=== PATIENT | female | born 1945 | race Caucasian/White ===

== ENCOUNTER → 2017-02-15 | Outpatient (CLI) | payer MEDICARE, BC | END | disposition home or self-care (01) | LOC: LABWHC1 09:47 | PROVIDERS: ATTEND Psychiatry & Neurology Neurology | DX: M54.5 Low back pain (principal); M62.838 Other muscle spasm | CPT/HCPCS: 36415; 82306 ==

== ENCOUNTER 2017-09-05 14:41 | Emergency (ER) | payer MEDICARE, BC ==
[2017-09-05] MEDS ORDERED: DIPH,PERTUS(ACELL)TETVAC-LF 0.5 ML VIAL IM ONE (14:51)
--- NOTE | 2017-09-05 15:00 | ED ---
General Adult HPI - General Stated complaint: Fall, Head injury Time Seen by Provider: 09/05/17 14:42 Source: EMS, RN notes reviewed Mode of arrival: EMS Limitations: no limitations - History of Present Illness Initial comments: 72-year-old female presents to the emergency department with a chief complaint of trip and fall. She states she was carrying her groceries and she lost her balance and fell forward. Patient states that she hit her nose. There is no loss of consciousness. She states that her no surgical abdomen without little right shoulder pain. She does take Plavix. She states no lightheadedness or dizziness before the fall. She denies any loss of consciousness with the fall. She denies a headache at this time. Patient denies any other injuries. Patient denies any recent fever, chills, shortness of breath, chest pain, back pain, abdominal pain, nausea vomiting, numbness or tingling, dysuria or hematuria, constipation or diarrhea, visual changes, or any other current symptoms. - Related Data Home Medications Medication Instructions Recorded Confirmed Atenolol/Chlorthalidone 1 tab PO DAILY 01/07/14 09/05/17 [Atenolol-Chlorthal 50-25 Tb] Clopidogrel Bisulfate [Plavix] 75 mg PO HS 01/07/14 09/05/17 Dapagliflozin Propanediol [Farxiga] 10 mg PO DAILY 01/07/14 09/05/17 Furosemide [Lasix] 20 mg PO DAILY PRN 01/07/14 09/05/17 Insulin Glargine [Lantus] 25 unit SQ 01/07/14 09/05/17 Insulin Glargine [Lantus] 50 unit SQ QA 01/07/14 09/05/17 Moexipril HCl [Univasc] 15 mg PO 01/07/14 09/05/17 Mometasone Furoate [Nasonex] 2 spray EA NOSTRIL DAILY PRN 01/07/14 09/05/17 Montelukast [Singulair] 10 mg PO QA 01/07/14 09/05/17 [place]-3 Acid Ethyl Esters [Lovaza] 4 tab PO DAILY 01/07/14 09/05/17 Potassium Chloride 8 meq PO DAILY 01/07/14 09/05/17 sitaGLIPtin PHOSPHATE [Januvia] 100 mg PO QAM 01/07/14 09/05/17 Pioglitazone [Actos] 15 mg PO DAILY 09/05/17 09/05/17 Previous Rx's Medication Instructions Recorded Amoxicillin/Potassium Clav 1 tab PO Q12HR #20 tab 09/05/17 [Augmentin 875-125 Tablet] Allergies Allergy/AdvReac Type Severity Reaction Status Date / Time meclizine HCl [From Antivert] Allergy Hallucinati Verified 09/05/17 15:43 ons Review of Systems ROS Statement: Those systems with pertinent positive or pertinent negative responses have been documented in the HPI. ROS Other: All systems not noted in ROS Statement are negative. Past Medical History Past Medical History: CVA/TIA, Diabetes Mellitus, GI Bleed, Hypertension Additional Past Medical History / Comment(s): SKIN CA,MULT MINI STROKES, PM >2 YR, DIARRHEA, STRESS INCONTINENCE, ELEVATED LIVER ENZYMES History of Any Multi-Drug Resistant Organisms: None Reported Past Surgical History: Cholecystectomy, Joint Replacement, Orthopedic Surgery Additional Past Surgical History / Comment(s): MOH'S PROCEDURE TO 1/3 OF NOSE, DAVID KNEE REPLACEMENTS, DAVID BUNIONECTOMY, hammer toe repair Past Anesthesia/Blood Transfusion Reactions: Previous Problems w/ Anesthesia Additional Past Anesthesia/Blood Transfusion Reaction / Comment(s): slow to wake up from anesthesia Past Psychological History: No Psychological Hx Reported Smoking Status: Never smoker - Past Family History Mother Family Medical History: Cancer Father Family Medical History: Cancer General Exam Limitations: no limitations General appearance: alert, in no apparent distress Head exam: Present: atraumatic, normocephalic, normal inspection Eye exam: Present: normal appearance, PERRL, EOMI. Absent: scleral icterus, conjunctival injection, periorbital swelling ENT exam: Present: mucous membranes moist, other (Patient is appear to be abrasion to the nose and forehead and a small laceration across the bridge of the nose) Neck exam: Present: normal inspection. Absent: tenderness, meningismus, lymphadenopathy Respiratory exam: Present: normal lung sounds bilaterally. Absent: respiratory distress, wheezes, rales, rhonchi, stridor Cardiovascular Exam: Present: regular rate, normal rhythm, normal heart sounds. Absent: systolic murmur, diastolic murmur, rubs, gallop, clicks Neurological exam: Present: alert, oriented X3 Psychiatric exam: Present: normal affect, normal mood Skin exam: Present: warm, dry Course Vital Signs 09/05/17 14:47 Temperature 97.6 F Pulse Rate 89 Respiratory 16 Rate Blood Pressure 132/58 O2 Sat by Pulse 96 Oximetry Procedures - Procedures Initial comment: The area was cleaned and prepped. Patient underwent Dermabond repair. Patient tolerated the procedure well. Medical Decision Making - Medical Decision Making 72-year-old female presents for trip and fall. At this time imaging has been reviewed. She does appear to have a nasal bone fracture. She did have bleeding from the naris as well as from the nose. At this time we will put her on antibiotics we discussed follow-up with ENT. We discussed snf. We discussed return parameters all questions. Patient family stated they understood and management. All questions have been answered. They will be discharged. - Lab Data Lab Results 09/05/17 Range/Units 15:53 POC Glucose (mg/dL) 142 H (75-99) mg/dL POC Glu Enamel Pulverizer ID Jacque Mayfield - Radiology Data Radiology results: report reviewed, image reviewed Disposition Clinical Impression: Fall, Nasal bone fracture, Laceration of nose Disposition: HOME SELF-CARE Condition: Stable Instructions: Nasal Fracture (ED), Fall Prevention for Older Adults (ED) Additional Instructions: Please use medication as discussed. Please follow up with family doctor if symptoms have not improved over the next two days. Please return to the emergency room if your symptoms increase or worsen or for any other concerns. Prescriptions: Amoxicillin/Potassium Clav [Augmentin 875-125 Tablet] 1 tab PO Q12HR #20 tab Referrals: Ant Amador MD [Primary Care Provider] - 1-2 days Time of Disposition: 16:50
[2017-09-05 15:54] LABS: Glucose,Whole Blood 142 mg/dL (75-99)
--- NOTE | 2017-09-05 16:14 | CT ---
EXAMINATION TYPE: CT brain cspine wo con, CT facial bones wo con DATE OF EXAM: 09/05/2017 COMPARISON: 02/12/2016 HISTORY: Fall with laceration in the nasal region. CT DLP: 1896.57 mGycm. Automated Exposure Control for Dose Reduction was Utilized. Exam DLP of 587.45 for facial bone portion. TECHNIQUE: CT scan of the head and cervical spine are performed without contrast. CT of the facial nyasia dorcas was also performed. FINDINGS: Posterior fossa is nondiagnostic. There is no acute intracranial hemorrhage or midline heather ft identified. There is diffuse ventricular and sulcal prominence consistent with diffuse age-related cerebral atrophy. There is low-attenuation in the periventricular white matter consistent with alley worker gisele small vessel ischemic change. There is mild mucosal thickening of the sphenoid sinus with aerati on of the remainder of the sinuses. Mastoid air cells are also well aerated. Soft tissue swelling is seen over the nasal bone and there is rightward nasal septal deviation anteri tobias with a small leftward 3 mm nasal septal spur at the midportion of the septum. There are nondispl aced fractures of the right and left nasal bones with overlying soft tissue swelling and subcutaneous emphysema. Maxillary spine is intact. Cervical spine is visualized in its entirety from C1 through upper thoracic levels and demonstrates s atisfactory alignment without evidence of acute fracture or dislocation. Prevertebral soft tissue ap pears within normal limits. The C1-C2 articulation is unremarkable. There is fusion of C2 is with C3 The dens is intact although there are degenerative changes such as a subchondral cyst anteriorly john aking through the cortex and nearly immediately into dental interval with pannus formation. Disc abby iation at C4-C5 creates at least moderate spinal canal stenosis in combination with facet arthropathy and uncovertebral hypertrophy. Small disc osteophyte complexes at C5-C6 and C6-C7 also creates at le ast mild spinal canal stenosis. Neural foraminal narrowing is seen in variable degrees throughout the cervical spine. The left carotid artery is noted to be tortuous in course extending medially inferio r to the uvula the level of the epiglottis impress upon the pharynx. IMPRESSION: 1. There is no acute fracture or dislocation evident in the cervical spine. 2. No acute intracranial hemorrhage, mass effect, or midline shift is seen. 3. Nondisplaced fracture of the right and left nasal bones with overlying subcutaneous emphysema and soft tissue swelling. 4. Mild mucosal thickening within the sphenoid sinus. 5. Disc herniation at C4-C5 creating at least moderate spinal canal stenosis and degenerative disc di sease creating at least mild spinal canal stenosis at C5-C6 and C6-C7 with note of fusion of the C2 a nd C3 vertebral bodies.
[2017-09-05] MEDS ORDERED: TOPICAL SKIN ADHESIVE 1 EACH AMP TOPICAL ONE (16:18)
--- NOTE | 2017-09-05 16:38 | XR ---
EXAMINATION TYPE: XR shoulder complete RT DATE OF EXAM: 09/05/2017 CLINICAL HISTORY: Right shoulder pain after fall TECHNIQUE: Three views of the right shoulder are obtained. COMPARISON: None. FINDINGS: There is no acute fracture/dislocation evident in the right shoulder. There is mild glenoh umeral arthropathy and at least moderate acromioclavicular arthropathy is identified.. The visualize d ribs are intact and unremarkable. IMPRESSION: There is no acute fracture or dislocation in the right shoulder.
[2017-09-05 17:04] VITALS: BP 128/65; PULSE 68; RESP 18; TEMP 97.8
== END 2017-09-05 17:04 | disposition home or self-care (01) ==
LOC: EC 14:41
DX: S02.2XXA Fracture of nasal bones, initial encounter for closed fracture (principal); S01.21XA Laceration without foreign body of nose, initial encounter; S00.81XA Abrasion of other part of head, initial encounter; M25.511 Pain in right shoulder; E11.9 Type 2 diabetes mellitus without complications; I10 Essential (primary) hypertension; Z86.73 Personal history of transient ischemic attack (TIA), and cerebral infarction without residual deficits; Z85.828 Personal history of other malignant neoplasm of skin; Z79.01 Long term (current) use of anticoagulants; Z79.4 Long term (current) use of insulin; Z79.899 Other long term (current) drug therapy; Z88.8 Allergy status to other drugs, medicaments and biological substances; Z23 Encounter for immunization; W01.10XA Fall on same level from slipping, tripping and stumbling with subsequent striking against unspecified object, initial encounter
CPT/HCPCS: 12011; 36415; 70450; 70486; 72125; 90471; 90715; 99284

== ENCOUNTER 2017-11-11 16:11 | Emergency (ER) | payer MEDICARE, BC ==
[2017-11-11] MEDS ORDERED: ACETAMINOPHEN TAB 325 MG TAB PO STA (16:42)
[2017-11-11] MEDS ORDERED: SODIUM CHLORIDE 0.9% 500 ML IV ONE ×2 (17:13→19:19)
--- NOTE | 2017-11-11 17:14 | ED ---
General Adult HPI - General Chief complaint: Weakness Stated complaint: Fall Time Seen by Provider: 11/11/17 16:25 Source: patient, family, RN notes reviewed, old records reviewed Mode of arrival: wheelchair Limitations: no limitations - History of Present Illness Initial comments: 72-year-old female presenting for evaluation of generalized weakness and multiple falls. Patient states that approximately 2 months ago she had a fall was evaluated emergency department. Over the past 24 hours she has fallen twice and did strike her head earlier today. She states she is falling secondary to weakness and fatigue. Denies any chest pain or palpitations. She has been running low-grade temperatures at home. She currently has a dental infection and is planning outpatient follow-up. Denies abdominal pain. Denies nausea vomiting or diarrhea. Denies dysuria. Denies focal weakness or paresthesia. - Related Data Home Medications Medication Instructions Recorded Confirmed Atenolol/Chlorthalidone 1 tab PO HS 01/07/14 11/11/17 [Atenolol-Chlorthal 50-25 Tb] Clopidogrel Bisulfate [Plavix] 75 mg PO DAILY 01/07/14 11/11/17 Dapagliflozin Propanediol [Farxiga] 10 mg PO DAILY 01/07/14 11/11/17 Furosemide [Lasix] 20 mg PO DAILY PRN 01/07/14 11/11/17 Moexipril HCl [Univasc] 15 mg PO DAILY 01/07/14 11/11/17 Mometasone Furoate [Nasonex] 2 spray EA NOSTRIL DAILY PRN 01/07/14 11/11/17 Montelukast [Singulair] 10 mg PO DAILY 01/07/14 11/11/17 [place]-3 Acid Ethyl Esters [Lovaza] 4 gm PO QAM 01/07/14 11/11/17 Potassium Chloride 8 meq PO DAILY 01/07/14 11/11/17 sitaGLIPtin PHOSPHATE [Januvia] 100 mg PO QAM 01/07/14 11/11/17 Insulin Degludec [Tresiba 25 unit SQ HS 11/11/17 11/11/17 Flextouch U-100] Insulin Degludec [Tresiba 50 unit SQ QAM 11/11/17 11/11/17 Flextouch U-100] Previous Rx's Medication Instructions Recorded Amoxicillin 500 mg PO Q12HR #14 cap 11/11/17 Allergies Allergy/AdvReac Type Severity Reaction Status Date / Time meclizine HCl [From Antivert] Allergy Hallucinati Verified 11/11/17 16:17 ons Review of Systems ROS Statement: Those systems with pertinent positive or pertinent negative responses have been documented in the HPI. ROS Other: All systems not noted in ROS Statement are negative. Past Medical History Past Medical History: CVA/TIA, Diabetes Mellitus, GI Bleed, Hypertension Additional Past Medical History / Comment(s): SKIN CA,MULT MINI STROKES, PM >2 YR, DIARRHEA, STRESS INCONTINENCE, ELEVATED LIVER ENZYMES History of Any Multi-Drug Resistant Organisms: None Reported Past Surgical History: Cholecystectomy, Joint Replacement, Orthopedic Surgery Additional Past Surgical History / Comment(s): MOH'S PROCEDURE TO 1/3 OF NOSE, DAVID KNEE REPLACEMENTS, DAVID BUNIONECTOMY, hammer toe repair Past Anesthesia/Blood Transfusion Reactions: Previous Problems w/ Anesthesia Additional Past Anesthesia/Blood Transfusion Reaction / Comment(s): slow to wake up from anesthesia Past Psychological History: No Psychological Hx Reported Smoking Status: Never smoker Past Alcohol Use History: None Reported Past Drug Use History: None Reported - Past Family History Mother Family Medical History: Cancer Father Family Medical History: Cancer General Exam Limitations: no limitations General appearance: alert, in no apparent distress Head exam: Present: atraumatic, normocephalic Eye exam: Present: normal appearance, PERRL, EOMI ENT exam: Present: mucous membranes dry, other (Left upper dental abscess which is freely draining purulent material. Lateral to the left upper canine) Neck exam: Present: normal inspection. Absent: tenderness, meningismus Respiratory exam: Present: normal lung sounds bilaterally. Absent: respiratory distress, wheezes Cardiovascular Exam: Present: regular rate, normal rhythm GI/Abdominal exam: Present: soft. Absent: distended, tenderness Extremities exam: Present: normal inspection, full ROM, normal capillary refill. Absent: pedal edema Neurological exam: Present: alert, oriented X3. Absent: motor sensory deficit Psychiatric exam: Present: normal affect, normal mood Skin exam: Present: warm, dry, intact. Absent: cyanosis, diaphoretic Course Vital Signs 11/11/17 16:14 Temperature 100.2 F H Pulse Rate 95 Respiratory 22 Rate Blood Pressure 120/66 O2 Sat by Pulse 92 L Oximetry EKG Findings - EKG Comments: EKG Findings:: EKG: Normal sinus rhythm, LVH, no ST segment elevation rate of 85 , ND interval 144, QRS duration 88, QTC 433 Medical Decision Making - Medical Decision Making 72-year-old female presenting with weakness and multiple falls. She has been running a low-grade temperature and has had some dental pain. She took an antibiotic this morning with this pain. She does have follow-up with her dentist on Tuesday. She reports she has not been eating or drinking well secondary to fever and weakness. On exam the patient is overall well-appearing , nonfocal neuro exam, no ataxia. Workup includes head CT for head trauma that is post false-negative [place] hemorrhage, C-spine negative for fracture subluxation. She did have some mild right hip pain pelvis x-rays negative. Chest x-ray is negative for focal pneumonia. With blood cell count normal 9.5, hemoglobin 14.5 which is stable, there is mild lactic acidosis of 2.6 which is consistent with the degree of dehydration secondary to poor by mouth intake. UA is negative for infection, patient will by mouth intake. She will be prescribed an antibiotic for her dental infection and follow-up with her dentist on Tuesday. She will also follow up with her primary care physician regarding her weakness and multiple falls. She will be discharged to the care of her sons who will watch closely over her over the next several days. increase - Lab Data Result diagrams: 11/11/17 17:32 11/11/17 17:32 Lab Results 11/11/17 11/11/17 11/11/17 Range/Units 17:32 17:32 17:32 WBC 9.5 (3.8-10.6) k/uL RBC 4.14 (3.80-5.40) m/uL Hgb 14.5 (11.4-16.0) gm/dL Hct 42.8 (34.0-46.0) % MCV 103.4 H (80.0-100.0) fL MCH 35.0 (25.0-35.0) pg MCHC 33.9 (31.0-37.0) g/dL RDW 12.7 (11.5-15.5) % Plt Count 88 L (150-450) k/uL Neutrophils % 79 % Lymphocytes % 10 % Monocytes % 9 % Eosinophils % 0 % Basophils % 0 % Neutrophils # 7.5 (1.3-7.7) k/uL Lymphocytes # 0.9 L (1.0-4.8) k/uL Monocytes # 0.8 (0-1.0) k/uL Eosinophils # 0.0 (0-0.7) k/uL Basophils # 0.0 (0-0.2) k/uL Manual Slide Review Performed Large Platelets Present Polychromasia Present Macrocytosis Slight PT (9.0-12.0) sec INR (<1.2) APTT (22.0-30.0) sec Sodium 136 L (137-145) mmol/L Potassium 4.6 (3.5-5.1) mmol/L Chloride 99 (98-107) mmol/L Carbon Dioxide 25 (22-30) mmol/L Anion Gap 12 mmol/L BUN 24 H (7-17) mg/dL Creatinine 0.80 (0.52-1.04) mg/dL Est GFR (CKD-EPI)AfAm 86 (>60 ml/min/1.73 sqM) Est GFR (CKD-EPI)NonAf 75 (>60 ml/min/1.73 sqM) Glucose 269 H (74-99) mg/dL Plasma Lactic Acid Adan 2.6 H* (0.7-2.0) mmol/L Calcium 9.8 (8.4-10.2) mg/dL Total Bilirubin 1.8 H (0.2-1.3) mg/dL AST 95 H (14-36) U/L ALT 57 H (9-52) U/L Alkaline Phosphatase 99 (38-126) U/L Troponin I (0.000-0.034) ng/mL Total Protein 7.6 (6.3-8.2) g/dL Albumin 3.9 (3.5-5.0) g/dL Urine Color Urine Appearance (Clear) Urine pH (5.0-8.0) Ur Specific [employer] (1.001-1.035) Urine Protein (Negative) Urine Glucose (UA) (Negative) Urine Ketones (Negative) Urine Blood (Negative) Urine Nitrite (Negative) Urine Bilirubin (Negative) Urine Urobilinogen (<2.0) mg/dL Ur Leukocyte Esterase (Negative) 11/11/17 11/11/17 11/11/17 Range/Units 17:32 17:32 19:20 WBC (3.8-10.6) k/uL RBC (3.80-5.40) m/uL Hgb (11.4-16.0) gm/dL Hct (34.0-46.0) % MCV (80.0-100.0) fL MCH (25.0-35.0) pg MCHC (31.0-37.0) g/dL RDW (11.5-15.5) % Plt Count (150-450) k/uL Neutrophils % % Lymphocytes % % Monocytes % % Eosinophils % % Basophils % % Neutrophils # (1.3-7.7) k/uL Lymphocytes # (1.0-4.8) k/uL Monocytes # (0-1.0) k/uL Eosinophils # (0-0.7) k/uL Basophils # (0-0.2) k/uL Manual Slide Review Large Platelets Polychromasia Macrocytosis PT 14.7 H (9.0-12.0) sec INR 1.6 H (<1.2) APTT 21.8 L (22.0-30.0) sec Sodium (137-145) mmol/L Potassium (3.5-5.1) mmol/L Chloride (98-107) mmol/L Carbon Dioxide (22-30) mmol/L Anion Gap mmol/L BUN (7-17) mg/dL Creatinine (0.52-1.04) mg/dL Est GFR (CKD-EPI)AfAm (>60 ml/min/1.73 sqM) Est GFR (CKD-EPI)NonAf (>60 ml/min/1.73 sqM) Glucose (74-99) mg/dL Plasma Lactic Acid Adan (0.7-2.0) mmol/L Calcium (8.4-10.2) mg/dL Total Bilirubin (0.2-1.3) mg/dL AST (14-36) U/L ALT (9-52) U/L Alkaline Phosphatase (38-126) U/L Troponin I 0.018 (0.000-0.034) ng/mL Total Protein (6.3-8.2) g/dL Albumin (3.5-5.0) g/dL Urine Color Yellow Urine Appearance Clear (Clear) Urine pH 5.0 (5.0-8.0) Ur Specific [employer] 1.027 (1.001-1.035) Urine Protein Negative (Negative) Urine Glucose (UA) 4+ H (Negative) Urine Ketones Negative (Negative) Urine Blood Negative (Negative) Urine Nitrite Negative (Negative) Urine Bilirubin Negative (Negative) Urine Urobilinogen <2.0 (<2.0) mg/dL Ur Leukocyte Esterase Negative (Negative) Disposition Clinical Impression: Dehydration, Dental abscess Disposition: HOME SELF-CARE Condition: Fair Instructions: Dental Abscess (ED), Dehydration (ED) Prescriptions: Amoxicillin 500 mg PO Q12HR #14 cap Is patient prescribed a controlled substance at d/c from ED?: No Referrals: Ant Amador MD [Primary Care Provider] - 1-2 days Time of Disposition: 20:01
[2017-11-11 17:49] LABS: Basophils % (A) 0 %; Eosinophils % (A) 0 %; HCT 42.8 % (34.0-46.0); HGB 14.5 gm/dL (11.4-16.0); Lymphocytes # (A) 0.9 k/uL (1.0-4.8); Lymphocytes % (A) 10 %; MCHC 33.9 g/dL (31.0-37.0); MCV 103.4 fL (80.0-100.0); Macrocytosis Slight; Mean Platelet Volume 8.9; Monocytes # (A) 0.8 k/uL (0-1.0); Monocytes % (A) 9 %; Neutrophils # (A) 7.5 k/uL (1.3-7.7); Neutrophils % (A) 79 %; RBC 4.14 m/uL (3.80-5.40); RDW 12.7 % (11.5-15.5); WBC 9.5 k/uL (3.8-10.6)
[2017-11-11 17:52] LABS: Albumin 3.9 g/dL (3.5-5.0); Calcium 9.8 mg/dL (8.4-10.2); Potassium 4.6 mmol/L (3.5-5.1); Total Bilirubin 1.8 mg/dL (0.2-1.3); Total Protein 7.6 g/dL (6.3-8.2)
[2017-11-11 18:11] LABS: INR 1.6 (<1.2); Prothrombin Time 14.7 sec (9.0-12.0)
[2017-11-11 18:12] LABS: Partial Thromboplastin Time 21.8 sec (22.0-30.0)
--- NOTE | 2017-11-11 18:35 | CT ---
EXAMINATION TYPE: CT brain berta rodriguez con DATE OF EXAM: 11/11/2017 COMPARISON: 09/05/2017 HISTORY: Fall. CT DLP: 1785 mGycm Automated exposure control for dose reduction was used. TECHNIQUE: CT scan of the head and cervical spine are performed without contrast. FINDINGS: There is mild cerebral cortical atrophy. There is no mass effect nor midline shift. There is no sign of intracranial hemorrhage. There is mild straightening of the mid cervical spine. There is degenerative disc space narrowing at C5-6 and C6-7. 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 The posterior elements are intact. There is posterior endplate spur formation at C4-5 C5-6 C6-7 with some encroachment on the spinal canal. Th ere is calcified posterior C4-5 cervical disc herniation. IMPRESSION: Mild cerebral atrophy. No acute intracranial abnormality. No change. Spondylotic changes in the cervical spine. No fracture. No change compared to old exam.
--- NOTE | 2017-11-11 18:40 | XR ---
EXAMINATION TYPE: XR chest 2V DATE OF EXAM: 11/11/2017 COMPARISON: NONE HISTORY: Fell today. Pain. TECHNIQUE: Frontal and lateral views of the chest are obtained. FINDINGS: There is no heart failure nor confluent pneumonic infiltrate. There is no evidence of a pn eumothorax. There is slight increased density at the right costophrenic angle. Bony thorax appears in tact. There is no sign of a pneumothorax. IMPRESSION: Mild pleural reaction at the lateral right lung base. No pulmonary consolidation.
--- NOTE | 2017-11-11 18:42 | XR ---
EXAMINATION TYPE: XR pelvis AP view DATE OF EXAM: 11/11/2017 COMPARISON: NONE HISTORY: Fell today. TECHNIQUE: Single view FINDINGS: Pelvic ring is intact. Proximal femurs are intact. There is mild spurring of the acetabula. Sacroiliac joints appear normal. IMPRESSION: No acute abnormality of the pelvis. Mild spurring.
[2017-11-11 18:52] LABS: Large Platelets Present
[2017-11-11 18:53] LABS: Platelet Count 88 k/uL (150-450); Polychromasia Present
[2017-11-11 19:45] LABS: Appearance,Urine Clear (Clear); Bilirubin,Urine Negative (Negative); Blood,Urine Negative (Negative); Color,Urine Yellow; Glucose,Urine (UA) 4+ (Negative); Ketones,Urine Negative (Negative); Leukocyte Esterase,Urine Negative (Negative); Nitrite,Urine Negative (Negative); Protein,Urine Negative (Negative); Specific Gravity,Urine 1.027 (1.001-1.035); Urobilinogen,Urine <2.0 mg/dL (<2.0)
[2017-11-11 21:12] VITALS: BP 124/58; PULSE 72; RESP 18; TEMP 98.6
== END 2017-11-11 21:13 | disposition home or self-care (01) ==
LOC: EC 16:11
DX: K04.7 Periapical abscess without sinus (principal); E86.0 Dehydration; M25.551 Pain in right hip; R29.6 Repeated falls; E11.9 Type 2 diabetes mellitus without complications; I10 Essential (primary) hypertension; Z86.73 Personal history of transient ischemic attack (TIA), and cerebral infarction without residual deficits; Z85.828 Personal history of other malignant neoplasm of skin; Z96.653 Presence of artificial knee joint, bilateral; Z79.02 Long term (current) use of antithrombotics/antiplatelets; Z79.4 Long term (current) use of insulin; Z79.899 Other long term (current) drug therapy; Z88.8 Allergy status to other drugs, medicaments and biological substances; W19.XXXA Unspecified fall, initial encounter
CPT/HCPCS: 36415; 70450; 71046; 72125; 72170; 80053; 81003; 83605; 84484; 85025; 85610; 85730; 87040; 87086; 93005; 99285

== ENCOUNTER → 2017-12-26 | Outpatient (CLI) | payer MEDICARE, BC ==
--- NOTE | 2017-12-26 15:33 | US ---
EXAMINATION TYPE: US pelvis complete transvag DATE OF EXAM: 12/26/2017 COMPARISON: NONE CLINICAL HISTORY: 72-year-old female N95.0 Postmenopausal bleeding. TECHNIQUE: Transabdominal sonographic images of the pelvis were acquired. Transvaginal sonographic i mages were medically necessary to better assess the following anatomy: uterus and ovaries Date of LMP: postmenopausal patient FINDINGS: EXAM MEASUREMENTS: Uterus: 9.2 x 4.7 x 4.5 cm Endometrial Stripe: 1.4 cm Right Ovary: obscured by bowel gas/atrophy/obesity Left Ovary: obscured by bowel gas/atrophy/obesity SPACE PHYSICIST NOTES: Morbidly obese patient with limited mobility. Unable to lift hips. Study very limi fara. 1. Uterus: not fully visualized, no masses seen along portions visualized 2. Endometrium: thickened 3. Right Ovary: obscured by bowel gas/atrophy/obesity 4. Left Ovary: obscured by bowel gas/atrophy/obesity 5. Bilateral Adnexa: limited visualization 6. Posterior cul-de-sac: limited visualization IMPRESSION: Very limited study due to patient body habitus and bowel gas shadowing. Portions of the endometrium a re seen and are abnormally thickened at 1.4 cm. Differential considerations include endometrial polyp , hyperplasia, and endometrial carcinoma. Further clinical correlation and appropriate workup recomme nded.
== END | disposition home or self-care (01) ==
LOC: RADUSWWP 12:00
PROVIDERS: ATTEND Obstetrics & Gynecology
DX: R93.8 Abnormal findings on diagnostic imaging of other specified body structures (principal)
CPT/HCPCS: 76830; 76856

== ENCOUNTER → 2018-01-10 | Outpatient (CLI) | payer MEDICARE, BC ==
[2018-01-10 12:57] LABS: Basophils % (A) 1 %; Eosinophils # (A) 0.1 k/uL (0-0.7); Eosinophils % (A) 2 %; HCT 45.7 % (34.0-46.0); HGB 14.9 gm/dL (11.4-16.0); Lymphocytes # (A) 1.2 k/uL (1.0-4.8); Lymphocytes % (A) 24 %; MCH 34.4 pg (25.0-35.0); MCHC 32.5 g/dL (31.0-37.0); MCV 105.7 fL (80.0-100.0); Macrocytosis Slight; Mean Platelet Volume 8.6; Monocytes # (A) 0.4 k/uL (0-1.0); Monocytes % (A) 7 %; Neutrophils # (A) 3.1 k/uL (1.3-7.7); Neutrophils % (A) 65 %; RBC 4.32 m/uL (3.80-5.40); RDW 13.1 % (11.5-15.5); WBC 4.8 k/uL (3.8-10.6)
[2018-01-10 13:53] LABS: Platelet Count 89 k/uL (150-450)
== END | disposition home or self-care (01) ==
LOC: LABPAT 11:37
PROVIDERS: ATTEND Obstetrics & Gynecology
DX: Z01.812 Encounter for preprocedural laboratory examination (principal)
CPT/HCPCS: 36415; 85025

== ENCOUNTER 2018-01-17 07:34 | Day surgery (SDC) | payer MEDICARE, BC ==
[2018-01-12 10:15] VITALS: BMI 40.8
--- NOTE | 2018-01-16 19:05 | P.HPOB ---
History of Present Illness H&P Date: 01/16/18 Chief Complaint: Postmenopausal bleeding, endometrial thickening This is a 72-year-old female 2 para 2 who presents for dilation and curettage with hysteroscopy secondary to postmenopausal bleeding and endometrial thickening on ultrasound. She complained of approximately 3 week history of post menopausal bleeding off and on. She states the bleeding was bright red and spotty in nature. She denied any cramping or pain. Her pelvic ultrasound showed the uterus measuring 9.2 x 4.7 x 4.5 cm with an endometrial stripe thickness of 1.4 cm. Neither ovary was visualized. Previously her menses stopped at approximately age 52. The patient has been on Plavix for her mini strokes. She did stop it a week before surgery. Obstetrical history: . History of 2 vaginal deliveries. Gynecologic history: No history of sexual transmitted diseases. She is not currently sexually active. Social history: She is . She is retired. Review of Systems Constitutional: Reports fatigue Eyes: denies blurred vision, denies pain Ears, nose, mouth and throat: Denies headache, Denies sore throat Cardiovascular: Denies chest pain, Denies shortness of breath Respiratory: Denies cough Gastrointestinal: Reports diarrhea, Denies abdominal pain, Denies nausea, Denies vomiting Genitourinary: Reports abnormal vaginal bleeding, Denies pelvic pain Menstruation: Reports postmenopausal Musculoskeletal: Reports low back pain, Reports myalgias Integumentary: Denies pruritus, Denies rash Psychiatric: Reports memory loss Past Medical History Past Medical History: Cancer, CVA/TIA, Diabetes Mellitus, Hypertension, Memory Impairment, Osteoarthritis (OA) Additional Past Medical History / Comment(s): HX SKIN CA, MULTIPLE MINI STROKES , EPISODES OF DIARRHEA, STRESS INCONTINENCE. DIZZY SPELLS. History of Any Multi-Drug Resistant Organisms: None Reported Past Surgical History: Adenoidectomy, Cholecystectomy, Joint Replacement, Orthopedic Surgery, Tonsillectomy Additional Past Surgical History / Comment(s): Surgery to nose after a fall, DAVID KNEE REPLACEMENTS, DAVID BUNIONECTOMY, hammer toe repair. D&C 2. Rectal polypectomy. Past Anesthesia/Blood Transfusion Reactions: Previous Problems w/ Anesthesia Additional Past Anesthesia/Blood Transfusion Reaction / Comment(s): Extremely slow to wake up from anesthesia. Past Psychological History: No Psychological Hx Reported Smoking Status: Former smoker Past Alcohol Use History: None Reported Additional Past Alcohol Use History / Comment(s): Quit smoking 50 yrs ago, smoked for 6 months. Past Drug Use History: None Reported - Past Family History Mother Family Medical History: Cancer Father Family Medical History: Cancer Medications and Allergies Home Medications Medication Instructions Recorded Confirmed Type Atenolol/Chlorthalidone 1 tab PO QAM 01/07/14 01/12/18 History [Atenolol-Chlorthal 50-25 Tb] Clopidogrel Bisulfate [Plavix] 75 mg PO DAILY 01/07/14 01/12/18 History Dapagliflozin Propanediol [Farxiga] 5 mg PO QAM 01/07/14 01/12/18 History Furosemide [Lasix] 20 mg PO QAM 01/07/14 01/12/18 History Mometasone Furoate [Nasonex] 2 spray EA NOSTRIL DAILY PRN 01/07/14 01/12/18 History Montelukast [Singulair] 10 mg PO DAILY 01/07/14 01/12/18 History sitaGLIPtin PHOSPHATE [Januvia] 100 mg PO QAM 01/07/14 01/12/18 History Insulin Degludec [Tresiba 25 unit SQ HS 11/11/17 01/12/18 History Flextouch U-100] Insulin Degludec [Tresiba 50 unit SQ QAM 11/11/17 01/12/18 History Flextouch U-100] Gabapentin [Neurontin] 200 mg PO HS 01/12/18 01/12/18 History Hydrocodone/Acetaminophen 1 tab PO HS 01/12/18 01/12/18 History [Hydrocodone-Acetamin 7.5-300] Fowler-3 Fatty Acids [Fowler-3] 4,000 mg PO DAILY 01/12/18 01/12/18 History Allergies Allergy/AdvReac Type Severity Reaction Status Date / Time meclizine HCl [From Antivert] Allergy Hallucinati Verified 01/12/18 09:52 ons Exam Osteopathic Statement: *. No significant issues noted on an osteopathic structural exam other than those noted in the History and Physical/Consult. HEENT: Within normal limits Heart: Regular rate and rhythm Lungs: Clear to auscultation bilaterally Abdomen: Soft, nontender Pelvic exam: Uterus is anteverted with no adnexal masses palpated. No bleeding is noted at the time of exam. Extremities: Negative Homans Assessment and Plan (1) Postmenopausal bleeding Status: Acute Code(s): N95.0 - POSTMENOPAUSAL BLEEDING SNOMED Code(s): 84519954 (2) Endometrial thickening on ultrasound Status: Acute Code(s): R93.8 - ABNORMAL FINDINGS ON DIAGNOSTIC IMAGING OF BODY STRUCTURES SNOMED Code(s): 393445202 Plan: Proceed with dilation and curettage with hysteroscopy. I have discussed the risks, benefits, and alternative therapies for the above- mentioned procedure and for both sedation/anesthesia as well as necessary blood products administration, if indicated, as they pertain to this patient. The patient has indicated her understanding and acceptance of the risks and procedures discussed.
[~2018-01-17 07:34] MED LIST: DEXAMETHASONE SOD PHOSPHATE 10 MG/ML 1 ML VIAL IV ONE; LACTATED RINGERS 1,000 ML IV SCH; LIDOCAINE 1% 20 ML VIAL (10MG/ML) FOR IV START INTRADERMA PRN; MIDAZOLAM 2 MG/2 ML VIAL IV PRN; MORPHINE SULFATE 2 MG/ML SYRINGE IV PRN; ONDANSETRON 4 MG/2 ML VIAL IVP ONE; Pre Op ABX Message 1 EACH MISC MISCELLANE ONE; fentaNYL (PF) 50 MCG/ML 2 ML AMP IV PRN
[2018-01-17 08:38] LABS: Glucose,Whole Blood 117 mg/dL (75-99)
[2018-01-17] MEDS ORDERED: KETOROLAC 30 MG/ML 1 ML VIAL ONE (08:39)
[2018-01-17] MEDS ORDERED: LIDOCAINE 1% INJ 10MG/ML (20 ML MDV) ONE (08:39)
[2018-01-17] MEDS ORDERED: fentaNYL (PF) 50 MCG/ML 2 ML AMP ONE (08:39)
[2018-01-17] MEDS ORDERED: PROPOFOL 10 MG/ML 20 ML VIAL IV ONE (08:39)
--- NOTE | 2018-01-17 09:08 | P.OP ---
Date of Procedure: 01/17/18 Preoperative Diagnosis: Postmenopausal bleeding Endometrial thickening Postoperative Diagnosis: Same Procedure(s) Performed: Hysteroscopy with dilation and curettage Anesthesia: other (LMA general) Surgeon: Sonia Dimas Estimated Blood Loss (ml): 2 Pathology: other (Endometrial curettings) Condition: stable Disposition: same day Indications for Procedure: This is a 72-year-old female 2 para 2 who presents for dilation and curettage with hysteroscopy secondary to postmenopausal bleeding and endometrial thickening on ultrasound. She complained of approximately 3 week history of post menopausal bleeding off and on. She states the bleeding was bright red and spotty in nature. She denied any cramping or pain. Her pelvic ultrasound showed the uterus measuring 9.2 x 4.7 x 4.5 cm with an endometrial stripe thickness of 1.4 cm. Neither ovary was visualized. Previously her menses stopped at approximately age 52. The patient has been on Plavix for her mini strokes. She did stop it a week before surgery. Operative Findings: Uterus is anteverted and no adnexal masses are palpated. Uterus is sounded to 10 cm. Upon hysteroscopy, a dyssynchronous endometrial pattern was noted. The left tubal ostia was visualized the right tubal ostia was not completely visualized. A moderate amount of endometrial curettings are obtained. Description of Procedure: The patient is taken to the operating room where she is placed in the dorsal lithotomy position. She is prepped and draped in the normal sterile fashion. Her bladder is drained with a catheter. Examination is performed under anesthesia. Uterus is found to be anteverted with no adnexal masses palpated. Next a weighted speculum was placed in the patient's vagina and a right angle retractor was used to visualize the cervix. The anterior lip of the cervix is grasped with a single-tooth tenaculum. The cervix is noted to be slightly stenotic. The cervix is open with a small Jensen dilator. Next the uterus is sounded to 10 cm. Cervix is gently dilated with Jensen dilators until a hysteroscope could be passed. Hysteroscopy was performed using normal saline. The above noted findings are made and pictures are taken. Next a polyp forceps was introduced and a minimal to moderate amount of tissue is obtained. Next a medium-size sharp curet was introduced and sharp curettage was performed until a gritty texture was noted. There was a slightly uneven texture especially on the posterior wall. A moderate amount of endometrial curettings were obtained. Next the single-tooth tenaculum was removed and pressure was applied with a ring forcep. Once the ring forcep was removed no active bleeding was noted. All instruments are then removed from the vagina. All sponge counts are correct. The patient is then taken to recovery room in stable condition.
[2018-01-17 09:32] LABS: Basophils % (A) 1 %; Eosinophils # (A) 0.1 k/uL (0-0.7); Eosinophils % (A) 2 %; HCT 44.9 % (34.0-46.0); HGB 14.7 gm/dL (11.4-16.0); Lymphocytes # (A) 1.3 k/uL (1.0-4.8); Lymphocytes % (A) 25 %; MCH 34.2 pg (25.0-35.0); MCHC 32.8 g/dL (31.0-37.0); MCV 104.3 fL (80.0-100.0); Macrocytosis Slight; Monocytes # (A) 0.4 k/uL (0-1.0); Monocytes % (A) 8 %; Neutrophils # (A) 3.2 k/uL (1.3-7.7); Neutrophils % (A) 62 %; WBC 5.2 k/uL (3.8-10.6)
[2018-01-17 09:36] LABS: Platelet Count 95 k/uL (150-450)
[2018-01-17 09:40] VITALS: RESP 16
[2018-01-17 09:50] LABS: Glucose,Whole Blood 123 mg/dL (75-99)
[2018-01-17] MEDS ORDERED: LACTATED RINGERS 1,000 ML IV ONE (12:48)
[2018-01-17 13:26] VITALS: BP 128/60; PULSE 67; TEMP 96.3
[2018-01-17 13:54] LABS: Basophils % (A) 0 %; Eosinophils % (A) 0 %; HCT 46.1 % (34.0-46.0); HGB 15.5 gm/dL (11.4-16.0); Lymphocytes # (A) 0.7 k/uL (1.0-4.8); Lymphocytes % (A) 18 %; MCH 35.5 pg (25.0-35.0); MCHC 33.5 g/dL (31.0-37.0); Macrocytosis Slight; Mean Platelet Volume 9.5; Monocytes # (A) 0.1 k/uL (0-1.0); Monocytes % (A) 3 %; Neutrophils # (A) 3.1 k/uL (1.3-7.7); Neutrophils % (A) 77 %; RBC 4.35 m/uL (3.80-5.40); RDW 12.7 % (11.5-15.5); WBC 4.1 k/uL (3.8-10.6)
[2018-01-17 14:12] LABS: Platelet Count 79 k/uL (150-450)
--- NOTE | 2018-01-17 18:03 | P.PN ---
Progress Note - Text Progress Note Date: 01/17/18 I was asked to see Radha earlier this afternoon in regards to bleeding after a D& C. Patient's history is such that she was scheduled for a dilation and curettage per Dr. Dimas this morning for postmenopausal bleeding. Patient's past medical history significant for many things but includes Plavix for history of stroke. Patient states that she stopped her Plavix approximately 5 days ago per instructions prior to her surgery. Patient had a D&C this morning by Dr. Dimas and I was called by the recovery room with the patient having passing a large clot and bright red bleeding. They did contact Dr. Dimas who had left the hospital and asked me to evaluate the patient. I initially saw Mrs. Tinajero in the recovery room and her bleeding had decreased a bit. I discussed with her and her daughter about going home versus watching her longer in the hospital they felt more comfortable being observed for a while, I feel this is reasonable. I did order a CBC and Mrs. Paniagua which shows her hemoglobin to be stable at 15 however she did have some thrombocytopenia at 79. Review of the records show that her platelets were low week ago and this morning on admission. It also appears that she had platelets of 89 in November of this year. This appears to be a chronic condition. Patient is unaware of her thrombocytopenia and states that she did not know that this was a concern. Patient at this point has been watched for at least 6 hours and her bleeding is subsided she is felt to be stable for discharge home at this time. Patient will be discharged home to follow up with her primary care physician and Dr. Dimas. I did instruct her specifically to call if she had concerns about bleeding prior to that time. She is going to restart her Plavix tomorrow as previously instructed by Dr. Dimas.
--- NOTE | 2018-01-17 18:06 | P.DS ---
Providers Expected date of discharge: 01/17/18 Attending physician: Sonia Dimas Primary care physician: [facility] Course: Please see patient's admission history and physical and operative note for intimate details of her admission. Brief summary this pleasant 72-year-old female admitted this morning for D&C for postmenopausal bleeding. Patient postoperatively had some significant bleeding and therefore was admitted for observation. Patient's bleeding stopped spontaneously and CBC showed her hemoglobin to be stable. Patient is thought to be stable for discharge home follow up with Dr. Dimas at her primary care physician. Procedures: Hysteroscopy and D&C. Patient Condition at Discharge: Good Plan - Discharge Summary New Discharge Prescriptions: No Action Mometasone Furoate [Nasonex] 2 spray EA NOSTRIL DAILY PRN PRN Reason: Congestion Atenolol/Chlorthalidone [Atenolol-Chlorthal 50-25 Tb] 1 tab PO QAM sitaGLIPtin PHOSPHATE [Januvia] 100 mg PO QAM Montelukast [Singulair] 10 mg PO DAILY Furosemide [Lasix] 20 mg PO QAM Clopidogrel Bisulfate [Plavix] 75 mg PO DAILY Dapagliflozin Propanediol [Farxiga] 5 mg PO QAM Insulin Degludec [Tresiba Flextouch U-100] 50 unit SQ QAM Insulin Degludec [Tresiba Flextouch U-100] 25 unit SQ HS Burgaw-3 Fatty Acids [Burgaw-3] 4,000 mg PO DAILY Hydrocodone/Acetaminophen [Hydrocodone-Acetamin 7.5-300] 1 tab PO HS Gabapentin [Neurontin] 200 mg PO HS Discharge Medication List Atenolol/Chlorthalidone [Atenolol-Chlorthal 50-25 Tb] 1 tab PO QAM 01/07/14 [ History] Clopidogrel Bisulfate [Plavix] 75 mg PO DAILY 01/07/14 [History] Dapagliflozin Propanediol [Farxiga] 5 mg PO QAM 01/07/14 [History] Furosemide [Lasix] 20 mg PO QAM 01/07/14 [History] Mometasone Furoate [Nasonex] 2 spray EA NOSTRIL DAILY PRN 01/07/14 [History] Montelukast [Singulair] 10 mg PO DAILY 01/07/14 [History] sitaGLIPtin PHOSPHATE [Januvia] 100 mg PO QAM 01/07/14 [History] Insulin Degludec [Tresiba Flextouch U-100] 25 unit SQ HS 11/11/17 [History] Insulin Degludec [Tresiba Flextouch U-100] 50 unit SQ QAM 11/11/17 [History] Gabapentin [Neurontin] 200 mg PO HS 01/12/18 [History] Hydrocodone/Acetaminophen [Hydrocodone-Acetamin 7.5-300] 1 tab PO HS 01/12/18 [ History] Burgaw-3 Fatty Acids [Burgaw-3] 4,000 mg PO DAILY 01/12/18 [History] Follow up Appointment(s)/Referral(s): Sonia Dimas DO [Doctor of Osteopathic Medicine] - 1 Week Patient Instructions/Handouts: *Surgery [facility] - Dilation & Curettage Home Instructions, *Sur[facility] - (Anesthesia) Discharge Instructions Outpatient Surgery, Hysteroscopy (DC) Activity/Diet/Wound Care/Special Instructions: Activity as tolerated. Diet as tolerated. No intercourse for 1 week. May shower, but no tub baths for 1 week. Discharge Disposition: HOME SELF-CARE
== END 2018-01-17 18:50 | disposition home or self-care (01) ==
LOC: OR 07:34 → 4FBP 09:07 → OR 18:50
PROVIDERS: ATTEND Obstetrics & Gynecology
DX: N85.02 Endometrial intraepithelial neoplasia [EIN] (principal); N95.0 Postmenopausal bleeding; E11.9 Type 2 diabetes mellitus without complications; I10 Essential (primary) hypertension; M19.90 Unspecified osteoarthritis, unspecified site; D69.6 Thrombocytopenia, unspecified; K21.9 Gastro-esophageal reflux disease without esophagitis; Z86.73 Personal history of transient ischemic attack (TIA), and cerebral infarction without residual deficits; Z85.828 Personal history of other malignant neoplasm of skin; Z87.891 Personal history of nicotine dependence; Z79.02 Long term (current) use of antithrombotics/antiplatelets; Z79.84 Long term (current) use of oral hypoglycemic drugs; Z79.899 Other long term (current) drug therapy; Z96.653 Presence of artificial knee joint, bilateral; Z90.49 Acquired absence of other specified parts of digestive tract; Z79.4 Long term (current) use of insulin; Z79.891 Long term (current) use of opiate analgesic; Z88.8 Allergy status to other drugs, medicaments and biological substances
CPT/HCPCS: 85025; 58558; J1100; J2405; 88305

== ENCOUNTER 2018-02-09 05:12 | Emergency (ER) | payer MEDICARE, BC ==
--- NOTE | 2018-02-09 05:46 | ED ---
Chest Pain HPI - General Chief Complaint: Chest Pain Stated Complaint: Chest Pain Time Seen by Provider: 02/09/18 05:34 Source: patient, EMS Mode of arrival: EMS Limitations: physical limitation - History of Present Illness Initial Comments: This patient is a 72-year-old woman who presents to be evaluated for chest pain. Patient states that symptoms had come on around 2 in the morning while she was sleeping. She believes they woke her from sleep. She states the pain feels like an aching that is going across her shoulders. She states that she had gotten up and use the bathroom and then the pain was feeling a little better. She went back to bed and states she woke up around 4 with similar symptoms. Patient denies dyspnea, diaphoresis, nausea or vomiting. MD Complaint: chest pain Onset/Timin -: hour(s) Onset: during rest, awoke with symptoms Pain Location: other (Across my shoulders) Pain Radiation: none Severity: severe Quality: aching Consistency: now resolved Improves With: nothing Worsens With: nothing Treatments Prior to Arrival: none - Related Data Home Medications Medication Instructions Recorded Confirmed Atenolol/Chlorthalidone 1 tab PO QAM 01/07/14 02/09/18 [Atenolol-Chlorthal 50-25 Tb] Clopidogrel Bisulfate [Plavix] 75 mg PO DAILY 01/07/14 02/09/18 Furosemide [Lasix] 20 mg PO QAM 01/07/14 02/09/18 Montelukast [Singulair] 10 mg PO DAILY 01/07/14 02/09/18 sitaGLIPtin PHOSPHATE [Januvia] 100 mg PO QAM 01/07/14 02/09/18 Insulin Degludec [Tresiba 25 unit SQ HS 11/11/17 02/09/18 Flextouch U-100] Insulin Degludec [Tresiba 50 unit SQ QAM 11/11/17 02/09/18 Flextouch U-100] Gabapentin [Neurontin] 200 mg PO HS 01/12/18 02/09/18 Acetaminophen Tab [Tylenol Tab] 650 mg PO Q6H PRN 02/09/18 02/09/18 Multivitamin,Therapeutic [Thera] 1 tab PO DAILY 02/09/18 02/09/18 Corinna-3 Acid Ethyl Esters [Lovaza] 4 gm PO DAILY 02/09/18 02/09/18 Potassium Chloride ER [K-Dur 10] 10 meq PO DAILY 02/09/18 02/09/18 Allergies Allergy/AdvReac Type Severity Reaction Status Date / Time meclizine HCl [From Antivert] Allergy Hallucinati Verified 02/09/18 09:25 ons Review of Systems ROS Statement: Those systems with pertinent positive or pertinent negative responses have been documented in the HPI. ROS Other: All systems not noted in ROS Statement are negative. Constitutional: Denies: fever, chills Respiratory: Denies: cough, dyspnea Cardiovascular: Reports: chest pain. Denies: palpitations, orthopnea, edema, syncope Gastrointestinal: Denies: abdominal pain, nausea, vomiting Genitourinary: Denies: dysuria, hematuria Musculoskeletal: Denies: back pain Skin: Denies: rash Neurological: Denies: headache EKG Findings - EKG Results: EKG: interpreted by ERMD, sinus rhythm (Rate 86 bpm), normal axis, normal ST/T - Blocks, [place], Hypertrophy, ST Abn: Chamber hypertrophy or enlargement: left ventricular hypertrophy or enlargement (LVE) Past Medical History Past Medical History: CVA/TIA, Diabetes Mellitus, GI Bleed, Hypertension Additional Past Medical History / Comment(s): SKIN CA,MULT MINI STROKES, PM >2 YR, DIARRHEA, STRESS INCONTINENCE, ELEVATED LIVER ENZYMES, broken nose from fall (September 2017) History of Any Multi-Drug Resistant Organisms: None Reported Past Surgical History: Cholecystectomy, Joint Replacement, Orthopedic Surgery Additional Past Surgical History / Comment(s): MOH'S PROCEDURE TO 1/3 OF NOSE, DAVID KNEE REPLACEMENTS, DAVID BUNIONECTOMY, hammer toe repair Past Anesthesia/Blood Transfusion Reactions: Previous Problems w/ Anesthesia Additional Past Anesthesia/Blood Transfusion Reaction / Comment(s): slow to wake up from anesthesia Past Psychological History: No Psychological Hx Reported Smoking Status: Never smoker Past Alcohol Use History: Rare Past Drug Use History: None Reported - Past Family History Mother Family Medical History: Cancer Father Family Medical History: Cancer General Exam Limitations: physical limitation General appearance: alert, in no apparent distress Head exam: Present: atraumatic, normocephalic Eye exam: Present: normal appearance. Absent: scleral icterus, conjunctival injection ENT exam: Present: normal oropharynx Respiratory exam: Present: normal lung sounds bilaterally. Absent: respiratory distress, wheezes, rales, rhonchi, stridor, chest wall tenderness Cardiovascular Exam: Present: regular rate, normal rhythm, normal heart sounds. Absent: systolic murmur, diastolic murmur, rubs, gallop GI/Abdominal exam: Present: soft. Absent: distended, tenderness, guarding, rebound, mass Extremities exam: Present: normal inspection, normal capillary refill. Absent: pedal edema, calf tenderness Back exam: Present: normal inspection. Absent: CVA tenderness (R), CVA tenderness (L) Neurological exam: Present: alert Skin exam: Present: warm, dry, intact, normal color. 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
[2018-02-09 06:18] LABS: Basophils % (A) 0 %; Eosinophils # (A) 0.1 k/uL (0-0.7); Eosinophils % (A) 1 %; HCT 45.9 % (34.0-46.0); HGB 14.8 gm/dL (11.4-16.0); Lymphocytes % (A) 15 %; MCH 34.4 pg (25.0-35.0); MCHC 32.3 g/dL (31.0-37.0); MCV 106.5 fL (80.0-100.0); Macrocytosis Moderate; Mean Platelet Volume 8.5; Monocytes # (A) 0.5 k/uL (0-1.0); Monocytes % (A) 8 %; Neutrophils # (A) 4.8 k/uL (1.3-7.7); Neutrophils % (A) 74 %; Platelet Count 84 k/uL (150-450); RBC 4.31 m/uL (3.80-5.40); RDW 13.1 % (11.5-15.5); WBC 6.5 k/uL (3.8-10.6)
[2018-02-09] MEDS ORDERED: ACETAMINOPHEN TAB 500 MG TAB PO STA (06:32)
[2018-02-09 06:37] VITALS: PULSE 80
[2018-02-09 06:43] LABS: INR 1.4 (<1.2); Partial Thromboplastin Time 23.7 sec (22.0-30.0); Prothrombin Time 13.2 sec (9.0-12.0)
[2018-02-09 06:45] LABS: Creatine Kinase 24 U/L (30-135)
[2018-02-09 06:47] LABS: Albumin 3.7 g/dL (3.5-5.0); Calcium 9.5 mg/dL (8.4-10.2); D-Dimer 1.67 mg/L FEU (<0.60); Magnesium 1.9 mg/dL (1.6-2.3); Total Bilirubin 1.5 mg/dL (0.2-1.3); Total Protein 7.6 g/dL (6.3-8.2)
[2018-02-09 06:58] LABS: Creatine Kinase MB <0.2 ng/mL (0.0-2.4); Troponin I <0.012 ng/mL (0.000-0.034)
--- NOTE | 2018-02-09 08:25 | CT ---
EXAMINATION TYPE: CT chest angio for PE DATE OF EXAM: 02/09/2018 COMPARISON: None HISTORY: 72-year-old female Chest pain TECHNIQUE: Contiguous axial scanning of the chest performed with IV Contrast, patient injected with 1 00 mL of Isovue 370. Coronal/sagittal MIP reconstructions performed. CT DLP: 444.8 mGycm Automated exposure control for dose reduction was used. FINDINGS: Heart is mildly enlarged without pericardial effusion. Coronary vessel calcifications are present. Borderline caliber to the main right and left pulmonary arteries at 2.6 and 2.5 cm, respectively. Satisfactory opacification of the pulmonary system though with mild respiratory motion artifacts. Seg mental and more distal arterial branches of the lower lungs are nondiagnostic due to the breathing mo tion. No large central lobar pulmonary embolus is seen. No pulmonary embolus seen to the upper midlun gs. No thoracic lymphadenopathy by CT size criteria. Dependent atelectasis. Mild diffuse bronchial wall thickening. No consolidation or pleural effusion. Small hiatal hernia Some images show some contra nodularity of the liver. Status post cholecystectomy. Spleen enlarged at 16.1 cm with a hilar splenule. Bones: Endplate spondylosis throughout the visualized spine. IMPRESSION: 1. BREATHING MOTION ARTIFACTS DEGRADING ASSESSMENT FOR PULMONARY EMBOLUS. THE SEGMENTAL AND MORE DIST AL ARTERIAL BRANCHES OF THE LOWER LUNGS ARE NONDIAGNOSTIC. EMBOLI IN THESE LOCATIONS CANNOT BE EXCLUD ED ON THE BASIS OF THIS EXAM. NO LARGE CENTRAL OR LOBAR EMBOLUS OR EVIDENCE FOR EMBOLUS IN THE UPPER OR MID LUNGS. 2. MILD CARDIOMEGALY AND CAD. 3. POSSIBLE PULMONARY ARTERIAL HYPERTENSION. 4. SOME IMAGES SUGGEST CONTOUR NODULARITY OF THE LIVER. CORRELATE FOR UNDERLYING CIRRHOSIS. 5. SPLENOMEGALY (16.1 CM).
[2018-02-09 09:42] VITALS: BP 109/59; RESP 18; TEMP 99.2
[2018-02-09 09:56] LABS: Glucose,Whole Blood 139 mg/dL (75-99)
[2018-02-09] MEDS ORDERED: diphenhydrAMINE 50 MG/ML 1 ML VIAL IVP STA (10:17)
[2018-02-09] MEDS ORDERED: Acetaminophen-Codeine 300-30mg TAB PO STA (10:18)
== END 2018-02-09 10:37 | disposition home or self-care (01) ==
LOC: EC 05:12
DX: R07.9 Chest pain, unspecified (principal); E11.9 Type 2 diabetes mellitus without complications; I10 Essential (primary) hypertension; Z79.02 Long term (current) use of antithrombotics/antiplatelets; Z79.4 Long term (current) use of insulin; Z79.899 Other long term (current) drug therapy; Z88.8 Allergy status to other drugs, medicaments and biological substances; Z86.73 Personal history of transient ischemic attack (TIA), and cerebral infarction without residual deficits; Z96.653 Presence of artificial knee joint, bilateral
CPT/HCPCS: 36415; 93005; 85379; 80053; 82550; 82553; 83735; 84484; 85025; 85610; 85730; 71275; 99285; Q9967

== ENCOUNTER → 2018-03-01 | Outpatient (CLI) | payer MEDICARE, BC ==
[~2018-03-01] MED LIST changes: -DEXAMETHASONE SOD PHOSPHATE 10 MG/ML 1 ML VIAL IV ONE; -LACTATED RINGERS 1,000 ML IV SCH; -LIDOCAINE 1% 20 ML VIAL (10MG/ML) FOR IV START INTRADERMA PRN; -MIDAZOLAM 2 MG/2 ML VIAL IV PRN; -MORPHINE SULFATE 2 MG/ML SYRINGE IV PRN; -ONDANSETRON 4 MG/2 ML VIAL IVP ONE; -Pre Op ABX Message 1 EACH MISC MISCELLANE ONE; +REGADENOSON 0.4 MG/5 ML SYRINGE IV ONE; -fentaNYL (PF) 50 MCG/ML 2 ML AMP IV PRN
[2018-03-01 08:35] LABS: Basophils % (A) 1 %; Eosinophils # (A) 0.1 k/uL (0-0.7); Eosinophils % (A) 2 %; HCT 48.5 % (34.0-46.0); HGB 15.4 gm/dL (11.4-16.0); Lymphocytes # (A) 1.3 k/uL (1.0-4.8); Lymphocytes % (A) 25 %; MCH 34.4 pg (25.0-35.0); MCHC 31.7 g/dL (31.0-37.0); MCV 108.6 fL (80.0-100.0); Macrocytosis Moderate; Mean Platelet Volume 8.6; Monocytes # (A) 0.4 k/uL (0-1.0); Monocytes % (A) 7 %; Neutrophils # (A) 3.4 k/uL (1.3-7.7); Neutrophils % (A) 64 %; Platelet Count 105 k/uL (150-450); RBC 4.47 m/uL (3.80-5.40); RDW 13.3 % (11.5-15.5); WBC 5.4 k/uL (3.8-10.6)
--- NOTE | 2018-03-01 11:32 | NM ---
EXAMINATION TYPE: NM stress lexiscan cardiolite DATE OF EXAM: 03/01/2018 COMPARISON: NONE HISTORY: Precordial chest pain and abnormal EKG TECHNIQUE: After the intravenous administration of 10.52 mCi Tc 99m Sestamibi - Cardiolite resting S PECT images acquired 60 minutes post injection. The patient received 0.4mg Lexiscan, 24.9 mCi Tc 99m Sestamibi - Stress images obtained [address] injection FINDINGS: Review of stress and rest SPECT images demonstrates areas of fixed defect involving the cardiac apex as well as anteroseptal and inferior adams. Small area of reversibility noted within the cardiac apex . Gated analysis shows wall motion with an estimated left ventricular ejection fraction of 54 %. IMPRESSION: Areas of remote insult as noted. Focal area of reversibility cardiac apex suggestive of stress-induce d ischemia.
--- NOTE | 2018-03-01 11:36 | P.STRESS ---
- Stress Test Note Stress Test Results/Findings: Exam Performed: NM stress lexiscan cardiolite Exam Date: 03/01/18 Reason for Exam: CAD / PRE-OP Height: 5 ft 4 in Weight: 107.048 kg Protocol: LEXISCAN Stage: NA Duration of Exercise: NA Resting Heart Rate: 67 Resting Blood Pressure: 114/59 Maximum Achieved Heart Rate: 74 Maximum Achieved Blood Pressure: 194/74 85% PMHR: NA 100% PMHR: NA METS: NA Technologist Comment: Stress Test Results/Findings: This is a 72-year-old female with history of hypertension, diabetes and previous CVA and also family history being evaluated for chest pain. Stress data: Baseline EKG showed sinus rhythm with diffuse nonspecific ST-T changes and poor R-wave progression in the anterior leads. A standard dose of Lexiscan was infused. EKGs did not reveal any changes. Patient did not express any symptoms. Final impression: #1. Negative Lexiscan stress test #2. Patient did not express any chest pain #3. Report on the nuclear images to be given by the radiologist.
== END | disposition home or self-care (01) ==
LOC: RADNMMAIN 07:48
PROVIDERS: ATTEND Family Medicine
DX: I25.10 Atherosclerotic heart disease of native coronary artery without angina pectoris (principal); D64.9 Anemia, unspecified
CPT/HCPCS: 93017; 85025; 78452; A9500; J2785

== ENCOUNTER → 2018-03-29 | Outpatient (CLI) | payer MEDICARE, BC ==
--- NOTE | 2018-03-29 16:50 | BD ---
EXAMINATION TYPE: Axial Bone Density DATE OF EXAM: 03/29/2018 COMPARISON: 2014 CLINICAL HISTORY: osteopenia, Z 13.820 Height: 5'2 1/2 Weight: 238 FRAX RISK QUESTIONS: History of Fracture in Adulthood: y Secondary Osteoporosis: 3. Menopause before 45: y RISK FACTORS HISTORY OF: Active: n Postmenopausal woman: y Frequent falls: y MEDICATIONS: Additional Medications: blood pressure, fish oil, type 2 diabetes, insulin, Additional History: uterine cancer recently diagnosed this week EXAM MEASUREMENTS: Bone mineral densitometry was performed using the [employer] System. Bone mineral density as measured about the Lumbar spine is: ----- L1-L4(G/cm2): 1.630 T Score Values are as follows: ----- L2: 1.5 ----- L3: 4.8 ----- L4: 6.0 ----- L1-L4:3.8 Bone mineral density has: Decreased -5.4since study03/13/2015 Bone mineral density about the R hip (g/cm2): 1.003 Bone mineral density about the L hip (g/cm2): 0.852 T Score values are as follows: -----R Neck: -0.3 -----L Neck: -1.3 -----R Total: -0.1 -----L Total: -0.5 Bone mineral density has: Increased 1.3since study of: 03/13/2015 IMPRESSION: Osteopenia (T Score between -2.5 and -1). There is slightly increased risk of fracture and the patient may be considered for treatment. Re-Screen 2-5 years. NOTE: T-SCORE=SD OF THE YOUNG ADULT MEAN.
--- NOTE | 2018-03-30 10:57 | MM ---
Reason for exam: screening (asymptomatic). Last mammogram was performed 3 years and 1 month ago. History: Patient is postmenopausal and has history of other cancer at age 72. Benign excisional biopsy of the right breast. Took hormonal contraceptives for 7 years. Physical Findings: A clinical breast exam by your physician is recommended on an annual basis and results should be correlated with mammographic findings. MG Screening Mammo w CAD Bilateral CC and MLO view(s) were taken. Prior study comparison: March 13, 2015, bilateral MG screening mammo w CAD. February 25, 2014, bilateral MG screening mammo w CAD. The breast tissue is heterogeneously dense. This may lower the sensitivity of mammography. There are increasing right grouped lower inner quadrant calcifications 8.5cm from nipple, linear in distribution. Left benign appearing scattered calcifications. ASSESSMENT: Incomplete: need additional imaging evaluation, BI-RAD 0 RECOMMENDATION: Special view mammogram of the right breast. [facility] will attempt to contact patient to return for supplemental views.
== END | disposition home or self-care (01) ==
LOC: RADMAMWWP 11:25
PROVIDERS: ATTEND Obstetrics & Gynecology
DX: Z12.31 Encounter for screening mammogram for malignant neoplasm of breast (principal); M85.80 Other specified disorders of bone density and structure, unspecified site
CPT/HCPCS: 77067; 77080

== ENCOUNTER → 2018-03-31 | Outpatient (CLI) | payer MEDICARE, BC ==
--- NOTE | 2018-04-03 10:44 | MM ---
Reason for exam: additional evaluation requested from abnormal screening. Last mammogram was performed less than 1 month ago. History: Patient is postmenopausal and has history of endometrial cancer at age 72. Benign excisional biopsy of the right breast. Took hormonal contraceptives for 7 years. Physical Findings: Nurse did not find any significant physical abnormalities on exam. MG 3D Work Up W/Cad RT CC with magnification, ML with magnification, and ML view(s) were taken of the right breast. Prior study comparison: March 29, 2018, bilateral MG screening mammo w CAD. March 13, 2015, bilateral MG screening mammo w CAD. The breast tissue is heterogeneously dense. This may lower the sensitivity of mammography. Finding: There are intermediate concern, suspicious coarse heterogeneous, linear arranged calcifications in the 6 o'clock middle position of the right breast. New finding since March 13, 2015. These results were verbally communicated with the patient and result sheet given to the patient on 03/31/18. ASSESSMENT: Suspicious, BI-RAD 4 RECOMMENDATION: Surgical consultation and stereotactic core biopsy of the right breast. Called Dr. Dimas with mammographic findings and has scheduled an appointment for the patient for 05/05/18 at 12:[address] Gimenez. Biopsy scheduled for 05/12/18 at 8:00. PRELIMINARY REPORT CALLED AND FAXED TO DR. GIMENEZ ON 04/03/18.
== END ==
LOC: RADMAMWWP 15:31
PROVIDERS: ATTEND Obstetrics & Gynecology
DX: Z12.31 Encounter for screening mammogram for malignant neoplasm of breast (principal); R92.1 Mammographic calcification found on diagnostic imaging of breast
CPT/HCPCS: 77065; G0279; 77061

== ENCOUNTER → 2018-04-10 | Outpatient (CLI) | payer MEDICARE, BC ==
[2018-04-10 11:59] LABS: Magnesium 1.7 mg/dL (1.6-2.3); Potassium 4.3 mmol/L (3.5-5.1)
== END ==
LOC: LABPAT 10:40
PROVIDERS: ATTEND Internal Medicine Cardiovascular Disease
DX: Z01.812 Encounter for preprocedural laboratory examination (principal); E11.8 Type 2 diabetes mellitus with unspecified complications; R07.9 Chest pain, unspecified
CPT/HCPCS: 36415; 80051; 82565; 82947; 83735; 84520

== ENCOUNTER 2018-04-12 09:55 | Day surgery (SDC) | payer MEDICARE, BC ==
[2018-04-11 08:27] VITALS: BMI 41.7
[~2018-04-12 09:55] MED LIST changes: +ALPRAZolam 0.25 MG TAB PO PRN; +ALPRAZolam 0.5 MG TAB PO PRN; +ASPIRIN 325 MG TAB PO STA; +ATORVASTATIN 80 MG TAB PO STA; +NITROGLYCERIN SL TABS 0.4 MG TAB SUBLINGUAL PRN; -REGADENOSON 0.4 MG/5 ML SYRINGE IV ONE; +SODIUM CHLORIDE 0.9% 1,000 ML in EMPTY BAG 1 BAG IV ONE
[2018-04-12 10:58] LABS: Glucose,Whole Blood 132 mg/dL (75-99)
[2018-04-12 11:17] LABS: Anion Gap 7 mmol/L; Blood Urea Nitrogen 26 mg/dL (7-17); Calcium 9.8 mg/dL (8.4-10.2); Carbon Dioxide 25 mmol/L (22-30); Chloride 108 mmol/L (98-107); Glucose 149 mg/dL (74-99); Sodium 140 mmol/L (137-145)
[2018-04-12 11:18] LABS: Basophils % (A) 0 %; Eosinophils # (A) 0.1 k/uL (0-0.7); Eosinophils % (A) 2 %; HCT 45.7 % (34.0-46.0); Lymphocytes # (A) 1.4 k/uL (1.0-4.8); Lymphocytes % (A) 26 %; MCH 34.5 pg (25.0-35.0); MCHC 32.9 g/dL (31.0-37.0); Macrocytosis Slight; Monocytes # (A) 0.4 k/uL (0-1.0); Monocytes % (A) 7 %; Neutrophils # (A) 3.5 k/uL (1.3-7.7); Neutrophils % (A) 63 %; RBC 4.36 m/uL (3.80-5.40); RDW 13.1 % (11.5-15.5); WBC 5.6 k/uL (3.8-10.6)
[2018-04-12 11:19] LABS: Potassium 4.8 mmol/L (3.5-5.1)
[2018-04-12] MEDS ORDERED: LIDOCAINE 1% INJ 10MG/ML (20 ML MDV) ONE (11:39)
[2018-04-12] MEDS ORDERED: VERAPAMIL 2.5 MG/ML 2 ML AMP ONE (11:39)
[2018-04-12] MEDS ORDERED: fentaNYL (PF) 50 MCG/ML 2 ML AMP ONE (11:39)
[2018-04-12] MEDS ORDERED: HEPARIN SODIUM 1,000 UN/ML (10ML VL) ONE (11:39)
[2018-04-12] MEDS ORDERED: MIDAZOLAM 2 MG/2 ML VIAL ONE (11:39)
[2018-04-12 11:55] LABS: Platelet Count 91 k/uL (150-450)
[2018-04-12] MEDS ORDERED: MIDAZOLAM 2 MG/2 ML VIAL IVP ONE (11:55)
[2018-04-12] MEDS ORDERED: fentaNYL (PF) 50 MCG/ML 2 ML AMP IVP ONE (11:55)
[2018-04-12] MEDS ORDERED: LIDOCAINE 1% (PF) 10MG/ML VIAL SQ ONE (11:58)
[2018-04-12] MEDS: VERAPAMIL SYRINGE (5 MG/10 ML) INTRAARTER ONE ×2 (12:03→13:31)
[2018-04-12] MEDS ORDERED: HEPARIN SODIUM 1,000 UN/ML (10ML VL) IV ONE (12:06)
[2018-04-12] MEDS ORDERED: IOPAMIDOL-370 50ML BTL INJ ONE (12:19)
--- NOTE | 2018-04-12 12:43 | P.CARDCATH ---
Date of Procedure: 04/12/18 Preoperative Diagnosis: Positive stress test ,chest pain, hypertension and diabetes mellitus Postoperative Diagnosis: Critical lesion involving the mid LAD Procedure(s) Performed: Left heart catheterization with left ventriculography Description of Procedure: HISTORY: This is a 72-year-old obese female with history of hypertension, hypercholesterolemia and diabetes who was recently evaluated by nuclear stress test because of chest pain and also upcoming preop clearance for hysterectomy. This was reported as showing abnormal findings with eccentric significant anteroapical wall with some reversible ischemia. Patient is advised to have a cardiac catheterization for definitive diagnosis. CONSENT:I have discussed the risks, benefits and alternative therapies for the above-mentioned procedure and for both sedation/analgesia as well as necessary blood product administration, if indicated, as they pertain to this patient. The patient has indicated understanding and acceptance of the risks and procedures discussed. PROCEDURE: Patient was brought to the lab in a fasting state. Patient was given some IV sedation. The right wrist is infiltrated with lidocaine and right radial artery was entered using Seldinger technique. A 6-Slovenian catheter was left in place and selective coronary arteriography and left ventriculography was performed. Patient tolerated the procedure well. Patient is found to have critical lesion in the mid LAD after major septal branch. This is waiting to have stent placement of the LAD by Dr. JOSE Blevins Conscious Sedation: Versed 1mg Fentanyl 50 g Duration 30 minutes HEMODYNAMICS:. The aortic pressure is about 110/70. Left ventricular end- diastolic pressure is 16. There is no gradient across the aortic valve SELECTIVE CORONARY ARTERIOGRAPHY: LEFT MAIN: Normal length and free of any occlusive disease. There is calcification involving the left main, proximal LAD THE LEFT ANTERIOR DESCENDING CORONARY ARTERY:. This is a good caliber vessel giving rise good-sized septal branch. After this septal branch. There is about 95% eccentric lesion involving the LAD. The distal LAD has about 40-50% lesion. THE LEFT CIRCUMFLEX AND IS CORONARY ARTERY:. This is a good caliber vessel giving rise to good-sized OM branch. The circumflex coronary artery and branches are free of any significant focal occlusive lesion THE RIGHT CORONARY ARTERY:. This is a large caliber vessel and dominant giving rise to PDA and PLV. Free of any Sigmund focal lesions LEFT VENTRICULOGRAPHY: This revealed normal-sized Cardec silhouette the preserved LV function FINAL IMPRESSION:. Critical lesion involving the LAD after the major septal branch PLAN: Stent placement of the LAD to be done by Dr. JOSE Blevins PROGNOSIS: Fair
[2018-04-12] MEDS ORDERED: BIVALIRUDIN BOLUS 250 MG/50 ML IV ONE (13:06)
[2018-04-12] MEDS ORDERED: BIVALIRUDIN 250 MG in SODIUM CHLORIDE 0.9% 50 ML IV ONE (13:08)
[2018-04-12] MEDS ORDERED: IOPAMIDOL-370 125ML BTL INJ ONE (13:13)
[2018-04-12] MEDS: NITROGLYCERIN 1000MCG/10ML SYRINGE INTRACORON ONE ×2 (13:16→13:29)
[2018-04-12] MEDS ORDERED: CLOPIDOGREL 75 MG TAB ONE (13:35)
[2018-04-12] MEDS ORDERED: CLOPIDOGREL 75 MG TAB PO ONE (13:39)
[2018-04-12] MEDS ORDERED: MAG HYDROX/AL HYDROX/SIMETH 30 ML CUP PO PRN (13:40)
[2018-04-12] MEDS ORDERED: IOPAMIDOL-370 100ML BTL INJ ONE (13:40)
[2018-04-12] MEDS ORDERED: ATROPINE SULFATE 0.1 MG/ML 10ML SYRINGE IV PRN (13:40)
[2018-04-12] MEDS ORDERED: RX INFO: IV CONTRAST WAS GIVEN 1 EACH MISC MISCELLANE PRN (13:40)
[2018-04-12] MEDS ORDERED: ZOLPIDEM 5 MG TAB PO PRN (13:40)
[2018-04-12] MEDS ORDERED: SODIUM CHLORIDE 0.9% 1,000 ML IV SCH (13:45)
[2018-04-12 14:40] LABS: Glucose,Whole Blood 100 mg/dL (75-99)
[2018-04-12] MEDS: ACETAMINOPHEN TAB 500 MG TAB PO PRN ×2 (17:41→21:43)
--- NOTE | 2018-04-12 19:52 | PTCA ---
PERCUTANEOUSTRANS CORORONARY ANGIOGRAPHY DATE OF SERVICE: 04/12/18. PROCEDURE: PTCA and stenting of a complex calcified subtotal mid left anterior descending coronary artery in 2 different areas with drug-eluting stent. PERFORMED BY: Dr. Radha Blevins. Moderate conscious sedation time was 44 minutes. Patient was administered Benadryl, Versed. Oxygen saturation, hemodynamics and EKG were monitored closely. CLINICAL INFORMATION: Mrs. Radha Tinajero is a 72-year-old lady with a history of type 2 diabetes, hypertension, hyperlipidemia, admitted by Dr. Goyal for cardiac cath from right radial approach. Cardiac cath revealed a subtotal mid LAD lesion. This lady is going for elective [facility] in the [facility]. She also has another additional lesion of about 80-90 percent in the mid LAD beyond the second diagonal branch. The LAD had a tight lesion immediately after a large septal branch and this was a subtotal lesion appeared to be chronic with heavy calcification. I explained to the patient prior to the procedure that this was a complex lesion and the success rate is somewhat lower given the chronicity and calcification. PROCEDURE NOTE: The existing 6-Djiboutian introducer in the right radial artery was used to perform the procedure. A 3.5 curved left [place] guide catheter of 6-Djiboutian caliber was used to cannulate the left coronary artery. I had some difficulty going up from the brachial area because of tortuosity and I had to use a Glidewire. Patient received Angiomax bolus and infusion and also she was already on Plavix and aspirin. She received an additional 300 mg of Plavix. I initially tried to cross the lesion with a run-through wire. I had difficulty. I switched over to a Whisper wire with a steep curve and with this I was able to get across the lesion. Wire was kept distally. I could not advance a 2.25 caliber balloon. I then used a 1.58 mm balloon. With this I gave multiple inflations in both the mid and proximal lesions and then I was able to use the 2.25 caliber 12 mm NC Trek balloon and with this I dilated the proximal lesion. A good angiographic result was achieved. I then advanced a 2.25 caliber 8 mm Xience stent in the distal lesion after the second diagonal and a 2.5 caliber 8 mm Xience stent in the proximal lesion just after the septal branch. The patient did not have chest pain or EKG changes. Excellent angiographic result without complication was achieved. The sheath was then taken out and TR band applied as per protocol and saturation in the fingers of the right hand was about 97%. Excellent angiographic result was achieved. The results were discussed with the patient and also with her daughter and she was sent to the room in a stable condition with the expectation that she will be discharged in the next 24 hours. MMODL / IJN: [id number] /
[2018-04-12] MEDS ORDERED: INSULIN DETEMIR 100 UNIT/ML 10 ML VIAL SQ SCH (21:00)
[2018-04-12] MEDS ORDERED: GABAPENTIN 100 MG CAP PO SCH (21:00)
[2018-04-12] MEDS ORDERED: ATORVASTATIN 80 MG TAB PO SCH (21:00)
[2018-04-12] MEDS: INSULIN ASPART 100 UNIT/ML 1 ML 10 ML VIAL SQ SCH (21:43)
[2018-04-12 21:47] LABS: Glucose,Whole Blood 213 mg/dL (75-99)
[2018-04-13 03:54] VITALS: RESP 18
[2018-04-13 05:55] LABS: Glucose,Whole Blood 134 mg/dL (75-99)
[2018-04-13 06:25] LABS: Basophils % (A) 0 %; Eosinophils # (A) 0.1 k/uL (0-0.7); Eosinophils % (A) 3 %; HCT 42.5 % (34.0-46.0); Lymphocytes # (A) 1.1 k/uL (1.0-4.8); Lymphocytes % (A) 21 %; MCH 35.2 pg (25.0-35.0); MCHC 32.8 g/dL (31.0-37.0); MCV 107.2 fL (80.0-100.0); Macrocytosis Moderate; Mean Platelet Volume 8.7; Monocytes # (A) 0.4 k/uL (0-1.0); Monocytes % (A) 7 %; Neutrophils # (A) 3.7 k/uL (1.3-7.7); Neutrophils % (A) 67 %; RBC 3.96 m/uL (3.80-5.40); RDW 13.1 % (11.5-15.5); WBC 5.5 k/uL (3.8-10.6)
[2018-04-13] MEDS: INSULIN ASPART 100 UNIT/ML 1 ML 10 ML VIAL SQ SCH ×2 (06:30→12:37)
[2018-04-13 06:32] LABS: Anion Gap 7 mmol/L; Blood Urea Nitrogen 23 mg/dL (7-17); Calcium 9.4 mg/dL (8.4-10.2); Carbon Dioxide 26 mmol/L (22-30); Chloride 108 mmol/L (98-107); Glucose 135 mg/dL (74-99); Potassium 3.9 mmol/L (3.5-5.1); Sodium 141 mmol/L (137-145)
[2018-04-13 06:40] LABS: Platelet Count 82 k/uL (150-450)
[2018-04-13] MEDS ORDERED: INSULIN ASPART 100 UNIT/ML 1 ML 10 ML VIAL SQ SCH (07:30)
[2018-04-13] MEDS ORDERED: MULTIVITAMINS, THERA 1 EACH TAB PO SCH (09:00)
[2018-04-13] MEDS ORDERED: CLOPIDOGREL 75 MG TAB PO SCH (09:00)
[2018-04-13] MEDS ORDERED: LINAGLIPTIN 5 MG TABLET PO SCH (09:00)
[2018-04-13] MEDS ORDERED: LOVAZA PO SCH (09:00)
[2018-04-13] MEDS ORDERED: INSULIN DETEMIR 100 UNIT/ML 10 ML VIAL SQ SCH (09:00)
[2018-04-13] MEDS ORDERED: LISINOPRIL 20 MG TAB PO SCH (09:00)
[2018-04-13] MEDS ORDERED: ASPIRIN 81 MG PO SCH (09:00)
[2018-04-13] MEDS ORDERED: POTASSIUM CHLORIDE ER 10 MEQ TAB.ER.PRT PO SCH (09:00)
[2018-04-13] MEDS ORDERED: ATENOLOL 50 MG TAB PO SCH (09:00)
[2018-04-13] MEDS ORDERED: LOSARTAN 25 MG TAB PO SCH (09:00)
--- NOTE | 2018-04-13 09:06 | P.DS ---
Providers Date of admission: 04/12/2018 Expected date of discharge: 04/13/18 Attending physician: Tran Goyal Consults: 04/12/18 13:40 Consult Physician Routine Consulting Provider: [facility] Consult Reason/Comments: Post Interventional patient Do you want consulting provider notified?: Already Contacted Primary care physician: Ant Amador - Discharge Diagnosis(es) (1) Positive cardiac stress test Current Visit: Yes Status: Acute (2) Angina at rest Current Visit: Yes Status: Acute (3) Status post coronary artery stent placement Current Visit: Yes Status: Acute (4) Hypertension, essential Current Visit: Yes Status: Acute (5) Diabetes mellitus Current Visit: Yes Status: Acute Hospital Course: This patient was brought in for elective cardiac catheterization for positive stress test and chest pains. Patient was found to have critical lesion in the LAD in the midportion after the major septal branch, followed by another lesion in the distal portion. Patient had 2 stents put in by Dr. JOSE Blevins. Patient has remained stable. Her puncture site seems to be stable without any hematoma. Pedal pulses are intact. Patient doesn't have any chest pains. Lungs appeared clear. Heart is regular. Patient is being discharged home. She 'll continue Plavix and aspirin 81 mg, along with the rest of the medication. She is also given a prescription for Cozaar. She cannot tolerate Lipitor and will we're going to put her on Crestor 10 mg and titrate the dose as tolerated. She is also advised to take CoQ10. Follow-up in the office in one week. Plan - Discharge Summary Discharge Rx Participant: Yes New Discharge Prescriptions: New Aspirin 81 mg PO DAILY chew Losartan [Cozaar] 25 mg PO DAILY #30 tab Nitroglycerin Sl Tabs [Nitrostat] 0.4 mg SUBLINGUAL Q5M PRN #100 tab PRN Reason: Chest Pain Continue Atenolol/Chlorthalidone [Atenolol-Chlorthalidone 50-25] 1 tab PO QAM sitaGLIPtin PHOSPHATE [Januvia] 100 mg PO QAM Furosemide [Lasix] 10 mg PO QAM Clopidogrel Bisulfate [Plavix] 75 mg PO DAILY Insulin Degludec [Tresiba Flextouch U-100] 50 unit SQ QAM Insulin Degludec [Tresiba Flextouch U-100] 25 unit SQ HS Gabapentin [Neurontin] 200 mg PO HS Potassium Chloride ER [K-Dur 10] 10 meq PO DAILY Herndon-3 Acid Ethyl Esters [Lovaza] 4 gm PO DAILY Multivitamin,Therapeutic [Thera] 1 tab PO DAILY Acetaminophen Tab [Tylenol] 650 mg PO Q6H PRN PRN Reason: Pain Moexipril HCl [Univasc] 15 mg PO DAILY Aspirin 325 mg PO ONCE Discharge Medication List Atenolol/Chlorthalidone [Atenolol-Chlorthalidone 50-25] 1 tab PO QAM 01/07/14 [ History] Clopidogrel Bisulfate [Plavix] 75 mg PO DAILY 01/07/14 [History] Furosemide [Lasix] 10 mg PO QAM 01/07/14 [History] sitaGLIPtin PHOSPHATE [Januvia] 100 mg PO QAM 01/07/14 [History] Insulin Degludec [Tresiba Flextouch U-100] 25 unit SQ HS 11/11/17 [History] Insulin Degludec [Tresiba Flextouch U-100] 50 unit SQ QAM 11/11/17 [History] Gabapentin [Neurontin] 200 mg PO HS 01/12/18 [History] Acetaminophen Tab [Tylenol] 650 mg PO Q6H PRN 02/09/18 [History] Multivitamin,Therapeutic [Thera] 1 tab PO DAILY 02/09/18 [History] Herndon-3 Acid Ethyl Esters [Lovaza] 4 gm PO DAILY 02/09/18 [History] Potassium Chloride ER [K-Dur 10] 10 meq PO DAILY 02/09/18 [History] Moexipril HCl [Univasc] 15 mg PO DAILY 04/11/18 [History] Aspirin 325 mg PO ONCE 04/12/18 [History] Aspirin 81 mg PO DAILY chew 04/13/18 [Rx] Losartan [Cozaar] 25 mg PO DAILY #30 tab 04/13/18 [Rx] Nitroglycerin Sl Tabs [Nitrostat] 0.4 mg SUBLINGUAL Q5M PRN #100 tab 04/13/18 [ Rx] Follow up Appointment(s)/Referral(s): Tran Goyal MD [STAFF PHYSICIAN] - 1 Week Discharge Disposition: HOME SELF-CARE
[2018-04-13 11:18] VITALS: TEMP 97
[2018-04-13 11:27] LABS: Glucose,Whole Blood 244 mg/dL (75-99)
[2018-04-13 12:36] VITALS: BP 115/58; PULSE 74
== END 2018-04-13 12:50 | disposition home or self-care (01) ==
LOC: CATHCVL 09:55 → 3SCARD 13:32 → CATHCVL 04-13 12:50
PROVIDERS: ATTEND Internal Medicine Cardiovascular Disease
DX: I25.119 Atherosclerotic heart disease of native coronary artery with unspecified angina pectoris (principal); I25.84 Coronary atherosclerosis due to calcified coronary lesion; I25.82 Chronic total occlusion of coronary artery; I10 Essential (primary) hypertension; E78.5 Hyperlipidemia, unspecified; R94.39 Abnormal result of other cardiovascular function study; E78.00 Pure hypercholesterolemia, unspecified; E11.69 Type 2 diabetes mellitus with other specified complication; E66.9 Obesity, unspecified; Z86.73 Personal history of transient ischemic attack (TIA), and cerebral infarction without residual deficits; Z82.49 Family history of ischemic heart disease and other diseases of the circulatory system; Z68.41 Body mass index [BMI] 40.0-44.9, adult; Z79.899 Other long term (current) drug therapy; Z79.4 Long term (current) use of insulin; Z79.02 Long term (current) use of antithrombotics/antiplatelets; Z95.5 Presence of coronary angioplasty implant and graft; Z79.82 Long term (current) use of aspirin
CPT/HCPCS: 93458; 80048 ×2; 85025 ×2; C9600; C1769 ×3; C1887; C1725 ×2; C1894; C1874; J2250; J3010; J1644; J0583; J2001; Q9967 ×3

== ENCOUNTER → 2018-06-12 | Outpatient (CLI) | payer MEDICARE, BC ==
--- NOTE | 2018-06-12 10:57 | US ---
EXAMINATION TYPE: US abdomen complete DATE OF EXAM: 06/12/2018 COMPARISON: NONE CLINICAL HISTORY: D64.6 THROMBOCYTOPENIA. EXAM MEASUREMENTS: Liver Length: 14.3 cm Gallbladder Wall: Surgically absent CBD: 0.4 cm Spleen: 14.7 cm Right Kidney: 13.3 x 4.1 x 4.5 cm Left Kidney: 13.0 x 4.4 x 4.4 cm Morbidly obese patient with severe overlying bowel gas, technically difficult study. Pancreas: in the area of the uncinate process is a complex mass measuring 1.9 x 1.7 x 2.4cm Liver: nodular contour, left lobe appears large Gallbladder: Not seen Evidence for sonographic Bryant's sign: CBD: wnl Spleen: enlarged, splenule measuring 1.7 x 1.7 x 1.6cm Right Kidney: No evident mass Left Kidney: No evident mass, no hydronephrosis or calcification present bilaterally, cortical medull angel differentiation is maintained Upper IVC: wnl Abd Aorta: Obscured by overlying bowel gas There is no ascites evident. IMPRESSION: Exam is limited. Splenomegaly. Indeterminate lesion at the level of the uncinate process, consider contrast-enhanced CT scan for better evaluation. Correlate for possible cirrhosis. Patient is post cholecystectomy.
== END ==
LOC: RADUSWWP 09:19
PROVIDERS: ATTEND Internal Medicine Hematology & Oncology
DX: R16.1 Splenomegaly, not elsewhere classified (principal)
CPT/HCPCS: 76700

== ENCOUNTER → 2018-06-15 | Outpatient (CLI) | payer MEDICARE, BC ==
--- NOTE | 2018-06-15 15:07 | CT ---
EXAMINATION TYPE: CT abdomen w con DATE OF EXAM: 06/15/2018 COMPARISON: NONE HISTORY: 72-year-old female with abnormal abdominal US TECHNIQUE: Contiguous axial scanning of the abdomen and pelvis following administration of 100 ml Iso pita 300 IV contrast. Delayed images through the kidneys and coronal/sagittal reconstructions perform ed. CT DLP: 1345 mGycm Automated exposure control for dose reduction was used. FINDINGS: Heart upper limits of normal in size without pericardial effusion. Lung bases clear without pleural e ffusion. Liver shows nodular compatible with cirrhosis. No focal lesion is clearly appreciated. Cholecystectom y clips. Portal venous system is patent. The glands, left kidney appear within normal limits. Tiny subcentimeter hypodensity medial upper pole right kidney too small for accurate CT characterization, likely tiny cyst. Spleen is enlarged measuring 15.8 cm with a hilar splenule. Pancreas shows punctate calcifications throughout suggesting chronic pancreatitis. There are 2 cystic lesions within the pancreatic head measuring 2.4 cm superiorly and 2.3 cm inferiorly both measure on coronal series. These may have communication with the main pancreatic duct. 7 mm nodularity anterior to the lower pancreatic head likely a prominent peripancreatic lymph node. No dilated small bowel, free fluid, or free air. No mesenteric or retroperitoneal lymphadenopathy oth erwise seen. [id number] stool wording without pericolonic inflammatory change. Uterus is partially visualize d. Pelvis is not imaged. Bones: Degenerative changes at the SI joints. Advanced degenerative changes throughout the lumbar spi ne and gauge within the visualized thoracic spine. Grade 1 retrolistheses at L1-L2, L2-L3, and L3-L4 with possible canal compromise at L2-L3. IMPRESSION: 1. CIRRHOTIC MORPHOLOGY OF THE LIVER. 2. SPLENOMEGALY AT 15.8 CM SUGGESTS UNDERLYING PORTAL VENOUS HYPERTENSION. 3. SCATTERED PUNCTATE PANCREATIC CALCIFICATIONS COMPATIBLE WITH CHRONIC PANCREATITIS. 4. THERE ARE 2 CYSTIC LESIONS OF THE PANCREATIC HEAD MEASURING 2.4 CM AND 2.3 CM. CONTRAST-ENHANCED M RI CAN BE PERFORMED TO BETTER CHARACTERIZE THESE AND DETERMINE SUBSEQUENT FOLLOW-UP. THIS MRI CAN BE PERFORMED with liver protocol to assess for hepatoma. No evident liver lesion by CT.
== END | disposition home or self-care (01) ==
LOC: RADCTMAIN 12:45
PROVIDERS: ATTEND Internal Medicine Hematology & Oncology
DX: K74.60 Unspecified cirrhosis of liver (principal); R16.1 Splenomegaly, not elsewhere classified; K86.89 Other specified diseases of pancreas; K86.2 Cyst of pancreas
CPT/HCPCS: 82565; 84520; 74160; 36415; Q9967

== ENCOUNTER → 2018-08-04 | Outpatient (CLI) | payer MEDICARE, BC ==
--- NOTE | 2018-08-05 08:25 | MR ---
EXAMINATION TYPE: MR abdomen wo/w con DATE OF EXAM: 08/04/2018 COMPARISON: Most recent CT abdomen June 15, 2018. Most recent complete abdominal ultrasound 2018. HISTORY: Cirrhosis of Liver CONTRAST: Standard multiplanar, multisequence MRI departmental protocol utilizing 10 mL intravenous Gadavist ga dolinium contrast. FINDINGS: LIVER/GB: Corresponding to CT and ultrasound gallbladder is noted surgically absent. There is promine nt left hepatic lobe redemonstrated. Liver shows heterogeneity and overall lobulated peripheral nodul ar contour consistent with underlying cirrhosis. No suspicious solid or cystic masses are identified. Dynamic arterial phase images show no suspicious enhancing masses. There is artifact from clip infer iorly axial image 179 mimicking nonenhancing subcentimeter lesion. There is patency of the portal vei n which measures upper limits of normal and central branching portal veins. There is patency of the h epatic veins draining into IVC. No suspicious ascites is seen. OTHER: Splenomegaly is redemonstrated measuring 16.0 cm long axis axial image 33. No surrounding asci heidi is present. There is redemonstration of 1.8 cm splenule inferiorly in splenic hilum axial image 2 9. Pancreas shows some generalized atrophy with scattered thin-walled cysts, largest at level of uncinat e process measures 2.5 x 1.6 cm. Smaller subcentimeter cysts are seen in the distal body and tail. Ap proximately 6-10 thin-walled cysts are identified. CT correlation shows diffuse glandular calcificati ons. Overall findings are consistent with product of chronic pancreatitis and pseudocyst formation. Slightly elevated left hemidiaphragm is redemonstrated. Heart size is upper limits of normal. No pleu ral effusions are seen. Both adrenal glands are normal in size. There is no suspicious renal masses o r hydronephrosis. There is no suspicious bowel dilatation. No abdominal ascites is seen. No concerning abdominal adenop athy is noted. Visualized osseous structures are intact. IMPRESSION: 1. Cirrhosis with evidence of underlying portal hypertension as splenomegaly is present is redemonstr ated. No suspicious intrahepatic masses identified. No ascites is seen currently. 2. Findings consistent with chronic pancreatitis redemonstrated. Mild generalized atrophy of pancreas with pancreatic calcifications on CT and several scattered pseudocysts identified. No suspicious nod ularity or enhancement noted.
== END | disposition home or self-care (01) ==
LOC: RADMRIMAIN 10:35
PROVIDERS: ATTEND Internal Medicine Gastroenterology
DX: K74.60 Unspecified cirrhosis of liver (principal); K76.6 Portal hypertension; R16.1 Splenomegaly, not elsewhere classified; K86.89 Other specified diseases of pancreas; K86.3 Pseudocyst of pancreas
CPT/HCPCS: 82565; 84520; 74183; 36415; A9585

== ENCOUNTER 2018-08-11 22:06 | Inpatient (IN) | payer MEDICARE, BC ==
[2018-08-11] MEDS ORDERED: SODIUM CHLORIDE 0.9% 500 ML 500 ML IV STA (23:39)
[2018-08-12 00:15] LABS: Basophils % (A) 1 %; Eosinophils # (A) 0.2 k/uL (0-0.7); Eosinophils % (A) 3 %; HCT 42.8 % (34.0-46.0); HGB 11.5 gm/dL (11.4-16.0); Lymphocytes # (A) 1.2 k/uL (1.0-4.8); Lymphocytes % (A) 22 %; MCH 28.9 pg (25.0-35.0); MCHC 26.8 g/dL (31.0-37.0); MCV 107.7 fL (80.0-100.0); Macrocytosis Moderate; Mean Platelet Volume 9.2; Monocytes # (A) 0.4 k/uL (0-1.0); Monocytes % (A) 7 %; Neutrophils # (A) 3.8 k/uL (1.3-7.7); Neutrophils % (A) 66 %; Platelet Count 121 k/uL (150-450); RBC 3.98 m/uL (3.80-5.40); RDW 12.7 % (11.5-15.5); WBC 5.7 k/uL (3.8-10.6)
[2018-08-12 00:29] LABS: INR 1.2 (<1.2); Prothrombin Time 12.8 sec (9.0-12.0)
[2018-08-12 00:35] LABS: Partial Thromboplastin Time 16.6 sec (22.0-30.0)
[2018-08-12 00:40] LABS: Albumin 4.3 g/dL (3.5-5.0); Calcium 10.8 mg/dL (8.4-10.2); Magnesium 2.1 mg/dL (1.6-2.3); Potassium 5.1 mmol/L (3.5-5.1); Total Protein 8.6 g/dL (6.3-8.2)
[2018-08-12] MEDS ORDERED: SODIUM CHLORIDE 0.9% 500 ML 500 ML IV ONE (00:46)
[2018-08-12] MEDS ORDERED: INSULIN ASPART (NovoLOG) 100 UNIT/ML VIAL SQ ONE (02:25)
--- NOTE | 2018-08-12 02:33 | XR ---
EXAM: XR Chest, 2 Views CLINICAL HISTORY: Weakness TECHNIQUE: Frontal and lateral views of the chest. COMPARISON: No relevant prior studies available. FINDINGS: Lungs: Mild chronic interstitial changes. No acute infiltrates. Pleural space: Unremarkable. No pneumothorax. Heart: Unremarkable. No cardiomegaly. Mediastinum: Unremarkable. Bones/joints: Unremarkable. IMPRESSION: Unremarkable 2 views of the chest.
[2018-08-12 02:36] LABS: Appearance,Urine Cloudy (Clear); Bacteria,Urine Rare /hpf; Bilirubin,Urine Negative (Negative); Blood,Urine Moderate (Negative); Budding Yeast,Urine Rare /hpf; Color,Urine Yellow; Glucose,Urine (UA) 4+ (Negative); Granular Casts,Urine 1 /lpf (0); Hyaline Casts,Urine 5 /lpf (0-2); Ketones,Urine Negative (Negative); Leukocyte Esterase,Urine Small (Negative); Mucus,Urine Rare /hpf; Nitrite,Urine Positive (Negative); Protein,Urine 1+ (Negative); RBC,Urine 5 /hpf (0-5); Specific Gravity,Urine 1.019 (1.001-1.035); Squamous Epithelial Cell,Urine 2 /hpf (0-4); Urobilinogen,Urine <2.0 mg/dL (<2.0); WBC,Urine 19 /hpf (0-5)
--- NOTE | 2018-08-12 03:17 | ED ---
General Adult HPI - General Chief complaint: Vaginal Bleeding Stated complaint: Weakness Time Seen by Provider: 08/11/18 22:41 Source: family, EMS Mode of arrival: EMS Limitations: no limitations - History of Present Illness Initial comments: 72-year-old female patient presented to the emergency department today for evaluation of generalized weakness and dizziness. Daughter states that throughout the day patient reported multiple times that she was not feeling well. States that she is unable to lift her legs to get into the bathtub. States that she has been somewhat confused throughout the day as well. Patient is currently being treated for uterine cancer with a new medication they're unsure if this may be related. Patient states that she has had some blurred vision and intermittent chest pain throughout the day as well. She denies any nausea, vomiting, abdominal pain, constipation, or diarrhea. Denies fever or chills with Denies any numbness, tingling, weakness to her extremities. Denies any headache. Patient denies any recent rash, shortness breath, back pain, numbness, tingling, hematuria, dysuria, urinary urgency, urinary frequency, headache, visual changes, or any other complaints. - Related Data Home Medications Medication Instructions Recorded Confirmed Atenolol/Chlorthalidone 1 tab PO QAM 01/07/14 08/11/18 [Atenolol-Chlorthalidone 50-25] Clopidogrel Bisulfate [Plavix] 75 mg PO DAILY 01/07/14 08/11/18 Furosemide [Lasix] 20 mg PO QA 01/07/14 08/11/18 sitaGLIPtin PHOSPHATE [Januvia] 100 mg PO [facility] 01/07/14 08/11/18 Insulin Degludec [Tresiba 25 unit SQ 11/11/17 08/11/18 Flextouch U-100] Insulin Degludec [Tresiba 50 unit SQ QA 11/11/17 08/11/18 Flextouch U-100] Gabapentin [Neurontin] 200 mg PO 01/12/18 08/11/18 Potassium Chloride ER [K-Dur 10] 10 meq PO DAILY 02/09/18 08/11/18 Moexipril HCl [Univasc] 15 mg PO DAILY 04/11/18 08/11/18 Dapagliflozin Propanediol [Farxiga] 5 mg PO DAILY 08/11/18 08/11/18 Previous Rx's Medication Instructions Recorded Aspirin 81 mg PO DAILY chew 04/13/18 Losartan [Cozaar] 25 mg PO DAILY #30 tab 04/13/18 Rosuvastatin [Crestor] 10 mg PO HS #30 tablet 04/13/18 Ubidecarenone [Co Q-10] 300 mg PO DAILY #30 capsule 04/13/18 Allergies Allergy/AdvReac Type Severity Reaction Status Date / Time meclizine HCl [From Antivert] AdvReac Hallucinati Verified 08/11/18 22:29 ons Review of Systems ROS Statement: Those systems with pertinent positive or pertinent negative responses have been documented in the HPI. ROS Other: All systems not noted in ROS Statement are negative. Past Medical History Past Medical History: Cancer, CVA/TIA, Diabetes Mellitus, GI Bleed, Hypertension Additional Past Medical History / Comment(s): RECENT DX OF UTERINE CANCER-01/17/18-TO HAVE HYSTERECTOMY AT [facility]. 04/20/18. SKIN CA,MULT MINI STROKES, PM >2 YR, DIARRHEA, STRESS INCONTINENCE, ELEVATED LIVER ENZYMES, broken nose from fall(September 2017) D & C History of Any Multi-Drug Resistant Organisms: None Reported Past Surgical History: Cholecystectomy, Joint Replacement, Orthopedic Surgery Additional Past Surgical History / Comment(s): MOH'S PROCEDURE TO 1/3 OF NOSE,DAVID KNEE REPLACEMENTS, DAVID BUNIONECTOMY, hammer toe repair, colonoscopy Past Anesthesia/Blood Transfusion Reactions: Previous Problems w/ Anesthesia Additional Past Anesthesia/Blood Transfusion Reaction / Comment(s): slow to wake up from anesthesia Past Psychological History: No Psychological Hx Reported Smoking Status: Never smoker Past Alcohol Use History: Rare Past Drug Use History: None Reported - Past Family History Mother Family Medical History: Cancer Father Family Medical History: Cancer General Exam Limitations: no limitations General appearance: alert, in no apparent distress, other (Physical well- developed, well-nourished elderly female patient in no acute distress. Vital signs upon presentation are temperature 98.2F, pulse 85, respirations 14, blood pressure 113/60, pulse ox 94% on room air.) Eye exam: Present: normal appearance, PERRL, EOMI. Absent: scleral icterus, conjunctival injection, nystagmus, periorbital swelling ENT exam: Present: normal exam, normal oropharynx, mucous membranes moist Respiratory exam: Present: normal lung sounds bilaterally. Absent: respiratory distress, wheezes, rales, rhonchi, stridor Cardiovascular Exam: Present: regular rate, normal rhythm, normal heart sounds. Absent: systolic murmur, diastolic murmur, rubs, gallop, clicks GI/Abdominal exam: Present: soft, normal bowel sounds. Absent: distended, tenderness, guarding, rebound, rigid Neurological exam: Present: alert, oriented X3, CN II-XII intact Psychiatric exam: Present: normal affect, normal mood Skin exam: Present: warm, dry, intact, normal color, other (Stage III pressure ulcer right buttock). Absent: rash Course Vital Signs 08/11/18 08/12/18 08/12/18 22:12 00:40 00:43 Temperature 98.0 F Pulse Rate 85 72 73 Respiratory 14 16 13 Rate Blood Pressure 113/60 117/56 O2 Sat by Pulse 94 L 96 Oximetry 08/12/18 08/12/18 08/12/18 00:50 01:00 01:10 Temperature Pulse Rate 73 73 79 Respiratory 24 13 13 Rate Blood Pressure 124/55 124/55 113/54 O2 Sat by Pulse 97 97 98 Oximetry 08/12/18 08/12/18 08/12/18 01:20 01:30 01:40 Temperature Pulse Rate 74 78 Respiratory 12 11 L Rate Blood Pressure 114/57 114/57 116/63 O2 Sat by Pulse 96 97 Oximetry 08/12/18 08/12/18 08/12/18 01:50 02:00 02:10 Temperature 98.0 F Pulse Rate 97 94 Respiratory 17 16 Rate Blood Pressure 116/63 116/63 132/109 O2 Sat by Pulse Oximetry EKG Findings - EKG Comments: EKG Findings:: EKG obtained at 2213 shows normal sinus rhythm with a ventricular rate of 88, NJ interval 138, QRS duration 86, QT 376, QTc 454. No evidence of ST elevation or depression. Medical Decision Making - Medical Decision Making 72-year-old female patient presented to the emergency department today for evaluation of generalized weakness, confusion, and dizziness. Physical examination revealed a normal neurologic examination with no focal deficits. Should have evidence of intertrigo to the abdominal skin fold and bilateral groin. Patient had stage III pressure ulcer to the right buttock. Chest x-ray showed no acute cardiopulmonary process. Urinalysis was positive for nitrates and concerning for urinary tract infection. She was started on Rocephin for this. She also had evidence of acute on chronic renal failure. We did provide IV fluids for probable dehydration. Patient continues to exhibit weakness and does have a lot of difficulty even transferring from bed to chair so we will admit to the hospital for continued IV antibiotics and hydration. We will consult with management for the pressure ulcer. Patient will be admitted to Dr. Amador. - Lab Data Result diagrams: 08/11/18 22:46 08/11/18 22:46 Lab Results 08/11/18 08/11/18 08/11/18 Range/Units 22:46 22:46 22:46 WBC 5.7 (3.8-10.6) k/uL RBC 3.98 (3.80-5.40) m/uL Hgb 11.5 (11.4-16.0) gm/dL Hct 42.8 (34.0-46.0) % MCV 107.7 H (80.0-100.0) fL MCH 28.9 (25.0-35.0) pg MCHC 26.8 L (31.0-37.0) g/dL RDW 12.7 (11.5-15.5) % Plt Count 121 L (150-450) k/uL Neutrophils % 66 % Lymphocytes % 22 % Monocytes % 7 % Eosinophils % 3 % Basophils % 1 % Neutrophils # 3.8 (1.3-7.7) k/uL Lymphocytes # 1.2 (1.0-4.8) k/uL Monocytes # 0.4 (0-1.0) k/uL Eosinophils # 0.2 (0-0.7) k/uL Basophils # 0.0 (0-0.2) k/uL Macrocytosis Moderate PT 12.8 H (9.0-12.0) sec INR 1.2 H (<1.2) APTT 16.6 L (22.0-30.0) sec Sodium 139 (137-145) mmol/L Potassium 5.1 (3.5-5.1) mmol/L Chloride 107 (98-107) mmol/L Carbon Dioxide 16 L (22-30) mmol/L Anion Gap 16 mmol/L BUN 51 H (7-17) mg/dL Creatinine 2.20 H (0.52-1.04) mg/dL Est GFR (CKD-EPI)AfAm 25 (>60 ml/min/1.73 sqM) Est GFR (CKD-EPI)NonAf 22 (>60 ml/min/1.73 sqM) Glucose 348 H (74-99) mg/dL Plasma Lactic Acid Adan (0.7-2.0) mmol/L Calcium 10.8 H (8.4-10.2) mg/dL Magnesium 2.1 (1.6-2.3) mg/dL Total Bilirubin 2.0 H (0.2-1.3) mg/dL AST 74 H (14-36) U/L ALT 40 (9-52) U/L Alkaline Phosphatase 115 (38-126) U/L Troponin I (0.000-0.034) ng/mL Total Protein 8.6 H (6.3-8.2) g/dL Albumin 4.3 (3.5-5.0) g/dL Urine Color Urine Appearance (Clear) Urine pH (5.0-8.0) Ur Specific [place] (1.001-1.035) Urine Protein (Negative) Urine Glucose (UA) (Negative) Urine Ketones (Negative) Urine Blood (Negative) Urine Nitrite (Negative) Urine Bilirubin (Negative) Urine Urobilinogen (<2.0) mg/dL Ur Leukocyte Esterase (Negative) Urine RBC (0-5) /hpf Urine WBC (0-5) /hpf Ur Squamous Epith Cells (0-4) /hpf Urine Bacteria (None) /hpf Hyaline Casts (0-2) /lpf Granular Casts (0) /lpf Urine Mucus (None) /hpf Urine Yeast (Budding) (None) /hpf 08/11/18 08/12/18 08/12/18 Range/Units 22:46 00:38 02:03 WBC (3.8-10.6) k/uL RBC (3.80-5.40) m/uL Hgb (11.4-16.0) gm/dL Hct (34.0-46.0) % MCV (80.0-100.0) fL MCH (25.0-35.0) pg MCHC (31.0-37.0) g/dL RDW (11.5-15.5) % Plt Count (150-450) k/uL Neutrophils % % Lymphocytes % % Monocytes % % Eosinophils % % Basophils % % Neutrophils # (1.3-7.7) k/uL Lymphocytes # (1.0-4.8) k/uL Monocytes # (0-1.0) k/uL Eosinophils # (0-0.7) k/uL Basophils # (0-0.2) k/uL Macrocytosis PT (9.0-12.0) sec INR (<1.2) APTT (22.0-30.0) sec Sodium (137-145) mmol/L Potassium (3.5-5.1) mmol/L Chloride (98-107) mmol/L Carbon Dioxide (22-30) mmol/L Anion Gap mmol/L BUN (7-17) mg/dL Creatinine (0.52-1.04) mg/dL Est GFR (CKD-EPI)AfAm (>60 ml/min/1.73 sqM) Est GFR (CKD-EPI)NonAf (>60 ml/min/1.73 sqM) Glucose (74-99) mg/dL Plasma Lactic Acid Adan 2.6 H* (0.7-2.0) mmol/L Calcium (8.4-10.2) mg/dL Magnesium (1.6-2.3) mg/dL Total Bilirubin (0.2-1.3) mg/dL AST (14-36) U/L ALT (9-52) U/L Alkaline Phosphatase (38-126) U/L Troponin I <0.012 (0.000-0.034) ng/mL Total Protein (6.3-8.2) g/dL Albumin (3.5-5.0) g/dL Urine Color Yellow Urine Appearance Cloudy H (Clear) Urine pH 5.0 (5.0-8.0) Ur Specific [place] 1.019 (1.001-1.035) Urine Protein 1+ H (Negative) Urine Glucose (UA) 4+ H (Negative) Urine Ketones Negative (Negative) Urine Blood Moderate H (Negative) Urine Nitrite Positive H (Negative) Urine Bilirubin Negative (Negative) Urine Urobilinogen <2.0 (<2.0) mg/dL Ur Leukocyte Esterase Small H (Negative) Urine RBC 5 (0-5) /hpf Urine WBC 19 H (0-5) /hpf Ur Squamous Epith Cells 2 (0-4) /hpf Urine Bacteria Rare H (None) /hpf Hyaline Casts 5 H (0-2) /lpf Granular Casts 1 (0) /lpf Urine Mucus Rare H (None) /hpf Urine Yeast (Budding) Rare H (None) /hpf - Radiology Data Radiology results: report reviewed, image reviewed Two-view x-ray of the chest is obtained. Report is reviewed in its entirety. Impression by Dr. López shows unremarkable 2 views of the chest. Disposition Clinical Impression: Acute on chronic renal failure, Urinary tract infection, Weakness, Pressure ulcer of right buttock Disposition: ADMITTED IP TO THIS [facility] Condition: Serious Referrals: Ant Amador MD [Primary Care Provider] - 1-2 days Decision to Admit Reason: Admit from EC Decision Date: 08/12/18 Decision Time: 03:58
[2018-08-12] MEDS ORDERED: NALOXONE 0.4 MG/ML 1 ML VIAL IV PRN (03:52)
[2018-08-12 04:32] LABS: Glucose,Whole Blood 267 mg/dL (75-99)
[2018-08-12 07:10] LABS: Glucose,Whole Blood 251 mg/dL (75-99)
[2018-08-12] MEDS: SODIUM CHLORIDE 0.9% 1,000 ML IV SCH ×2 (08:15→21:00)
[2018-08-12] MEDS: FUROSEMIDE 20 MG TAB PO SCH (08:16)
[2018-08-12] MEDS: LINAGLIPTIN 5 MG TABLET PO SCH (08:16)
[2018-08-12] MEDS: POTASSIUM CHLORIDE ER 10 MEQ TAB.ER.PRT PO SCH (08:16)
[2018-08-12] MEDS: CLOPIDOGREL 75 MG TAB PO SCH (08:16)
[2018-08-12] MEDS: ATENOLOL 50 MG TAB PO SCH (08:16)
[2018-08-12] MEDS: INSULIN DETEMIR (LEVEMIR) 100 UNIT/ML SYR SQ SCH ×2 (08:17→20:59)
[2018-08-12] MEDS: ASPIRIN 81 MG PO SCH (08:17)
[2018-08-12] MEDS: NYSTATIN 100,000 UNIT/GM POWD 15 GM TOPICAL SCH ×3 (08:17→22:56)
[2018-08-12] MEDS: LOSARTAN 25 MG TAB PO SCH (08:17)
[2018-08-12] MEDS ORDERED: CHLORTHALIDONE 25 MG TAB PO SCH (09:00)
[2018-08-12] MEDS ORDERED: LISINOPRIL 20 MG TAB PO SCH (09:00)
[2018-08-12] MEDS ORDERED: NON-FORMULARY DRUG (Ubidecarenone [Co Q-10] 300 MG) PO SCH (09:00)
[2018-08-12] MEDS ORDERED: NON-FORMULARY DRUG (Dapagliflozin Propanediol [Farxiga] 5 MG) PO SCH (09:00)
[2018-08-12 11:11] VITALS: BMI 40.7
[2018-08-12 12:07] LABS: Glucose,Whole Blood 317 mg/dL (75-99)
[2018-08-12] MEDS: ACETAMINOPHEN TAB 325 MG TAB PO PRN (12:22)
[2018-08-12] MEDS: INSULIN ASPART (NovoLOG) 100 UNIT/ML VIAL SQ SCH ×3 (12:57→20:59)
--- NOTE | 2018-08-12 14:38 | HP ---
HISTORY AND PHYSICAL CHIEF COMPLAINT: This is a 72-year-old female who presents with generalized weakness and dizziness. She is not feeling well, unable to lift her legs to get into the bathtub, confused. She is currently being treated for uterine cancer, on new medicine, possibly that has caused her some confusion and made her kidney function a little bit worse, some blurred vision, atypical chest pain. Denied any headache. She was found to have some decubitus ulcers per the nurse, which are going to be seen by Infectious Disease. HOME MEDICATIONS: See list. PAST MEDICAL HISTORY: Insulin-dependent diabetes mellitus, coronary artery disease with a recent stent 4 months ago, chronic renal disease stage 3, hypertension. ALLERGIES: Allergies are to MECLIZINE. REVIEW OF SYSTEMS: Fourteen-point review of systems negative except for mentioned in HPI. PAST MEDICAL HISTORY: Diabetes mellitus, GI bleed, hypertension, coronary artery disease with recent stent, history of CVA, history of uterine cancer, stress incontinence, diastolic heart failure. SURGERIES: Cholecystectomy, joint replacement, orthopedic surgeries. FAMILY HISTORY: Mother had cancer. Father had cancer. PHYSICAL EXAMINATION: A sick appearing white female in no acute distress. Temp 98.2, respiratory rate 14 to 16, pulse 80 to 85, blood pressure 113/60, O2 of 94% on room air. CARDIOVASCULAR: S1, S2 LUNGS: Transmitted upper airway sounds. GI: Distended, tender, guarding. No rebound. NEUROLOGIC: Alert and oriented x3. PSYCH: Poor mood affect. UA shows UTI, started on Rocephin. Acute on chronic renal disease stage 3. Insulin-dependent diabetes mellitus. Hypertension. Generalized weakness. Possible dehydration. Urinary tract infection. Pressure ulcer on the right buttock. We will get Infectious Disease involved. Continue with Rocephin. Rehydrate the patient. Please see further orders in the chart. MMODL / IJN: [id number] /
[2018-08-12] MEDS: traMADol 50 MG TAB PO PRN (15:43)
[2018-08-12 17:36] LABS: Glucose,Whole Blood 358 mg/dL (75-99)
[2018-08-12 20:45] LABS: Glucose,Whole Blood 255 mg/dL (75-99)
[2018-08-12] MEDS: GABAPENTIN 100 MG CAP PO SCH (20:59)
[2018-08-12] MEDS: ATORVASTATIN 20 MG TAB PO SCH (20:59)
--- NOTE | 2018-08-13 00:41 | CONS ---
CONSULTATION DATE OF SERVICE: 08/12/2018. REASON FOR CONSULTATION: UTI, sacral and gluteal pressure ulcer. HISTORY OF PRESENT ILLNESS: The patient is a 72 -year-old female, who was brought into the ER at [facility] yesterday for evaluation of generalized weakness and dizziness. It started going for a day or two before the patient had been brought to the hospital. The patient has been feeling extremely weak with no energy, possibly slightly confused throughout the day. For that reason, the patient was brought to the ER for further evaluation. On arrival to the ER, the patient did have a chest x-ray that was unremarkable with no acute infiltrate. The patient did not have any fever. White count was normal. The patient's urine was cloudy with small leukocyte esterases, 19 WBC. The patient has been started on Rocephin. She was also noticed to have a necrotic wound to the sacrum and gluteal area for which ID was consulted for further recommendations. The patient states this has been going on for a couple of weeks now. The patient did have some dull aching pain to that area, but unable to quantify it any further. She does not know what exact local treatment has been going on for the same. REVIEW OF SYSTEMS: Positive points have been mentioned in HPI. All other systems are negative. PAST MEDICAL HISTORY: Uterine cancer, skin cancer, CVA, TIA, diabetes mellitus, GI bleed, hypertension. PAST SURGICAL HISTORY: Cholecystectomy, hysterectomy, bilateral bunionectomy, colonoscopy. SOCIAL HISTORY: No history of smoking. Rarely drinks. No drug use. FAMILY HISTORY: Both parents with cancer. ALLERGIES: MECLIZINE. MEDICATIONS: The patient is currently on Rocephin 1 g daily, she is on Levemir, Tradjenta, Cozaar, Narcan, Tramadol, Neurontin, Lasix, Levaquin, Lipitor, aspirin. PHYSICAL EXAMINATION: Blood pressure is 128/63 with a pulse of 73, temperature of 98.2, she is 94% on room air. GENERAL DESCRIPTION: An elderly female lying in bed in no distress. No tachypnea or accessory muscle for respiration use. HEENT: Shows no pallor or scleral icterus. Oral mucosa is dry. No pharyngeal erythema or pressure. NECK: Trachea central. No thyromegaly. LUNGS: Unlabored breathing. Clear to auscultation with crackles. HEART: S1, S2. Regular rate and rhythm. ABDOMEN: Soft, no tenderness. No guarding. No rigidity. EXTREMITIES: No edema of the feet. Examination of sacral area, the patient did have a necrotic wound to the sacrum and the right gluteal area with no surrounding redness. Slight induration. No drainage. NEUROLOGIC: The patient is awake, alert, oriented. Mood and affect normal. LABS: Hemoglobin is 11.5, white count 5.71 with a BUN of 51, creatinine is 2.20, lactic acid 2.6. Urine has been positive. DIAGNOSTIC IMPRESSION AND PLAN: 1. Patient admitted to the hospital with generalized weakness, mental status changes which is likely multifactorial in this patient who did have a component of dehydration with elevated BUN and creatinine, however, positive underlying UTI cannot be excluded. 2. Patient known to unstageable pressure ulcer to the sacrum and gluteal area with necrotic base, no evidence of secondary cellulitis. Recommend local wound care and debridement. PLAN: 1. IV fluids gently. 2. Rocephin 1 g daily. 3. Local wound care with Medihoney, moist dressing keep the area off the pressure. 4. General surgery evaluation for debridement of this wound. 5. We will follow up on clinical condition and culture to further adjust medication if needed. Thank you for this consultation, will follow this patient along with you. MMODL / IJN: [id number] / TIFFANY
[2018-08-13 06:52] LABS: Glucose,Whole Blood 194 mg/dL (75-99)
[2018-08-13] MEDS: FUROSEMIDE 20 MG TAB PO SCH (07:52)
[2018-08-13] MEDS: POTASSIUM CHLORIDE ER 10 MEQ TAB.ER.PRT PO SCH (07:52)
[2018-08-13] MEDS: ATENOLOL 50 MG TAB PO SCH (07:52)
[2018-08-13] MEDS: CLOPIDOGREL 75 MG TAB PO SCH (07:52)
[2018-08-13] MEDS: SODIUM CHLORIDE 0.9% 1,000 ML IV SCH ×2 (07:53→18:59)
[2018-08-13] MEDS: ASPIRIN 81 MG PO SCH (07:53)
[2018-08-13] MEDS: INSULIN ASPART (NovoLOG) 100 UNIT/ML VIAL SQ SCH ×4 (07:54→20:44)
[2018-08-13] MEDS: LOSARTAN 25 MG TAB PO SCH (07:54)
[2018-08-13] MEDS: LINAGLIPTIN 5 MG TABLET PO SCH (07:54)
[2018-08-13] MEDS: NYSTATIN 100,000 UNIT/GM POWD 15 GM TOPICAL SCH ×3 (07:55→21:10)
[2018-08-13] MEDS: INSULIN DETEMIR (LEVEMIR) 100 UNIT/ML SYR SQ SCH ×2 (07:58→21:10)
[2018-08-13 09:34] LABS: Basophils % (A) 1 %; Eosinophils # (A) 0.3 k/uL (0-0.7); Eosinophils % (A) 4 %; HCT 42.6 % (34.0-46.0); HGB 13.6 gm/dL (11.4-16.0); Lymphocytes # (A) 1.5 k/uL (1.0-4.8); Lymphocytes % (A) 23 %; MCH 34.4 pg (25.0-35.0); MCHC 31.8 g/dL (31.0-37.0); MCV 108.2 fL (80.0-100.0); Macrocytosis Moderate; Mean Platelet Volume 8.2; Monocytes # (A) 0.6 k/uL (0-1.0); Monocytes % (A) 9 %; Neutrophils # (A) 3.9 k/uL (1.3-7.7); Neutrophils % (A) 61 %; Platelet Count 102 k/uL (150-450); RBC 3.94 m/uL (3.80-5.40); RDW 12.9 % (11.5-15.5); WBC 6.5 k/uL (3.8-10.6)
[2018-08-13 10:06] LABS: Albumin 3.5 g/dL (3.5-5.0); Calcium 11.1 mg/dL (8.4-10.2); Potassium 4.4 mmol/L (3.5-5.1); Total Bilirubin 1.4 mg/dL (0.2-1.3); Total Protein 7.5 g/dL (6.3-8.2)
--- NOTE | 2018-08-13 10:39 | P.GSCN ---
History of Present Illness Consult date: 08/13/18 History of present illness: 72-year-old female patient presented to the hospital with complaints of generalized weakness and dizziness. She is being treated for UTI and dehydration. On workup, the patient was found to have sacral decubitus ulcers. Infectious disease was consult for evaluation. The patient states that she has had multiple ulcers in the past and that these have been treated with local wound care and have improved. She has never had a surgical debridement of the sites. She was answering questions appropriately. She denies any recent fevers, chills, chest pain or shortness of breath. She denies any significant pain at the ulcer sites. 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 History of Any Multi-Drug Resistant Organisms: None Reported Past Surgical History: Cholecystectomy, Joint Replacement, Orthopedic Surgery Additional Past Surgical History / Comment(s): Moh's procedure to 1/3 of nose, bilateral knee replacements, bilateral bunionectomy, hammer toe repair, colonoscopy, 2 or 3 stents for blockage. Past Anesthesia/Blood Transfusion Reactions: Previous Problems w/ Anesthesia Additional Past Anesthesia/Blood Transfusion Reaction / Comm: Slow to wake up from anesthesia. Past Psychological History: No Psychological Hx Reported Additional Psychological History / Comment(s): Pt. lives at home alone. Ambulates w/ a walker. Feels safe at home. 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 Smoking Status: Never smoker Past Alcohol Use History: Rare Past Drug Use History: None Reported - Past Family History Mother Family Medical History: Cancer Father Family Medical History: Cancer Medications and Allergies Home Medications Medication Instructions Recorded Confirmed Type Atenolol/Chlorthalidone 1 tab PO QAM 01/07/14 08/11/18 History [Atenolol-Chlorthalidone 50-25] Clopidogrel Bisulfate [Plavix] 75 mg PO DAILY 01/07/14 08/11/18 History Furosemide [Lasix] 20 mg PO QAM 01/07/14 08/11/18 History sitaGLIPtin PHOSPHATE [Januvia] 100 mg PO QAM 01/07/14 08/11/18 History Insulin Degludec [Tresiba 25 unit SQ HS 11/11/17 08/11/18 History Flextouch U-100] Insulin Degludec [Tresiba 50 unit SQ QAM 11/11/17 08/11/18 History Flextouch U-100] Gabapentin [Neurontin] 200 mg PO HS 01/12/18 08/11/18 History Potassium Chloride ER [K-Dur 10] 10 meq PO DAILY 02/09/18 08/11/18 History Moexipril HCl [Univasc] 15 mg PO DAILY 04/11/18 08/11/18 History Aspirin 81 mg PO DAILY chew 04/13/18 08/11/18 Rx Losartan [Cozaar] 25 mg PO DAILY #30 tab 04/13/18 08/11/18 Rx Rosuvastatin [Crestor] 10 mg PO HS #30 tablet 04/13/18 08/11/18 Rx Ubidecarenone [Co Q-10] 300 mg PO DAILY #30 capsule 04/13/18 08/11/18 Rx Dapagliflozin Propanediol [Farxiga] 5 mg PO DAILY 08/11/18 08/11/18 History Allergies Allergy/AdvReac Type Severity Reaction Status Date / Time meclizine HCl [From Antivert] AdvReac Hallucinati Verified 08/11/18 22:29 ons Surgical - Exam Osteopathic Statement: *. No significant issues noted on an osteopathic structural exam other than those noted in the History and Physical/Consult. Vital Signs Temp Pulse Resp BP Pulse Ox 98.0 F 85 14 113/60 94 L 08/11/18 22:12 08/11/18 22:12 08/11/18 22:12 08/11/18 22:12 08/11/18 22:12 - General well nourished, no distress - Eyes PERRL - ENT normal mucosa - Neck trachea midline - Respiratory normal respiratory effort - Abdomen Soft, appropriate tenderness, nondistended, no rebound, no guarding - Integumentary Inferior sacral area with stage II ulcer, mild eschar formation noted. There does not appear to be any palpable fluctuance or induration. Not painful to touch. There is also notable stage I ulcer formation in the medial right gluteus - Psychiatric oriented to time, oriented to person, oriented to place Results - Labs 08/13/18 09:13 08/13/18 09:13 Abnormal Lab Results - Last 24 Hours (Table) 08/12/18 08/12/18 08/12/18 Range/Units 12:05 17:02 20:43 MCV (80.0-100.0) fL Plt Count (150-450) k/uL Chloride (98-107) mmol/L Carbon Dioxide (22-30) mmol/L BUN (7-17) mg/dL Creatinine (0.52-1.04) mg/dL Glucose (74-99) mg/dL POC Glucose (mg/dL) 317 H 358 H 255 H (75-99) mg/dL Calcium (8.4-10.2) mg/dL Total Bilirubin (0.2-1.3) mg/dL AST (14-36) U/L 08/13/18 08/13/18 08/13/18 Range/Units 06:45 09:13 09:13 MCV 108.2 H (80.0-100.0) fL Plt Count 102 L (150-450) k/uL Chloride 112 H (98-107) mmol/L Carbon Dioxide 20 L (22-30) mmol/L BUN 39 H (7-17) mg/dL Creatinine 1.36 H (0.52-1.04) mg/dL Glucose 218 H (74-99) mg/dL POC Glucose (mg/dL) 194 H (75-99) mg/dL Calcium 11.1 H (8.4-10.2) mg/dL Total Bilirubin 1.4 H (0.2-1.3) mg/dL AST 64 H (14-36) U/L Microbiology - Last 24 Hours (Table) 08/12/18 00:38 Blood Culture - Preliminary Blood No Growth after 24 hours Diabetes panel 08/13/18 Range/Units 09:13 Sodium 142 (137-145) mmol/L Potassium 4.4 (3.5-5.1) mmol/L Chloride 112 H (98-107) mmol/L Carbon Dioxide 20 L (22-30) mmol/L BUN 39 H (7-17) mg/dL Creatinine 1.36 H (0.52-1.04) mg/dL Glucose 218 H (74-99) mg/dL Calcium 11.1 H (8.4-10.2) mg/dL AST 64 H (14-36) U/L ALT 37 (9-52) U/L Alkaline Phosphatase 94 (38-126) U/L Total Protein 7.5 (6.3-8.2) g/dL Albumin 3.5 (3.5-5.0) g/dL Calcium panel 08/13/18 Range/Units 09:13 Calcium 11.1 H (8.4-10.2) mg/dL Albumin 3.5 (3.5-5.0) g/dL Pituitary panel 08/13/18 Range/Units 09:13 Sodium 142 (137-145) mmol/L Potassium 4.4 (3.5-5.1) mmol/L Chloride 112 H (98-107) mmol/L Carbon Dioxide 20 L (22-30) mmol/L BUN 39 H (7-17) mg/dL Creatinine 1.36 H (0.52-1.04) mg/dL Glucose 218 H (74-99) mg/dL Calcium 11.1 H (8.4-10.2) mg/dL Adrenal panel 08/13/18 Range/Units 09:13 Sodium 142 (137-145) mmol/L Potassium 4.4 (3.5-5.1) mmol/L Chloride 112 H (98-107) mmol/L Carbon Dioxide 20 L (22-30) mmol/L BUN 39 H (7-17) mg/dL Creatinine 1.36 H (0.52-1.04) mg/dL Glucose 218 H (74-99) mg/dL Calcium 11.1 H (8.4-10.2) mg/dL Total Bilirubin 1.4 H (0.2-1.3) mg/dL AST 64 H (14-36) U/L ALT 37 (9-52) U/L Alkaline Phosphatase 94 (38-126) U/L Total Protein 7.5 (6.3-8.2) g/dL Albumin 3.5 (3.5-5.0) g/dL Assessment and Plan Plan: 72-year-old female with sacral decubitus ulcers - Ulcers do not appear to be infected at this time. There is a mild eschar formation, however does not appear to need surgical debridement at this time. Continue with local wound care with medihoney. Continue frequent turning to avoid pressure on the wounds. Thank you for this consultation, I look forward in providing in the patient's care.
[2018-08-13 11:54] LABS: Glucose,Whole Blood 214 mg/dL (75-99)
[2018-08-13] MEDS: traMADol 50 MG TAB PO PRN ×2 (12:08→17:21)
[2018-08-13 17:03] LABS: Glucose,Whole Blood 280 mg/dL (75-99)
[2018-08-13 20:02] LABS: Glucose,Whole Blood 271 mg/dL (75-99)
[2018-08-13] MEDS: ACETAMINOPHEN TAB 325 MG TAB PO PRN (20:44)
[2018-08-13] MEDS: ATORVASTATIN 20 MG TAB PO SCH (20:44)
[2018-08-13] MEDS: GABAPENTIN 100 MG CAP PO SCH (20:44)
--- NOTE | 2018-08-13 21:44 | PN ---
PROGRESS NOTE Comes into the hospital with severe generalized weakness, UTI, acute renal insufficiency. Dr. Alarcno saw her today for local wound debridement of the rectal area. She is 4 months status post stent of her LAD. She is 2 months away from getting uterine cancer treated. She has vaginal bleeding. She sees oncologist, urologist in [place]. Ophthalmologic: Pupils equal, round, react to light and accommodation. Lungs clear. GI soft. She is up ambulating to the bathroom with fatigue. BUN is 39, creatinine is 1.36, platelet count 102. Sugars have been 2 to 300's. ASSESSMENT: 72-year-old female with sacral decubitus ulcers, mild eschar formation and does not need surgical debridement. Continue with Medihoney. Frequent drain to avoid pressure on the wounds. BUN, creatinine, greatly improved. She will be able to be discharged home. Any renal affecting medications were discontinued today. Her vital signs and BUN and creatinine continue to improve. She is on 93% on room air. ASSESSMENT: 1. Urinary tract infection. 2. Acute renal insufficiency. 3. All improving. 4. Mild erythema to the rectum. No surgical intervention is needed. 5. No evidence of cellulitis on the rectal area. Continue the Rocephin and Medihoney. Possible discharge home in next 24 to 48 hours. MMODL / IJN: [id number] /
--- NOTE | 2018-08-13 23:50 | PN ---
PROGRESS NOTE DATE OF SERVICE: 08/13/2018. REASON FOR FOLLOWUP: UTI infection, sacral pressure ulcer. INTERVAL HISTORY: The patient is currently afebrile. The patient is breathing comfortably. Denies having any chest pain. No cough. No abdominal pain or any diarrhea. Denies any worsening pain to the sacral wound area. EXAMINATION: Patient's blood pressure is 152/61 with a pulse of 79, temperature of 98.3, pulse ox 93% on room air. GENERAL DESCRIPTION: An elderly female lying in bed in no distress. RESPIRATORY SYSTEM: Unlabored breathing. LUNGS: Clear to auscultation anteriorly. HEART: S1, S2. Regular rate and rhythm. ABDOMEN: Soft. No tenderness LABS: Hemoglobin 13.4, white count 6.5, BUN of 39, creatinine 1.33. Blood culture negative. DIAGNOSTIC IMPRESSION AND PLAN: Patient admitted to the hospital with mental status changes likely multifactorial. The patient did have a component of UTI. The patient is currently covered with Rocephin. Continue to montior the patient sacral wound with necrotic tissue. Surgery has seen the patient, recommend local wound care. Currently covered with Medihoney. Keep the area and off the pressure. Continue supportive care. MMODL / IJN: [id number] / MTDD
[2018-08-14] MEDS: SODIUM CHLORIDE 0.9% 1,000 ML IV SCH ×2 (04:51→21:08)
[2018-08-14 07:17] LABS: Glucose,Whole Blood 155 mg/dL (75-99)
[2018-08-14 08:03] LABS: Albumin 3.1 g/dL (3.5-5.0); Calcium 10.8 mg/dL (8.4-10.2); Total Bilirubin 1.2 mg/dL (0.2-1.3); Total Protein 6.8 g/dL (6.3-8.2)
[2018-08-14 08:05] LABS: HGB 12.2 gm/dL (11.4-16.0); MCH 34.6 pg (25.0-35.0); MCV 104.5 fL (80.0-100.0); Macrocytosis Slight; Mean Platelet Volume 8.8; Platelet Count 82 k/uL (150-450); RBC 3.54 m/uL (3.80-5.40); WBC 5.5 k/uL (3.8-10.6)
[2018-08-14] MEDS: ASPIRIN 81 MG PO SCH (08:55)
[2018-08-14] MEDS: FUROSEMIDE 20 MG TAB PO SCH (08:55)
[2018-08-14] MEDS: CLOPIDOGREL 75 MG TAB PO SCH (08:55)
[2018-08-14] MEDS: POTASSIUM CHLORIDE ER 10 MEQ TAB.ER.PRT PO SCH (08:55)
[2018-08-14] MEDS: INSULIN DETEMIR (LEVEMIR) 100 UNIT/ML SYR SQ SCH ×2 (08:56→21:08)
[2018-08-14] MEDS: INSULIN ASPART (NovoLOG) 100 UNIT/ML VIAL SQ SCH ×4 (08:56→21:07)
[2018-08-14] MEDS: NYSTATIN 100,000 UNIT/GM POWD 15 GM TOPICAL SCH ×3 (08:56→21:09)
[2018-08-14] MEDS: ATENOLOL 50 MG TAB PO SCH (09:03)
[2018-08-14] MEDS: LOSARTAN 25 MG TAB PO SCH (09:04)
[2018-08-14 09:51] LABS: Eosinophils # (M) 0.28 k/uL (0-0.7); Lymphocytes # (M) 2.04 k/uL (1.0-4.8); Monocytes # (M) 0.61 k/uL (0-1.0); Neutrophils # (M) 2.59 k/uL (1.3-7.7); Neutrophils % (M) 47 %; Nucleated Red Blood Cells 0 /100 WBC (0-0); Total Cells Counted 100
--- NOTE | 2018-08-14 10:00 | US ---
EXAMINATION TYPE: US abdomen complete DATE OF EXAM: 08/14/2018 COMPARISON: US June 12, 2018, CT June 15, 2018, MRI CLINICAL HISTORY: lft elevation;patient stated is in hospital for dehydration, also stated has Hepati tis, early stages of Uterine CA; UTI per order; GB removed EXAM MEASUREMENTS: Liver Length: 15.1 cm Gallbladder Wall: surgically removed CBD: 0.4 cm Spleen: 14.1 cm Right Kidney: 10.6 x 6.5 x 5.3 cm Left Kidney: 12.3 x 5.7 x 5.1 cm Pancreas: hyperechoic; multiple cysts seen at uncinate process with largest = 2.0 x 2.2 x 1.9cm Liver: lobular borders noted throughout ; enlarged MPV as > 13.0cm. Gallbladder: surgically absent Evidence for sonographic Bryant's sign: no CBD: wnl Spleen: enlarged as measures greater than13.0cm; couple of splenules seen at hilum Right Kidney: wnl Left Kidney: wnl Upper IVC: wnl Abd Aorta: wnl; mid and distal aorta are gassed out Pancreas is poorly visualized on images saved, findings consistent with product of chronic pancreatit is are seen best on recent CT. Visualized portion of liver is heterogeneously hyperechoic. Main carrie l vein is patent but dilated. No gross hydronephrosis is seen in either kidney. Splenomegaly is redem onstrated. IMPRESSION: Findings consistent with cirrhosis and underlying portal hypertension redemonstrated. No significant changes from recent MRI.
[2018-08-14] MEDS: LINAGLIPTIN 5 MG TABLET PO SCH (10:47)
[2018-08-14] MEDS: traMADol 50 MG TAB PO PRN ×2 (10:50→21:07)
--- NOTE | 2018-08-14 11:30 | CDI ---
Documentation Clarification Form Date: 08/14/2018 11:19:08 AM From: Cara EscalanteBustosNBA story, CCDS Admit Date: 08/12/2018 3:58:00 AM Patient Name: Radha Tinajero Visit Number: [id number] Discharge Date: ATTENTION: The Clinical Documentation Specialists (CDI) and [facility] Coding Staff appreciate your assistance in clarifying documentation. Please respond to the clarification below the line at the bottom and electronically sign. The CDI & [facility] Coding staff will review the response and follow-up if needed. Please note: Queries are made part of the Legal Health Record. If you have any questions, please contact the author of this message via ITS. Dr. Ant Amador: Per the ED note, the patient is somewhat confused. Per the ID consult & the subsequent progress note: admitted with generalized weakness & mental status changes. History/Risk Factors: Hypertension, CKD III, IDDM. Currently being treated for uterine cancer. Clinical Indicators: Presented with vaginal bleeding, weakness, dizziness, recently started new medication. Labs: Pl Ct 121*, PT 12.8^, INR 1.2^, APTT 16.6*, CO2 16*, BUN 51^, Cr 2.20^, Glucose 348^, Lactic Acid 2.6^^, Eric 10.8^, T Bili 2.0^, AST 74^, T Prot 8.6^. UA: cloudy, 1+ protein, 4+ glucose, mod blood, pos nitrite. EKG: R 88 nsr Treatment: Telemetry, Infectious Disease & Surgical consultations, blood cultures, IV fluid bolus, IV rocephin, IV Narcan, IV fl 50. In your professional opinion, can you please clarify the specific type of Encephalopathy, if known? Metabolic Encephalopathy Toxic Encephalopathy Other Encephalopathy Other, please specify: Unable to determine (Last Revision: September 2017) MTDD
[2018-08-14 11:36] LABS: Glucose,Whole Blood 235 mg/dL (75-99)
[2018-08-14 17:11] LABS: Glucose,Whole Blood 246 mg/dL (75-99)
[2018-08-14 20:26] LABS: Glucose,Whole Blood 274 mg/dL (75-99)
[2018-08-14] MEDS: GABAPENTIN 100 MG CAP PO SCH (21:07)
[2018-08-14] MEDS: ATORVASTATIN 20 MG TAB PO SCH (21:07)
--- NOTE | 2018-08-15 00:09 | PN ---
PROGRESS NOTE DATE OF SERVICE: 08/14/2018. REASON FOR FOLLOWUP: UTI and sacral pressure ulcer. INTERVAL HISTORY: The patient is afebrile. The patient is breathing comfortably. Denies having any chest pain or abdominal pain or any worsening pain to the sacral area. No diarrhea. EXAMINATION: Blood pressure 144/55, pulse of 79, temperature 98.2, she is 93% on room air. GENERAL DESCRIPTION: An elderly female up in the chair in no distress. RESPIRATORY SYSTEM: Unlabored breathing. Clear to auscultation anteriorly. HEART: S1, S2. Regular rate and rhythm. ABDOMEN: Soft. EXTREMITIES: No edema of the feet. LABS: Hemoglobin 12.8 with white count 5.5, BUN of 36, creatinine is 1.10. Blood culture negative. No urine cultures were done. DIAGNOSTIC IMPRESSION AND PLAN: 1. Patient admitted to the hospital with generalized weakness, mental status changes likely multifactorial, possible component of a urinary tract infection infection. No urine culture done. Patient did show overall improvement on Rocephin. Will finish therapy with short course of oral Ceftin. 2. Patient with right gluteal and sacral pressure ulcer. Local wound care with [facility]. Keep the area off the pressure. Family present at bedside. Their questions were answered. MMODL / IJN: [id number] /
--- NOTE | 2018-08-15 01:18 | PN ---
PROGRESS NOTE SUBJECTIVE: A 72-year-old white female with UTI, chronic renal disease, dehydration, lightheadedness, dizziness, generalized weakness, appears to be a little bit improved. Family wants her to go to rehab center. Watch her. PT and OT. Possibly will go to rehab center in the next few days. Renal insufficiency is improving with creatinine down to 1.4. Remains on broad-spectrum antibiotics. PT OT, and generalized weakness. OBJECTIVE: Lungs are clear. Cardiovascular S1, S2. GI soft. Hematology negative Homans. PLAN: Please see further orders. MMODL / IJN: [id number] /
[2018-08-15] MEDS: traMADol 50 MG TAB PO PRN ×2 (05:25→18:13)
[2018-08-15 06:55] LABS: Glucose,Whole Blood 162 mg/dL (75-99)
[2018-08-15 08:15] LABS: Basophils % (A) 1 %; Eosinophils # (A) 0.3 k/uL (0-0.7); Eosinophils % (A) 4 %; HCT 39.3 % (34.0-46.0); HGB 12.8 gm/dL (11.4-16.0); Lymphocytes # (A) 1.7 k/uL (1.0-4.8); Lymphocytes % (A) 28 %; MCHC 32.5 g/dL (31.0-37.0); MCV 104.6 fL (80.0-100.0); Macrocytosis Slight; Mean Platelet Volume 8.9; Monocytes # (A) 0.5 k/uL (0-1.0); Monocytes % (A) 8 %; Neutrophils # (A) 3.5 k/uL (1.3-7.7); Neutrophils % (A) 57 %; Platelet Count 100 k/uL (150-450); RBC 3.76 m/uL (3.80-5.40); RDW 12.8 % (11.5-15.5)
[2018-08-15] MEDS: ASPIRIN 81 MG PO SCH (08:28)
[2018-08-15] MEDS: CLOPIDOGREL 75 MG TAB PO SCH (08:28)
[2018-08-15] MEDS: ATENOLOL 50 MG TAB PO SCH (08:28)
[2018-08-15] MEDS: POTASSIUM CHLORIDE ER 10 MEQ TAB.ER.PRT PO SCH (08:28)
[2018-08-15] MEDS: FUROSEMIDE 20 MG TAB PO SCH (08:28)
[2018-08-15] MEDS: INSULIN DETEMIR (LEVEMIR) 100 UNIT/ML SYR SQ SCH ×2 (08:29→20:35)
[2018-08-15] MEDS: LINAGLIPTIN 5 MG TABLET PO SCH (08:31)
[2018-08-15] MEDS: LOSARTAN 25 MG TAB PO SCH (08:31)
[2018-08-15] MEDS: INSULIN ASPART (NovoLOG) 100 UNIT/ML VIAL SQ SCH ×4 (08:32→20:34)
[2018-08-15] MEDS: NYSTATIN 100,000 UNIT/GM POWD 15 GM TOPICAL SCH ×3 (08:33→23:35)
[2018-08-15 08:47] LABS: Albumin 3.6 g/dL (3.5-5.0); Calcium 10.7 mg/dL (8.4-10.2); Total Bilirubin 1.4 mg/dL (0.2-1.3); Total Protein 7.5 g/dL (6.3-8.2)
[2018-08-15 11:33] LABS: Glucose,Whole Blood 256 mg/dL (75-99)
--- NOTE | 2018-08-15 12:48 | P.CONS ---
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 Consult requested for portal hypertension and cirrhos is. Past medical history of known liver cirrhosis, exposure to hepatitis C status post antiviral treatment more than a decade ago, uterine cancer, CVA, diabetes, hypertension, GI bleed, cholecystectomy. Hemoglobin 11.5-13.6. MCV 104-107. Platelet 82-121. INR 1.2. Total bilirubin on admission 2.0 presently 1.4. AST 74. ALT 40. AP 115. Ultrasound abdomen liver length 15.1 cm. Multiple cysts seen at the uncinate process of the pancreas largest measuring 22.21.9 cm. Liver lobular borders noted throughout. CBD within normal limits. Splenomegaly. Findings consistent with cirrhosis underlying portal hypertension redemonstrated. Patient was recently evaluated in the GI office MRI was ordered. MRI abdomen 08/04/2018 to evaluate cirrhosis reported findings consistent with cirrhosis with evidence of underlying portal hypertension splenomegaly. No suspicious intrahepatic masses. No ascites. Findings consistent with chronic pancreatitis. [place] reticulocyte calcifications with mild generalized atrophy. Review of Systems Constitutional: Denies fever, chills, sweats, weight gain, or loss. Admitted with dizziness lightheadedness. HEENT: Negative for migraines, blurred vision or loss, earaches, drainage, tinnitus, oral mucosal lesions, dysphagia, or odynophagia. CARDIAC: Negative for chest pain, arrhythmias, or palpitation. RESPIRATORY: Negative for shortness of breath, hemoptysis, cough, or sputum production. GI: See HPI for pertinent findings. : Negative for hematuria, urgency, frequency, polyuria, or dysuria. GYNc: Denies possibility of . Negative vaginal discharge. MUSCULOSKELETAL: Negative for muscle aches, swelling, arthritis, and arthralgias. NEUROLOGIC: Negative for stroke or TIA. ENDOCRINE: Negative for thyroid problems. SKIN: Negative for rash or itching. 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 History of Any Multi-Drug Resistant Organisms: None Reported Past Surgical History: Cholecystectomy, Joint Replacement, Orthopedic Surgery Additional Past Surgical History / Comment(s): Moh's procedure to 1/3 of nose, bilateral knee replacements, bilateral bunionectomy, hammer toe repair, colonoscopy, 2 or 3 stents for blockage. Past Anesthesia/Blood Transfusion Reactions: Previous Problems w/ Anesthesia Additional Past Anesthesia/Blood Transfusion Reaction / Comm: Slow to wake up from anesthesia. Past Psychological History: No Psychological Hx Reported Additional Psychological History / Comment(s): Pt. lives at home alone. Ambulates w/ a walker. Feels safe at home. 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 Smoking Status: Never smoker Past Alcohol Use History: Rare Past Drug Use History: None Reported - Past Family History Mother Family Medical History: Cancer Father Family Medical History: Cancer Medications and Allergies Home Medications Medication Instructions Recorded Confirmed Type Atenolol/Chlorthalidone 1 tab PO QAM 01/07/14 08/11/18 History [Atenolol-Chlorthalidone 50-25] Clopidogrel Bisulfate [Plavix] 75 mg PO DAILY 01/07/14 08/11/18 History Furosemide [Lasix] 20 mg PO QAM 01/07/14 08/11/18 History sitaGLIPtin PHOSPHATE [Januvia] 100 mg PO QAM 01/07/14 08/11/18 History Insulin Degludec [Tresiba 25 unit SQ HS 11/11/17 08/11/18 History Flextouch U-100] Insulin Degludec [Tresiba 50 unit SQ QAM 11/11/17 08/11/18 History Flextouch U-100] Gabapentin [Neurontin] 200 mg PO HS 01/12/18 08/11/18 History Potassium Chloride ER [K-Dur 10] 10 meq PO DAILY 02/09/18 08/11/18 History Moexipril HCl [Univasc] 15 mg PO DAILY 04/11/18 08/11/18 History Aspirin 81 mg PO DAILY chew 04/13/18 08/11/18 Rx Losartan [Cozaar] 25 mg PO DAILY #30 tab 04/13/18 08/11/18 Rx Rosuvastatin [Crestor] 10 mg PO HS #30 tablet 04/13/18 08/11/18 Rx Ubidecarenone [Co Q-10] 300 mg PO DAILY #30 capsule 04/13/18 08/11/18 Rx Dapagliflozin Propanediol [Farxiga] 5 mg PO DAILY 08/11/18 08/11/18 History Allergies Allergy/AdvReac Type Severity Reaction Status Date / Time meclizine HCl [From Antivert] AdvReac Hallucinati Verified 08/11/18 22:29 ons Physical Exam Vitals: Vital Signs Temp Pulse Pulse Resp BP BP Pulse Ox 08/15/18 12:18 98.3 F 75 18 107/62 95 08/15/18 05:00 98 F 75 16 132/73 97 08/15/18 00:05 16 08/14/18 20:47 98.3 F 79 16 144/65 96 08/14/18 14:05 97 F L 77 16 95/56 95 Intake and Output 08/14/18 08/15/18 08/15/18 22:59 06:59 14:59 Intake Total 640 480 Balance 640 480 Intake: Intake, IV Titration 200 Amount Sodium Chloride 0.9% 1, 200 000 ml @ 50 mls/hr IV . Q20H [facility] Rx#:[id number] Oral 440 480 Other: Voiding Method Toilet Toilet Toilet Incontinent Incontinent Incontinent # Voids 1 2 # Bowel Movements 1 General appearance: The patient is alert, oriented, in no acute distress. HET: Head is normocephalic and atraumatic. Pupils are equal and reactive. Oropharynx is clear without lesions. Neck: Supple without lymphadenopathy. Trachea midline. Heart: S1 S2. Regular rate and rhythm. Lungs: No crackles or wheezes are heard. Abdomen: Soft, nontender, nondistended with bowel sounds. No peritoneal signs. No palpable organomegaly or masses. Extremities: No edema. Neurological: No focal deficits. Strength and sensation are grossly intact. Results CBC & Chem 7: 08/15/18 07:46 08/15/18 07:45 Labs: Abnormal Lab Results - Last 24 Hours (Table) 08/14/18 08/14/18 08/15/18 Range/Units 17:08 20:07 06:54 RBC (3.80-5.40) m/uL MCV (80.0-100.0) fL Plt Count (150-450) k/uL Chloride (98-107) mmol/L Carbon Dioxide (22-30) mmol/L BUN (7-17) mg/dL Glucose (74-99) mg/dL POC Glucose (mg/dL) 246 H 274 H 162 H (75-99) mg/dL Calcium (8.4-10.2) mg/dL Total Bilirubin (0.2-1.3) mg/dL AST (14-36) U/L 08/15/18 08/15/18 08/15/18 Range/Units 07:45 07:46 11:31 RBC 3.76 L (3.80-5.40) m/uL MCV 104.6 H (80.0-100.0) fL Plt Count 100 L (150-450) k/uL Chloride 110 H (98-107) mmol/L Carbon Dioxide 20 L (22-30) mmol/L BUN 27 H (7-17) mg/dL Glucose 153 H (74-99) mg/dL POC Glucose (mg/dL) 256 H (75-99) mg/dL Calcium 10.7 H (8.4-10.2) mg/dL Total Bilirubin 1.4 H (0.2-1.3) mg/dL AST 60 H (14-36) U/L Microbiology - Last 24 Hours (Table) 08/12/18 00:38 Blood Culture - Preliminary Blood No Growth after [address] scan - abdomen: report reviewed (Dr. Villanueva) US - abdomen: report reviewed (Dr. Villanueva) Assessment and Plan (1) Liver cirrhosis Narrative/Plan: 72-year-old female admitted with acute UTI dehydration and sacral ulcers with radiographic imaging consistent with known history of liver cirrhosis hepatitis C exposure status post antiviral treatment years ago with stable liver function tests Current Visit: Yes Status: Acute Code(s): K74.60 - UNSPECIFIED CIRRHOSIS OF LIVER SNOMED Code(s): 65236799 Plan: 1. Patient is anticipating discharge and will be staying with her daughter in the [place] area. She has no interest in following up with GI office right now. MRI results were communicated to her. Continuous supportive measures. Discharge per medicine. Thank you for this kind referral and the opportunity to participate in the care of your patient. This consultation was discussed with Dr. Villanueva. The impression and plan of care have been directed as dictated.
[2018-08-15 17:12] LABS: Glucose,Whole Blood 244 mg/dL (75-99)
--- NOTE | 2018-08-15 17:52 | DS ---
DISCHARGE SUMMARY DISCHARGE DIAGNOSES: 1. Acute on chronic renal failure. 2. Urinary tract infection. 3. Liver cirrhosis. 4. Pressure ulcer of the right buttock. 5. Urinary tract infection. 6. Diabetes mellitus. 7. Osteoarthritis. 8. Diastolic heart failure. 9. Coronary artery disease. MEDICATIONS: Include: 1. Atenolol. 2. Hydrochlorothalidone 50/25 one daily. 3. Januvia 100 mg daily. 4. Lasix 20 mg daily. 5. Plavix 75 mg daily. 6. Tarceva 50 units in the morning, 25 units at night. 7. Neurontin 200 mg q.h.s. 8. Potassium chloride 20 mEq daily. 9. D/C Univasc. 10.Aspirin 81 mg daily. 11.Cozaar 25 mg daily. 12.Continue on aspirin 81 mg daily. 13.Continue Cozaar 25 mg daily. 14.Crestor 10 mg daily. 15.Coenzyme Q10 300 mg daily. 16.Lasix 20 mg daily. 17.Tramadol 50 mg q.6 hours p.r.n. for pain. 18.Nystatin topical lotion t.i.d. to rash in her chest, under her breast and in her groin. CONDITION: Stable. PROGNOSIS: Guarded. Ambulate as tolerated. The patient was admitted with UTI, prerenal renal failure, dehydration. The patient has a creatinine greatly improved on admission with rehydration, but she is unable to ambulate. She needs PT/OT to increase ambulation and monitor for orthostatic hypotension. Univasc was discontinued as increasing creatinine levels were seen. The patient will follow up as an outpatient. Farxiga was discontinued due to increased creatinine levels. After physical therapy, she will come back to the office. Diet is ADA diet. Activity with physical therapy. MMODL / IJN: [id number] /
[2018-08-15 19:32] LABS: Hemoglobin A1C 9.8 % (4.0-6.0)
[2018-08-15 20:20] LABS: Glucose,Whole Blood 214 mg/dL (75-99)
--- NOTE | 2018-08-15 20:25 | PN ---
PROGRESS NOTE This is a 72-year-old white female, status post UTI, acute on chronic renal insufficiency. Creatinine is down to 0.86 after 3 days of rehydration. She needs physical therapy. She is unable to ambulate due to severe weakness. CARDIOVASCULAR: S1, S2. LUNGS: Rales at the bases. HEMATOLOGY: Two plus edema. ASSESSMENT: 1. Urinary tract infection, acute on chronic. 2. Renal insufficiency. 3. Diabetes mellitus. 4. Coronary artery disease. Please see further orders. Possible discharge to rehab tomorrow. MMODL / IJN: [id number] /
[2018-08-15] MEDS: ATORVASTATIN 20 MG TAB PO SCH (20:34)
[2018-08-15] MEDS: GABAPENTIN 100 MG CAP PO SCH (20:34)
[2018-08-15 21:27] VITALS: RESP 16
--- NOTE | 2018-08-15 22:34 | PN ---
PROGRESS NOTE DATE OF SERVICE: 08/15/2018 REASON FOR FOLLOWUP: 1. UTI. 2. Sacral pressure ulcer. INTERVAL HISTORY: The patient is currently afebrile. Patient has been breathing comfortably. Denies having any chest pain or any cough. No abdominal pain. Overall pain to the sacral and gluteal area has slightly decreased. PHYSICAL EXAMINATION: Her blood pressure is 107/62 with a pulse of 75, temperature 98.3. She is 95% on room air. General description is an elderly female up in the bed in no distress. RESPIRATORY SYSTEM: Unlabored breathing. Clear to auscultation anteriorly. HEART: S1, S2. Regular rate and rhythm. ABDOMEN: Soft. No tenderness. Examination of the sacral and right gluteal area wound: Necrotic / slough tissue at the base. No surrounding redness or foul-smelling drainage. LABS: Hemoglobin is 12.8, white count 6.0 with a BUN of 27, creatinine 0.92. DIAGNOSTIC IMPRESSION AND PLAN: 1. Patient admitted to hospital with mental status changes, likely multifactorial, with a possible component of urinary tract infection. The patient did have positive UA. Unfortunately no urine cultures were done. Currently on Rocephin. That will be transitioned to a short course of oral Ceftin. 2. Patient with sacral and right gluteal stage III pressure ulcer. [facility] Keep the area off pressure. We will follow the patient in Wound Care for further local wound care. Continue with supportive care. MMODL / IJN: [id number] / TIFFANY
[2018-08-16 05:35] VITALS: BP 115/65; PULSE 71; TEMP 98.2
[2018-08-16] MEDS: traMADol 50 MG TAB PO PRN (06:10)
[2018-08-16 06:59] LABS: Glucose,Whole Blood 140 mg/dL (75-99)
[2018-08-16] MEDS: INSULIN ASPART (NovoLOG) 100 UNIT/ML VIAL SQ SCH ×2 (09:29→13:42)
[2018-08-16] MEDS: ATENOLOL 50 MG TAB PO SCH (09:30)
[2018-08-16] MEDS: CLOPIDOGREL 75 MG TAB PO SCH (09:30)
[2018-08-16] MEDS: SODIUM CHLORIDE 0.9% 1,000 ML IV SCH (09:30)
[2018-08-16] MEDS: ASPIRIN 81 MG PO SCH (09:30)
[2018-08-16] MEDS: FUROSEMIDE 20 MG TAB PO SCH (09:30)
[2018-08-16] MEDS: POTASSIUM CHLORIDE ER 10 MEQ TAB.ER.PRT PO SCH (09:30)
[2018-08-16] MEDS: LOSARTAN 25 MG TAB PO SCH (09:31)
[2018-08-16] MEDS: LINAGLIPTIN 5 MG TABLET PO SCH (09:31)
[2018-08-16] MEDS: INSULIN DETEMIR (LEVEMIR) 100 UNIT/ML SYR SQ SCH (09:31)
[2018-08-16] MEDS: NYSTATIN 100,000 UNIT/GM POWD 15 GM TOPICAL SCH (09:35)
--- NOTE | 2018-08-16 12:29 | PN ---
PROGRESS NOTE DATE OF SERVICE: 08/16/2018 REASON FOR FOLLOWUP: 1. Urinary tract infection. 2. Stage III sacral and right gluteal wound. INTERVAL HISTORY: The patient is currently afebrile. The patient said she is going home today. Denies having any chest pain or any cough. No abdominal pain or pain to sacral or gluteal wound area. PHYSICAL EXAMINATION: Blood pressure 115/75 with pulse of 71, temperature 98.2, she is 95% on room air. General description is an elderly female, up in the chair in no distress. RESPIRATORY SYSTEM: Unlabored breathing, clear to auscultation anteriorly. HEART: S1, S2. Regular rate and rhythm. ABDOMEN: Soft, no tenderness. LABS: Hemoglobin 12.1, white count of 6.0, BUN of 27, creatinine 0.92. Blood culture negative. Unfortunately, no urine cultures were done. DIAGNOSTIC IMPRESSION AND PLAN: Patient admitted to the hospital mental status changes, multifactorial, possible component of urinary tract infection, likely from enteric gram-negative as the patient responded well to Zosyn. She will continue on a 3 course of oral Ceftin on discharge and right gluteal wound with local wound care with [facility]. Keep the area dry, off the pressure. She wants to follow up with wound care physician at [place]. All questions were answered. MMODL / IJN: [id number] /
--- NOTE | 2018-08-17 08:41 | CDI ---
Documentation Clarification Form Date: 08/14/2018 11:19:00 AM From: Cara Bustos Admit Date: 08/12/2018 3:58:00 AM Patient Name: Radha Tinajero Visit Number: [id number] Discharge Date: 08/16/2018 2:30:00 PM ATTENTION: The Clinical Documentation Specialists (CDI) and [facility] Coding Staff appreciate your assistance in clarifying documentation. Please respond to the clarification below the line at the bottom and electronically sign. The CDI & [facility] Coding staff will review the response and follow-up if needed. Please note: Queries are made part of the Legal Health Record. If you have any questions, please contact the author of this message via ITS. Dr. Ant Amador Per the ED note, the patient is somewhat confused. Per the ID consult & the subsequent progress note: admitted with generalized weakness & mental status changes. History/Risk Factors: Hypertension, CKD III, IDDM. Currently being treated for uterine cancer. Clinical Indicators: Presented with vaginal bleeding, weakness, dizziness, recently started new medication. Labs: Pl Ct 121*, PT 12.8^, INR 1.2^, APTT 16.6*, CO2 16*, BUN 51^, Cr 2.20^, Glucose 348^, Lactic Acid 2.6^^, Eric 10.8^, T Bili 2.0^, AST 74^, T Prot 8.6^. UA: cloudy, 1+ protein, 4+ glucose, mod blood, pos nitrite. EKG: R 88 nsr Treatment: Telemetry, Infectious Disease & Surgical consultations, blood cultures, IV fluid bolus, IV rocephin, IV Narcan, IV fl 50. In your professional opinion, can you please clarify the specific type of Encephalopathy, if known? Metabolic Encephalopathy Toxic Encephalopathy Other Encephalopathy Other, please specify: Unable to determine (Last Revision: September 2017) MTDD
--- NOTE | 2018-08-21 08:32 | CDI ---
Documentation Clarification Form Date: 08/14/2018 11:19:00 AM From: Cara EscalanteBustosNBA, CCDS Admit Date: 08/12/2018 3:58:00 AM Patient Name: Radha Tinajero Visit Number: [id number] Discharge Date: 08/16/2018 2:30:00 PM ATTENTION: The Clinical Documentation Specialists (CDI) and [facility] Coding Staff appreciate your assistance in clarifying documentation. Please respond to the clarification below the line at the bottom and electronically sign. The CDI & [facility] Coding staff will review the response and follow-up if needed. Please note: Queries are made part of the Legal Health Record. If you have any questions, please contact the author of this message via ITS. Dr. Ant Amador: Per the ED note, the patient is somewhat confused. Per the ID consult & the subsequent progress note: admitted with generalized weakness & mental status changes. History/Risk Factors: Hypertension, CKD III, IDDM. Currently being treated for uterine cancer. Clinical Indicators: Presented with vaginal bleeding, weakness, dizziness, recently started new medication. Labs: Pl Ct 121*, PT 12.8^, INR 1.2^, APTT 16.6*, CO2 16*, BUN 51^, Cr 2.20^, Glucose 348^, Lactic Acid 2.6^^, Eric 10.8^, T Bili 2.0^, AST 74^, T Prot 8.6^. UA: cloudy, 1+ protein, 4+ glucose, mod blood, pos nitrite. EKG: R 88 nsr Treatment: Telemetry, Infectious Disease & Surgical consultations, blood cultures, IV fluid bolus, IV rocephin, IV Narcan, IV fl 50. In your professional opinion, can you please clarify the specific type of Encephalopathy, if known? Metabolic Encephalopathy Toxic Encephalopathy Other Encephalopathy Other, please specify: Unable to determine (Last Revision: September 2017) MTDD
--- NOTE | 2018-08-23 07:51 | DS ---
DISCHARGE SUMMARY ADDENDUM: Metabolic encephalopathy. MMODL / IJN: [id number] /
== END 2018-08-16 14:30 | DRG 689 ==
LOC: EC 22:06 → 3NMEDONC 08-12 03:58
PROVIDERS: ADMIT Family Medicine; ATTEND Family Medicine
DX: N39.0 Urinary tract infection, site not specified (principal); L89.153 Pressure ulcer of sacral region, stage 3; L89.313 Pressure ulcer of right buttock, stage 3; G93.41 Metabolic encephalopathy; I13.0 Hypertensive heart and chronic kidney disease with heart failure and stage 1 through stage 4 chronic kidney disease, or unspecified chronic kidney disease; I50.30 Unspecified diastolic (congestive) heart failure; K76.6 Portal hypertension; K86.1 Other chronic pancreatitis; N17.9 Acute kidney failure, unspecified; B96.89 Other specified bacterial agents as the cause of diseases classified elsewhere; C55 Malignant neoplasm of uterus, part unspecified; E11.22 Type 2 diabetes mellitus with diabetic chronic kidney disease; E86.0 Dehydration; I25.10 Atherosclerotic heart disease of native coronary artery without angina pectoris; K74.60 Unspecified cirrhosis of liver; M19.90 Unspecified osteoarthritis, unspecified site; N18.3 Chronic kidney disease, stage 3 (moderate); Z79.02 Long term (current) use of antithrombotics/antiplatelets; Z79.4 Long term (current) use of insulin; Z79.82 Long term (current) use of aspirin; Z79.899 Other long term (current) drug therapy; Z80.9 Family history of malignant neoplasm, unspecified; Z85.828 Personal history of other malignant neoplasm of skin; Z86.73 Personal history of transient ischemic attack (TIA), and cerebral infarction without residual deficits; Z90.710 Acquired absence of both cervix and uterus; Z95.5 Presence of coronary angioplasty implant and graft; Z96.653 Presence of artificial knee joint, bilateral; Z60.2 Problems related to living alone; Z88.8 Allergy status to other drugs, medicaments and biological substances; Z86.19 Personal history of other infectious and parasitic diseases; Z90.49 Acquired absence of other specified parts of digestive tract; N39.3 Stress incontinence (female) (male); Z87.19 Personal history of other diseases of the digestive system; Z91.81 History of falling
CPT/HCPCS: 36415; 71046; 76700; 80053; 81001; 83036; 83605; 83735; 84484; 85025; 85610; 85730; 87040; 93005; 94760; 96360; 96361; 99285

== ENCOUNTER 2018-12-27 20:42 | Inpatient (IN) | payer MEDICARE, BC ==
[2018-12-27] MEDS ORDERED: ACETAMINOPHEN TAB 325 MG TAB PO STA (21:18)
--- NOTE | 2018-12-27 22:14 | CT ---
EXAM: CT Head Without Intravenous Contrast CLINICAL HISTORY: ITS.REASON CT Reason: Pain TECHNIQUE: Axial computed tomography images of the head/brain without intravenous contrast. CTDI is 45.2 mGy and DLP is 1074 mGy-cm. This CT exam was performed using one or more of the following dose reduction techniques: automated exposure control, adjustment of the mA and/or kV according to patient size, and/or use of iterative reconstruction technique. COMPARISON: CT head on 11/11/2017 FINDINGS: Brain: No acute infarct or hemorrhage identified. No extra-axial fluid collection. No mass effect or midline shift. Stable areas of hypoattenuation in the supratentorial white matter likely represent chronic small vessel ischemic changes. Ventricles and sulci: Stable prominence of the ventricles and sulci is likely secondary to cerebral volume loss. Skull: Probable small osteoma along the right zygomatic arch. Mild hyperostosis frontalis interna. No bony lesion or fracture. Subcutaneous tissues: Right temporal soft tissue bruising and hematomas. Sinuses: Opacification with inspissated secretions in the right sphenoid sinus. Orbits: Grossly unremarkable. Other: Atherosclerotic calcifications in the intracranial vasculature. IMPRESSION: 1. No acute intracranial abnormality. 2. Right temporal soft tissue bruising/hematomas. No acute fracture. 3. Stable chronic small vessel ischemic changes and cerebral volume loss. EXAM: CT Cervical Spine Without Intravenous Contrast CLINICAL HISTORY: ITS.REASON CT Reason: Pain TECHNIQUE: Axial computed tomography images of the cervical spine without intravenous contrast. CTDI is 19 mGy and DLP is 553.4 mGy-cm. This CT exam was performed using one or more of the following dose reduction techniques: automated exposure control, adjustment of the mA and/or kV according to patient size, and/or use of iterative reconstruction technique. COMPARISON: CT C-spine on 11/11/2017 FINDINGS: Bones: Osteopenia. Minimal reversal of the normal cervical lordosis. No acute fracture or bony lesion. Disc spaces: Degenerative changes of the spine. Soft tissues: Soft tissue bruising/hematoma partially visualized in the right temporal soft tissues. IMPRESSION: No acute traumatic abnormality.
[2018-12-27 23:31] LABS: Basophils % (A) 0 %; Eosinophils # (A) 0.1 k/uL (0-0.7); Eosinophils % (A) 2 %; HGB 11.5 gm/dL (11.4-16.0); Lymphocytes # (A) 1.4 k/uL (1.0-4.8); Lymphocytes % (A) 23 %; MCHC 31.9 g/dL (31.0-37.0); MCV 106.7 fL (80.0-100.0); Macrocytosis Moderate; Mean Platelet Volume 8.8; Monocytes # (A) 0.4 k/uL (0-1.0); Monocytes % (A) 7 %; Neutrophils % (A) 65 %; Platelet Count 101 k/uL (150-450); RBC 3.38 m/uL (3.80-5.40); RDW 13.1 % (11.5-15.5); WBC 6.2 k/uL (3.8-10.6)
[2018-12-27 23:50] LABS: Albumin 3.7 g/dL (3.5-5.0); Bilirubin, Delta 0.3 mg/dL (0.0-0.2); Bilirubin,Unconjugated 0.9 mg/dL (0.0-1.1); Potassium 4.1 mmol/L (3.5-5.1); Total Bilirubin 1.2 mg/dL (0.2-1.3); Total Protein 7.3 g/dL (6.3-8.2)
[2018-12-27 23:55] LABS: Appearance,Urine Clear (Clear); Bacteria,Urine Many /hpf; Bilirubin,Urine Negative (Negative); Blood,Urine Negative (Negative); Color,Urine Yellow; Glucose,Urine (UA) 1+ (Negative); Ketones,Urine Negative (Negative); Leukocyte Esterase,Urine Small (Negative); Mucus,Urine Occasional /hpf; Nitrite,Urine Positive (Negative); PH, Urine 5.5 (5.0-8.0); Protein,Urine Negative (Negative); RBC,Urine 2 /hpf (0-5); Specific Gravity,Urine 1.016 (1.001-1.035); Squamous Epithelial Cell,Urine 1 /hpf (0-4)
--- NOTE | 2018-12-27 23:58 | XR ---
EXAM: XR Chest, 1 View CLINICAL HISTORY: ITS.REASON XR Reason: Pain TECHNIQUE: Frontal view of the chest. COMPARISON: Chest radiograph on 08/12/2018 FINDINGS: Hardware: None. Lungs/pleura: Mild bibasilar opacities may represent atelectasis. No focal consolidation. No pleural effusion or pneumothorax. Heart/mediastinum: Normal. No cardiomegaly. Soft tissues: Unremarkable. Bones: No acute fracture. Degenerative changes of the acromioclavicular joints and spine. Mild right convex curvature of the thoracic spine. Prominent degenerative changes of the left glenohumeral joint. Upper abdomen: Normal. IMPRESSION: Bibasilar opacities may represent atelectasis.
--- NOTE | 2018-12-28 02:44 | ED ---
Fall HPI - General Chief Complaint: Fall Stated Complaint: Weakness,fall Time Seen by Provider: 12/27/18 20:43 Source: patient Mode of arrival: EMS - History of Present Illness Initial Comments: 73-year-old female presenting after a fall at home. Per the patient's son and [id number] she has been having multiple falls this week, and seems increasingly confused. Today she states she tripped and fell while walking, and struck her face on the ground. She denies any LOC. She is on aspirin but denies any anticoagulation. She has a history of diabetes and is on insulin but has not been checking her sugars when she's been taking her insulin. He states she was recently treated for UTI on Keflex, and was retested recently, and that test was negative. Patient denies any presyncopal symptoms prior to the event but states she just feels unsteady on her feet. She denies any chest pain or shortness of breath. Denies any extremity pain. Denies abdominal pain. - Related Data Home Medications Medication Instructions Recorded Confirmed Clopidogrel Bisulfate [Plavix] 75 mg PO DAILY 01/07/14 08/11/18 Furosemide [Lasix] 20 mg PO QAM 01/07/14 08/11/18 Insulin Degludec [Tresiba 25 unit SQ HS 11/11/17 08/11/18 Flextouch U-100] Insulin Degludec [Tresiba 50 unit SQ QAM 11/11/17 08/11/18 Flextouch U-100] Gabapentin [Neurontin] 200 mg PO HS 01/12/18 08/11/18 Potassium Chloride ER [K-Dur 10] 10 meq PO DAILY 02/09/18 08/11/18 Previous Rx's Medication Instructions Recorded Aspirin 81 mg PO DAILY chew 04/13/18 Losartan [Cozaar] 25 mg PO DAILY #30 tab 04/13/18 Rosuvastatin [Crestor] 10 mg PO HS #30 tablet 04/13/18 Ubidecarenone [Co Q-10] 300 mg PO DAILY #30 capsule 04/13/18 Atenolol [Tenormin] 50 mg PO QAM tab 08/15/18 INSULIN ASPART (NovoLOG) [NovoLOG 0 unit SQ ACHS vial 08/15/18 (formulary)] Linagliptin [Tradjenta] 5 mg PO QAM tablet 08/15/18 Nystatin 100,000 Unit/gm Powd 1 applic TOPICAL TID applic 08/15/18 [Mycostatin Powder] traMADol HCl [Ultram] 50 mg PO QID PRN tab 08/15/18 Cefuroxime Axetil [Ceftin] 500 mg PO BID 3 Days #6 tab 08/16/18 Allergies Allergy/AdvReac Type Severity Reaction Status Date / Time meclizine HCl [From Antivert] AdvReac Hallucinati Verified 08/11/18 22:29 ons Review of Systems ROS Statement: Those systems with pertinent positive or pertinent negative responses have been documented in the HPI. Review of Systems Constitutional: Denies fever, chills Eyes: Denies change in vision, Denies pain Ears, nose, mouth, throat: Denies headaches, Denies sore throat Cardiovascular: Denies chest pain. Denies palpitations Respiratory: Denies shortness of breath, Denies cough Gastrointestinal: Denies abdominal pain. Denies nausea, vomiting, diarrhea. Genitourinary: Denies hematuria, Denies infections Musculoskeletal: Denies pain, Denies swelling Integumentary: Denies rash Neurological: Denies headache, focal weakness, focal numbness. Positive confusion. Psychiatric: Denies anxiety, Denies depression Hematologic/Lymphatic: Denies easy bleeding or bruising ROS Other: All systems not noted in ROS Statement are negative. 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 History of Any Multi-Drug Resistant Organisms: None Reported Past Surgical History: Cholecystectomy, Joint Replacement, Orthopedic Surgery Additional Past Surgical History / Comment(s): Moh's procedure to 1/3 of nose, bilateral knee replacements, bilateral bunionectomy, hammer toe repair, colonoscopy, 2 or 3 stents for blockage. Past Anesthesia/Blood Transfusion Reactions: Previous Problems w/ Anesthesia Additional Past Anesthesia/Blood Transfusion Reaction / Comment(s): Slow to wake up from anesthesia. Past Psychological History: No Psychological Hx Reported Smoking Status: Never smoker Past Alcohol Use History: Rare Past Drug Use History: None Reported - Past Family History Mother Family Medical History: Cancer Father Family Medical History: Cancer General Exam - General Exam Comments Initial Comments: General: Awake, alert, No acute Distress HENT: Normocephalic. Mild bruising to right maxillary region. No hemotympanum. No midline cervical spine tenderness. Eyes: PERRL. EOMI. No scleral icterus. No injected conjunctiva Neck: Full ROM Chest/Lungs: Clear to auscultation bilaterally. No wheezing, rhonchi, or rales Cardiac: Regular rate, rhythm. No murmurs or rubs Abdomen/GI: Soft, nontender, nondistended. No rebound, guarding, or rigidity. Musculoskeletal: Full ROM Skin: Warm, dry. States 2 sacral pressure wounds. One with mild bleeding. Neurologic: A/Ox2 (year), no weakness, no sensory deficit, no abnormal gait, no coordination deficit Limitations: no limitations Course Vital Signs 12/27/18 12/28/18 20:47 00:30 Temperature 98.2 F Pulse Rate 75 70 Respiratory 13 16 Rate Blood Pressure 112/57 O2 Sat by Pulse 97 95 Oximetry Medical Decision Making - Medical Decision Making 23-year-old female presented with frequent falls, confusion, and gait unsteadiness. Initial exam the patient is awake alert she is a note 2. She has mild bruising to her face, but otherwise has no obvious injuries. Laboratory workup was pertinent for a UTI. He was given a gram of Rocephin. CT head and neck were negative, and her C-spine was cleared. At this and the patient requires admission for altered mental status and frequent falls, as well as her UTI. Patient to be admitted to Dr. Amador with PT/OT. - Lab Data Result diagrams: 12/27/18 23:20 12/27/18 23:20 Lab Results 12/27/18 12/27/18 12/27/18 Range/Units 21:16 23:20 23:20 WBC 6.2 (3.8-10.6) k/uL RBC 3.38 L (3.80-5.40) m/uL Hgb 11.5 (11.4-16.0) gm/dL Hct 36.0 (34.0-46.0) % MCV 106.7 H (80.0-100.0) fL MCH 34.0 (25.0-35.0) pg MCHC 31.9 (31.0-37.0) g/dL RDW 13.1 (11.5-15.5) % Plt Count 101 L (150-450) k/uL Neutrophils % 65 % Lymphocytes % 23 % Monocytes % 7 % Eosinophils % 2 % Basophils % 0 % Neutrophils # 4.0 (1.3-7.7) k/uL Lymphocytes # 1.4 (1.0-4.8) k/uL Monocytes # 0.4 (0-1.0) k/uL Eosinophils # 0.1 (0-0.7) k/uL Basophils # 0.0 (0-0.2) k/uL Macrocytosis Moderate Sodium 139 (137-145) mmol/L Potassium 4.1 (3.5-5.1) mmol/L Chloride 105 (98-107) mmol/L Carbon Dioxide 24 (22-30) mmol/L Anion Gap 10 mmol/L BUN 69 H (7-17) mg/dL Creatinine 0.97 (0.52-1.04) mg/dL Est GFR (CKD-EPI)AfAm 68 (>60 ml/min/1.73 sqM) Est GFR (CKD-EPI)NonAf 59 (>60 ml/min/1.73 sqM) Glucose 171 H (74-99) mg/dL Plasma Lactic Acid Adan (0.7-2.0) mmol/L Calcium 10.0 (8.4-10.2) mg/dL Total Bilirubin 1.2 (0.2-1.3) mg/dL Conjugated Bilirubin 0.0 (0.0-0.3) mg/dL Unconjugated Bilirubin 0.9 (0.0-1.1) mg/dL Delta Bilirubin 0.3 H (0.0-0.2) mg/dL AST 72 H (14-36) U/L ALT 53 H (9-52) U/L Alkaline Phosphatase 107 (38-126) U/L Troponin I (0.000-0.034) ng/mL NT-Pro-B Natriuret Pep pg/mL Total Protein 7.3 (6.3-8.2) g/dL Albumin 3.7 (3.5-5.0) g/dL Lipase 563 H (23-300) U/L TSH 0.866 (0.465-4.680) mIU/L Urine Color Yellow Urine Appearance Clear (Clear) Urine pH 5.5 (5.0-8.0) Ur Specific [place] 1.016 (1.001-1.035) Urine Protein Negative (Negative) Urine Glucose (UA) 1+ H (Negative) Urine Ketones Negative (Negative) Urine Blood Negative (Negative) Urine Nitrite Positive H (Negative) Urine Bilirubin Negative (Negative) Urine Urobilinogen 2.0 (<2.0) mg/dL Ur Leukocyte Esterase Small H (Negative) Urine RBC 2 (0-5) /hpf Urine WBC 10 H (0-5) /hpf Ur Squamous Epith Cells 1 (0-4) /hpf Urine Bacteria Many H (None) /hpf Urine Mucus Occasional H (None) /hpf 12/27/18 12/27/18 12/27/18 Range/Units 23:20 23:20 23:20 WBC (3.8-10.6) k/uL RBC (3.80-5.40) m/uL Hgb (11.4-16.0) gm/dL Hct (34.0-46.0) % MCV (80.0-100.0) fL MCH (25.0-35.0) pg MCHC (31.0-37.0) g/dL RDW (11.5-15.5) % Plt Count (150-450) k/uL Neutrophils % % Lymphocytes % % Monocytes % % Eosinophils % % Basophils % % Neutrophils # (1.3-7.7) k/uL Lymphocytes # (1.0-4.8) k/uL Monocytes # (0-1.0) k/uL Eosinophils # (0-0.7) k/uL Basophils # (0-0.2) k/uL Macrocytosis Sodium (137-145) mmol/L Potassium (3.5-5.1) mmol/L Chloride (98-107) mmol/L Carbon Dioxide (22-30) mmol/L Anion Gap mmol/L BUN (7-17) mg/dL Creatinine (0.52-1.04) mg/dL Est GFR (CKD-EPI)AfAm (>60 ml/min/1.73 sqM) Est GFR (CKD-EPI)NonAf (>60 ml/min/1.73 sqM) Glucose (74-99) mg/dL Plasma Lactic Acid Adan 1.3 (0.7-2.0) mmol/L Calcium (8.4-10.2) mg/dL Total Bilirubin (0.2-1.3) mg/dL Conjugated Bilirubin (0.0-0.3) mg/dL Unconjugated Bilirubin (0.0-1.1) mg/dL Delta Bilirubin (0.0-0.2) mg/dL AST (14-36) U/L ALT (9-52) U/L Alkaline Phosphatase (38-126) U/L Troponin I <0.012 (0.000-0.034) ng/mL NT-Pro-B Natriuret Pep 276 pg/mL Total Protein (6.3-8.2) g/dL Albumin (3.5-5.0) g/dL Lipase (23-300) U/L TSH (0.465-4.680) mIU/L Urine Color Urine Appearance (Clear) Urine pH (5.0-8.0) Ur Specific [place] (1.001-1.035) Urine Protein (Negative) Urine Glucose (UA) (Negative) Urine Ketones (Negative) Urine Blood (Negative) Urine Nitrite (Negative) Urine Bilirubin (Negative) Urine Urobilinogen (<2.0) mg/dL Ur Leukocyte Esterase (Negative) Urine RBC (0-5) /hpf Urine WBC (0-5) /hpf Ur Squamous Epith Cells (0-4) /hpf Urine Bacteria (None) /hpf Urine Mucus (None) /hpf - EKG Data EKG Comments: EKG shows sinus rhythm at a rate of [address] segment elevation, depression. No prolonged QT/QTc or NH interval. No dysrythmia noted. Disposition Clinical Impression: Frequent falls, Altered mental status, UTI (urinary tract infection) Disposition: ADMITTED IP TO THIS [facility] Referrals: Ant Amador MD [Primary Care Provider] - 1-2 days Decision to Admit Reason: Admit from EC Decision Date: 12/28/18 Decision Time: 02:45
[2018-12-28] MEDS ORDERED: NALOXONE 0.4 MG/ML 1 ML VIAL IV PRN (02:46)
[2018-12-28 07:44] LABS: Glucose,Whole Blood 137 mg/dL (75-99)
[2018-12-28] MEDS: INSULIN ASPART (NovoLOG) 100 UNIT/ML VIAL SQ SCH ×4 (08:14→20:23)
[2018-12-28] MEDS: LOSARTAN 25 MG TAB PO SCH (08:27)
[2018-12-28] MEDS: MONTELUKAST 10 MG TAB PO SCH (08:28)
[2018-12-28] MEDS: ATENOLOL 50 MG TAB PO SCH (08:28)
[2018-12-28] MEDS: MEGESTROL 40 MG TAB PO SCH ×2 (08:28→20:36)
[2018-12-28] MEDS ORDERED: FUROSEMIDE 20 MG TAB PO SCH (09:00)
[2018-12-28 12:11] LABS: Glucose,Whole Blood 162 mg/dL (75-99)
[2018-12-28 16:37] VITALS: BMI 42.9
[2018-12-28 20:19] LABS: Glucose,Whole Blood 223 mg/dL (75-99)
[2018-12-28] MEDS: ATORVASTATIN 20 MG TAB PO SCH (20:22)
[2018-12-28] MEDS: ACETAMINOPHEN TAB 325 MG TAB PO PRN (20:38)
[2018-12-28] MEDS: SODIUM CHLORIDE 0.9% 1,000 ML IV SCH (20:39)
[2018-12-29] MEDS: SODIUM CHLORIDE 0.9% 1,000 ML IV SCH ×2 (05:49→20:38)
[2018-12-29] MEDS: ACETAMINOPHEN TAB 325 MG TAB PO PRN ×2 (05:55→16:22)
[2018-12-29 07:13] LABS: Glucose,Whole Blood 126 mg/dL (75-99)
[2018-12-29 08:40] LABS: African American GFR (CKD) >90 (>60 ml/min/1.73 sqM); Anion Gap 5 mmol/L; Blood Urea Nitrogen 41 mg/dL (7-17); Calcium 9.7 mg/dL (8.4-10.2); Carbon Dioxide 26 mmol/L (22-30); Chloride 109 mmol/L (98-107); Glucose 129 mg/dL (74-99); Potassium 3.9 mmol/L (3.5-5.1); Sodium 140 mmol/L (137-145)
[2018-12-29 08:41] LABS: Basophils % (A) 0 %; Eosinophils # (A) 0.1 k/uL (0-0.7); Eosinophils % (A) 2 %; HCT 37.1 % (34.0-46.0); HGB 12.2 gm/dL (11.4-16.0); Lymphocytes # (A) 1.2 k/uL (1.0-4.8); Lymphocytes % (A) 23 %; MCH 35.2 pg (25.0-35.0); MCHC 32.8 g/dL (31.0-37.0); MCV 107.4 fL (80.0-100.0); Macrocytosis Moderate; Mean Platelet Volume 8.7; Monocytes # (A) 0.4 k/uL (0-1.0); Monocytes % (A) 7 %; Neutrophils # (A) 3.5 k/uL (1.3-7.7); Neutrophils % (A) 66 %; RBC 3.45 m/uL (3.80-5.40); RDW 13.9 % (11.5-15.5); WBC 5.3 k/uL (3.8-10.6)
[2018-12-29] MEDS: INSULIN ASPART (NovoLOG) 100 UNIT/ML VIAL SQ SCH ×4 (09:01→20:37)
[2018-12-29] MEDS: LOSARTAN 25 MG TAB PO SCH (09:04)
[2018-12-29] MEDS: MONTELUKAST 10 MG TAB PO SCH (09:12)
[2018-12-29] MEDS: ATENOLOL 50 MG TAB PO SCH (09:12)
[2018-12-29] MEDS: MEGESTROL 40 MG TAB PO SCH ×3 (09:12→21:09)
--- NOTE | 2018-12-29 09:59 | P.HPIM ---
History of Present Illness H&P Date: 12/28/18 Chief Complaint: weakness, fall This is a 73-year-old female history of cancer, CVA/TIA, diabetes mellitus, GI bleed, hypertension, uterine cancer, stress incontinence, history of falls, gait dysfunction, uses a walker, presented to the ER with complaints of generalized weakness, fall and multiple other medical issues. Family reports patient had also been presenting with increased confusion prior to the event. Patient reports she tripped and fell, hitting her face on the ground, denies syncope, no loss of consciousness, no incontinence. Patient reports recent UTI treated with Keflex with follow-up UA /culture reported as negative. Denies presyncope prior to the event. Denies lightheadedness dizziness or focal deficits. Denies chest pain, palpitations or shortness of breath. Denies nausea vomiting or diarrhea. Denies abdominal pain. UA suggestive of possible acute UTI,placed on Rocephin. Afebrile, normal WBC BUN 69, creatinine 0.97. CT of head, neck reported negative, C-spine cleared in the ER. EKG reporting sinus rhythm, PVCs and nonspecific T-wave abnormality. Chest x-ray reporting bibasilar opacities/atelectasis, no acute fractures. Review of Systems ROS Statement: Those systems with pertinent positive or pertinent negative responses have been documented in the HPI. ROS Other: All systems not noted in ROS Statement are negative. 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 History of Any Multi-Drug Resistant Organisms: None Reported Past Surgical History: Cholecystectomy, Joint Replacement, Orthopedic Surgery Additional Past Surgical History / Comment(s): Moh's procedure to 1/3 of nose, bilateral knee replacements, bilateral bunionectomy, hammer toe repair, colonoscopy, 2 or 3 stents for blockage. Past Anesthesia/Blood Transfusion Reactions: Previous Problems w/ Anesthesia Additional Past Anesthesia/Blood Transfusion Reaction / Comment(s): Slow to wake up from anesthesia. Past Psychological History: No Psychological Hx Reported Additional Psychological History / Comment(s): Pt. lives at home alone. Ambulates w/ a walker. Feels safe at home. 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 Smoking Status: Never smoker Past Alcohol Use History: Rare Past Drug Use History: None Reported - Past Family History Mother Family Medical History: Cancer Father Family Medical History: Cancer Medications and Allergies Home Medications Medication Instructions Recorded Confirmed Type Furosemide [Lasix] 20 mg PO QAM 01/07/14 12/28/18 History Potassium Chloride ER [K-Dur 10] 10 meq PO DAILY 02/09/18 12/28/18 History Losartan [Cozaar] 25 mg PO DAILY #30 tab 04/13/18 12/28/18 Rx Rosuvastatin [Crestor] 10 mg PO HS #30 tablet 04/13/18 12/28/18 Rx Atenolol/Chlorthalidone 1 tab PO DAILY 12/28/18 12/28/18 History [Atenolol-Chlorthalidone 50-25] Cephalexin [Keflex] 500 mg PO TID 12/28/18 12/28/18 History Clopidogrel Bisulfate [Plavix] 75 mg PO DAILY 12/28/18 12/28/18 History Gabapentin [Neurontin] 200 mg PO DAILY 12/28/18 12/28/18 History HYDROcodone/APAP 7.5-325MG [[place] 1 tab PO TID PRN 12/28/18 12/28/18 History 7.5-325] Insulin Glargine,Hum.rec.anlog 25 units SQ HS 12/28/18 12/28/18 History [Toujeo Solostar] Insulin Glargine,Hum.rec.anlog 50 units SQ QAM 12/28/18 12/28/18 History [[place]jeo Solostar] Megestrol [Megace] 80 mg PO BID 12/28/18 12/28/18 History Montelukast [Singulair] 10 mg PO DAILY 12/28/18 12/28/18 History Allergies Allergy/AdvReac Type Severity Reaction Status Date / Time meclizine HCl [From Antivert] AdvReac Hallucinati Verified 08/11/18 22:29 ons Physical Exam Vitals: Vital Signs Temp Pulse Pulse Resp BP BP Pulse Ox 12/28/18 15:00 98.1 F 66 16 104/63 95 12/28/18 08:00 16 12/28/18 07:00 98.1 F 75 16 107/61 95 12/28/18 03:54 99.2 F 79 14 126/67 96 12/28/18 03:00 98.7 F 79 13 130/67 98 12/28/18 02:00 76 13 108/52 99 12/28/18 01:00 74 13 112/57 99 12/28/18 00:30 70 16 112/57 95 12/28/18 00:00 98.6 F 76 13 126/60 98 12/27/18 23:00 80 13 105/54 97 12/27/18 22:00 78 13 129/60 98 12/27/18 21:00 78 13 129/60 99 12/27/18 20:47 98.2 F 75 13 97 Intake and Output 12/28/18 12/28/18 12/28/18 06:59 14:59 22:59 Intake Total 10 Output Total 600 Balance 10 -600 Intake: Oral 10 Output: Urine 600 Other: # Voids 4 Weight 113.398 kg PHYSICAL EXAM: VITAL SIGNS: As above GENERAL: Sitting up in bed, no acute distress HEENT: Conjunctivae normal. eyes normal. Mild Facial bruising NECK: No JVD. No thyroid enlargement. No LNs CARDIOVASCULAR: S1, S2 regular.. No murmur RESPIRATION: Breath sounds diminished in the bases. No rhonchi or crackles. No bronchial breathing. ABDOMEN: Soft, nontender . No guarding. no masses palpable. No ascites, No hepatosplenomegaly.Bowel sounds heard. LEGS: Positive edema, no clubbing, no cyanosis PSYCHIATRY: Alert and oriented X3, mood and affect normal. NERVOUS SYSTEM: Cranial N 2-12 grossly normal. Moves all 4 limbs. Diffuse weakness No focal deficits. Strength and sensation grossly intact.. Skin: no lesions, no rash. Sacral wounds 2, stage I and stage II .reported to nursing documentation/pictures Lymphatic system. No LN neck axilla or groin. Results CBC & Chem 7: 12/29/18 07:56 12/29/18 07:56 Labs: Abnormal Lab Results - Last 24 Hours (Table) 12/27/18 12/27/18 12/27/18 Range/Units 21:16 23:20 23:20 RBC 3.38 L (3.80-5.40) m/uL MCV 106.7 H (80.0-100.0) fL Plt Count 101 L (150-450) k/uL BUN 69 H (7-17) mg/dL Glucose 171 H (74-99) mg/dL POC Glucose (mg/dL) (75-99) mg/dL Delta Bilirubin 0.3 H (0.0-0.2) mg/dL AST 72 H (14-36) U/L ALT 53 H (9-52) U/L Lipase 563 H (23-300) U/L Urine Glucose (UA) 1+ H (Negative) Urine Nitrite Positive H (Negative) Ur Leukocyte Esterase Small H (Negative) Urine WBC 10 H (0-5) /hpf Urine Bacteria Many H (None) /hpf Urine Mucus Occasional H (None) /hpf 12/28/18 12/28/18 Range/Units 07:32 11:56 RBC (3.80-5.40) m/uL MCV (80.0-100.0) fL Plt Count (150-450) k/uL BUN (7-17) mg/dL Glucose (74-99) mg/dL POC Glucose (mg/dL) 137 H 162 H (75-99) mg/dL Delta Bilirubin (0.0-0.2) mg/dL AST (14-36) U/L ALT (9-52) U/L Lipase (23-300) U/L Urine Glucose (UA) (Negative) Urine Nitrite (Negative) Ur Leukocyte Esterase (Negative) Urine WBC (0-5) /hpf Urine Bacteria (None) /hpf Urine Mucus (None) /hpf Thrombosis Risk Factor Assmnt - Choose All That Apply Each Factor Represents 1 point: Swollen legs (current) Each Risk Factor Represents 2 Points: Age 61-74 years Thrombosis Risk Factor Assessment Total Risk Factor Score: 3 Thrombosis Risk Factor Assessment Level: Moderate Risk Assessment and Plan Assessment: -Change in mental status, metabolic encephalopathy secondary to Possible Acute UTI -Dehydration -Status post fall with History of falls, rule out orthostatic hypotension -Hypertension -Diabetes mellitus -History of uterine cancer -Gait dysfunction, uses walker -History of CVA/TIA Plan: Continue on current medication regime ,monitoring and symptomatic treatment. IV fluid hydration. Continue on Rocephin antibiotics. Orthostatic vitals every shift. PT/OT consulted. Home meds are in the process of being updated. Further recommendations to follow. GI and DVT prophylaxis in place. The impression and plan of care has been dictated as directed. : I performed a history and examination of this patient, discussed the same with the dictator. I agree with the dictator's note ,documented as a scribe. Any additional findings or plans will be noted. Time taken: 35 minutes
[2018-12-29] MEDS: INSULIN DETEMIR (LEVEMIR) 100 UNIT/ML SYR SQ SCH ×2 (10:38→21:51)
[2018-12-29 10:45] LABS: Platelet Count 83 k/uL (150-450)
[2018-12-29] MEDS: CLOPIDOGREL 75 MG TAB PO SCH (10:48)
[2018-12-29] MEDS: PANTOPRAZOLE 40 MG/10 ML VIAL IVP SCH (10:48)
[2018-12-29] MEDS: POTASSIUM CHLORIDE ER 10 MEQ TAB.ER.PRT PO SCH (10:48)
[2018-12-29] MEDS: GABAPENTIN 100 MG CAP PO SCH (10:48)
[2018-12-29 12:23] LABS: Glucose,Whole Blood 185 mg/dL (75-99)
[2018-12-29] MEDS ORDERED: Potassium Replacement Protocol 1 EACH MISC MISCELLANE PRN (16:33)
--- NOTE | 2018-12-29 16:38 | P.PN ---
Subjective Progress Note Date: 12/29/18 Principal diagnosis: This is a 73-year-old female history of cancer, CVA/TIA, diabetes mellitus, GI bleed, hypertension, uterine cancer, stress incontinence, history of falls, gait dysfunction, uses a walker, presented to the ER with complaints of generalized weakness, fall and multiple other medical issues. Family reports patient had also been presenting with increased confusion prior to the event. Patient reports she tripped and fell, hitting her face on the ground, denies syncope, no loss of consciousness, no incontinence. Patient reports recent UTI treated with Keflex with follow-up UA /culture reported as negative. Denies presyncope prior to the event. Denies lightheadedness dizziness or focal deficits. Denies chest pain, palpitations or shortness of breath. Denies nausea vomiting or diarrhea. Denies abdominal pain. UA suggestive of possible acute UTI,placed on Rocephin. Afebrile, normal WBC BUN 69, creatinine 0.97. CT of head, neck reported negative, C-spine cleared in the ER. EKG reporting sinus rhythm, PVCs and nonspecific T-wave abnormality. Chest x-ray reporting bibasilar opacities/atelectasis, no acute fractures. 12/29/2018 orthostatic vital signs reported negative last night, this morning's orthostatic vital signs pending. Patient complains of lower mid back pain, denies lightheadedness dizziness or focal deficits. Afebrile ,normal WBC. Consuming 50% of lunch. Denies abdominal pain. Blood sugars better controlled. Denies nausea or vomiting. Denies chest pain, palpitations or shortness of breath. Objective - Vital Signs Vital signs: Vital Signs Temp 98.7 F 12/29/18 07:51 Pulse 74 12/29/18 07:51 Resp 20 12/29/18 07:51 BP 102/61 12/29/18 07:51 Pulse Ox 95 12/29/18 07:51 Intake & Output 12/28/18 12/29/18 12/29/18 18:59 06:59 18:59 Output Total 600 400 Balance -600 -400 Weight 113.398 kg Output: Urine 600 400 Other: # Voids 4 1 - Exam PHYSICAL EXAM: VITAL SIGNS: As above GENERAL: Sitting up in chair, no acute distress HEENT: Conjunctivae normal. eyes normal. Mild Facial bruising NECK: No JVD. No thyroid enlargement. No LNs CARDIOVASCULAR: S1, S2 regular.. No murmur RESPIRATION: Breath sounds diminished in the bases. No rhonchi or crackles. No bronchial breathing. ABDOMEN: Soft, distended, nontender . No guarding. no masses palpable. No ascites, No hepatosplenomegaly.Bowel sounds heard. LEGS: Positive edema, no clubbing, no cyanosis PSYCHIATRY: Alert and oriented X3, mood and affect normal. NERVOUS SYSTEM: Cranial N 2-12 grossly normal. Moves all 4 limbs. Diffuse weakness No focal deficits. Strength and sensation grossly intact.. Skin: no lesions, no rash. Sacral wounds 2, stage I and stage II .reported to nursing documentation/pictures Lymphatic system. No LN neck axilla or groin - Labs CBC & Chem 7: 12/29/18 07:56 12/29/18 07:56 Labs: Abnormal Lab Results - Last 24 Hours (Table) 12/28/18 12/28/18 12/29/18 Range/Units 11:56 20:18 07:12 RBC (3.80-5.40) m/uL MCV (80.0-100.0) fL MCH (25.0-35.0) pg Chloride (98-107) mmol/L BUN (7-17) mg/dL Glucose (74-99) mg/dL POC Glucose (mg/dL) 162 H 223 H 126 H (75-99) mg/dL 12/29/18 12/29/18 Range/Units 07:56 07:56 RBC 3.45 L (3.80-5.40) m/uL MCV 107.4 H (80.0-100.0) fL MCH 35.2 H (25.0-35.0) pg Chloride 109 H (98-107) mmol/L BUN 41 H (7-17) mg/dL Glucose 129 H (74-99) mg/dL POC Glucose (mg/dL) (75-99) mg/dL Assessment and Plan Assessment: -Change in mental status, metabolic encephalopathy secondary to Possible Acute UTI -Dehydration -Status post fall with History of falls, rule out orthostatic hypotension -Hypertension -Diabetes mellitus -History of uterine cancer -Gait dysfunction, uses walker -History of CVA/TIA -Sacral wounds stages 1 and 2 Plan: Continue on current medication regime ,monitoring and symptomatic treatment. Infectious disease consulted for wound care. Orthostatic vital signs every shift. Gentle IV fluid hydration. Maintain IV antibiotics of Rocephin. PT/OT. Continuous remote telemetry order to monitor for potential arrhythmias that might potentiate the falls. Considering neurology consult/EEG. Social work consulted for potential subacute rehab on Tuesday.Further recommendations to follow. The impression and plan of care has been dictated as directed. : I performed a history and examination of this patient, discussed the same with the dictator. I agree with the dictator's note ,documented as a scribe. Any additional findings or plans will be noted. Time taken: 35 minutes
[2018-12-29 17:02] LABS: Glucose,Whole Blood 208 mg/dL (75-99)
[2018-12-29] MEDS: ATORVASTATIN 20 MG TAB PO SCH (20:38)
[2018-12-29 20:45] LABS: Glucose,Whole Blood 194 mg/dL (75-99)
[2018-12-29] MEDS ORDERED: MONTELUKAST 10 MG TAB PO SCH (21:00)
[2018-12-29] MEDS: HYDROcodone/APAP 7.5-325MG 1 EACH TAB PO PRN (21:54)
--- NOTE | 2018-12-30 00:05 | P.CONS ---
History of Present Illness - Reason for Consult Consult date: 12/29/18 Wound care Requesting physician: Ant Amador - Chief Complaint Fall and generalized weakness x 1 day - History of Present Illness Patient is a 73-year-old female with a past medical history significant for recurrent urinary tract infection and also a sacral wound that apparently the patient developed few months ago and subsequently healed patient has been brought to [facility] ER after pending the patient did have a fall with no loss of consciousness, and this patient was recently developed a sitting or UTI with oral Keflex patient currently denies significant fever or chills patient did mention wound on the sacral area has opened about month ago however the patient denies significant pain to the sacral wound area with no surrounding swelling redness or any foul-smelling drainage patient did have very minimal symptoms of urinary burning and no suprapubic or flank pain some nausea but no vomiting and he did have some diarrhea at home with the symptoms the patient has been evaluated by the physician patient did have mildly positive UA that no fever or elevated white count she was started on Rocephin and infectious disease was consulted for further damage to her antibiotics and local wound care sacral wound area Review of Systems Positive points has been mentioned in HPI rest of the systems are negative Past Medical History Past Medical History: Cancer, CVA/TIA, Diabetes Mellitus, GI Bleed, Hypertension Additional Past Medical History / Comment(s): Uterine cancer, vaginal bleeding/spotting recently, skin cancer w/ removal (nose) multiple mini strokes, PM > 2 year, diarrhea, stress incontinence, elevated liver enzymes, broken nose from fall, abscess in mouth near tooth, fall in the past (not recent), 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 History of Any Multi-Drug Resistant Organisms: None Reported Past Surgical History: Cholecystectomy, Joint Replacement, Orthopedic Surgery Additional Past Surgical History / Comment(s): Moh's procedure to 1/3 of nose, bilateral knee replacements, bilateral bunionectomy, hammer toe repair, colonoscopy, 2 or 3 stents for blockage. Past Anesthesia/Blood Transfusion Reactions: Previous Problems w/ Anesthesia Additional Past Anesthesia/Blood Transfusion Reaction / Comm: Slow to wake up from anesthesia. Past Psychological History: No Psychological Hx Reported Additional Psychological History / Comment(s): Pt. lives at home alone. Ambulates w/ a walker. Feels safe at home. 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 Smoking Status: Never smoker Past Alcohol Use History: Rare Past Drug Use History: None Reported - Past Family History Mother Family Medical History: Cancer Father Family Medical History: Cancer Medications and Allergies Home Medications Medication Instructions Recorded Confirmed Type Furosemide [Lasix] 20 mg PO QAM 01/07/14 12/28/18 History Potassium Chloride ER [K-Dur 10] 10 meq PO DAILY 02/09/18 12/28/18 History Losartan [Cozaar] 25 mg PO DAILY #30 tab 04/13/18 12/28/18 Rx Rosuvastatin [Crestor] 10 mg PO HS #30 tablet 04/13/18 12/28/18 Rx Atenolol/Chlorthalidone 1 tab PO DAILY 12/28/18 12/28/18 History [Atenolol-Chlorthalidone 50-25] Cephalexin [Keflex] 500 mg PO TID 12/28/18 12/28/18 History Clopidogrel Bisulfate [Plavix] 75 mg PO DAILY 12/28/18 12/28/18 History Gabapentin [Neurontin] 200 mg PO DAILY 12/28/18 12/28/18 History HYDROcodone/APAP 7.5-325MG [[place] 1 tab PO TID PRN 12/28/18 12/28/18 History 7.5-325] Insulin Glargine,Hum.rec.anlog 25 units SQ HS 12/28/18 12/28/18 History [Toujeo Solostar] Insulin Glargine,Hum.rec.anlog 50 units SQ QAM 12/28/18 12/28/18 History [Toujeo Solostar] Megestrol [Megace] 80 mg PO BID 12/28/18 12/28/18 History Montelukast [Singulair] 10 mg PO DAILY 12/28/18 12/28/18 History Allergies Allergy/AdvReac Type Severity Reaction Status Date / Time meclizine HCl [From Antivert] AdvReac Hallucinati Verified 08/11/18 22:29 ons Physical Exam Vitals: Vital Signs Temp Pulse Resp BP BP BP Pulse Ox 12/29/18 23:51 97.8 F 68 15 96/58 94 L 12/29/18 15:03 98.5 F 67 18 118/68 97 12/29/18 08:00 74 20 12/29/18 07:51 98.7 F 74 20 102/61 95 12/29/18 01:42 98.5 F 71 18 93/52 97 Intake and Output 12/29/18 12/29/18 12/30/18 14:59 22:59 06:59 Intake Total 600 Output Total 500 600 Balance 100 -600 Intake: Oral 600 Output: Urine 500 600 GENERAL DESCRIPTION: An elderly female lying in bed, no distress. No tachypnea or accessory muscle of respiration use. HEENT: Shows Pallor , no scleral icterus. Oral mucous membrane is dry. No pharyngeal erythema or thrush NECK: Trachea central, no thyromegaly. LUNGS: Unlabored breathing. Decreased breath sound at the base No wheeze or crackle. HEART: S1, S2, regular rate and rhythm. No loud murmur ABDOMEN: Soft, no tenderness , guarding or rigidity, no organomegaly EXTREMITIES: No edema of feet. SKIN: No rash, no masses palpable. BACK: Stage II sacral wound with no slough tissue no surrounding swelling redness or any foul-smelling drainage NEUROLOGICAL: The patient is awake, alert, oriented x3, mood and affect normal. Results CBC & Chem 7: 12/29/18 07:56 12/29/18 07:56 Labs: Abnormal Lab Results - Last 24 Hours (Table) 12/29/18 12/29/18 12/29/18 Range/Units 07:12 07:56 07:56 RBC 3.45 L (3.80-5.40) m/uL MCV 107.4 H (80.0-100.0) fL MCH 35.2 H (25.0-35.0) pg Plt Count 83 L (150-450) k/uL Chloride 109 H (98-107) mmol/L BUN 41 H (7-17) mg/dL Glucose 129 H (74-99) mg/dL POC Glucose (mg/dL) 126 H (75-99) mg/dL 12/29/18 12/29/18 12/29/18 Range/Units 12:19 17:00 20:32 RBC (3.80-5.40) m/uL MCV (80.0-100.0) fL MCH (25.0-35.0) pg Plt Count (150-450) k/uL Chloride (98-107) mmol/L BUN (7-17) mg/dL Glucose (74-99) mg/dL POC Glucose (mg/dL) 185 H 208 H 194 H (75-99) mg/dL Assessment and Plan Assessment: 1-patient admitted hospital with frequent falls etiology likely multifactorial possible component of UTI in this patient did have history of recurrent UTI recently finished a course of oral Keflex 2-stage II sacral wound with no evidence of any cellulitis Plan: 1-Rocephin 1 g daily to continue for underlying urinary tract infection 2-Aquacel silver dressing to the sacral wound and apply dry change to 24-48 hour depending upon drainage, keeping the area dry and of the pressure we will follow on clinical condition and culture to further adjust medication if needed Thank you for this consultation will follow this patient along with you
[2018-12-30] MEDS: ACETAMINOPHEN TAB 325 MG TAB PO PRN (02:13)
[2018-12-30] MEDS: HYDROcodone/APAP 7.5-325MG 1 EACH TAB PO PRN ×3 (05:16→22:49)
[2018-12-30 07:01] LABS: Glucose,Whole Blood 165 mg/dL (75-99)
[2018-12-30 08:35] LABS: Basophils % (A) 0 %; Eosinophils # (A) 0.1 k/uL (0-0.7); Eosinophils % (A) 3 %; HCT 37.1 % (34.0-46.0); HGB 12.1 gm/dL (11.4-16.0); Lymphocytes # (A) 1.4 k/uL (1.0-4.8); Lymphocytes % (A) 31 %; MCH 35.2 pg (25.0-35.0); MCHC 32.7 g/dL (31.0-37.0); MCV 107.8 fL (80.0-100.0); Macrocytosis Moderate; Mean Platelet Volume 9.4; Monocytes # (A) 0.4 k/uL (0-1.0); Monocytes % (A) 8 %; Neutrophils # (A) 2.5 k/uL (1.3-7.7); Neutrophils % (A) 55 %; RBC 3.44 m/uL (3.80-5.40); RDW 13.6 % (11.5-15.5); WBC 4.6 k/uL (3.8-10.6)
[2018-12-30 08:40] LABS: Calcium 9.2 mg/dL (8.4-10.2); Potassium 4.1 mmol/L (3.5-5.1)
[2018-12-30 08:45] LABS: Platelet Count 85 k/uL (150-450)
[2018-12-30] MEDS: GABAPENTIN 100 MG CAP PO SCH (10:56)
[2018-12-30] MEDS: MEGESTROL 40 MG TAB PO SCH ×2 (10:56→21:26)
[2018-12-30] MEDS: CLOPIDOGREL 75 MG TAB PO SCH (10:56)
[2018-12-30] MEDS: MONTELUKAST 10 MG TAB PO SCH (10:56)
[2018-12-30] MEDS: POTASSIUM CHLORIDE ER 10 MEQ TAB.ER.PRT PO SCH (10:57)
[2018-12-30] MEDS: INSULIN DETEMIR (LEVEMIR) 100 UNIT/ML SYR SQ SCH ×2 (10:57→21:26)
[2018-12-30 12:16] LABS: Glucose,Whole Blood 230 mg/dL (75-99)
[2018-12-30] MEDS: INSULIN ASPART (NovoLOG) 100 UNIT/ML VIAL SQ SCH ×5 (12:51→21:26)
[2018-12-30] MEDS: ATENOLOL 50 MG TAB PO SCH (12:57)
[2018-12-30] MEDS: PANTOPRAZOLE 40 MG/10 ML VIAL IVP SCH (13:00)
[2018-12-30] MEDS: SODIUM CHLORIDE 0.9% 1,000 ML IV SCH (14:54)
[2018-12-30 17:10] LABS: Glucose,Whole Blood 210 mg/dL (75-99)
[2018-12-30] MEDS: ATORVASTATIN 20 MG TAB PO SCH (21:26)
[2018-12-30 21:36] LABS: Glucose,Whole Blood 132 mg/dL (75-99)
--- NOTE | 2018-12-30 22:13 | PN ---
PROGRESS NOTE SUBJECTIVE: This is a 73-year-old white female with dehydration, metabolic encephalopathy, generalized weakness. Remains on IV fluids. She is going to get PT, OT, and possible transfer to rehab center on Tuesday. CARDIOVASCULAR: S1, S2. LUNGS: Clear. HEMATOLOGY: Negative Homans. PSYCH: Fair mood and affect. Continue with current treatment. Follow up next 24 to 48 hours. MMODL / DONTEN: [id number] /
[2018-12-30] MEDS: diphenhydrAMINE 25 MG CAP PO PRN (22:46)
[2018-12-31] MEDS: SODIUM CHLORIDE 0.9% 1,000 ML IV SCH ×2 (01:34→16:43)
[2018-12-31 07:29] LABS: Glucose,Whole Blood 92 mg/dL (75-99)
[2018-12-31] MEDS: PANTOPRAZOLE 40 MG TABLET PO SCH (08:48)
[2018-12-31] MEDS: GABAPENTIN 100 MG CAP PO SCH (08:48)
[2018-12-31] MEDS: INSULIN DETEMIR (LEVEMIR) 100 UNIT/ML SYR SQ SCH ×2 (08:48→22:23)
[2018-12-31] MEDS: ACETAMINOPHEN TAB 325 MG TAB PO PRN (08:48)
[2018-12-31] MEDS: MONTELUKAST 10 MG TAB PO SCH (08:49)
[2018-12-31] MEDS: ATENOLOL 50 MG TAB PO SCH (08:49)
[2018-12-31] MEDS: CLOPIDOGREL 75 MG TAB PO SCH (08:49)
[2018-12-31] MEDS: MEGESTROL 40 MG TAB PO SCH ×2 (08:49→22:19)
[2018-12-31] MEDS: POTASSIUM CHLORIDE ER 10 MEQ TAB.ER.PRT PO SCH (08:50)
[2018-12-31] MEDS: INSULIN ASPART (NovoLOG) 100 UNIT/ML VIAL SQ SCH ×4 (08:56→22:24)
[2018-12-31 12:50] LABS: Glucose,Whole Blood 192 mg/dL (75-99)
--- NOTE | 2018-12-31 13:42 | PN ---
PROGRESS NOTE DATE OF SERVICE: 12/30/2018. REASON FOR FOLLOWUP: Stage II sacral pressure ulcer and possible UTI. INTERVAL HISTORY: The patient is currently afebrile. Patient is breathing comfortably. The patient denies having any chest pain or cough. No abdominal pain. Did have some discomfort to the sacral area, especially with prolonged sitting. PHYSICAL EXAMINATION: Blood pressure 106/54 with a pulse of 73, temperature 98. She is 95% on room air. General description is an elderly female up in the chair in no distress. Respiratory system: Unlabored breathing. Clear to auscultation anteriorly. Heart S1, S2. Regular rate and rhythm. Sacral wound is currently dressed up. No obvious drainage on the dressing. LABS: Hemoglobin is 12.1, white count 4.6, BUN of 30, creatinine 0.82. DIAGNOSTIC IMPRESSION AND PLAN: 1. Patient with stage II sacral pressure ulcer with no evidence of any secondary cellulitis. Recommend local wound care with Aquacel Silver dressing to keep the area dry and off the pressure. 2. The patient with a positive UA with concern for urinary tract infection. Currently covered with Rocephin to continue while waiting for the culture to finalize. 3. Continue supportive care. MMODL / IJN: [id number] /
[2018-12-31] MEDS ORDERED: FUROSEMIDE 10 MG/ML 2 ML VIAL IV STA (16:39)
[2018-12-31 17:36] LABS: Glucose,Whole Blood 163 mg/dL (75-99)
--- NOTE | 2018-12-31 18:23 | XR ---
EXAMINATION TYPE: XR chest 2V DATE OF EXAM: 12/31/2018 COMPARISON: Prior chest x-ray 12/27/2018 HISTORY: Cough and congestion TECHNIQUE: Frontal and lateral views of the chest are obtained. FINDINGS: There is no focal air space opacity, pleural effusion, or pneumothorax seen. The cardiac silhouette size is stable accounting for differences in technique, rotation. The osseous structures are intact. IMPRESSION: No acute cardiopulmonary process.
[2018-12-31 21:28] LABS: Glucose,Whole Blood 164 mg/dL (75-99)
[2018-12-31] MEDS: ATORVASTATIN 20 MG TAB PO SCH (22:19)
[2018-12-31] MEDS: diphenhydrAMINE 25 MG CAP PO PRN (22:19)
[2018-12-31] MEDS: HYDROcodone/APAP 7.5-325MG 1 EACH TAB PO PRN (22:19)
--- NOTE | 2018-12-31 22:56 | PN ---
PROGRESS NOTE She has got cough, congestion. She wants a chest x-ray, which we will do. She remains dehydrated, metabolic encephalopathy, generalized weakness, treated for UTI. I ordered a chest x-ray. Continue with fluid rehydration. She is very upset about the amount of help she is getting from the nursing staff and medical staff. Cardiovascular S1-S2. Lungs clear. GI soft. Hematology negative Homans. Psych: Fair mood and affect. IMPRESSION: 1. Dehydration. 2. Metabolic encephalopathy. 3. Generalized weakness. Follow up in the next 24-48 hours for possible discharge. MMODL / IJN: [id number] /
[2019-01-01] MEDS: SODIUM CHLORIDE 0.9% 1,000 ML IV SCH (03:33)
[2019-01-01 07:14] LABS: Glucose,Whole Blood 109 mg/dL (75-99)
[2019-01-01] MEDS: INSULIN ASPART (NovoLOG) 100 UNIT/ML VIAL SQ SCH ×2 (07:38→12:25)
[2019-01-01] MEDS: CLOPIDOGREL 75 MG TAB PO SCH (07:43)
[2019-01-01] MEDS: MEGESTROL 40 MG TAB PO SCH (07:43)
[2019-01-01] MEDS: MONTELUKAST 10 MG TAB PO SCH (07:44)
[2019-01-01] MEDS: GABAPENTIN 100 MG CAP PO SCH (07:44)
[2019-01-01] MEDS: PANTOPRAZOLE 40 MG TABLET PO SCH (07:44)
[2019-01-01] MEDS: POTASSIUM CHLORIDE ER 10 MEQ TAB.ER.PRT PO SCH (07:44)
[2019-01-01] MEDS: ATENOLOL 50 MG TAB PO SCH (07:45)
[2019-01-01] MEDS: INSULIN DETEMIR (LEVEMIR) 100 UNIT/ML SYR SQ SCH (07:48)
[2019-01-01] MEDS: ACETAMINOPHEN TAB 325 MG TAB PO PRN (07:51)
[2019-01-01 08:00] VITALS: BP 119/59; PULSE 67; RESP 18; TEMP 98.4
[2019-01-01 12:01] LABS: Albumin 3.3 g/dL (3.5-5.0); Calcium 9.4 mg/dL (8.4-10.2); Potassium 4.1 mmol/L (3.5-5.1); Total Bilirubin 1.4 mg/dL (0.2-1.3)
[2019-01-01 12:05] LABS: Basophils % (A) 1 %; Eosinophils # (A) 0.1 k/uL (0-0.7); Eosinophils % (A) 3 %; HCT 39.3 % (34.0-46.0); HGB 12.8 gm/dL (11.4-16.0); Lymphocytes # (A) 1.1 k/uL (1.0-4.8); Lymphocytes % (A) 20 %; MCH 35.1 pg (25.0-35.0); MCHC 32.5 g/dL (31.0-37.0); MCV 107.8 fL (80.0-100.0); Macrocytosis Moderate; Monocytes # (A) 0.4 k/uL (0-1.0); Monocytes % (A) 7 %; Neutrophils # (A) 3.7 k/uL (1.3-7.7); Neutrophils % (A) 68 %; RBC 3.65 m/uL (3.80-5.40); RDW 13.4 % (11.5-15.5); WBC 5.4 k/uL (3.8-10.6)
[2019-01-01 12:09] LABS: Glucose,Whole Blood 154 mg/dL (75-99)
[2019-01-01 12:21] LABS: Platelet Count 82 k/uL (150-450)
--- NOTE | 2019-01-01 12:24 | P.DS ---
Providers Date of admission: 12/29/18 12:14 Expected date of discharge: 01/01/19 Attending physician: Ant Amador Consults: 12/29/18 10:06 Consult Physician Routine Consulting Provider: Rashmi Knight Consult Reason/Comments: wound care Do you want consulting provider notified?: Yes [facility] Course: Final Diagnoses: -Change in mental status, metabolic encephalopathy secondary to Possible Acute recurrent UTI -Dehydration -Status post fall with History of falls, possibly related to acute recurrent UTI, orthostatic hypotension ruled out -Hypertension -Diabetes mellitus -History of uterine cancer -Gait dysfunction, uses walker -History of CVA/TIA -Sacral wounds stages 1 and 2 Hospital course:This is a 73-year-old female history of cancer, CVA/TIA, diabetes mellitus, GI bleed, hypertension, uterine cancer, stress incontinence, history of falls, gait dysfunction, uses a walker, presented to the ER with complaints of generalized weakness, fall and multiple other medical issues. Family reports patient had also been presenting with increased confusion prior to the event. Patient reports she tripped and fell, hitting her face on the ground, denies syncope, no loss of consciousness, no incontinence. Patient reports recent UTI treated with Keflex with follow-up UA /culture reported as negative. Denies presyncope prior to the event. Denies lightheadedness dizziness or focal deficits. Denies chest pain, palpitations or shortness of breath. Denies nausea vomiting or diarrhea. Denies abdominal pain. UA suggestive of possible acute UTI,placed on Rocephin. Afebrile, normal WBC BUN 69, creatinine 0.97. CT of head, neck reported negative, C-spine cleared in the ER. EKG reporting sinus rhythm, PVCs and nonspecific T-wave abnormality. Chest x-ray reporting bibasilar opacities/atelectasis, no acute fractures. 12/29/2018 orthostatic vital signs reported negative last night, this morning's orthostatic vital signs pending. Patient complains of lower mid back pain, denies lightheadedness dizziness or focal deficits. Afebrile ,normal WBC. Consuming 50% of lunch. Denies abdominal pain. Blood sugars better controlled. Denies nausea or vomiting. Denies chest pain, palpitations or shortness of breath. Maintain on IV antibiotics, gentle IV fluid hydration .antibiotics/wound care as per ID Significant clinical improvement. Cleared by infectious disease for consult. Patient is being discharged to [facility] subacute rehab in astable condition, guarded prognosis. EXAM: GENERAL: Alert and oriented 2, no acute distress CARDIOVASCULAR: S1, S2 regular. No murmur RESPIRATION: Breath sounds diminished in the bases. No rhonchi or crackles. ABDOMEN: Soft, distended, nontender . No guarding. no masses palpable. Bowel sounds heard. NERVOUS SYSTEM: No focal deficits. The impression and plan of care has been dictated as directed. : I performed a history and examination of this patient, discussed the same with the dictator. I agree with the dictator's note ,documented as a scribe. Any additional findings or plans will be noted. Time taken: 35 minutes Patient Condition at Discharge: Stable Plan - Discharge Summary New Discharge Prescriptions: New Atenolol [Tenormin] 50 mg PO DAILY tab INSULIN LISPRO (HumaLOG) [humaLOG] 0 unit SQ ACHS #1 vial Insulin Glargine,Hum.rec.anlog [Lantus Solostar] 25 unit SQ HS #1 ml Continue Furosemide [Lasix] 20 mg PO QAM Potassium Chloride ER [K-Dur 10] 10 meq PO DAILY Rosuvastatin [Crestor] 10 mg PO HS #30 tablet Megestrol [Megace] 80 mg PO BID Clopidogrel Bisulfate [Plavix] 75 mg PO DAILY Montelukast [Singulair] 10 mg PO DAILY Insulin Glargine,Hum.rec.anlog [Toujeo Solostar] 25 units SQ HS Gabapentin [Neurontin] 200 mg PO DAILY #6 cap HYDROcodone/APAP 7.5-325MG [[place] 7.5-325] 1 tab PO TID PRN #9 tab PRN Reason: Pain Insulin Glargine,Hum.rec.anlog [Toujeo Solostar] 50 units SQ QAM #0 Discontinued Gabapentin [Neurontin] 200 mg PO HS Losartan [Cozaar] 25 mg PO DAILY #30 tab Atenolol [Tenormin] 50 mg PO QAM tab Linagliptin [Tradjenta] 5 mg PO QAM tablet traMADol HCl [Ultram] 50 mg PO QID PRN tab PRN Reason: Moderate Pain Cefuroxime Axetil [Ceftin] 500 mg PO BID 3 Days #6 tab Atenolol/Chlorthalidone [Atenolol-Chlorthalidone 50-25] 1 tab PO DAILY Discharge Medication List Furosemide [Lasix] 20 mg PO QAM 01/07/14 [History] Potassium Chloride ER [K-Dur 10] 10 meq PO DAILY 02/09/18 [History] Rosuvastatin [Crestor] 10 mg PO HS #30 tablet 04/13/18 [Rx] Clopidogrel Bisulfate [Plavix] 75 mg PO DAILY 12/28/18 [History] Insulin Glargine,Hum.rec.anlog [Toujeo Solostar] 25 units SQ HS 12/28/18 [History] Megestrol [Megace] 80 mg PO BID 12/28/18 [History] Montelukast [Singulair] 10 mg PO DAILY 12/28/18 [History] Atenolol [Tenormin] 50 mg PO DAILY tab 01/01/19 [Rx] Gabapentin [Neurontin] 200 mg PO DAILY #6 cap 01/01/19 [Rx] HYDROcodone/APAP 7.5-325MG [[place] 7.5-325] 1 tab PO TID PRN #9 tab 01/01/19 [Rx] INSULIN LISPRO (HumaLOG) [humaLOG] 0 unit SQ ACHS #1 vial 01/01/19 [Rx] Insulin Glargine,Hum.rec.anlog [Lantus Solostar] 25 unit SQ HS #1 ml 01/01/19 [Rx] Insulin Glargine,Hum.rec.anlog [Toujeo Solostar] 50 units SQ QAM #0 01/01/19 [Rx] Follow up Appointment(s)/Referral(s): Ant Amador MD [Primary Care Provider] - 3 Days [facility] the [place], [NON-STAFF] - As Needed Activity/Diet/Wound Care/Special Instructions: [facility] antibiotics/wound care as per ID Diet: Consistent carb Activity: As tolerated CBC, BMP in 3 days Discharge Disposition: TRANSFER TO SNF/ECF
--- NOTE | 2019-01-01 13:00 | EEG ---
ELECTROENCEPHALOGRAM REPORT DATE OF TESTIN01/01/2019. CLINICAL PROBLEM: Patient presented to the emergency room with her family due to frequent falls, generalized weakness, and altered mental status. She has multiple medical problems. Patient stated that she tripped and fell and hit her face. She denied any loss of consciousness. She was recently diagnosed with a urinary tract infection, treated with Keflex. EEG was requested to rule out epileptiform activity. MEDICATIONS: Pantoprazole, Singulair, potassium, Megace, insulin, acetaminophen, gabapentin, Benadryl, clopidogrel, ceftriaxone, atorvastatin, atenolol, Tylenol. TYPE OF RECORDING: Bedside tracing using the 10-20 international electrode placement system. No sedation was given prior to the beginning of this recording. FINDINGS: The background of this tracing is seen with a theta and occasionally delta slowing. Photic stimulation elicits a symmetric driving response. Hyperventilation is not performed in this recording. There is no definitive sleep architecture seen. There are scattered EMG artifacts throughout the recording that correspond to patient's body movements. There is no background asymmetry, ictal, or interictal patterns appreciated. IMPRESSION: This is an abnormal electroencephalogram with excessive background slowing but otherwise without asymmetry or epileptiform discharges. This can be seen in cerebral dysfunction of any chromous such as metabolic encephalopathy. Clinical correlation is advised. MMODL / IJN: [id number] / TIFFANY
--- NOTE | 2019-01-01 20:12 | PN ---
PROGRESS NOTE DATE OF SERVICE: 01/01/2019 REASON FOR FOLLOWUP: Stage II sacral pressure ulcer and possible UTI. INTERVAL HISTORY: The patient is currently afebrile. The patient has been breathing comfortably. The patient denies having any chest pain, shortness of breath or cough. No nausea, vomiting or any diarrhea. PHYSICAL EXAMINATION: Blood pressure 119/59 with a pulse of 67, temperature 98.4. She is 96% on room air. General description is an elderly female lying in bed in no distress. RESPIRATORY SYSTEM: Unlabored breathing. Clear to auscultation anteriorly. HEART: S1, S2. Regular rate and rhythm. ABDOMEN: Soft. No tenderness. LABS: Hemoglobin is 12.8, white count 5.4, BUN of 21, creatinine 0.80. DIAGNOSTIC IMPRESSION AND PLAN: 1. Patient with stage II sacral pressure ulcer with no evidence of cellulitis. Recommend local wound care with Aquacel Silver dressing applied dry. Keep the area off pressure. 2. Patient with concern about possible urinary tract infection. Her urine culture has been negative. No need for antibiotic on discharge. Continue with supportive care. MMODL / IJN: [id number] /
== END 2019-01-01 15:20 | DRG 689 ==
LOC: EC 20:42 → 4SSUR 12-28 02:49 → OBSVTOIN 12-29 12:14
PROVIDERS: ADMIT Family Medicine; ATTEND Family Medicine
DX: N39.0 Urinary tract infection, site not specified (principal); G93.41 Metabolic encephalopathy; J98.11 Atelectasis; E11.9 Type 2 diabetes mellitus without complications; E86.0 Dehydration; I10 Essential (primary) hypertension; I49.3 Ventricular premature depolarization; L89.152 Pressure ulcer of sacral region, stage 2; R29.6 Repeated falls; S00.83XA Contusion of other part of head, initial encounter; W01.0XXA Fall on same level from slipping, tripping and stumbling without subsequent striking against object, initial encounter; Y92.009 Unspecified place in unspecified non-institutional (private) residence as the place of occurrence of the external cause; Z79.02 Long term (current) use of antithrombotics/antiplatelets; Z79.4 Long term (current) use of insulin; Z79.82 Long term (current) use of aspirin; Z79.899 Other long term (current) drug therapy; Z85.42 Personal history of malignant neoplasm of other parts of uterus; Z85.828 Personal history of other malignant neoplasm of skin; Z86.73 Personal history of transient ischemic attack (TIA), and cerebral infarction without residual deficits; Z87.440 Personal history of urinary (tract) infections; Z91.81 History of falling; Z96.653 Presence of artificial knee joint, bilateral; R26.9 Unspecified abnormalities of gait and mobility; Z87.19 Personal history of other diseases of the digestive system; Z60.2 Problems related to living alone; Z88.8 Allergy status to other drugs, medicaments and biological substances; Z80.9 Family history of malignant neoplasm, unspecified
CPT/HCPCS: 36415; 70450; 71045; 71046; 72125; 80048; 80053; 80076; 81001; 83605; 83690; 83735; 83880; 84443; 84484; 85025; 93005; 95816; 96365; 99285

== ENCOUNTER 2019-06-08 16:32 | Inpatient (IN) | payer MEDICARE, BC ==
--- NOTE | 2019-06-08 16:40 | ED ---
Weakness HPI - General Stated complaint: AMS, infection Time Seen by Provider: 06/08/19 16:33 Source: RN notes reviewed, old records reviewed Limitations: altered mental status, physical limitation - History of Present Illness Initial comments: This is a 73-year-old female here for evaluation. Patient forthright with significant altered mental status sent for evaluation rule out possible infection causing altered mental status. Patient is unable to give history of the ER history obtained from prior charting MD Complaint: generalized weakness, lack of energy -: days(s) Location: generalized Severity: severe Consistency: constant Improves with: none Worsens with: none Context: recent illness, history of similar Associated Symptoms: confusion, fever/chills, loss of appetite, nausea/vomiting - Related Data Home Medications Medication Instructions Recorded Confirmed Furosemide [Lasix] 20 mg PO QAM 01/07/14 12/28/18 Potassium Chloride ER [K-Dur 10] 10 meq PO DAILY 02/09/18 12/28/18 Clopidogrel Bisulfate [Plavix] 75 mg PO DAILY 12/28/18 12/28/18 Insulin Glargine,Hum.rec.anlog 25 units SQ HS 12/28/18 12/28/18 [Toujeo Solostar] Megestrol [Megace] 80 mg PO BID 12/28/18 12/28/18 Montelukast [Singulair] 10 mg PO DAILY 12/28/18 12/28/18 Previous Rx's Medication Instructions Recorded Rosuvastatin [Crestor] 10 mg PO HS #30 tablet 04/13/18 Atenolol [Tenormin] 50 mg PO DAILY tab 01/01/19 Gabapentin [Neurontin] 200 mg PO DAILY #6 cap 01/01/19 HYDROcodone/APAP 7.5-325MG [[place] 1 tab PO TID PRN #9 tab 01/01/19 7.5-325] INSULIN LISPRO (HumaLOG) [humaLOG] 0 unit SQ ACHS #1 vial 01/01/19 Insulin Glargine,Hum.rec.anlog 25 unit SQ HS #1 ml 01/01/19 [Lantus Solostar] Insulin Glargine,Hum.rec.anlog 50 units SQ QAM #0 01/01/19 [Toujeo Solostar] Allergies Allergy/AdvReac Type Severity Reaction Status Date / Time meclizine HCl [From Antivert] AdvReac Hallucinati Verified 08/11/18 22:29 ons Review of Systems ROS Statement: Those systems with pertinent positive or pertinent negative responses have been documented in the HPI. ROS Other: All systems not noted in ROS Statement are negative. 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 History of Any Multi-Drug Resistant Organisms: None Reported Past Surgical History: Cholecystectomy, Joint Replacement, Orthopedic Surgery Additional Past Surgical History / Comment(s): Moh's procedure to 1/3 of nose, bilateral knee replacements, bilateral bunionectomy, hammer toe repair, c olonoscopy, 2 or 3 stents for blockage. Past Anesthesia/Blood Transfusion Reactions: Previous Problems w/ Anesthesia Additional Past Anesthesia/Blood Transfusion Reaction / Comment(s): Slow to wake up from anesthesia. Past Psychological History: No Psychological Hx Reported Additional Psychological History / Comment(s): Pt. lives at home alone. Ambulates w/ a walker. Feels safe at home. 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 Smoking Status: Never smoker Past Alcohol Use History: Rare Past Drug Use History: None Reported - Past Family History Mother Family Medical History: Cancer Father Family Medical History: Cancer General Exam Limitations: altered mental status General appearance: alert, in no apparent distress Head exam: Present: atraumatic, normocephalic, normal inspection Eye exam: Present: normal appearance, PERRL, EOMI. Absent: scleral icterus, conjunctival injection, periorbital swelling ENT exam: Present: normal exam, mucous membranes moist Neck exam: Present: normal inspection. Absent: tenderness, meningismus, lymphadenopathy Respiratory exam: Present: normal lung sounds bilaterally. Absent: respiratory distress, wheezes, rales, rhonchi, stridor Cardiovascular Exam: Present: regular rate, normal rhythm, normal heart sounds. Absent: systolic murmur, diastolic murmur, rubs, gallop, clicks GI/Abdominal exam: Present: soft, normal bowel sounds. Absent: distended, tenderness, guarding, rebound, rigid Extremities exam: Present: normal inspection, full ROM, normal capillary refill. Absent: tenderness, pedal edema, joint swelling, calf tenderness Back exam: Present: normal inspection Neurological exam: Present: alert, oriented X3, CN II-XII intact Psychiatric exam: Present: normal affect, normal mood Skin exam: Present: warm, dry, intact, normal color. Absent: rash Course Vital Signs 06/08/19 06/08/19 16:36 18:17 Temperature 98.5 F Pulse Rate 76 73 Respiratory 16 16 Rate Blood Pressure 123/62 127/63 O2 Sat by Pulse 95 97 Oximetry - Reevaluation(s) Reevaluation #1: 06/08/19 18:31 Records reviewed Reevaluation #2: 06/08/19 18:31 Patient has no clinical improvement here in the ER - Consultations Consultation #1: Spoke with Dr. Amador who is agreeable for admission Medical Decision Making - Medical Decision Making 73 female ER for evaluation patient was unsafe for evaluation regarding to altered mental status significant Irrijet infection as well as weakness. Patient be admitted for hydration IV antibiotics and monitoring of clinical or mental status - Lab Data Result diagrams: 06/08/19 17:05 06/08/19 17:05 Lab Results 06/08/19 06/08/19 06/08/19 Range/Units 17:05 17:05 17:05 WBC 12.9 H (3.8-10.6) k/uL RBC 4.22 (3.80-5.40) m/uL Hgb 14.6 (11.4-16.0) gm/dL Hct 44.0 (34.0-46.0) % MCV 104.4 H (80.0-100.0) fL MCH 34.6 (25.0-35.0) pg MCHC 33.2 (31.0-37.0) g/dL RDW 13.0 (11.5-15.5) % Plt Count 111 L (150-450) k/uL Neutrophils % 77 % Lymphocytes % 11 % Monocytes % 8 % Eosinophils % 2 % Basophils % 0 % Neutrophils # 9.9 H (1.3-7.7) k/uL Lymphocytes # 1.4 (1.0-4.8) k/uL Monocytes # 1.1 H (0-1.0) k/uL Eosinophils # 0.2 (0-0.7) k/uL Basophils # 0.0 (0-0.2) k/uL Macrocytosis Slight Sodium 131 L (137-145) mmol/L Potassium 5.3 H (3.5-5.1) mmol/L Chloride 95 L (98-107) mmol/L Carbon Dioxide 30 (22-30) mmol/L Anion Gap 6 mmol/L BUN 53 H (7-17) mg/dL Creatinine 1.28 H (0.52-1.04) mg/dL Est GFR (CKD-EPI)AfAm 49 (>60 ml/min/1.73 sqM) Est GFR (CKD-EPI)NonAf 42 (>60 ml/min/1.73 sqM) Glucose 315 H (74-99) mg/dL Plasma Lactic Acid Adan 2.0 (0.7-2.0) mmol/L Calcium 9.5 (8.4-10.2) mg/dL Phosphorus 3.3 (2.5-4.5) mg/dL Magnesium 1.8 (1.6-2.3) mg/dL Total Bilirubin 2.8 H (0.2-1.3) mg/dL AST 146 H (14-36) U/L ALT 157 H (4-34) U/L Alkaline Phosphatase 221 H (38-126) U/L Ammonia 44 H (<30) umol/L Creatine Kinase 27 L (30-135) U/L Troponin I (0.000-0.034) ng/mL NT-Pro-B Natriuret Pep pg/mL Total Protein 7.2 (6.3-8.2) g/dL Albumin 3.2 L (3.5-5.0) g/dL TSH 1.160 (0.465-4.680) mIU/L Urine Color Urine Appearance (Clear) Urine pH (5.0-8.0) Ur Specific Chapin (1.001-1.035) Urine Protein (Negative) Urine Glucose (UA) (Negative) Urine Ketones (Negative) Urine Blood (Negative) Urine Nitrite (Negative) Urine Bilirubin (Negative) Urine Urobilinogen (<2.0) mg/dL Ur Leukocyte Esterase (Negative) Urine RBC (0-5) /hpf Urine WBC (0-5) /hpf Urine Bacteria (None) /hpf Hyaline Casts (0-2) /lpf Urine Mucus (None) /hpf Urine Yeast (Budding) (None) /hpf 06/08/19 06/08/19 06/08/19 Range/Units 17:05 17:05 17:14 WBC (3.8-10.6) k/uL RBC (3.80-5.40) m/uL Hgb (11.4-16.0) gm/dL Hct (34.0-46.0) % MCV (80.0-100.0) fL MCH (25.0-35.0) pg MCHC (31.0-37.0) g/dL RDW (11.5-15.5) % Plt Count (150-450) k/uL Neutrophils % % Lymphocytes % % Monocytes % % Eosinophils % % Basophils % % Neutrophils # (1.3-7.7) k/uL Lymphocytes # (1.0-4.8) k/uL Monocytes # (0-1.0) k/uL Eosinophils # (0-0.7) k/uL Basophils # (0-0.2) k/uL Macrocytosis Sodium (137-145) mmol/L Potassium (3.5-5.1) mmol/L Chloride (98-107) mmol/L Carbon Dioxide (22-30) mmol/L Anion Gap mmol/L BUN (7-17) mg/dL Creatinine (0.52-1.04) mg/dL Est GFR (CKD-EPI)AfAm (>60 ml/min/1.73 sqM) Est GFR (CKD-EPI)NonAf (>60 ml/min/1.73 sqM) Glucose (74-99) mg/dL Plasma Lactic Acid Adan (0.7-2.0) mmol/L Calcium (8.4-10.2) mg/dL Phosphorus (2.5-4.5) mg/dL Magnesium (1.6-2.3) mg/dL Total Bilirubin (0.2-1.3) mg/dL AST (14-36) U/L ALT (4-34) U/L Alkaline Phosphatase (38-126) U/L Ammonia (<30) umol/L Creatine Kinase (30-135) U/L Troponin I 0.021 (0.000-0.034) ng/mL NT-Pro-B Natriuret Pep 197 pg/mL Total Protein (6.3-8.2) g/dL Albumin (3.5-5.0) g/dL TSH (0.465-4.680) mIU/L Urine Color Yellow Urine Appearance Cloudy H (Clear) Urine pH 5.0 (5.0-8.0) Ur Specific [place] 1.014 (1.001-1.035) Urine Protein Trace H (Negative) Urine Glucose (UA) 2+ H (Negative) Urine Ketones Negative (Negative) Urine Blood Moderate H (Negative) Urine Nitrite Negative (Negative) Urine Bilirubin Negative (Negative) Urine Urobilinogen 4.0 (<2.0) mg/dL Ur Leukocyte Esterase Large H (Negative) Urine RBC 23 H (0-5) /hpf Urine WBC 27 H (0-5) /hpf Urine Bacteria Many H (None) /hpf Hyaline Casts 25 H (0-2) /lpf Urine Mucus Few H (None) /hpf Urine Yeast (Budding) Many H (None) /hpf Disposition Clinical Impression: Urinary tract infection, Weakness, Acute on chronic renal failure Disposition: ADMITTED IP TO THIS HOSP Condition: Fair Is patient prescribed a controlled substance at d/c from ED?: No Referrals: Ant Amador MD [Primary Care Provider] - 1-2 days
[2019-06-08] MEDS ORDERED: SODIUM CHLORIDE 0.9% 1,000 ML IV STA (16:46)
[2019-06-08 17:28] LABS: Albumin 3.2 g/dL (3.5-5.0); Calcium 9.5 mg/dL (8.4-10.2); Magnesium 1.8 mg/dL (1.6-2.3); Phosphorus 3.3 mg/dL (2.5-4.5); Total Bilirubin 2.8 mg/dL (0.2-1.3); Total Protein 7.2 g/dL (6.3-8.2)
[2019-06-08 17:29] LABS: Potassium 5.3 mmol/L (3.5-5.1)
[2019-06-08 17:32] LABS: Appearance,Urine Cloudy (Clear); Bacteria,Urine Many /hpf; Bilirubin,Urine Negative (Negative); Blood,Urine Moderate (Negative); Budding Yeast,Urine Many /hpf; Color,Urine Yellow; Glucose,Urine (UA) 2+ (Negative); Hyaline Casts,Urine 25 /lpf (0-2); Ketones,Urine Negative (Negative); Leukocyte Esterase,Urine Large (Negative); Mucus,Urine Few /hpf; Nitrite,Urine Negative (Negative); Protein,Urine Trace (Negative); RBC,Urine 23 /hpf (0-5); Specific Gravity,Urine 1.014 (1.001-1.035); WBC,Urine 27 /hpf (0-5)
[2019-06-08 17:37] LABS: Basophils % (A) 0 %; Eosinophils # (A) 0.2 k/uL (0-0.7); Eosinophils % (A) 2 %; HGB 14.6 gm/dL (11.4-16.0); Lymphocytes # (A) 1.4 k/uL (1.0-4.8); Lymphocytes % (A) 11 %; MCH 34.6 pg (25.0-35.0); MCHC 33.2 g/dL (31.0-37.0); MCV 104.4 fL (80.0-100.0); Macrocytosis Slight; Mean Platelet Volume 11.5; Monocytes # (A) 1.1 k/uL (0-1.0); Monocytes % (A) 8 %; Neutrophils # (A) 9.9 k/uL (1.3-7.7); Neutrophils % (A) 77 %; Platelet Count 111 k/uL (150-450); RBC 4.22 m/uL (3.80-5.40); WBC 12.9 k/uL (3.8-10.6)
[2019-06-08] MEDS ORDERED: LACTULOSE 20 GM/30 ML CUP PO ONE (18:34)
--- NOTE | 2019-06-08 18:59 | CT ---
EXAMINATION TYPE: CT brain wo con DATE OF EXAM: 06/08/2019 COMPARISON: 12/27/2018 INDICATION: Altered mental status. DLP: 1217.4 mGycm, Automated exposure control for dose reduction was used. CONTRAST: None CT of the brain is performed utilizing 3 mm thick sections through the posterior fossa and 3 mm thick sections through the remaining calvarium. Study is performed within 24 hours of arrival to the hosp ital. No abnormal hyperdensity is present to suggest an acute intracranial hemorrhage. No mass lesion is evident. No acute infarcts are evident. Periventricular white matter hypodensity is present, likely on the bas is of chronic white matter ischemic changes Ventricles and sulci are mildly prominent for the patient age. There is opacification of the right sphenoid sinus. Remaining paranasal sinuses are clear. IMPRESSIONS: 1. Age-related atrophy with mild chronic appearing periventricular white matter ischemic type merry contreras
--- NOTE | 2019-06-08 19:18 | XR ---
EXAMINATION TYPE: XR abdomen acute w cxr DATE OF EXAM: 06/08/2019 COMPARISON: None HISTORY: Acute mental status change TECHNIQUE: Acute abdominal series is performed with a frontal chest upright and supine views of the leigh ann fischer. FINDINGS: Nonspecific bowel gas is present. Air is within the colon and small bowel loops. No suspici ous air-fluid levels or differential air-fluid levels are evident. No free air is evident. No mass ef fect is evident. Psoas margins are normal. Organomegaly is not evident. Surgical clips are in the rig ht upper quadrant. Heart size is normal. Pulmonary vasculature is within normal limits. No suspicious focal consolidatio n is evident. IMPRESSION: 1. Nonspecific acute abdominal series
[2019-06-08] MEDS: LACTULOSE 20 GM/30 ML CUP PO SCH (21:16)
[2019-06-09] MEDS: SODIUM CHLORIDE 0.9% 1,000 ML IV SCH ×4 (00:05→22:38)
[2019-06-09] MEDS: LACTATED RINGERS 500 ML IV SCH ×2 (05:33→05:34)
[2019-06-09 07:17] LABS: Glucose,Whole Blood 250 mg/dL (75-99)
[2019-06-09] MEDS: HYDROcodone/APAP 5-325MG 1 EACH TAB PO PRN (07:38)
[2019-06-09] MEDS ORDERED: PANTOPRAZOLE 40 MG/10 ML VIAL IV SCH (09:00)
[2019-06-09] MEDS: ENOXAPARIN 40 MG/0.4 ML SYRINGE SQ SCH (09:42)
[2019-06-09] MEDS: LACTULOSE 20 GM/30 ML CUP PO SCH ×2 (09:42→21:04)
[2019-06-09 11:18] LABS: Glucose,Whole Blood 299 mg/dL (75-99)
[2019-06-09] MEDS ORDERED: INSULIN ASPART (NovoLOG) 100 UNIT/ML VIAL SQ SCH (12:30)
[2019-06-09] MEDS: INSULIN ASPART (NovoLOG) 100 UNIT/ML VIAL SQ SCH ×3 (12:45→20:41)
[2019-06-09] MEDS: HYDROmorphone 0.5 MG/0.5 ML SYRINGE IVP PRN (13:25)
[2019-06-09 13:38] VITALS: BMI 24.2
[2019-06-09 16:59] LABS: Glucose,Whole Blood 230 mg/dL (75-99)
[2019-06-09 19:59] LABS: Glucose,Whole Blood 215 mg/dL (75-99)
[2019-06-09] MEDS ORDERED: VANCOMYCIN IV PER PHARMACY 1 EACH MISC MISCELLANE PRN (20:13)
--- NOTE | 2019-06-09 20:37 | HP ---
HISTORY AND PHYSICAL 73-year-old white female admitted with altered mental status. She was found to have severe dehydration, urinary tract infection and possible cirrhosis of the liver with ascites. She has generalized weakness, lack of energy. She was obtunded in the emergency room, but she feels better today after having fluids overnight. HOME MEDICATIONS: Include Lasix 20 mg daily, K-Dur 10 mEq daily, Plavix 75 mg daily, insulin 25 units daily, Megace 80 b.i.d. Singulair 10 mg daily. ALLERGIES: MECLIZINE. REVIEW OF SYSTEMS: 14-point review of systems negative except for mentioned in HPI. PAST MEDICAL HISTORY: Uterine cancer. She has had a lot of bleeding from the vagina for which gynecology has been consulted. CVA/TIA, diabetes mellitus, hypertension, GI bleed, skin cancer, multiple mini strokes, stress incontinence. PAST SURGICAL HISTORY: Cholecystectomy, joint replacement, orthopedic surgery, Mohs procedure ( ), bilateral knee replacement, bilateral bunionectomy, hammertoe repair, colonoscopy, 2 or 3 stents for blockage. SOCIAL HISTORY: Patient lives at home. Ambulates with a walker. 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 PAST FAMILY HISTORY: Mother cancer. Father cancer. PHYSICAL EXAM: CONSTITUTIONAL: She looks weak, fatigued. She looks very dehydrated. INTEGUMENT: Poor skin turgor, dry mucous membranes. OPHTHALMOLOGIC: Pupils equal, round, react to light and accommodation. LUNGS: Clear. CARDIOVASCULAR: S1, S2. GI: Soft, normal bowel sounds, distended. Some tenderness to palpation. Some mild guarding. No rebound or rigidity. EXTREMITIES: Show 2+ edema. Generalized edema in general. MUSCULOSKELETAL: She can move 4 extremities. She has moderate effusions of bilateral knees. SKIN: Warm, dry, and intact. Temp 98.5, blood pressure 123-127/62-63, O2 95-97%, pulse 73-76. ASSESSMENT: 1. Dehydration. 2. Urinary tract infection. 3. Possible cirrhosis of the liver. 4. Leukocytosis secondary to above. 5. Diastolic congestive heart failure. 6. Hyponatremia. 7. Hyperkalemia. 8. Acute tubular necrosis secondary to prerenal renal insufficiency. 9. Elevated ammonia level. She will be started on lactulose. Ammonia is elevated secondary to her liver. Thyroid looks okay. Albumin is low. 10.Acute on chronic renal insufficiency. Continue current treatment as mentioned above. MRI of her liver will be done. Monitor ammonia levels. MMODL / IJN: [id number] /
[2019-06-09] MEDS ORDERED: VANCOMYCIN 1,250 MG in SODIUM CHLORIDE 0.9% 250 ML IVPB SCH (21:00)
--- NOTE | 2019-06-10 00:55 | MR ---
EXAMINATION TYPE: MR liver wo/w con DATE OF EXAM: 06/09/2019 COMPARISON: 08/04/2018 HISTORY: AMS, elevated lft's per us notes CONTRAST: Standard multiplanar, multisequence MRI departmental protocol utilizing 9 mL intravenous Gadavist kai olinium contrast. There is mild abdominal ascites fluid. There is more fluid around the right lobe of the liver in the subcutaneous phrenic space. There is some enlargement of the left lobe of the liver. There is no disc rete liver mass. The bile ducts do not appear dilated. Spleen measures 15 cm. There are multiple cyst ic areas throughout the pancreas that measure up to 2.5 cm. The pancreatic duct is not dilated. There is no evidence of a solid pancreatic mass. Kidneys have normal size. There is no hydronephrosis. Heart is enlarged. There is no adrenal mass. Contrast images show normal enhancement of the kidneys. There is lobulated contour of the liver. This could relate to cirrhosis. There is minimal pleural thickening right poste rior lung base. There is no evidence of retroperitoneal adenopathy. There is no pathologic enhancemen t of the liver or pancreas. IMPRESSION: There is splenomegaly unchanged. There is irregular margins of the right lobe of the liver with hyper trophy of the left lobe that is consistent with cirrhosis similar to old exam. No dilated ducts. Nume jessica cystic areas throughout the pancreas consistent with chronic pancreatitis and pseudocyst formati on unchanged. Abdominal ascites increased slightly compared to last exam.
[2019-06-10] MEDS: HYDROcodone/APAP 5-325MG 1 EACH TAB PO PRN ×2 (04:40→17:36)
[2019-06-10] MEDS: SODIUM CHLORIDE 0.9% 1,000 ML IV SCH ×3 (05:15→20:30)
[2019-06-10] MEDS: HYDROmorphone 0.5 MG/0.5 ML SYRINGE IVP PRN ×4 (05:17→22:19)
[2019-06-10 06:53] LABS: Glucose,Whole Blood 197 mg/dL (75-99)
[2019-06-10 07:42] LABS: ALT 115 U/L (4-34); AST 76 U/L (14-36); African American GFR (CKD) >90 (>60 ml/min/1.73 sqM); Alkaline Phosphatase 240 U/L (38-126); Anion Gap 8 mmol/L; Blood Urea Nitrogen 22 mg/dL (7-17); Calcium 9.4 mg/dL (8.4-10.2); Carbon Dioxide 23 mmol/L (22-30); Chloride 103 mmol/L (98-107); Glucose 217 mg/dL (74-99); Non-African American GFR(CKD) 88 (>60 ml/min/1.73 sqM); Potassium 4.4 mmol/L (3.5-5.1); Sodium 134 mmol/L (137-145); Total Bilirubin 3.7 mg/dL (0.2-1.3); Total Protein 6.9 g/dL (6.3-8.2)
[2019-06-10] MEDS: LACTULOSE 20 GM/30 ML CUP PO SCH ×2 (08:21→20:30)
[2019-06-10] MEDS: PANTOPRAZOLE 40 MG TABLET PO SCH (08:21)
[2019-06-10] MEDS: INSULIN ASPART (NovoLOG) 100 UNIT/ML VIAL SQ SCH ×4 (08:22→20:30)
[2019-06-10] MEDS: ENOXAPARIN 40 MG/0.4 ML SYRINGE SQ SCH (08:28)
[2019-06-10 09:30] LABS: Basophils % (A) 0 %; Eosinophils # (A) 0.1 k/uL (0-0.7); Eosinophils % (A) 1 %; Lymphocytes % (A) 11 %; MCH 35.5 pg (25.0-35.0); MCHC 33.3 g/dL (31.0-37.0); MCV 106.5 fL (80.0-100.0); Macrocytosis Moderate; Mean Platelet Volume 10.6; Monocytes # (A) 0.5 k/uL (0-1.0); Monocytes % (A) 5 %; Neutrophils # (A) 7.1 k/uL (1.3-7.7); Neutrophils % (A) 81 %; RBC 3.66 m/uL (3.80-5.40); WBC 8.8 k/uL (3.8-10.6)
[2019-06-10] MEDS: VANCOMYCIN 1,250 MG in SODIUM CHLORIDE 0.9% 250 ML IVPB SCH ×2 (10:11→22:27)
[2019-06-10 10:16] LABS: Platelet Count 99 k/uL (150-450)
[2019-06-10 11:13] LABS: Glucose,Whole Blood 230 mg/dL (75-99)
--- NOTE | 2019-06-10 11:44 | P.OBCN ---
History of Present Illness Consult date: 06/10/19 Reason for consult: other (Postmenopausal bleeding) Chief complaint: Mental status changes History of present illness: The patient is a 73-year-old 2 para 2001 who presents to the hospital from an independent living site with available assisted living care with significant mental status changes. She is unable to provide a lucid history on her own. Evaluation through the emergency room demonstrated what was initially thought to be a urinary tract infection. She is additionally discovered to have a decubitus ulcer as she has been unable to ambulate on her own for the last couple of weeks. 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 This diagnosis was made locally by Dr. Dimas through [facility] who then referred her to come on also where she was seen by Dr. Gleason. The patient's daughter reports that he feels she is too high risk to undergo hysterectomy and then placed her on Megace for ongoing treatment. The patient's daughter reports that she has had ongoing almost daily vaginal bleeding less than or equal to a period for several months and she feels this is contributing to the recurrent urinary tract concerns. Examination of the chart shows that she has, at least occasionally, been on blood thinners such as Plavix. At the time of examination and discussion, the patient remains relatively confused and unable to provide any additional history. There is apparently a scheduled follow-up with [facility] sometime in July. Obstetrical history: 2 para 2001 with 2 previous normal spontaneous vaginal deliveries. Gynecologic history: Unremarkable with the exception of as noted in history of present illness. She does currently carry the diagnosis of either significant endometrial hyperplasia or low-grade cancer. The actual diagnosis is not apparent in our chart. Review of Systems Review of systems is confined to history of present illness. 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 History of Any Multi-Drug Resistant Organisms: None Reported Past Surgical History: Cholecystectomy, Joint Replacement, Orthopedic Surgery Additional Past Surgical History / Comment(s): Moh's procedure to 1/3 of nose, bilateral knee replacements, bilateral bunionectomy, hammer toe repair, colonoscopy, 2 or 3 stents for blockage. Past Anesthesia/Blood Transfusion Reactions: Previous Problems w/ Anesthesia Additional Past Anesthesia/Blood Transfusion Reaction / Comm: Slow to wake up from anesthesia. Smoking Status: Unknown if ever smoked - Past Family History Mother Family Medical History: Cancer Father Family Medical History: Cancer Medications and Allergies Home Medications Medication Instructions Recorded Confirmed Type Furosemide [Lasix] 20 mg PO DAILY@0900 01/07/14 06/08/19 History Montelukast [Singulair] 10 mg PO HS@209912/28/18 06/08/19 History Aspirin 81 mg PO DAILY@89906/08/19 06/08/19 History Atenolol/Chlorthalidone 1 tab PO DAILY@89906/08/19 06/08/19 History [Atenolol-Chlorthalidone 50-25] Gabapentin [Neurontin] 200 mg PO TID@0900,1500,209906/08/19 06/08/19 History HYDROcodone/APAP 7.5-325MG [[place] 1 tab PO Q6H PRN 06/08/19 06/08/19 History 7.5-325] Insulin Glargine,Hum.rec.anlog 20 unit SQ BID@0900,209906/08/19 06/08/19 History [Basaglar Kwikpen U-100] Insulin Lispro [Insulin Lispro See Protocol SQ ACHS 06/08/19 06/08/19 History Kwikpen U-100] Lactose-Reduced Food [Ensure Plus] 237 ml PO BID@0900,209906/08/19 06/08/19 History Melatonin 10 mg PO HS PRN 06/08/19 06/08/19 History Moexipril HCl [Univasc] 15 mg PO HS@209906/08/19 06/08/19 History [place]-3 Acid Ethyl Esters [Lovaza] 2 gm PO BID@0900,209906/08/19 06/08/19 History Potassium Chloride [Klor-Con 8] 8 meq PO BID@0900,209906/08/19 06/08/19 History Allergies Allergy/AdvReac Type Severity Reaction Status Date / Time meclizine HCl [From Antivert] AdvReac Hallucinati Verified 06/08/19 19:36 ons Exam Vital Signs Temp Pulse Resp BP BP Pulse Ox 06/10/19 07:16 98.0 F 16 147/67 95 06/10/19 06:55 16 06/10/19 04:10 16 06/10/19 01:13 98.6 F 76 19 169/68 96 06/10/19 00:17 76 18 06/09/19 19:41 18 06/09/19 19:23 98.3 F 83 16 142/67 100 06/09/19 14:59 98.1 F 79 16 151/70 94 L Intake and Output 06/09/19 06/10/19 06/10/19 22:59 06:59 14:59 Output Total 900 Balance -900 Output: Urine 900 Other: Voiding Method Indwelling Catheter Indwelling Catheter In general, this is a well-developed, well-nourished but quite confused elderly woman in no acute distress. Her heart has a regular rhythm and rate without murmur. Her lungs are clear to auscultation bilaterally in all walters. Her abdomen is nondistended, soft, nontender, without any palpable masses. Her extremities are without any cyanosis or clubbing but to have some bilateral lower extremity edema and are nontender to palpation bilaterally. Bimanual pelvic examination demonstrates the uterus to be very high in the pelvis. It is essentially nonpalpable with the abdominal examining hand but no particular findings of mass or firmness or found throughout the examination. There is a small to moderate amount of blood on the vaginal hand examining glove at the end of the examination. Results Result Diagrams: 06/10/19 08:48 06/10/19 07:05 Abnormal Lab Results - Last 24 Hours (Table) 06/09/19 06/09/19 06/10/19 Range/Units 16:57 19:58 06:52 RBC (3.80-5.40) m/uL MCV (80.0-100.0) fL MCH (25.0-35.0) pg Plt Count (150-450) k/uL Sodium (137-145) mmol/L BUN (7-17) mg/dL Glucose (74-99) mg/dL POC Glucose (mg/dL) 230 H 215 H 197 H (75-99) mg/dL Total Bilirubin (0.2-1.3) mg/dL AST (14-36) U/L ALT (4-34) U/L Alkaline Phosphatase (38-126) U/L Albumin (3.5-5.0) g/dL 06/10/19 06/10/19 06/10/19 Range/Units 07:05 08:48 11:12 RBC 3.66 L (3.80-5.40) m/uL MCV 106.5 H (80.0-100.0) fL MCH 35.5 H (25.0-35.0) pg Plt Count 99 L (150-450) k/uL Sodium 134 L (137-145) mmol/L BUN 22 H (7-17) mg/dL Glucose 217 H (74-99) mg/dL POC Glucose (mg/dL) 230 H (75-99) mg/dL Total Bilirubin 3.7 H (0.2-1.3) mg/dL AST 76 H (14-36) U/L ALT 115 H (4-34) U/L Alkaline Phosphatase 240 H (38-126) U/L Albumin 3.0 L (3.5-5.0) g/dL Microbiology - Last 24 Hours (Table) 06/08/19 21:24 Blood Culture Gram Stain - Preliminary Blood 06/08/19 17:14 Urine Culture - Preliminary Urine,Voided Gram Neg Bacilli Gram Neg Bacilli#2 06/08/19 21:24 Blood Culture - Final Blood Assessment and Plan (1) Postmenopausal bleeding Current Visit: No Status: Acute Code(s): N95.0 - POSTMENOPAUSAL BLEEDING SNOMED Code(s): 88915203 Plan: The actual diagnosis of endometrial cancer versus hyperplasia does, I feel, represented important distinction in terms of ongoing treatment. I agree with the assessment by [facility] that the patient is a poor surgical candidate. Continuation of progestational therapy with Megace or even possibly a Mirena IUD is a consideration. As I am unable to document her actual diagnosis in our chart and the patient does have known thrombocytopenia, consultation with medical oncology may be able to elucidate both concerns. There may be a consideration for focal radiation therapy if the patient is not thought to be a candidate for any of the above procedures. From my perspective, the first step in the process is to find the actual working diagnosis by obtaining [facility] in order to provide more specified care. Continue with current supportive measures. I will continue to follow in the chart at this time the patient has been an established patient with Dr. Dimas in the past. Should follow-up outpatient care be necessary, she certainly could follow-up with her previous color repairer.
[2019-06-10] MEDS: FUROSEMIDE 10 MG/ML 2 ML VIAL IV SCH (15:04)
[2019-06-10 16:35] LABS: Glucose,Whole Blood 247 mg/dL (75-99)
--- NOTE | 2019-06-10 16:53 | PN ---
PROGRESS NOTE 73-year-old white female. She got confused last night. She remains on Rocephin for UTI and vancomycin for positive blood cultures for gram-positive cocci seen in the blood. Lactulose is continued for elevated ammonia levels. MRI of the liver shows possible cirrhosis. Cardiovascular S1, S2. Lungs are clear. Hematology negative Homans. Ophthalmologic: Pupils equal, round, reactive. ASSESSMENT: 1. Bacteremia. 2. Urinary tract infection. 3. Vaginal bleeding which gynecology saw the patient for and possibly wants the medical oncologist to see her. 4. Ammonia levels are improved on Lactulose which we might be able to slow down on the dose. Remain on broad-spectrum antibiotics until repeat blood cultures are back. 5. Encephalopathy secondary to urosepsis. Please see further orders. MMODL / IJN: [id number] /
[2019-06-10 19:56] LABS: Glucose,Whole Blood 296 mg/dL (75-99)
[2019-06-11] MEDS: HYDROcodone/APAP 5-325MG 1 EACH TAB PO PRN ×4 (02:57→21:51)
[2019-06-11] MEDS: SODIUM CHLORIDE 0.9% 1,000 ML IV SCH ×3 (03:01→21:05)
[2019-06-11 07:05] LABS: Glucose,Whole Blood 252 mg/dL (75-99)
[2019-06-11] MEDS: INSULIN ASPART (NovoLOG) 100 UNIT/ML VIAL SQ SCH ×4 (07:29→21:05)
[2019-06-11] MEDS: PANTOPRAZOLE 40 MG TABLET PO SCH (07:29)
[2019-06-11] MEDS: LACTULOSE 20 GM/30 ML CUP PO SCH ×2 (07:29→21:06)
[2019-06-11] MEDS: FUROSEMIDE 10 MG/ML 2 ML VIAL IV SCH (07:30)
[2019-06-11] MEDS: ENOXAPARIN 40 MG/0.4 ML SYRINGE SQ SCH (07:30)
[2019-06-11 07:46] LABS: Basophils # (A) 0.1 k/uL (0-0.2); Basophils % (A) 1 %; Eosinophils # (A) 0.2 k/uL (0-0.7); Eosinophils % (A) 2 %; HCT 40.8 % (34.0-46.0); HGB 13.4 gm/dL (11.4-16.0); Lymphocytes # (A) 0.7 k/uL (1.0-4.8); Lymphocytes % (A) 8 %; MCH 35.4 pg (25.0-35.0); MCHC 32.8 g/dL (31.0-37.0); MCV 107.8 fL (80.0-100.0); Macrocytosis Moderate; Mean Platelet Volume 10.4; Monocytes # (A) 0.6 k/uL (0-1.0); Monocytes % (A) 6 %; Neutrophils # (A) 7.4 k/uL (1.3-7.7); Neutrophils % (A) 82 %; Platelet Count 110 k/uL (150-450); RBC 3.79 m/uL (3.80-5.40); RDW 12.9 % (11.5-15.5); WBC 9.1 k/uL (3.8-10.6)
[2019-06-11 08:05] LABS: ALT 92 U/L (4-34); AST 63 U/L (14-36); African American GFR (CKD) >90 (>60 ml/min/1.73 sqM); Albumin 2.8 g/dL (3.5-5.0); Alkaline Phosphatase 224 U/L (38-126); Anion Gap 7 mmol/L; Blood Urea Nitrogen 20 mg/dL (7-17); Calcium 9.3 mg/dL (8.4-10.2); Carbon Dioxide 24 mmol/L (22-30); Chloride 103 mmol/L (98-107); Glucose 283 mg/dL (74-99); Non-African American GFR(CKD) 90 (>60 ml/min/1.73 sqM); Potassium 4.2 mmol/L (3.5-5.1); Sodium 134 mmol/L (137-145); Total Bilirubin 2.7 mg/dL (0.2-1.3); Total Protein 6.6 g/dL (6.3-8.2)
[2019-06-11] MEDS: HYDROmorphone 0.5 MG/0.5 ML SYRINGE IVP PRN (09:04)
[2019-06-11] MEDS: VANCOMYCIN 1,250 MG in SODIUM CHLORIDE 0.9% 250 ML IVPB SCH ×2 (09:05→21:06)
[2019-06-11 12:05] LABS: Glucose,Whole Blood 281 mg/dL (75-99)
--- NOTE | 2019-06-11 12:34 | P.PN ---
Subjective Progress Note Date: 06/11/19 Principal diagnosis: Mental status changes The patient today is significantly more lucid and able to discuss the situation. She denies any ongoing pain but has not been able to get up out of bed. She is tolerating both food and liquids though does not have a significant amount of hunger. The vaginal bleeding continues and is a source of frustration for her. Objective - Vital Signs Vital signs: Vital Signs Temp 98.2 F 06/11/19 07:00 Pulse 97 06/11/19 07:00 Resp 16 06/11/19 07:00 BP 171/78 06/11/19 07:00 Pulse Ox 96 06/11/19 07:00 Intake & Output 06/10/19 06/11/19 06/11/19 18:59 06:59 18:59 Intake Total 910 Output Total 1700 250 450 Balance -790 -250 -450 Intake: Intake, IV Titration 910 Amount Sodium Chloride 0.9% 1, 910 000 ml @ 130 mls/hr IV . [id number] [facility] Rx#:[id number] Output: Urine 1700 250 450 Other: Voiding Method Indwelling Catheter Indwelling Catheter - Exam In general, this is a well-developed, well-nourished white female in no acute distress who is significantly more lucid today than previous exam. Her abdomen is soft, nondistended, without any apparent masses as well as nontender. Her extremities are without any cyanosis, clubbing, or significant edema and are nontender to palpation bilaterally. - Labs CBC & Chem 7: 06/11/19 07:06 06/11/19 07:06 Labs: Abnormal Lab Results - Last 24 Hours (Table) 06/10/19 06/10/19 06/11/19 Range/Units 16:34 19:55 07:03 RBC (3.80-5.40) m/uL MCV (80.0-100.0) fL MCH (25.0-35.0) pg Plt Count (150-450) k/uL Lymphocytes # (1.0-4.8) k/uL Sodium (137-145) mmol/L BUN (7-17) mg/dL Glucose (74-99) mg/dL POC Glucose (mg/dL) 247 H 296 H 252 H (75-99) mg/dL Total Bilirubin (0.2-1.3) mg/dL AST (14-36) U/L ALT (4-34) U/L Alkaline Phosphatase (38-126) U/L Albumin (3.5-5.0) g/dL 06/11/19 06/11/19 06/11/19 Range/Units 07:06 07:06 12:03 RBC 3.79 L (3.80-5.40) m/uL MCV 107.8 H (80.0-100.0) fL MCH 35.4 H (25.0-35.0) pg Plt Count 110 L (150-450) k/uL Lymphocytes # 0.7 L (1.0-4.8) k/uL Sodium 134 L (137-145) mmol/L BUN 20 H (7-17) mg/dL Glucose 283 H (74-99) mg/dL POC Glucose (mg/dL) 281 H (75-99) mg/dL Total Bilirubin 2.7 H (0.2-1.3) mg/dL AST 63 H (14-36) U/L ALT 92 H (4-34) U/L Alkaline Phosphatase 224 H (38-126) U/L Albumin 2.8 L (3.5-5.0) g/dL Microbiology - Last 24 Hours (Table) 06/08/19 21:24 Blood Culture Gram Stain - Preliminary Blood Blood Culture - Preliminary 06/09/19 21:49 Blood Culture - Preliminary Blood No Growth after 24 hours Assessment and Plan (1) Postmenopausal bleeding Current Visit: No Status: Acute Code(s): N95.0 - POSTMENOPAUSAL BLEEDING SNOMED Code(s): 12417718 Plan: I await discussion with hematology and oncology as to possible options for treatment which, in my estimation, are entirely dependent upon the working diagnosis. Pathology is attempting to find the result from the D&C specimen and March 2018. Further plans could be suggested once this date is available. In the meantime, it may be of some value to consider physical and occupational therapy for the patient as well as having sequential compression devices placed on her feet while she is bed bound to decrease the risk for DVT.
--- NOTE | 2019-06-11 15:24 | P.CONS ---
History of Present Illness - Reason for Consult Consult date: 06/11/19 Thrombocytopenia, vaginal bleeding - History of Present Illness The patient is 73-year-old white female with multiple medical problems. The patient was admitted this time with progressive weakness and mental status sousa es. She was ultimately found to have a urinary tract infection, with culture positive for Escherichia coli. The patient's performance status is overall poor with decreased mobility with a known diagnosis of sacral decubitus ulcer. The patient also has known underlying cirrhosis, biopsy proven at the time of cholecystectomy in 2013. At the time of admission the patient's family gave a history of endometrial cancer. 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 She was referred to [facility], Dr. Gleason, but was not felt to be a good candidate for surgery. She has therefore been maintained on Megace. She has complains of regular, intermittent vaginal bleeding which according to her and her family seems to be "like periods". She was evaluated by [facility] during this admission. Her labs showed low platelet in the 80-100,000 range. Hemoglobin and WBC were normal. Consult was therefore placed for further evaluation and recommendations. At the time of evaluation, the patient is complaining of generalized pain but was unable to provide further details. It was difficult to obtain a coherent history from her, but she did deny any prior history of blood related problems. She also denied any history of alcohol use in the past. She stated that she did not know what her cirrhosis was from. Review of records indicate that the patient was assessed by our practice previously in late 2018 for chronic thrombo-cytopenia. Her workup was negative other than the presence of cirrhosis. It was therefore concluded that the thrombo-cytopenia was due to chronic liver dysfunction and portal hypertension causing splenic sequestration. As counts were in a safe range no further workup was recommended. Review of Systems Constitutional: Reports chronic pain, Reports weakness Eyes: denies blurred vision, denies pain Ears: deny: decreased hearing, ear discharge, earache, tinnitus Ears, nose, mouth and throat: Denies headache, Denies sore throat Cardiovascular: Reports decreased exercise tolerance Respiratory: Denies cough Gastrointestinal: Reports as per HPI Genitourinary: Reports as per HPI, Reports abnormal vaginal bleeding, Reports urinary frequency Menstruation: Reports postmenopausal Musculoskeletal: Reports low back pain, Reports muscle weakness Integumentary: Reports wounds Neurological: Reports change in mentation, Reports confusion Psychiatric: Reports anxiety, Reports disorientation Endocrine: Reports fatigue Hematologic/Lymphatic: Reports as per HPI Past Medical History Past Medical History: Cancer, CVA/TIA, Diabetes Mellitus, GI Bleed, Hypertension Additional Past Medical History / Comment(s): Uterine cancer, vaginal bleeding/spotting recently, skin cancer w/ removal (nose) multiple mini strokes, PM > 2 year, diarrhea, stress incontinence, elevated liver enzymes, broken nose from fall, abscess in mouth near tooth, fall in the past (not recent), 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 History of Any Multi-Drug Resistant Organisms: None Reported Past Surgical History: Cholecystectomy, Joint Replacement, Orthopedic Surgery Additional Past Surgical History / Comment(s): Moh's procedure to 1/3 of nose, bilateral knee replacements, bilateral bunionectomy, hammer toe repair, colonoscopy, 2 or 3 stents for blockage. Past Anesthesia/Blood Transfusion Reactions: Previous Problems w/ Anesthesia Additional Past Anesthesia/Blood Transfusion Reaction / Comm: Slow to wake up from anesthesia. Smoking Status: Unknown if ever smoked - Past Family History Mother Family Medical History: Cancer Father Family Medical History: Cancer Medications and Allergies Home Medications Medication Instructions Recorded Confirmed Type Furosemide [Lasix] 20 mg PO DAILY@0900 01/07/06/08/19 History Montelukast [Singulair] 10 mg PO HS@209912/28/18 06/08/19 History Aspirin 81 mg PO DAILY@0900 06/08/19 06/08/19 History Atenolol/Chlorthalidone 1 tab PO DAILY@0906/08/19 06/08/19 History [Atenolol-Chlorthalidone 50-25] Gabapentin [Neurontin] 200 mg PO TID@0900,1500,209906/08/19 06/08/19 History HYDROcodone/APAP 7.5-325MG [[place] 1 tab PO Q6H PRN 06/08/19 06/08/19 History 7.5-325] Insulin Glargine,Hum.rec.anlog 20 unit SQ BID@0900,2100 06/08/19 06/08/19 History [Basaglar Kwikpen U-100] Insulin Lispro [Insulin Lispro See Protocol SQ ACHS 06/08/19 06/08/19 History Kwikpen U-100] Lactose-Reduced Food [Ensure Plus] 237 ml PO BID@0900,209906/08/19 06/08/19 History Melatonin 10 mg PO HS PRN 06/08/19 06/08/19 History Moexipril HCl [Univasc] 15 mg PO HS@209906/08/19 06/08/19 History Dalton-3 Acid Ethyl Esters [Lovaza] 2 gm PO BID@0900,209906/08/19 06/08/19 Hist ory Potassium Chloride [Klor-Con 8] 8 meq PO BID@0900,209906/08/19 06/08/19 History Allergies Allergy/AdvReac Type Severity Reaction Status Date / Time meclizine HCl [From Antivert] AdvReac Hallucinati Verified 06/08/19 19:36 ons Physical Exam Vitals: Vital Signs Temp Pulse Resp BP Pulse Ox 06/11/19 07:00 98.2 F 97 16 171/78 96 06/11/19 01:01 98.4 F 94 18 154/72 96 06/11/19 00:51 94 18 06/10/19 18:55 98.2 F 121 H 17 152/75 96 06/10/19 17:45 98.2 F 06/10/19 13:57 99.7 F H 74 16 147/68 96 Intake and Output 06/10/19 06/11/19 06/11/19 22:59 06:59 14:59 Output Total 900 250 450 Balance -900 -250 -450 Output: Urine 900 250 450 Other: Voiding Method Indwelling Catheter Indwelling Catheter - Constitutional agitated, claiming generalized pain General appearance: mild distress - EENT Eyes: EOMI, PERRLA ENT: hearing grossly normal, normal oropharynx - Neck Neck: no lymphadenopathy Thyroid: bilateral: normal size - Respiratory Respiratory: bilateral: CTA - Cardiovascular Rhythm: regular Heart sounds: normal: S1, S2 - Gastrointestinal General gastrointestinal: normal bowel sounds, soft - Integumentary Integumentary: rash (erythematous, with superficial desquamation, bilateral malar, nasal areas) - Neurologic Neurologic: CNII-XII intact - Musculoskeletal Musculoskeletal: generalized weakness, strength equal bilaterally - Psychiatric Agitated, leading generalized pain and demanding pain medications. Unable to provide any localizing sites of pain, states "it hurts all over". Appears to be oriented 3. 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 Results CBC & Chem 7: 06/11/19 07:06 06/11/19 07:06 Labs: Abnormal Lab Results - Last 24 Hours (Table) 06/10/19 06/10/19 06/11/19 Range/Units 16:34 19:55 07:03 RBC (3.80-5.40) m/uL MCV (80.0-100.0) fL MCH (25.0-35.0) pg Plt Count (150-450) k/uL Lymphocytes # (1.0-4.8) k/uL Sodium (137-145) mmol/L BUN (7-17) mg/dL Glucose (74-99) mg/dL POC Glucose (mg/dL) 247 H 296 H 252 H (75-99) mg/dL Total Bilirubin (0.2-1.3) mg/dL AST (14-36) U/L ALT (4-34) U/L Alkaline Phosphatase (38-126) U/L Albumin (3.5-5.0) g/dL 06/11/19 06/11/19 06/11/19 Range/Units 07:06 07:06 12:03 RBC 3.79 L (3.80-5.40) m/uL MCV 107.8 H (80.0-100.0) fL MCH 35.4 H (25.0-35.0) pg Plt Count 110 L (150-450) k/uL Lymphocytes # 0.7 L (1.0-4.8) k/uL Sodium 134 L (137-145) mmol/L BUN 20 H (7-17) mg/dL Glucose 283 H (74-99) mg/dL POC Glucose (mg/dL) 281 H (75-99) mg/dL Total Bilirubin 2.7 H (0.2-1.3) mg/dL AST 63 H (14-36) U/L ALT 92 H (4-34) U/L Alkaline Phosphatase 224 H (38-126) U/L Albumin 2.8 L (3.5-5.0) g/dL Microbiology - Last 24 Hours (Table) 06/08/19 21:24 Blood Culture Gram Stain - Preliminary Blood Blood Culture - Preliminary 06/09/19 21:49 Blood Culture - Preliminary Blood No Growth after 24 hours Comments: Procedure notes and path report from 01/21 reviewed and summarized above CT Scan - head: report reviewed MRI - abdomen: report reviewed Assessment and Plan (1) Thrombocytopenia Narrative/Plan: The patient has a chronic thrombo-cytopenia that has been worked up in the past. The patient has known chronic liver disease and portal hypertension. Workup for other causes has been negative and her low platelets appear to be due to decreased marrow production related to chronic liver disease, as well as increased sequestration in the spleen from portal hypertension. Review of her treated counts show that the lowest count in the system is 79 which is well within a safe range. Platelet counts are greater than 50,000 are quite sufficient for most surgeries, invasive procedures, and anticoagulation. Currently treated counts are greater than 100,000. No further hematology workup or intervention is required. As noted, a level greater than 100,000 is quite sufficient for any invasive procedure , including neurosurgical, or for ant icoagulation. Current Visit: Yes Status: Acute Code(s): D69.6 - THROMBOCYTOPENIA, UNSPECIFIED SNOMED Code(s): 030528150 (2) Postmenopausal bleeding Narrative/Plan: According to the patient and her family this is a persistent problem. Biopsy done here had shown atypical endometrial hyperplasia and not malignancy. The patient is already on follow-up with [facility] and is on Megace. The bleeding does not appear to be significant, as her hemoglobin has been persistently normal, including greater than 13 during this admission. As the patient is already established with [facility], recommend continued follow-up with Dr. Gleason on discharge. Defer to [facility] here, in case of any emergent issues Abdominal imaging done here does not show any evidence of malignancy either. Current Visit: No Status: Acute Code(s): N95.0 - POSTMENOPAUSAL BLEEDING SNOMED Code(s): 25629976 Plan: Defer to the admitting service and other consultants for management of her other medical problems
[2019-06-11] MEDS: CEFEPIME 1 GM in SODIUM CHLORIDE 0.9% 50 ML IVPB SCH (15:42)
[2019-06-11 17:07] LABS: Glucose,Whole Blood 331 mg/dL (75-99)
[2019-06-11 18:39] LABS: Hemoglobin A1C 7.6 % (4.0-6.0)
[2019-06-11 20:24] LABS: Glucose,Whole Blood 302 mg/dL (75-99)
--- NOTE | 2019-06-11 20:38 | CONS ---
CONSULTATION DATE OF DICTATION: June 11, 2019. REQUESTING PHYSICIAN: Dr. Ant Amador. REASON FOR CONSULTATION: Elevated LFTs and altered mental status. HISTORY OF PRESENT ILLNESS: The patient is a 73-year-old pleasant white female who was admitted to hospital because of altered mental status. Apparently she was diagnosed with liver cirrhosis a few years ago, but the patient cannot give me any further history. She cannot answer as to what was the etiology for the liver cirrhosis. In any event, she was brought into the emergency room with altered mental status. Her ammonia level was noted to be normal. However, she was started on oral lactulose 30 mL 3 times daily and her mental status has significantly improved. She presently denies any abdominal pain. She reports no nausea or vomiting. No rectal bleeding or melena. She does complain of fatigue and weakness. She was in the hospital a few weeks ago for urinary tract infection, was treated with antibiotics and discharged to [facility] and from there she went home for a brief period. PAST MEDICAL HISTORY: Significant for diabetes mellitus, hypertension, history of CVA in the past and uterine cancer. PAST SURGICAL HISTORY: Cholecystectomy, bilateral knee replacement, bilateral bunionectomy. MEDICATIONS: At home include Lasix, K-Dur, Plavix, Singulair, Megace, insulin. ALLERGIES: TO ANTIVERT. SOCIAL HISTORY: No smoking. No history of alcohol use. FAMILY HISTORY: Mother had some kind of cancer. Father also had some kind of cancer. REVIEW OF SYSTEMS: CARDIOPULMONARY: She denies any chest pain or shortness of breath. no dysuria or hematuria. MUSCULOSKELETAL: She complains of chronic back pain. NEUROLOGY: Unremarkable. Other than altered mental status. PSYCHIATRIC unremarkable. ENT/vision unremarkable. CONSTITUTIONAL: No recent weight loss. No fever, chills, night sweats. PHYSICAL EXAMINATION: She appears comfortable. VITAL SIGNS: Stable. Blood pressure is 171/78, pulse rate 97, temperature 98.2. HEENT examination unremarkable. Conjunctivae pink. Sclerae anicteric. Rash noted on her face. CHEST: Clear to auscultation. HEART: Regular rate and rhythm. ABDOMEN: Soft, it was slightly distended, but there was no free fluid in the abdomen. The liver and spleen were not palpable. EXTREMITIES: Trace pedal edema. SKIN: No rashes. NEURO: She is awake, oriented to name and place, not to time. LABS: From admission: WBC was 12.9, hemoglobin was 14.6, and platelets are 111. Today, hemoglobin 13.4. BUN and creatinine are 53 and 1.23 respectively. Today it is down to 20 and 0.6 respectively. T-bilirubin 2.8, AST 146, ALT 157, alkaline phosphatase 221, albumin is 3.2. IMPRESSION: 1. Altered mental status, possible hepatic encephalopathy. However, her serum ammonia level today is down to 26 and within normal limits. Presently on oral lactulose 30 mL 3 times daily. 2. Elevated LFTs and mild jaundice secondary to liver cirrhosis. It appears that the patient was diagnosed with liver cirrhosis about 3 years ago. She did have a liver MRI done during this hospitalization that showed nodular liver consistent with liver cirrhosis. Etiology of liver cirrhosis remains unclear. It seems like the patient was investigated in the past, but no records available at the time of this dictation. 3. Urinary tract infection on IV vancomycin. 4. History of diabetes mellitus. RECOMMENDATIONS: 1. Continue with oral lactulose. 2. We will review records from the office. 3. Repeat labs in the morning. 4. Continue with antibiotics for urinary tract infection and we will obtain hepatitis serologies for B and C as well as alpha-fetoprotein and we will follow with you closely during this hospital stay. Thank you for this consultation. KETTY / DONTEN: [id number] /
[2019-06-12 01:45] LABS: Appearance,Urine Cloudy (Clear); Bilirubin,Urine Negative (Negative); Blood,Urine Trace (Negative); Budding Yeast,Urine Many /hpf; Color,Urine Yellow; Glucose,Urine (UA) 4+ (Negative); Ketones,Urine Trace (Negative); Leukocyte Esterase,Urine Moderate (Negative); Mucus,Urine Rare /hpf; Nitrite,Urine Negative (Negative); PH, Urine 5.5 (5.0-8.0); Protein,Urine Trace (Negative); RBC,Urine 18 /hpf (0-5); Specific Gravity,Urine 1.034 (1.001-1.035); Squamous Epithelial Cell,Urine <1 /hpf (0-4); WBC,Urine 43 /hpf (0-5)
[2019-06-12] MEDS: CEFEPIME 1 GM in SODIUM CHLORIDE 0.9% 50 ML IVPB SCH ×2 (01:45→15:57)
[2019-06-12] MEDS: HYDROmorphone 0.5 MG/0.5 ML SYRINGE IVP PRN ×2 (01:45→07:24)
[2019-06-12] MEDS: SODIUM CHLORIDE 0.9% 1,000 ML IV SCH ×3 (03:27→20:00)
[2019-06-12] MEDS: HYDROcodone/APAP 5-325MG 1 EACH TAB PO PRN ×3 (05:39→19:51)
--- NOTE | 2019-06-12 06:18 | CONS ---
CONSULTATION DATE OF SERVICE: 06/11/2019 REASON FOR CONSULTATION: Sepsis. HISTORY OF PRESENT ILLNESS: The patient is a 73-year-old female who is a resident of [facility]. The patient has been sent to the ER at [facility] on 06/08/2019 for evaluation of mental status changes and possible infection. The patient on arrival to the ER was unable to provide any history. The patient did have a CT of the brain that was negative for any bleed. The patient did not have any fever on presentation subsequently did have low grade fever of 99.7 yesterday. The patient did have an elevated white count 12.9, subsequently normalized to 9.1. The patient did have a positive UA with many bacteria. Urine is currently showing Pseudomonas and E coli, this is a sensitive pathogen and the blood culture showing a gram-positive cocci that prompted this infectious disease consultation. The patient currently being treated with cefepime 1 gram q.12 hours and vancomycin. The patient also did have a sacral wound which the patient said it has been on and off for a couple of weeks to months now. It heals and then opens up again. The patient did have some dull aching pain to the sacral wound area. However, denies worsening pain to that site or any significant drainage. The patient currently denies having any headache. She knows she is in the hospital. Denies any URI symptoms. No chest pain. No shortness of breath. No cough. No abdominal pain. No diarrhea. REVIEW OF SYSTEMS: Positive points have been mentioned in HPI. Rest of the systems are negative. PAST MEDICAL HISTORY: CVA, TIA, diabetes mellitus, history of uterine cancer, hypertension, GI bleed. PAST SURGICAL HISTORY: Cholecystectomy, joint replacement, Mohs procedure, bilateral bunionectomy, colonoscopy. SOCIAL HISTORY: No history of smoking, drinking or drug use. Currently is a resident of a correction. FAMILY HISTORY: Both parents with history of cancer of unknown type. ALLERGIES: Allergies to MECLIZINE. MEDICATIONS: Medications currently include the patient is on vancomycin pharmacy to dose. She is on Protonix, lactulose, NovoLog, Dilaudid, Lasix, Lovenox, cefepime 1 gram q.12, [place]. PHYSICAL EXAMINATION: On examination, blood pressure is 127/66, pulse 102, temperature 98.1. She is 96% on room air. General description is an elderly female lying in bed in no distress. No tachypnea or accessory muscle of respiration use. HEENT: Examination shows slight pallor. No scleral icterus. Oral mucous membrane is dry. No pharyngeal erythema or thrush. NECK: Trachea central. No thyromegaly. LUNGS: Unlabored breathing, decreased breath sounds at the bases. No wheeze or crackles. HEART: S1, S2. Regular rate and rhythm. No added sound. ABDOMEN: Soft, no tenderness. No guarding or rigidity. EXTREMITIES: No edema of feet. Examination of sacral area did have a stage III pressure ulcer with no significant slough tissue, surrounding cellulitis. NEUROLOGICAL: Patient is awake, alert, oriented x2. Mood and affect normal. LABS: Hemoglobin is 13.4, white count 9.1 and admission white count was 12.9. BUN of 20, creatinine 0.64. Liver enzymes are mildly elevated. Urine has been positive with urine culture showing Pseudomonas and E coli. Blood culture with gram-positive cocci. DIAGNOSTIC IMPRESSION AND PLAN: 1. Patient admitted to the hospital with mental status changes which is likely multifactorial in this patient who did have a positive UA. The patient did have chronic indwelling Hernandez catheter, though UA has been obtained from that will need to make sure not dealing with colonization of her catheter. 2. Positive blood cultures, waiting for the final ID regarding any further workup because if it is a coagulase negative Staph or Staph epi will be just regarded as contaminant. PLAN: 1. Change Hernandez catheter. Obtain urine culture from the new Hernandez. 2. Blood cultures will be repeated to document clearance of bacteremia. 3. Cefepime 1 gram q.12 and vancomycin pharmacy to dose will provide adequate coverage at this point while waiting for condition to stabilize and culture to finalize. 4. We will follow on clinical condition and culture to further adjust medication if needed. Thank you for this consultation. Will follow this patient along with you. MMODL / IJN: [id number] /
[2019-06-12 06:58] LABS: Glucose,Whole Blood 244 mg/dL (75-99)
--- NOTE | 2019-06-12 07:15 | PN ---
PROGRESS NOTE A 73-year-old white female who appears to be improving from a mental status standpoint. Remains on IV Lasix, IV cefepime, lactulose, vancomycin. She has positive blood cultures. Positive urine culture, gram-negative. Ammonia levels down on the normal regions. Dr. Cook saw her for possible . She has generalized weakness. Sugars are in the mid 200s. CARDIOVASCULAR: S1, S2. LUNGS: Clear. GI: Palpation left lower quadrant, 2 to 3+ edema. ASSESSMENT: 1. Altered mental status. 2. Hepatic encephalopathy. Continue lactulose. MRI of the nodular liver. Unclear etiology of cirrhosis. UTI. Vancomycin. Diabetes mellitus. Continue lactulose. Recheck labs. Acute hepatitis, alpha fetoprotein. Please see further orders. MMODL / IJN: [id number] /
[2019-06-12] MEDS: ENOXAPARIN 40 MG/0.4 ML SYRINGE SQ SCH (07:24)
[2019-06-12] MEDS: LACTULOSE 20 GM/30 ML CUP PO SCH ×5 (07:24→22:18)
[2019-06-12] MEDS: FUROSEMIDE 10 MG/ML 2 ML VIAL IV SCH (07:25)
[2019-06-12] MEDS: INSULIN ASPART (NovoLOG) 100 UNIT/ML VIAL SQ SCH ×4 (07:25→22:31)
[2019-06-12] MEDS: PANTOPRAZOLE 40 MG TABLET PO SCH (07:25)
[2019-06-12 08:17] LABS: ALT 85 U/L (4-34); AST 51 U/L (14-36); African American GFR (CKD) >90 (>60 ml/min/1.73 sqM); Albumin 2.9 g/dL (3.5-5.0); Alkaline Phosphatase 251 U/L (38-126); Anion Gap 8 mmol/L; Blood Urea Nitrogen 23 mg/dL (7-17); Calcium 9.3 mg/dL (8.4-10.2); Carbon Dioxide 24 mmol/L (22-30); Chloride 102 mmol/L (98-107); Glucose 259 mg/dL (74-99); Non-African American GFR(CKD) 90 (>60 ml/min/1.73 sqM); Potassium 3.7 mmol/L (3.5-5.1); Sodium 134 mmol/L (137-145); Total Bilirubin 2.5 mg/dL (0.2-1.3); Total Protein 6.8 g/dL (6.3-8.2)
[2019-06-12] MEDS: VANCOMYCIN 1,250 MG in SODIUM CHLORIDE 0.9% 250 ML IVPB SCH (10:15)
--- NOTE | 2019-06-12 10:45 | P.PN ---
Subjective Progress Note Date: 06/12/19 Principal diagnosis: Mental status changes The patient is somewhat somnolent today. She does continue to complain of low back pain and has been moved from bed to a bedside chair. She has not been ambulatory. She denies any abdominal pain or any other ongoing concerns but does continue to have bleeding. Objective - Vital Signs Vital signs: Vital Signs Temp 97.9 F 06/12/19 07:00 Pulse 103 H 06/12/19 07:00 Resp 16 06/12/19 07:00 BP 158/74 06/12/19 07:00 Pulse Ox 94 L 06/12/19 07:00 Intake & Output 06/11/19 06/12/19 06/12/19 18:59 06:59 18:59 Intake Total 416 1560 Output Total 750 Balance -334 1560 Intake: Intake, IV Titration 1560 Amount Sodium Chloride 0.9% 1, 1560 000 ml @ 130 mls/hr IV . [id number] [facility] Rx#:[id number] Oral 416 Output: Urine 750 Other: Voiding Method Indwelling Catheter Indwelling Catheter Indwelling Catheter # Voids 3 400 - Exam In general, this is a well-developed, slightly confused white female in no acute distress. Her abdomen is nondistended, soft, nontender, without masses. Her extremities are without any cyanosis, clubbing, or edema and are nontender to palpation bilaterally. - Labs CBC & Chem 7: 06/11/19 07:06 06/12/19 06:53 Labs: Abnormal Lab Results - Last 24 Hours (Table) 06/11/19 06/11/19 06/11/19 Range/Units 07:06 12:03 17:06 Sodium (137-145) mmol/L BUN (7-17) mg/dL Glucose (74-99) mg/dL POC Glucose (mg/dL) 281 H 331 H (75-99) mg/dL Hemoglobin A1c 7.6 H (4.0-6.0) % Total Bilirubin (0.2-1.3) mg/dL AST (14-36) U/L ALT (4-34) U/L Alkaline Phosphatase (38-126) U/L Albumin (3.5-5.0) g/dL Urine Appearance (Clear) Urine Protein (Negative) Urine Glucose (UA) (Negative) Urine Ketones (Negative) Urine Blood (Negative) Ur Leukocyte Esterase (Negative) Urine RBC (0-5) /hpf Urine WBC (0-5) /hpf Urine Mucus (None) /hpf Urine Yeast (Budding) (None) /hpf 06/11/19 06/12/19 06/12/19 Range/Units 20:13 01:23 06:46 Sodium (137-145) mmol/L BUN (7-17) mg/dL Glucose (74-99) mg/dL POC Glucose (mg/dL) 302 H 244 H (75-99) mg/dL Hemoglobin A1c (4.0-6.0) % Total Bilirubin (0.2-1.3) mg/dL AST (14-36) U/L ALT (4-34) U/L Alkaline Phosphatase (38-126) U/L Albumin (3.5-5.0) g/dL Urine Appearance Cloudy H (Clear) Urine Protein Trace H (Negative) Urine Glucose (UA) 4+ H (Negative) Urine Ketones Trace H (Negative) Urine Blood Trace H (Negative) Ur Leukocyte Esterase Moderate H (Negative) Urine RBC 18 H (0-5) /hpf Urine WBC 43 H (0-5) /hpf Urine Mucus Rare H (None) /hpf Urine Yeast (Budding) Many H (None) /hpf 06/12/19 Range/Units 06:53 Sodium 134 L (137-145) mmol/L BUN 23 H (7-17) mg/dL Glucose 259 H (74-99) mg/dL POC Glucose (mg/dL) (75-99) mg/dL Hemoglobin A1c (4.0-6.0) % Total Bilirubin 2.5 H (0.2-1.3) mg/dL AST 51 H (14-36) U/L ALT 85 H (4-34) U/L Alkaline Phosphatase 251 H (38-126) U/L Albumin 2.9 L (3.5-5.0) g/dL Urine Appearance (Clear) Urine Protein (Negative) Urine Glucose (UA) (Negative) Urine Ketones (Negative) Urine Blood (Negative) Ur Leukocyte Esterase (Negative) Urine RBC (0-5) /hpf Urine WBC (0-5) /hpf Urine Mucus (None) /hpf Urine Yeast (Budding) (None) /hpf Microbiology - Last 24 Hours (Table) 06/09/19 21:49 Blood Culture - Preliminary Blood No Growth after 48 hours 06/08/19 21:24 Blood Culture Gram Stain - Final Blood Blood Culture - Final Alpha Hemolytic Streptococcus 06/08/19 17:14 Urine Culture - Final Urine,Voided Pseudomonas aeruginosa Escherichia coli Assessment and Plan (1) Postmenopausal bleeding Current Visit: No Status: Acute Code(s): N95.0 - POSTMENOPAUSAL BLEEDING SNOMED Code(s): 41284284 Plan: The diagnosis is finally been elucidated from pathology as noted in Dr. Jaramillo's note. 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 She was subsequently seen by [facility] oncology at [facility] who has been treating her with Megace. This, however, has failed to control her almost daily bleeding which is significantly disruptive of her life and, her family feels, a contributor to her recurrent UTIs. Another alternative might be a Mirena IUD. However, placement of Mirena IUD in the hospital is nearly impossible as there not available here and, in an outpatient setting, might be somewhat dangerous given her diagnosis as well as age and the atrophy of the uterus. A third alternative in my estimation would be local radiation therapy to control bleeding. I have discussed the case with Vicky Griffiths with medical oncology who will discuss it with the consulting physician and also with radiation oncology as an option. I will otherwise sign off the case this time and recommended that the patient, should nothing be done more acutely, follow up in the shorter term with [facility] COORDINATOR oncology at which time these other considerations could be discussed with them.
--- NOTE | 2019-06-12 10:48 | P.PN ---
Progress Note - Text Progress Note Date: 06/12/19 Spoke with Synthetic Plasterer about case. Case discussed with Dr. Gleason RN in [place], pt does not have a diagnosis of malignancy, complex hyperplasia only. Reviewed details with Rad Onc, radiation is not an option in cases with no malignancy diagnosis. pt will return to Dr. Gleason for f/u as scheduled.
[2019-06-12 11:51] LABS: Glucose,Whole Blood 283 mg/dL (75-99)
--- NOTE | 2019-06-12 13:33 | CDI ---
Documentation Clarification Form Date: 06/12/2019 1330 CDS: Jeramie REYNA, CCDS Admit Date: 06/10/2019 1319 Patient Name: Radha Yap ATTENTION: The Clinical Documentation Specialists (CDI) and [facility] Coding Staff appreciate your assistance in clarifying documentation. Please respond to the clarification below the line at the bottom and electronically sign. The CDI & [facility] Coding staff will review the response and follow-up if needed. Please note: Queries are made part of the Legal Health Record. If you have any questions, please contact the author of this message via ITS. Dr. Epps Diastolic CHF is documented in the H&P and requires an acuity. History/Risk Factors: DM, HTN Clinical Indicators: VS/Pulse OX: temp 98.5, hr. 76, rr 16, b/p 123/62, spo2 95% ra BNP: 197 04/12/18 Cardic Cath left ventriculography: preserved EF Chest X Ray: not done Treatment: Lasix 20 mg IVP Daily In your professional opinion, can you please clarify the acuity and type of CHF if known? Diastolic Heart Failure: Acute Chronic Acute on Chronic Unable to Determine Other, please specify (Last Revision: September 2017) MTDD
--- NOTE | 2019-06-12 14:59 | CDI ---
Documentation Clarification Form Date: 06/12/2019 6957 CDS: Marianela Alexandre RN, CCDS Admit Date: 06/10/2019 1319 Patient Name: Radha Yap ATTENTION: The Clinical Documentation Specialists (CDI) and [facility] Coding Staff appreciate your assistance in clarifying documentation. Please respond to the clarification below the line at the bottom and electronically sign. The CDI & [facility] Coding staff will review the response and follow-up if needed. Please note: Queries are made part of the Legal Health Record. If you have any questions, please contact the author of this message via ITS. Dr. Amador Chronic renal insufficiency and chronic renal failure have been documented and require further specificity. History/Risk Factors: 01/01/19 Patients baseline BUN/CR/GFR: /. Clinical Indicators: ED Note: "Acute on chronic renal failure" 06/09 H&P: "Acute tubular necrosis secondary to prerenal renal insufficiency. Acute on chronic renal insufficiency." Current BUN: 53// Cr: 1.28/.68/.64/.63 GFR: 42/90 Treatment: IVF Bolus 1 L followed by 130 cc/hr. Lasix 20 mg IVP Q day changed to 20 mg PO QD then d/c In order to capture the severity of condition, please clarify if the condition signifies: Chronic renal failure/Chronic Kidney disease (CKD) please stage (if known): CKD Stage 1 GFR >90 CKD Stage 2 GFR 60-89 CKD Stage 3 GFR 30-59 CKD Stage 4 GFR 15-29 CKD Stage 5 GFR <15 Other, please specify Unable to determine (Last Revision: September 2017) MTDD
[2019-06-12] MEDS: METOPROLOL TARTRATE 12.5 MG TAB PO SCH ×2 (15:57→22:18)
[2019-06-12 16:35] LABS: Hepatitis B Surface Antigen Non-Reactive (Non-Reactive); Hepatitis C IgG Antibody Non-Reactive (Non-Reactive)
[2019-06-12 16:40] LABS: Glucose,Whole Blood 325 mg/dL (75-99)
--- NOTE | 2019-06-12 18:33 | CONS ---
CONSULTATION DATE OF SERVICE: 06/12/2019 REQUESTING PHYSICIAN: Dr. Amador. The patient is a 73-year-old pleasant white female with history of cirrhosis of the liver, admitted to the hospital with altered mental status and hepatic encephalopathy. She has been started on oral Xifaxan 550 mg twice daily as well as lactulose 30 mL 3 times daily. This morning, she still remains somewhat confused. She had 1 dose of lactulose this morning and had no bowel movements so far. She is scheduled to receive a 2nd dose anytime soon. She reports no abdominal pain. No nausea, vomiting. PHYSICAL EXAMINATION: Appears comfortable no apparent distress. VITAL SIGNS: Stable. Blood pressure is 158/74, pulse rate 103, temperature 97.9. HEENT examination unremarkable. Conjunctivae pink. Sclerae anicteric. Oral cavity no lesions. NECK: No JVD or lymph node enlargement. CHEST was clear to auscultation. HEART: Regular rate and rhythm. ABDOMEN is slightly distended, but it was nontender. No free fluid noted. EXTREMITIES: No pedal edema. SKIN: No rashes. NEURO: She is awake and oriented to name and place but not to time. LABS: From today WBC 9.1, hemoglobin 13.4, platelets normal. Basic metabolic panel is within normal limits. BUN is 23, creatinine 0.63, T-bilirubin 2.5, AST 51, ALT 85, and alkaline phosphatase 251. Total protein is 2.9. Ammonia level is 9. Urinalysis showed leukocyte esterase moderate. IMPRESSION: 1. Hepatic encephalopathy on oral lactulose as well as Xifaxan, doing well. Ammonia level is normal at 9. 2. Urinary tract infection on broad-spectrum antibiotics. 3. History of cirrhosis of the liver with elevated liver function tests but labs remain stable. RECOMMENDATIONS: 1. Continue with oral lactulose and titrate so that she has 3-4 bowel movements daily. 2. Continue oral Xifaxan 550 mg twice daily. 3. Continue antibiotics for urinary tract infection. 4. Repeat labs in the morning and follow with you closely during the hospital stay. Thank you for this consultation. MMODL / IJN: [id number] /
[2019-06-12 22:17] LABS: Glucose,Whole Blood 239 mg/dL (75-99)
--- NOTE | 2019-06-12 23:57 | PN ---
PROGRESS NOTE DATE OF SERVICE: 06/12/2019 REASON FOR FOLLOWUP: UTI, bacteremia and sacral pressure ulcer. INTERVAL HISTORY: The patient is currently afebrile. The patient has been breathing comfortably. Denies having any chest pain or any cough. No nausea, no vomiting, no abdominal pain. Has been complaining of some pain in the lower back area. No diarrhea. PHYSICAL EXAMINATION: Blood pressure 123/67 with a pulse of 85, temperature 99.5. She is 97% on room air. General description is an elderly female lying in bed in no distress. RESPIRATORY SYSTEM: Unlabored breathing. Clear to auscultation anteriorly. HEART: S1, S2. Regular rate and rhythm. ABDOMEN: Soft. No tenderness. EXTREMITIES: No edema of the feet. LABS: BUN of 23, creatinine 0.63. Blood culture with alpha-hemolytic Streptococcus. Urine with Pseudomonas and Escherichia coli. Blood culture repeat has been negative so far. DIAGNOSTIC IMPRESSION AND PLAN: 1. Patient with a positive blood culture with alpha-hemolytic Streptococcus. Waiting for the final identification. Will be covered with cefepime that the patient is on. Hence vancomycin will be discontinued. 2. Pseudomonas and Escherichia coli positive urine culture. Hernandez has been changed. Will wait for the repeat urine culture to finalize. Continue with cefepime. Monitor clinical course closely. 3. Patient has stage III sacral pressure. Local care to continue with dry Aquacel Silver dressing. Keep the area off pressure. MMODL / IJN: [id number] /
[2019-06-13] MEDS: CEFEPIME 1 GM in SODIUM CHLORIDE 0.9% 50 ML IVPB SCH ×2 (03:08→15:19)
[2019-06-13] MEDS: SODIUM CHLORIDE 0.9% 1,000 ML IV SCH ×3 (03:09→17:49)
[2019-06-13 06:57] LABS: Glucose,Whole Blood 205 mg/dL (75-99)
[2019-06-13 08:52] LABS: Basophils % (A) 1 %; Eosinophils # (A) 0.2 k/uL (0-0.7); Eosinophils % (A) 2 %; HCT 37.6 % (34.0-46.0); HGB 12.7 gm/dL (11.4-16.0); Lymphocytes # (A) 0.9 k/uL (1.0-4.8); Lymphocytes % (A) 14 %; MCH 35.7 pg (25.0-35.0); MCHC 33.7 g/dL (31.0-37.0); MCV 105.7 fL (80.0-100.0); Macrocytosis Slight; Mean Platelet Volume 9.9; Monocytes # (A) 0.3 k/uL (0-1.0); Monocytes % (A) 5 %; Neutrophils # (A) 5.2 k/uL (1.3-7.7); Neutrophils % (A) 77 %; Platelet Count 110 k/uL (150-450); RBC 3.56 m/uL (3.80-5.40); RDW 13.1 % (11.5-15.5); WBC 6.8 k/uL (3.8-10.6)
[2019-06-13] MEDS: METOPROLOL TARTRATE 12.5 MG TAB PO SCH ×2 (08:53→21:00)
[2019-06-13] MEDS: PANTOPRAZOLE 40 MG TABLET PO SCH (08:53)
[2019-06-13] MEDS: LACTULOSE 20 GM/30 ML CUP PO SCH ×4 (08:53→21:01)
[2019-06-13] MEDS: FUROSEMIDE 10 MG/ML 2 ML VIAL IV SCH (08:53)
[2019-06-13] MEDS: ENOXAPARIN 40 MG/0.4 ML SYRINGE SQ SCH (08:54)
[2019-06-13] MEDS: INSULIN ASPART (NovoLOG) 100 UNIT/ML VIAL SQ SCH ×4 (08:54→21:00)
[2019-06-13 09:03] LABS: ALT 64 U/L (4-34); AST 40 U/L (14-36); African American GFR (CKD) >90 (>60 ml/min/1.73 sqM); Albumin 2.5 g/dL (3.5-5.0); Alkaline Phosphatase 215 U/L (38-126); Anion Gap 7 mmol/L; Blood Urea Nitrogen 19 mg/dL (7-17); Calcium 9.1 mg/dL (8.4-10.2); Carbon Dioxide 24 mmol/L (22-30); Chloride 105 mmol/L (98-107); Glucose 219 mg/dL (74-99); Non-African American GFR(CKD) >90 (>60 ml/min/1.73 sqM); Potassium 3.4 mmol/L (3.5-5.1); Sodium 136 mmol/L (137-145); Total Bilirubin 1.8 mg/dL (0.2-1.3); Total Protein 6.1 g/dL (6.3-8.2)
[2019-06-13] MEDS: HYDROcodone/APAP 5-325MG 1 EACH TAB PO PRN ×2 (09:13→17:56)
[2019-06-13 11:33] LABS: Glucose,Whole Blood 301 mg/dL (75-99)
[2019-06-13] MEDS ORDERED: KETOROLAC 30 MG/ML 1 ML VIAL IVP PRN (15:58)
[2019-06-13 16:49] LABS: Glucose,Whole Blood 294 mg/dL (75-99)
--- NOTE | 2019-06-13 17:25 | PN ---
PROGRESS NOTE DATE OF SERVICE: 06/13/2019 REASON FOR FOLLOWUP: Urinary tract infection and bacteremia. INTERVAL HISTORY: The patient is currently afebrile. The patient is breathing comfortably. Denies having any chest pain or any cough. No nausea, no vomiting, no abdominal pain or diarrhea. PHYSICAL EXAMINATION: Her blood pressure is 150/80 with a pulse of 83, temperature 98.3. She is 95% on room air. General description is an elderly female lying in bed in no distress. RESPIRATORY SYSTEM: Unlabored breathing. Clear to auscultation anteriorly. HEART: S1, S2. Regular rate and rhythm. ABDOMEN: Soft. No tenderness. SKIN EXAMINATION: The sacral wound currently did have evidence of some deep tissue injury. No significant slough tissue or any drainage. DIAGNOSTIC IMPRESSION AND PLAN: 1. Patient admitted to hospital with mental status changes in this patient who did have a positive UA that was obtained from old Hernandez which has been changed. Repeat urine culture currently pending. The patient is covered with cefepime. 2. Patient with a positive blood culture with alpha-hemolytic Streptococcus. Follow- up blood culture has been negative. Currently covered with cefepime. Will monitor her clinical course closely. MMODL / IJN: [id number] /
--- NOTE | 2019-06-13 17:27 | XR ---
EXAMINATION TYPE: XR lumbar spine 2 or 3V DATE OF EXAM: 06/13/2019 COMPARISON: 09/27/2013 HISTORY: Back pain TECHNIQUE: 2 views FINDINGS: Exam is limited due to technique. There appears to be a mild retrolisthesis at L2-3 and L3- 4. There is disc space narrowing in the mid lumbar spine. There is moderate hypertrophic multilevel s pur formation. Lateral view is severely limited due to the crosstable technique. Sacroiliac joints ar e intact. IMPRESSION: Multilevel spondylotic changes with mild retrolisthesis unchanged compared to old exam. No fracture s een. No significant change compared to old exam.
[2019-06-13] MEDS: MEGESTROL 400 MG/10 ML CUP PO SCH (17:56)
[2019-06-13] MEDS: LIDOCAINE 5% PATCH TOPICAL SCH (17:56)
[2019-06-13 20:15] LABS: Glucose,Whole Blood 366 mg/dL (75-99)
[2019-06-13 20:31] LABS: Glucose,Whole Blood 342 mg/dL (75-99)
[2019-06-13] MEDS ORDERED: MELATONIN 5 MG TABLET PO PRN (21:12)
--- NOTE | 2019-06-13 22:28 | PN ---
PROGRESS NOTE DATE OF DICTATION: 06/13/2019 The patient is a 73-year-old pleasant white female with history of fatty liver disease causing cirrhosis of the liver, admitted to the hospital with altered mental status and a UTI with bacteremia. She is being followed by Dr. Knight, on broad-spectrum antibiotics. She is doing much better. She denies any symptoms. PHYSICAL EXAMINATION: Appears comfortable. No apparent distress. VITAL SIGNS: Stable. Blood pressure is 150/80, pulse rate 83, temperature 98.3. HEENT examination unremarkable. Conjunctivae pink. Sclerae anicteric. Oral cavity no lesions. NECK: No JVD or lymph node enlargement. CHEST: Clear to auscultation. HEART: Regular rate and rhythm. ABDOMEN: Slightly distended but no organomegaly. EXTREMITIES: No pedal edema. SKIN: No rashes. NEUROLOGIC: Alert and oriented x3. No focal deficits. LABS: Labs from today showed WBC of 6.8, hemoglobin 12.7, platelets 110. ALT and AST 40 and 64, respectively. T-bilirubin 1.8 and alkaline phosphatase 215. IMPRESSION: 1. Acute urinary tract infection, on broad-spectrum antibiotics. She was noted to have Gram-positive bacteremia. Dr. Knight is following the patient closely. 2. History of cirrhosis of the liver secondary to fatty liver disease which appears to be well compensated. 3. Mild hepatic encephalopathy, resolved. RECOMMENDATIONS: 1. Continue with broad-spectrum antibiotics. 2. Continue with oral lactulose. 3. Repeat labs in the morning. 4. Will follow with you closely. Thank you for this consultation. MMODL / IJN: [id number] /
[2019-06-14 02:03] VITALS: RESP 17
[2019-06-14] MEDS: CEFEPIME 1 GM in SODIUM CHLORIDE 0.9% 50 ML IVPB SCH ×2 (02:09→14:37)
[2019-06-14] MEDS: HYDROcodone/APAP 5-325MG 1 EACH TAB PO PRN ×3 (03:46→12:05)
[2019-06-14] MEDS: SODIUM CHLORIDE 0.9% 1,000 ML IV SCH ×3 (03:52→14:38)
[2019-06-14 07:10] LABS: Glucose,Whole Blood 253 mg/dL (75-99)
[2019-06-14] MEDS: INSULIN ASPART (NovoLOG) 100 UNIT/ML VIAL SQ SCH ×2 (07:25→12:07)
[2019-06-14] MEDS: PANTOPRAZOLE 40 MG TABLET PO SCH (07:25)
[2019-06-14 07:51] LABS: Basophils # (A) 0.1 k/uL (0-0.2); Basophils % (A) 1 %; Eosinophils # (A) 0.2 k/uL (0-0.7); Eosinophils % (A) 3 %; HCT 38.7 % (34.0-46.0); HGB 12.9 gm/dL (11.4-16.0); Lymphocytes # (A) 1.4 k/uL (1.0-4.8); Lymphocytes % (A) 19 %; MCH 35.4 pg (25.0-35.0); MCHC 33.2 g/dL (31.0-37.0); MCV 106.5 fL (80.0-100.0); Macrocytosis Moderate; Mean Platelet Volume 9.7; Monocytes # (A) 0.4 k/uL (0-1.0); Monocytes % (A) 5 %; Neutrophils # (A) 5.2 k/uL (1.3-7.7); Neutrophils % (A) 70 %; Platelet Count 100 k/uL (150-450); RBC 3.64 m/uL (3.80-5.40); RDW 13.1 % (11.5-15.5); WBC 7.4 k/uL (3.8-10.6)
[2019-06-14 08:03] LABS: ALT 58 U/L (4-34); AST 40 U/L (14-36); African American GFR (CKD) >90 (>60 ml/min/1.73 sqM); Albumin 2.7 g/dL (3.5-5.0); Alkaline Phosphatase 232 U/L (38-126); Anion Gap 5 mmol/L; Blood Urea Nitrogen 21 mg/dL (7-17); Calcium 9.3 mg/dL (8.4-10.2); Carbon Dioxide 28 mmol/L (22-30); Chloride 105 mmol/L (98-107); Glucose 250 mg/dL (74-99); Non-African American GFR(CKD) >90 (>60 ml/min/1.73 sqM); Potassium 3.8 mmol/L (3.5-5.1); Sodium 138 mmol/L (137-145); Total Bilirubin 1.7 mg/dL (0.2-1.3); Total Protein 6.4 g/dL (6.3-8.2)
[2019-06-14] MEDS: MEGESTROL 400 MG/10 ML CUP PO SCH (08:39)
[2019-06-14] MEDS: FUROSEMIDE 10 MG/ML 2 ML VIAL IV SCH (08:39)
[2019-06-14] MEDS: ENOXAPARIN 40 MG/0.4 ML SYRINGE SQ SCH (08:39)
[2019-06-14] MEDS: METOPROLOL TARTRATE 12.5 MG TAB PO SCH (08:39)
[2019-06-14] MEDS: LACTULOSE 20 GM/30 ML CUP PO SCH ×2 (08:39→11:58)
[2019-06-14] MEDS: LIDOCAINE 5% PATCH TOPICAL SCH (08:40)
[2019-06-14 08:57] VITALS: BP 125/74; PULSE 100; TEMP 98.3
--- NOTE | 2019-06-14 09:35 | PN ---
PROGRESS NOTE DATE OF SERVICE: 06/13/2019 A 73-year-old white female who remains on broad-spectrum antibiotics, improving with cefepime. She is not eating much food, will have to have a dietitian consult and possible appetite stimulant given to her. She has a history of fatty liver disease and cirrhosis of the liver, UTI with bacteremia, broad-spectrum antibiotics. She is sitting up in the chair. Her oral appetite is poor. Lungs are clear. Heart regular rate and rhythm. Abdomen is distended due to obesity. Extremities, no rash. White count 6.8, hemoglobin 12.7. ALT and AST are 40 and 64, total bilirubin 1.8, alkaline phosphatase 215. She does have acute UTI, broad-spectrum antibiotics, bacteremia, gram-positive cocci, broad-spectrum antibiotics continued with possible cirrhosis secondary to fatty liver disease or autoimmune disease, mild hepatic encephalopathy, improving. Continue with lactulose, broad-spectrum antibiotics, PT, OT, dietitian, and possible epidural stimulant. Her lumbar disc disease she is requiring higher medications as she is not feeling well, at this time is unable to move. PT, OT is involved. Potassium supplementation and protein supplementation given. MMODL / IJN: [id number] /
--- NOTE | 2019-06-14 10:26 | DS ---
DISCHARGE SUMMARY ADDENDUM: [id number] diastolic heart failure, GFR stage 2. MMODL / IJN: [id number] /
[2019-06-14 11:50] LABS: Glucose,Whole Blood 337 mg/dL (75-99)
[2019-06-14] MEDS ORDERED: INSULIN DETEMIR (LEVEMIR) 100 UNIT/ML SYR SQ SCH (12:12)
--- NOTE | 2019-06-14 16:59 | PN ---
PROGRESS NOTE DATE OF SERVICE: 06/14/2019 REASON FOR FOLLOW UP: 1. UTI Streptococcus bacteremia. 2. Sacral wound. INTERVAL HISTORY: Patient is currently afebrile. The patient is breathing comfortably. The patient denies having any chest pain, shortness of breath or cough. No nausea, abdominal pain or diarrhea. PHYSICAL EXAMINATION: Blood pressure is 125/74, pulse of 100, temperature 98.3. General description is an elderly female lying in bed in no distress. Respiratory system: Unlabored breathing. Clear to auscultation anteriorly. Heart S1, S2. Regular rate and rhythm. Abdomen is soft, no tenderness. Extremities: No edema of the feet. LABS: The repeat urine is negative for Pseudomonas. DIAGNOSTIC IMPRESSION AND PLAN: Patient with Pseudomonas initially positive urine culture. At this time antibiotic was switched over to Keflex 500 mg t.i.d. for 10 days. Local care to the sacral wound with dry Aquacel Silver dressing and keep the area off the pressure and close outpatient followup. MMODL / IJN: [id number] /
--- NOTE | 2019-06-17 17:18 | DS ---
DISCHARGE SUMMARY ADMIT DATE: 06/10/2019. DISCHARGE DATE: 06/14/2019. DISCHARGE MEDICATIONS: 1. Lasix 20 mg daily. 2. Singulair 10 mg daily. 3. Melatonin 10 mg daily. 4. Klor-Con 8 mEq b.i.d. 5. Basaglar 20 units subcu b.i.d. 6. Atenolol chlorthalidone 1 tab daily. 7. Aspirin 81 mg daily. 8. [place] 7.5 q.6 hours. 9. Neurontin 200 mg t.i.d. 10.Lactulose 30 g q.i.d. 11.Lidocaine 5% patch daily. 12.Lopressor 12.5 b.i.d. 13.Megace 400 mg daily. 14.Protonix 40 mg daily. 15.Cipro 500 mg b.i.d. for 3 days. 16.Keflex 500 mg t.i.d. for 10 days. 17.[place] 7.5 q.6 hours. HOSPITAL COURSE OF EVENTS: This 73-year-old white female was admitted with severe dehydration, chronic renal disease, urinary tract infection with bacteremia, cirrhosis of the liver, was treated with lactulose. UTI with bacteremia was treated with IV antibiotics. The patient slowly improved from medical standpoint. Was seen by infectious disease doctor and liver specialist. The patient was stabilized and will follow up in the retirement. Diet regular. Ambulate with PT/ OT. KETTY / TANIA: [id number] /
--- NOTE | 2019-06-18 10:17 | CDI ---
Documentation Clarification Form Date: 06/18/19 From: Mirian Walton Phone: If you have a question about this query, please contact Mónica Goldberg, Food Truck Caterer at [phone] between 8am and 5pm. Admit Date: 06/10/19 Discharge Date: 06/14/19 Patient Name: Radha Tinajero Visit Number: [id number] ATTENTION: The Clinical Documentation Specialists (CDI) and [facility] Coding Staff appreciate your assistance in clarifying documentation. Please respond to the clarification below the line at the bottom and electronically sign. The CDI & [facility] Coding staff will review the response and follow-up if needed. Please note: Queries are made part of the Legal Health Record. If you have any questions, please contact the author of this message via ITS. Dear Dr. Ant Amador, A diagnosis of UTI has been documented in PNs 06/10, 06/11, 06/12, 06/13, 06/14 & DS. History/Risk Factors: pressure ulcer sacral Stage 3, ATN, acute on chronic diastolic CHF, HTN w CKD 2 Per documentation in the EM report states this patient was admitted with an indwelling Hernandez catheter. 06/11 consult states that the patient did have a chronic indwelling Hernandez catheter. Clinical Indicators: T-98.2, P-112, R-16, BP-158/73 Urinalysis: cloudy, moderate blood, leukocyte esterase large, bacteria many Urine culture: Pseudomonas aeruginoa >1000,0000 CFU/ml & Eschericha coli >1000,000 CFU/ml Lab results: lactic acid 2.0, total bili 2.8, WBC 12.9, neutrophils 9.9 Treatment: IV Rocephin, IV Vanco, IV Maxipime In your professional opinion, can you please clarify the etiology of the UTI, if known? Hernandez catheter UTI not related to catheter Other condition, please specify Unable to determine If an infective organism is present, please specify cause and effect relationship if applicable. MTDD
--- NOTE | 2019-06-18 10:38 | CDI ---
Documentation Clarification Form Date: 06/18/19 From: Mirian Walton Phone: If you have a question about this query, please contact Mónica Goldberg, Analog Circuit Designer at [phone] between 8am and 5pm. Admit Date: 06/10/19 Discharge Date: 06/14/19 Patient Name: Radha Tinajero Visit Number: [id number] ATTENTION: The Clinical Documentation Specialists (CDI) and [facility] Coding Staff appreciate your assistance in clarifying documentation. Please respond to the clarification below the line at the bottom and electronically sign. The CDI & [facility] Coding staff will review the response and follow-up if needed. Please note: Queries are made part of the Legal Health Record. If you have any questions, please contact the author of this message via ITS. Dear Dr. Ant Amador, Bacteremia documented in the Dr Knight's consult, PN's 06/10, 06/12, 06/13, 06/14 & DS. Patient history/risk factors: portal HTN, HTN w CKD 2, DM, ac on chr diastolic CHF Clinical Indicators: AMS, ATN, post menopausal bleeding WBC: 12.9 Left Shift: 9.9 Blood Culture: Alpha Hemolytic Streptococcus, BC after 144 hrs no growth Consult: ID Treatment: IV Cefepime and Vancomycin Bacteremia is considered a lab finding. Please clarify if that lab finding is clinical indicator of a more definitive medical diagnosis such as: Sepsis Infectious Process, please specify: Other, please specify Unable to determine MTDD
--- NOTE | 2019-06-18 23:22 | DS ---
DISCHARGE SUMMARY ADDENDUM TO DISCHARGE SUMMARY: UTI, not related to Hernandez catheter. Unable to determine cause. MMODL / IJN: [id number] /
--- NOTE | 2019-06-18 23:22 | DS ---
DISCHARGE SUMMARY ADDENDUM TO DISCHARGE SUMMARY: Bacteremia, most likely related to contamination. MMODL / IJN: [id number] /
== END 2019-06-14 15:05 | DRG 689 ==
LOC: EC 16:32 → 4SSUR 21:07 → INTOOBSV 21:07 → 4SSUR 21:33 → OBSVTOIN 06-10 13:19
PROVIDERS: ADMIT Family Medicine; ATTEND Family Medicine
DX: N39.0 Urinary tract infection, site not specified (principal); L89.153 Pressure ulcer of sacral region, stage 3; N17.0 Acute kidney failure with tubular necrosis; I50.33 Acute on chronic diastolic (congestive) heart failure; R78.81 Bacteremia; R18.8 Other ascites; E87.1 Hypo-osmolality and hyponatremia; K76.6 Portal hypertension; I13.0 Hypertensive heart and chronic kidney disease with heart failure and stage 1 through stage 4 chronic kidney disease, or unspecified chronic kidney disease; D69.6 Thrombocytopenia, unspecified; K72.90 Hepatic failure, unspecified without coma; E11.22 Type 2 diabetes mellitus with diabetic chronic kidney disease; K74.60 Unspecified cirrhosis of liver; K76.0 Fatty (change of) liver, not elsewhere classified; N18.2 Chronic kidney disease, stage 2 (mild); E86.0 Dehydration; M51.36 Other intervertebral disc degeneration, lumbar region; N85.02 Endometrial intraepithelial neoplasia [EIN]; B96.20 Unspecified Escherichia coli [E. coli] as the cause of diseases classified elsewhere; G89.29 Other chronic pain; E87.5 Hyperkalemia; N95.0 Postmenopausal bleeding; N39.3 Stress incontinence (female) (male); M54.5 Low back pain; Z79.4 Long term (current) use of insulin; Z79.82 Long term (current) use of aspirin; Z79.899 Other long term (current) drug therapy; Z86.73 Personal history of transient ischemic attack (TIA), and cerebral infarction without residual deficits; Z85.828 Personal history of other malignant neoplasm of skin; Z87.81 Personal history of (healed) traumatic fracture; Z90.49 Acquired absence of other specified parts of digestive tract; Z96.653 Presence of artificial knee joint, bilateral; Z87.19 Personal history of other diseases of the digestive system; Z98.890 Other specified postprocedural states; Z88.8 Allergy status to other drugs, medicaments and biological substances; Z80.9 Family history of malignant neoplasm, unspecified
CPT/HCPCS: 36415; 70450; 72100; 74022; 74183; 80053; 80202; 81001; 82105; 82140; 82550; 83036; 83605; 83735; 83880; 84100; 84443; 84484; 85025; 86803; 87040; 87077; 87086; 87186; 87340; 93005; 96361; 96365; 99285

== ENCOUNTER 2019-06-23 09:42 | Inpatient (IN) | payer MEDICARE, BC ==
[2019-06-23 09:55] LABS: Glucose,Whole Blood 298 mg/dL (75-99)
--- NOTE | 2019-06-23 10:20 | ED ---
General Adult HPI - General Chief complaint: GI Bleed Stated complaint: rectal bleed Time Seen by Provider: 06/23/19 09:45 Source: patient, EMS, RN notes reviewed, old records reviewed Mode of arrival: EMS Limitations: altered mental status - History of Present Illness Initial comments: This is a 73-year-old female presents emergency [facility]. The [facility] informed us that she came in today because she had bright red blood per rectum this morning. Patient herself is a poor historian and is unable to tell us why she is here. Patient denies any abdominal pain patient denies any nausea vomiting. Patient denies any chest pain. Patient denies any pain at all. We have no further history at this time. - Related Data Home Medications Medication Instructions Recorded Confirmed Furosemide [Lasix] 20 mg PO DAILY@0900 01/07/14 06/08/19 Montelukast [Singulair] 10 mg PO HS@209912/28/18 06/08/19 Aspirin 81 mg PO DAILY@0900 06/08/19 06/08/19 Insulin Glargine,Hum.rec.anlog 20 unit SQ BID@899,209906/08/19 06/08/19 [Basaglar Kwikpen U-100] Insulin Lispro [Insulin Lispro See Protocol SQ ACHS 06/08/19 06/08/19 Kwikpen U-100] Lactose-Reduced Food [Ensure Plus] 237 ml PO BID@0900,209906/08/19 06/08/19 Melatonin 10 mg PO HS PRN 06/08/19 06/08/19 [place]-3 Acid Ethyl Esters [Lovaza] 2 gm PO BID@0900,209906/08/19 06/08/19 Potassium Chloride [Klor-Con 8] 8 meq PO BID@0900,209906/08/19 06/08/19 Previous Rx's Medication Instructions Recorded Cephalexin [Keflex] 500 mg PO Q8HR #30 cap 06/14/19 Ciprofloxacin HCl [Cipro] 500 mg PO BID 3 Days #6 tab 06/14/19 HYDROcodone/APAP 7.5-325MG [[place] 1 tab PO Q6H PRN #12 tab 06/14/19 7.5-325] Lactulose [Cephulac] 30 gm PO QID ml 06/14/19 Lidocaine 5% Patch [Lidoderm 5% 1 patch TOPICAL DAILY patch 06/14/19 Patch] Megestrol [Megace] 400 mg PO DAILY cup 06/14/19 Metoprolol Tartrate [Lopressor] 12.5 mg PO BID tab 06/14/19 Pantoprazole [Protonix] 40 mg PO AC-[id number] tablet. 06/14/19 Allergies Allergy/AdvReac Type Severity Reaction Status Date / Time meclizine HCl [From Antivert] AdvReac Hallucinati Verified 06/23/19 10:37 ons Review of Systems ROS Statement: Those systems with pertinent positive or pertinent negative responses have been documented in the HPI. ROS Other: All systems not noted in ROS Statement are negative. 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 History of Any Multi-Drug Resistant Organisms: None Reported Past Surgical History: Cholecystectomy, Joint Replacement, Orthopedic Surgery Additional Past Surgical History / Comment(s): Moh's procedure to 1/3 of nose, bilateral knee replacements, bilateral bunionectomy, hammer toe repair, colonoscopy, 2 or 3 stents for blockage. Past Anesthesia/Blood Transfusion Reactions: Previous Problems w/ Anesthesia Additional Past Anesthesia/Blood Transfusion Reaction / Comment(s): Slow to wake up from anesthesia. Smoking Status: Unknown if ever smoked - Past Family History Mother Family Medical History: Cancer Father Family Medical History: Cancer General Exam - General Exam Comments Initial Comments: GENERAL: Patient is well-developed and well-nourished. Patient is nontoxic and well- hydrated and is in no acute distress. ENT: Neck is soft and supple. No significant lymphadenopathy is noted. Oropharynx is clear. Moist mucous membranes. Neck has full range of motion without eliciting any pain. EYES: The sclera were anicteric and conjunctiva were pink and moist. Extraocular movements were intact and pupils were equal round and reactive to light. Eyelids were unremarkable. PULMONARY: Unlabored respirations. Good breath sounds bilaterally. No audible rales rhonchi or wheezing was noted. CARDIOVASCULAR: There is a regular rate and rhythm without any murmurs gallops or rubs. ABDOMEN: Soft and nontender with normal bowel sounds. SKIN: Skin is clear with no lesions or rashes and otherwise unremarkable. NEUROLOGIC: Patient is alert and oriented 2. Cranial nerves II through XII are grossly intact. Motor and sensory are also intact. Normal speech, volume and content. Symmetrical smile. MUSCULOSKELETAL: Normal extremities with adequate strength and full range of motion. No lower extremity swelling or edema. No calf tenderness. LYMPHATICS: No significant lymphadenopathy is noted PSYCHIATRIC: Normal psychiatric evaluation. Limitations: altered mental status Course Vital Signs 06/23/19 06/23/19 06/23/19 09:46 10:20 11:01 Temperature 98.3 F 99.1 F Pulse Rate 74 60 Respiratory 17 17 Rate Blood Pressure 136/58 132/64 O2 Sat by Pulse 98 97 Oximetry Medical Decision Making - Medical Decision Making EKG shows normal sinus rhythm at 75 bpm CA interval 1:30 QRS is 86 QT interval 364 QTC is 406. Patient's EKG shows no ST segment elevation. Yet whe[facility]ming [facility] admitted the patient and I also to GI. - Lab Data Result diagrams: 06/23/19 10:09 06/23/19 10:09 Lab Results 06/23/19 06/23/19 06/23/19 Range/Units 09:54 10:09 10:09 WBC 6.5 (3.8-10.6) k/uL RBC 4.02 (3.80-5.40) m/uL Hgb 13.5 (11.4-16.0) gm/dL Hct 43.6 (34.0-46.0) % MCV 108.4 H (80.0-100.0) fL MCH 33.6 (25.0-35.0) pg MCHC 31.0 (31.0-37.0) g/dL RDW 13.1 (11.5-15.5) % Plt Count 118 L (150-450) k/uL Neutrophils % 77 % Lymphocytes % 13 % Monocytes % 5 % Eosinophils % 2 % Basophils % 1 % Neutrophils # 5.0 (1.3-7.7) k/uL Lymphocytes # 0.9 L (1.0-4.8) k/uL Monocytes # 0.4 (0-1.0) k/uL Eosinophils # 0.2 (0-0.7) k/uL Basophils # 0.1 (0-0.2) k/uL Macrocytosis Moderate PT (9.0-12.0) sec INR (<1.2) APTT (22.0-30.0) sec Sodium 141 (137-145) mmol/L Potassium 3.7 (3.5-5.1) mmol/L Chloride 105 (98-107) mmol/L Carbon Dioxide 28 (22-30) mmol/L Anion Gap 8 mmol/L BUN 21 H (7-17) mg/dL Creatinine 0.65 (0.52-1.04) mg/dL Est GFR (CKD-EPI)AfAm >90 (>60 ml/min/1.73 sqM) Est GFR (CKD-EPI)NonAf 89 (>60 ml/min/1.73 sqM) Glucose 284 H (74-99) mg/dL POC Glucose (mg/dL) 298 H (75-99) mg/dL POC Glu [employer] Deployment Consultant ID Adela Yates Calcium 8.8 (8.4-10.2) mg/dL Magnesium 1.6 (1.6-2.3) mg/dL Total Bilirubin 2.3 H (0.2-1.3) mg/dL AST 58 H (14-36) U/L ALT 45 H (4-34) U/L Alkaline Phosphatase 293 H (38-126) U/L Total Protein 7.0 (6.3-8.2) g/dL Albumin 2.9 L (3.5-5.0) g/dL Urine Color Urine Appearance (Clear) Urine pH (5.0-8.0) Ur Specific [place] (1.001-1.035) Urine Protein (Negative) Urine Glucose (UA) (Negative) Urine Ketones (Negative) Urine Blood (Negative) Urine Nitrite (Negative) Urine Bilirubin (Negative) Urine Urobilinogen (<2.0) mg/dL Ur Leukocyte Esterase (Negative) Urine RBC (0-5) /hpf Urine WBC (0-5) /hpf Ur Squamous Epith Cells (0-4) /hpf Urine Bacteria (None) /hpf Hyaline Casts (0-2) /lpf Urine Mucus (None) /hpf Urine Yeast (Budding) (None) /hpf 06/23/19 06/23/19 Range/Units 10:09 10:09 WBC (3.8-10.6) k/uL RBC (3.80-5.40) m/uL Hgb (11.4-16.0) gm/dL Hct (34.0-46.0) % MCV (80.0-100.0) fL MCH (25.0-35.0) pg MCHC (31.0-37.0) g/dL RDW (11.5-15.5) % Plt Count (150-450) k/uL Neutrophils % % Lymphocytes % % Monocytes % % Eosinophils % % Basophils % % Neutrophils # (1.3-7.7) k/uL Lymphocytes # (1.0-4.8) k/uL Monocytes # (0-1.0) k/uL Eosinophils # (0-0.7) k/uL Basophils # (0-0.2) k/uL Macrocytosis PT 17.1 H (9.0-12.0) sec INR 1.7 H (<1.2) APTT 20.3 L (22.0-30.0) sec Sodium (137-145) mmol/L Potassium (3.5-5.1) mmol/L Chloride (98-107) mmol/L Carbon Dioxide (22-30) mmol/L Anion Gap mmol/L BUN (7-17) mg/dL Creatinine (0.52-1.04) mg/dL Est GFR (CKD-EPI)AfAm (>60 ml/min/1.73 sqM) Est GFR (CKD-EPI)NonAf (>60 ml/min/1.73 sqM) Glucose (74-99) mg/dL POC Glucose (mg/dL) (75-99) mg/dL POC Glu Lean [employer] Deployment Consultant ID Calcium (8.4-10.2) mg/dL Magnesium (1.6-2.3) mg/dL Total Bilirubin (0.2-1.3) mg/dL AST (14-36) U/L ALT (4-34) U/L Alkaline Phosphatase (38-126) U/L Total Protein (6.3-8.2) g/dL Albumin (3.5-5.0) g/dL Urine Color Yellow Urine Appearance Cloudy H (Clear) Urine pH 5.0 (5.0-8.0) Ur Specific [place] 1.015 (1.001-1.035) Urine Protein Negative (Negative) Urine Glucose (UA) 3+ H (Negative) Urine Ketones Negative (Negative) Urine Blood Moderate H (Negative) Urine Nitrite Negative (Negative) Urine Bilirubin Negative (Negative) Urine Urobilinogen <2.0 (<2.0) mg/dL Ur Leukocyte Esterase Large H (Negative) Urine RBC 112 H (0-5) /hpf Urine WBC 87 H (0-5) /hpf Ur Squamous Epith Cells 2 (0-4) /hpf Urine Bacteria Rare H (None) /hpf Hyaline Casts 26 H (0-2) /lpf Urine Mucus Few H (None) /hpf Urine Yeast (Budding) Many H (None) /hpf Disposition Clinical Impression: GI bleed, Elevated liver enzymes Disposition: ADMITTED IP TO THIS [facility] Referrals: Ant Amador MD [Primary Care Provider] - 1-2 days Time of Disposition: 11:09
[2019-06-23] MEDS ORDERED: SODIUM CHLORIDE 0.9% 500 ML 500 ML IV STA (10:22)
[2019-06-23] MEDS ORDERED: PANTOPRAZOLE 40 MG/10 ML VIAL IVP STA (10:22)
[2019-06-23 10:51] LABS: Basophils # (A) 0.1 k/uL (0-0.2); Basophils % (A) 1 %; Eosinophils # (A) 0.2 k/uL (0-0.7); Eosinophils % (A) 2 %; HCT 43.6 % (34.0-46.0); HGB 13.5 gm/dL (11.4-16.0); Lymphocytes # (A) 0.9 k/uL (1.0-4.8); Lymphocytes % (A) 13 %; MCH 33.6 pg (25.0-35.0); MCV 108.4 fL (80.0-100.0); Macrocytosis Moderate; Mean Platelet Volume 9.3; Monocytes # (A) 0.4 k/uL (0-1.0); Monocytes % (A) 5 %; Neutrophils % (A) 77 %; Platelet Count 118 k/uL (150-450); RBC 4.02 m/uL (3.80-5.40); RDW 13.1 % (11.5-15.5); WBC 6.5 k/uL (3.8-10.6)
[2019-06-23 10:58] LABS: Appearance,Urine Cloudy (Clear); Bacteria,Urine Rare /hpf; Bilirubin,Urine Negative (Negative); Blood,Urine Moderate (Negative); Budding Yeast,Urine Many /hpf; Color,Urine Yellow; Glucose,Urine (UA) 3+ (Negative); Hyaline Casts,Urine 26 /lpf (0-2); Ketones,Urine Negative (Negative); Leukocyte Esterase,Urine Large (Negative); Mucus,Urine Few /hpf; Nitrite,Urine Negative (Negative); Protein,Urine Negative (Negative); RBC,Urine 112 /hpf (0-5); Specific Gravity,Urine 1.015 (1.001-1.035); Squamous Epithelial Cell,Urine 2 /hpf (0-4); Urobilinogen,Urine <2.0 mg/dL (<2.0); WBC,Urine 87 /hpf (0-5)
[2019-06-23 11:01] LABS: ALT 45 U/L (4-34); AST 58 U/L (14-36); African American GFR (CKD) >90 (>60 ml/min/1.73 sqM); Albumin 2.9 g/dL (3.5-5.0); Alkaline Phosphatase 293 U/L (38-126); Anion Gap 8 mmol/L; Blood Urea Nitrogen 21 mg/dL (7-17); Calcium 8.8 mg/dL (8.4-10.2); Carbon Dioxide 28 mmol/L (22-30); Chloride 105 mmol/L (98-107); Glucose 284 mg/dL (74-99); Magnesium 1.6 mg/dL (1.6-2.3); Non-African American GFR(CKD) 89 (>60 ml/min/1.73 sqM); Potassium 3.7 mmol/L (3.5-5.1); Sodium 141 mmol/L (137-145); Total Bilirubin 2.3 mg/dL (0.2-1.3)
[2019-06-23 11:06] LABS: INR 1.7 (<1.2); Prothrombin Time 17.1 sec (9.0-12.0)
[2019-06-23 11:07] LABS: Partial Thromboplastin Time 20.3 sec (22.0-30.0)
[2019-06-23] MEDS ORDERED: SODIUM CHLORIDE 0.9% 1,000 ML IV ONE (11:09)
--- NOTE | 2019-06-23 11:57 | P.HPIM ---
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 Patient is poor historian and much of the information were obtained with the help of the daughter at bedside. Patient at baseline is bed bound or works as a little bit. Review of Systems CONSTITUTIONAL: No fever, no malaise, no fatigue. HEENT: No recent visual problems or hearing problems. Denied any sore throat. CARDIOVASCULAR: No orthopnea, PND, no palpitations, no syncope. PULMONARY: No shortness of breath, no cough, no hemoptysis. GASTROINTESTINAL: No diarrhea, no nausea, no vomiting, no abdominal pain. Normoactive bowel sounds. NEUROLOGICAL: No headaches, no weakness, no numbness. HEMATOLOGICAL: Denies any bleeding or petechiae. GENITOURINARY: Denies any burning micturition, frequency, or urgency. MUSCULOSKELETAL/RHEUMATOLOGICAL: Denies any joint pain, swelling, or any muscle pain. ENDOCRINE: Denies any polyuria or polydipsia. 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 History of Any Multi-Drug Resistant Organisms: None Reported Past Surgical History: Cholecystectomy, Joint Replacement, Orthopedic Surgery Additional Past Surgical History / Comment(s): Moh's procedure to 1/3 of nose, bilateral knee replacements, bilateral bunionectomy, hammer toe repair, colonoscopy, 2 or 3 stents for blockage. Past Anesthesia/Blood Transfusion Reactions: Previous Problems w/ Anesthesia Additional Past Anesthesia/Blood Transfusion Reaction / Comment(s): Slow to wake up from anesthesia. Smoking Status: Unknown if ever smoked - Past Family History Mother Family Medical History: Cancer Father Family Medical History: Cancer Medications and Allergies Home Medications Medication Instructions Recorded Confirmed Type Furosemide [Lasix] 20 mg PO DAILY@01/07/06/08/19 History Montelukast [Singulair] 10 mg PO HS@209912/28/18 06/08/19 History Aspirin 81 mg PO DAILY@89906/08/19 06/08/19 History Insulin Glargine,Hum.rec.anlog 20 unit SQ BID@899,209906/08/19 06/08/19 History [Basaglar Kwikpen U-100] Insulin Lispro [Insulin Lispro See Protocol SQ ACHS 06/08/19 06/08/19 History Kwikpen U-100] Lactose-Reduced Food [Ensure Plus] 237 ml PO BID@899,209906/08/19 06/08/19 History Melatonin 10 mg PO HS PRN 06/08/19 06/08/19 History [place]-3 Acid Ethyl Esters [Lovaza] 2 gm PO BID@09,209906/08/19 06/08/19 History Potassium Chloride [Klor-Con 8] 8 meq PO BID@0900,209906/08/19 06/08/19 History Cephalexin [Keflex] 500 mg PO Q8HR #30 cap 06/14/19 Rx HYDROcodone/APAP 7.5-325MG [[place] 1 tab PO Q6H PRN #12 tab 06/14/19 Rx 7.5-325] Ammonium Lactate Cream [Lac-Hydrin 1 applic TOPICAL BID 06/23/19 06/23/19 History 12% Cream] Collagenase [Santyl] 1 applic TOPICAL HS 06/23/19 06/23/19 History Lactulose [Cephulac] 30 gm PO QID PRN 06/23/19 06/23/19 History Lidocaine 5% Patch [Lidoderm 5% 1 patch TOPICAL DAILY@89906/23/19 06/23/19 History Patch] Megestrol [Megace] 400 mg PO DAILY@89906/23/19 06/23/19 History Metoprolol Tartrate [Lopressor] 12.5 mg PO BID@0900,2100 06/23/19 06/23/19 History Mupirocin 2% Oint [Bactroban 2% 1 applic TOPICAL HS 06/23/19 06/23/19 History Oint] Pantoprazole [Protonix] 40 mg PO DAILY@0600 06/23/19 06/23/19 History Allergies Allergy/AdvReac Type Severity Reaction Status Date / Time meclizine HCl [From Antivert] AdvReac Hallucinati Verified 06/23/19 10:37 ons Physical Exam Vitals: Vital Signs Temp Pulse Resp BP Pulse Ox 06/23/19 11:01 60 17 132/64 97 06/23/19 10:20 99.1 F 06/23/19 09:46 98.3 F 74 17 136/58 98 Intake and Output 06/22/19 06/23/19 06/23/19 22:59 06:59 14:59 Other: Weight 77.111 kg -GENERAL: The patient is alert and oriented x2-3, not in any acute distress. Well developed, well nourished. Patient is slightly confused HEENT: Pupils are round and equally reacting to light. EOMI. No scleral icterus. No conjunctival pallor. Normocephalic, atraumatic. No pharyngeal erythema. No thyromegaly. CARDIOVASCULAR: S1 and S2 present. No murmurs, rubs, or gallops. PULMONARY: Chest is clear to auscultation, no wheezing or crackles. ABDOMEN: Soft, nontender, nondistended, normoactive bowel sounds. No palpable organomegaly. MUSCULOSKELETAL: No joint swelling or deformity. EXTREMITIES: No cyanosis, clubbing, or pedal edema. NEUROLOGICAL: Gross neurological examination did not reveal any focal deficits. SKIN: No rashes. No petechiae Results CBC & Chem 7: 06/23/19 10:09 06/23/19 10:09 Labs: Abnormal Lab Results - Last 24 Hours (Table) 06/23/19 06/23/19 06/23/19 Range/Units 09:54 10:09 10:09 MCV 108.4 H (80.0-100.0) fL Plt Count 118 L (150-450) k/uL Lymphocytes # 0.9 L (1.0-4.8) k/uL PT (9.0-12.0) sec INR (<1.2) APTT (22.0-30.0) sec BUN 21 H (7-17) mg/dL Glucose 284 H (74-99) mg/dL POC Glucose (mg/dL) 298 H (75-99) mg/dL Total Bilirubin 2.3 H (0.2-1.3) mg/dL AST 58 H (14-36) U/L ALT 45 H (4-34) U/L Alkaline Phosphatase 293 H (38-126) U/L Albumin 2.9 L (3.5-5.0) g/dL Urine Appearance (Clear) Urine Glucose (UA) (Negative) Urine Blood (Negative) Ur Leukocyte Esterase (Negative) Urine RBC (0-5) /hpf Urine WBC (0-5) /hpf Urine Bacteria (None) /hpf Hyaline Casts (0-2) /lpf Urine Mucus (None) /hpf Urine Yeast (Budding) (None) /hpf 06/23/19 06/23/19 Range/Units 10:09 10:09 MCV (80.0-100.0) fL Plt Count (150-450) k/uL Lymphocytes # (1.0-4.8) k/uL PT 17.1 H (9.0-12.0) sec INR 1.7 H (<1.2) APTT 20.3 L (22.0-30.0) sec BUN (7-17) mg/dL Glucose (74-99) mg/dL POC Glucose (mg/dL) (75-99) mg/dL Total Bilirubin (0.2-1.3) mg/dL AST (14-36) U/L ALT (4-34) U/L Alkaline Phosphatase (38-126) U/L Albumin (3.5-5.0) g/dL Urine Appearance Cloudy H (Clear) Urine Glucose (UA) 3+ H (Negative) Urine Blood Moderate H (Negative) Ur Leukocyte Esterase Large H (Negative) Urine RBC 112 H (0-5) /hpf Urine WBC 87 H (0-5) /hpf Urine Bacteria Rare H (None) /hpf Hyaline Casts 26 H (0-2) /lpf Urine Mucus Few H (None) /hpf Urine Yeast (Budding) Many H (None) /hpf Assessment and Plan Assessment: Possible bleeding per rectum Liver cirrhosis, possibly secondary to hepatitis Chronic low back pain Stage III a ulcer Chronic diastolic CHF Gastroesophageal reflux disease Thrombocytopenia History of precancerous lesion of the uterus, she follows up with heather Frequent falls Patient bedbound at baseline bit Type 2 diabetes Hypertension TIA Plan: This is a pleasant 73 years old female who presents because of GI bleed. Continue with Protonix, GI consult Labs and medication were reviewed.. Continue same treatment. Continue with symptomatic treatment. Resume home medication. Monitor lytes and vitals. DVT and GI prophylaxis. Further recommendations of the clinical course of the patient DVT prophylaxis: No heparin in view of possible GI bleed GI Prophylaxis: Protonix Prognosis is guarded
[2019-06-23] MEDS ORDERED: MELATONIN 5 MG TABLET PO PRN (13:55)
[2019-06-23] MEDS: LEVOFLOXACIN 500MG-D5W PMX 500 MG in DEXTROSE/WATER 1 100ML.BAG IVPB SCH (15:33)
[2019-06-23 17:21] LABS: Glucose,Whole Blood 154 mg/dL (75-99)
[2019-06-23] MEDS: HYDROcodone/APAP 7.5-325MG 1 EACH TAB PO PRN (19:15)
[2019-06-23 19:49] LABS: Glucose,Whole Blood 172 mg/dL (75-99)
[2019-06-23] MEDS: MONTELUKAST 10 MG TAB PO SCH (20:32)
[2019-06-23] MEDS: INSULIN DETEMIR (LEVEMIR) 100 UNIT/ML SYR SQ SCH (20:32)
[2019-06-23] MEDS: MUPIROCIN 2% OINT 22 GM TUBE TOPICAL SCH (20:32)
[2019-06-23] MEDS: METOPROLOL TARTRATE 12.5 MG TAB PO SCH (20:32)
[2019-06-23] MEDS: AMMONIUM LACTATE 12% CREAM 140 GM TUBE TOPICAL SCH (20:32)
[2019-06-23] MEDS ORDERED: INSULIN DETEMIR (LEVEMIR) 100 UNIT/ML SYR SQ SCH (21:00)
--- NOTE | 2019-06-23 21:59 | P.CONS ---
History of Present Illness - Reason for Consult Consult date: 06/23/19 Possible rectal bleeding Requesting physician: Mauricio E Sheet - Chief Complaint Blood per rectum - History of Present Illness 73-year-old female with multiple medical comorbidities including diastolic CHF, GERD, thrombocytopenia, lower back pain, frequent falls and biopsy-proven cirrhosis found on cholecystectomy in 2013 and bleed to be secondary to prior exposure to hepatitis, as well as chronic vaginal bleeding treated medically who presents to the hospital due to concerns over possible blood per rectum. History has been taken in conversation with the patient and her daughter who is bedside. They're reported history of chronic vaginal bleeding and states that t he patient was referred to [facility] for evaluation for possible hysterectomy and she was deemed too high risk to have the surgery performed locally. At that time the patient was started on a medical management of her bleeding with megestrol. However the patient reports that she is continued to have vaginal bleeding. She was sent in from her care facility due to concerns over a large bloody bowel movement. However the patient is seen no blood per rectum and believes that the bleeding was vaginal. She denies any pain in her abdomen. 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 She is on chronic therapy for ascites with diuretics and lactulose for encephalopathy in the outpatient setting. A previous colonoscopy in 2016 was negative for any pathology. Review of Systems REVIEW OF SYSTEMS: CONSTITUTIONAL: Denies any fevers, chills, weight change or fatigue. CARDIOVASCULAR: Denies any chest pain, palpitations high or low blood pressures RESPIRATORY: Denies any shortness of breath, hemoptysis or cough. GENITOURINARY: No dysuria or hematuria, but patient has a known history of chronic vaginal bleeding. MUSCULOSKELETAL: No focal weakness reported. SKIN: Denies any new rashes or lesions, jaundice or pallor. PSYCHIATRIC: Denies any depression or anxiety. NEUROLOGY: Denies headache, denies any new focal deficits. EARS/NOSE/THROAT: No recent hearing change, congestion, nasal discharge or sore throat. EYES: No pain in eyes, discharge or change in vision. GASTROINTESTINAL: As per HPI. Past Medical History Past Medical History: Cancer, CVA/TIA, Diabetes Mellitus, GI Bleed, Hypertension Additional Past Medical History / Comment(s): Uterine cancer, vaginal bleeding/spotting recently, skin cancer w/ removal (nose) multiple mini strokes, PM > 2 year, diarrhea, stress incontinence, elevated liver enzymes, broken nose from fall, abscess in mouth near tooth, fall in the past (not recent), hepatitis when she was an [employer]. History of Any Multi-Drug Resistant Organisms: None Reported Past Surgical History: Cholecystectomy, Joint Replacement, Orthopedic Surgery Additional Past Surgical History / Comment(s): Moh's procedure to 1/3 of nose, bilateral knee replacements, bilateral bunionectomy, hammer toe repair, colonoscopy, 2 or 3 stents for blockage. Past Anesthesia/Blood Transfusion Reactions: Previous Problems w/ Anesthesia Additional Past Anesthesia/Blood Transfusion Reaction / Comm: Slow to wake up from anesthesia. Smoking Status: Unknown if ever smoked - Past Family History Mother Family Medical History: Cancer Father Family Medical History: Cancer Medications and Allergies Home Medications Medication Instructions Recorded Confirmed Type Furosemide [Lasix] 20 mg PO DAILY@89901/07/14 06/23/19 History Montelukast [Singulair] 10 mg PO HS@209912/28/18 06/23/19 History Aspirin 81 mg PO DAILY@89906/08/19 06/23/19 History Insulin Glargine,Hum.rec.anlog 20 unit SQ BID@899,209906/08/19 06/23/19 History [Basaglar Kwikpen U-100] Insulin Lispro [Insulin Lispro See Protocol SQ ACHS 06/08/19 06/23/19 History Kwikpen U-100] Lactose-Reduced Food [Ensure Plus] 237 ml PO BID@899,209906/08/19 06/23/19 History Melatonin 10 mg PO HS PRN 06/08/19 06/23/19 History [place]-3 Acid Ethyl Esters [Lovaza] 2 gm PO BID@899,209906/08/19 06/23/19 History Potassium Chloride [Klor-Con 8] 8 meq PO BID@00,209906/08/19 06/23/19 History Cephalexin [Keflex] 500 mg PO Q8HR #30 cap 06/14/19 06/23/19 Rx HYDROcodone/APAP 7.5-325MG [[place] 1 tab PO Q6H PRN #12 tab 06/14/19 06/23/19 Rx 7.5-325] Ammonium Lactate Cream [Lac-Hydrin 1 applic TOPICAL BID 06/23/19 06/23/19 History 12% Cream] Collagenase [Santyl] 1 applic TOPICAL HS 06/23/19 06/23/19 History Lactulose [Cephulac] 30 gm PO QID PRN 06/23/19 06/23/19 History Lidocaine 5% Patch [Lidoderm 5% 1 patch TOPICAL DAILY@0900 06/23/19 06/23/19 History Patch] Megestrol [Megace] 400 mg PO DAILY@0900 06/23/19 06/23/19 History Metoprolol Tartrate [Lopressor] 12.5 mg PO BID@0900,2100 06/23/19 06/23/19 History Mupirocin 2% Oint [Bactroban 2% 1 applic TOPICAL HS 06/23/19 06/23/19 History Oint] Pantoprazole [Protonix] 40 mg PO DAILY@0600 06/23/19 06/23/19 History Allergies Allergy/AdvReac Type Severity Reaction Status Date / Time meclizine HCl [From Antivert] AdvReac Hallucinati Verified 06/23/19 10:37 ons Physical Exam Vitals: Vital Signs Temp Pulse Resp BP Pulse Ox 06/23/19 12:06 68 17 124/61 97 06/23/19 11:01 60 17 132/64 97 06/23/19 10:20 99.1 F 06/23/19 09:46 98.3 F 74 17 136/58 98 Intake and Output 06/22/19 06/23/19 06/23/19 22:59 06:59 14:59 Other: Weight 77.111 kg On physical examination, patient appears comfortable in no apparent distress. HEAD: Normocephalic, atraumatic. EYES: No scleral icterus. No conjunctival injection. MOUTH: No lesions, tongue midline. NECK: Trachea midline, no gross abnormalities. CHEST: Clear to auscultation with no wheezing or rhonchi appreciated. HEART: S1-S2 appreciated with no murmurs appreciated. ABDOMEN: Soft, obese and nondistended. Bowel sounds are positive. No organom egaly. No guarding or rigidity. EXTREMITIES: No pedal edema. SKIN: No rashes, no jaundice. NEUROLOGIC: Alert and oriented to person and place, no asterixis noted. No focal deficits. Results CBC & Chem 7: 06/23/19 10:09 06/23/19 10:09 Labs: Abnormal Lab Results - Last 24 Hours (Table) 06/23/19 06/23/19 06/23/19 Range/Units 09:54 10:09 10:09 MCV 108.4 H (80.0-100.0) fL Plt Count 118 L (150-450) k/uL Lymphocytes # 0.9 L (1.0-4.8) k/uL PT (9.0-12.0) sec INR (<1.2) APTT (22.0-30.0) sec BUN 21 H (7-17) mg/dL Glucose 284 H (74-99) mg/dL POC Glucose (mg/dL) 298 H (75-99) mg/dL Total Bilirubin 2.3 H (0.2-1.3) mg/dL AST 58 H (14-36) U/L ALT 45 H (4-34) U/L Alkaline Phosphatase 293 H (38-126) U/L Albumin 2.9 L (3.5-5.0) g/dL Urine Appearance (Clear) Urine Glucose (UA) (Negative) Urine Blood (Negative) Ur Leukocyte Esterase (Negative) Urine RBC (0-5) /hpf Urine WBC (0-5) /hpf Urine Bacteria (None) /hpf Hyaline Casts (0-2) /lpf Urine Mucus (None) /hpf Urine Yeast (Budding) (None) /hpf 06/23/19 06/23/19 Range/Units 10:09 10:09 MCV (80.0-100.0) fL Plt Count (150-450) k/uL Lymphocytes # (1.0-4.8) k/uL PT 17.1 H (9.0-12.0) sec INR 1.7 H (<1.2) APTT 20.3 L (22.0-30.0) sec BUN (7-17) mg/dL Glucose (74-99) mg/dL POC Glucose (mg/dL) (75-99) mg/dL Total Bilirubin (0.2-1.3) mg/dL AST (14-36) U/L ALT (4-34) U/L Alkaline Phosphatase (38-126) U/L Albumin (3.5-5.0) g/dL Urine Appearance Cloudy H (Clear) Urine Glucose (UA) 3+ H (Negative) Urine Blood Moderate H (Negative) Ur Leukocyte Esterase Large H (Negative) Urine RBC 112 H (0-5) /hpf Urine WBC 87 H (0-5) /hpf Urine Bacteria Rare H (None) /hpf Hyaline Casts 26 H (0-2) /lpf Urine Mucus Few H (None) /hpf Urine Yeast (Budding) Many H (None) /hpf Assessment and Plan (1) Liver cirrhosis Narrative/Plan: 73-year-old female with multiple medical comorbidities including biopsy-proven cirrhosis of unknown etiology but reported as being secondary to prior exposure to viral hepatitis in the past who presented to concerns over GI bleeding. On further discussion with the patient and her daughter she has a long-standing history of vaginal bleeding which has been attempted to be treated medically as the patient is high risk for hysterectomy however she has continued to have v aginal bleeding. In terms of the patient's cirrhosis she is on Lasix therapy in the outpatient setting for fluid overload and lactulose therapy as needed. Denies any prior episodes of variceal bleeding. Current Visit: No Status: Acute Code(s): K74.60 - UNSPECIFIED CIRRHOSIS OF LIVER SNOMED Code(s): 89606995 (2) Elevated liver enzymes Current Visit: Yes Status: Acute Code(s): R74.8 - ABNORMAL LEVELS OF OTHER SERUM ENZYMES SNOMED Code(s): 070827424 Plan: Supportive care Okay for sodium restricted diet Continue to monitor CBC, CMP Viral hepatitis panel ordered given the history reported by the patient and her daughter Ammonia level ordered, currently patient has lactulose ordered as needed may benefit from standing dose Continue Lasix therapy Gynecology service consulted Thank you for allowing us dysphagia in the care of the patient
[2019-06-24] MEDS: HYDROcodone/APAP 7.5-325MG 1 EACH TAB PO PRN (01:25)
[2019-06-24] MEDS ORDERED: MORPHINE SULFATE 2 MG/ML SYRINGE IVP STA ×2 (03:37→03:54)
[2019-06-24] MEDS: PANTOPRAZOLE 40 MG TABLET PO SCH (05:53)
[2019-06-24 07:06] LABS: Glucose,Whole Blood 63 mg/dL (75-99)
[2019-06-24] MEDS: INSULIN DETEMIR (LEVEMIR) 100 UNIT/ML SYR SQ SCH ×2 (07:19→20:26)
[2019-06-24 07:27] LABS: Glucose,Whole Blood 89 mg/dL (75-99)
[2019-06-24 08:16] LABS: Basophils # (A) 0.1 k/uL (0-0.2); Basophils % (A) 2 %; Eosinophils # (A) 0.2 k/uL (0-0.7); Eosinophils % (A) 3 %; HGB 13.7 gm/dL (11.4-16.0); Lymphocytes # (A) 1.5 k/uL (1.0-4.8); Lymphocytes % (A) 25 %; MCH 35.7 pg (25.0-35.0); MCHC 33.3 g/dL (31.0-37.0); MCV 107.2 fL (80.0-100.0); Macrocytosis Moderate; Mean Platelet Volume 10.8; Monocytes # (A) 0.4 k/uL (0-1.0); Monocytes % (A) 7 %; Neutrophils # (A) 3.7 k/uL (1.3-7.7); Neutrophils % (A) 61 %; RBC 3.82 m/uL (3.80-5.40); RDW 13.1 % (11.5-15.5)
[2019-06-24] MEDS: METOPROLOL TARTRATE 12.5 MG TAB PO SCH ×2 (08:25→20:25)
[2019-06-24] MEDS: MEGESTROL 400 MG/10 ML CUP PO SCH (08:25)
[2019-06-24 08:26] LABS: African American GFR (CKD) >90 (>60 ml/min/1.73 sqM); Anion Gap 6 mmol/L; Blood Urea Nitrogen 19 mg/dL (7-17); Calcium 8.5 mg/dL (8.4-10.2); Carbon Dioxide 27 mmol/L (22-30); Chloride 105 mmol/L (98-107); Glucose 115 mg/dL (74-99); Non-African American GFR(CKD) >90 (>60 ml/min/1.73 sqM); Sodium 138 mmol/L (137-145)
[2019-06-24] MEDS: FUROSEMIDE 20 MG TAB PO SCH (08:26)
[2019-06-24] MEDS: LIDOCAINE 5% PATCH TOPICAL SCH ×2 (08:27→08:51)
[2019-06-24 08:31] LABS: Potassium 4.4 mmol/L (3.5-5.1)
[2019-06-24 09:14] LABS: Platelet Count 80 k/uL (150-450)
[2019-06-24 11:20] LABS: Glucose,Whole Blood 163 mg/dL (75-99)
[2019-06-24] MEDS: SODIUM CHLORIDE 0.9% 1,000 ML IV SCH ×2 (11:21→20:28)
[2019-06-24] MEDS: MORPHINE SULFATE 2 MG/ML SYRINGE IVP PRN (12:28)
[2019-06-24] MEDS: AMMONIUM LACTATE 12% CREAM 140 GM TUBE TOPICAL SCH ×2 (12:36→20:25)
[2019-06-24] MEDS: LEVOFLOXACIN 500MG-D5W PMX 500 MG in DEXTROSE/WATER 1 100ML.BAG IVPB SCH (13:11)
--- NOTE | 2019-06-24 15:00 | P.OBCN ---
History of Present Illness Consult date: 06/24/19 Requesting physician: Dahlia Dimas Reason for consult: other (Postmenopausal bleeding) Chief complaint: Postmenopausal bleeding History of present illness: Radha is a very pleasant 73-year-old female with a two-year history of postmenopausal bleeding. She was seen by Dr. Dimas in 2018 and had an e ndometrial biopsy showing complex hyperplasia with atypia. She was at that time referred to [facility] under the care of Dr. Gleason for further evaluation and treatment. At that time she was scheduled for a robotic-assisted laparoscopic hysterectomy but due to her other medical problems she was instead started on Megace. To my knowledge no other biopsies have been done to verify stability or correction of the complex hyperplasia. This however, would be Dr. Gleason who would do the biopsy typically. She has continued to have some vaginal bleeding for the last 2 years. It is disruptive to her lifestyle and at this time she is having light bleeding with a stable hemoglobin of 13.5. She is currently a patient at [facility] reh for overall weakness. 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 She is sitting comfortably in her chair but she is not easily moved or manipulated. Due to her decub a pelvic exam is deferred as she has an appointment on July 13 with her primary applications development consultant where more thorough exam will be able to be done and verify no other changes since previous exam. It is unclear from the chart if any other workup has been done and she states that she is uncertain as to when the last time she saw the physicians at [facility] were. It is noted that on June [address] Pena in the hospital here as a [facility] consultation and multiple recommendations were made at that visit, none of which have been implemented at this time. I have no further recommendations beyond what has been recommended and all these recommendations are outpatient from my standpoint. Due to her limited mobility and limited positioning and exam could be done in the hospital if needed but would be very difficult to be able to do a thorough enough exam when she already has an appointment outpatient. Consideration should again be made to consult oncology as one of the recommendations from Dr. Pena was to consider local radiation to the lining of her uterus. I am not certain how effective that might be. It may very well be that she continues to have some vaginal bleeding as she is, due to her other medical problems, a poor surgical candidate. Surgery would be the only way to definitively treat this issue. I certainly think per his recommendation Mirena could be considered, but this would be a very difficult device to place in a postmenopausal woman. Consideration for increasing Megace or switching to a different progestin could also be made, but again this would fall under the [facility] oncology physician who is already managing her care. I did order an ultrasound of the pelvis to verify that there is no significant other gross changes that might need to be adjusted, but, I'm not sure how this would change treatment options her plan as again she is a poor surgical candidate. As long as she is not having any hemorrhaging and her hemoglobin is stable no acute treatments are needed at this time. Should she begin to have h emorrhaging and require other treatment, she may need an emergent D&C but that is unlikely to do more than temporarily help with the bleeding. Unfortunately with Megace, often there is some bleeding that occurs on a daily basis as it is not specifically designed to stop the bleeding, it is designed to correct hyperplasia. Again I don't see that any resampling has been done to see if her hyperplasia has converted, but unfortunately even if it has not converted, if she is a poor surgical candidate there is no other treatment that is going to be significantly more effective than the Megace and therefore resampling may not be needed since it will not change treatment plan dramatically. Past Medical History Past Medical History: Cancer, CVA/TIA, Diabetes Mellitus, GI Bleed, Hypertension Additional Past Medical History / Comment(s): Uterine cancer, vaginal bleeding/spotting recently, skin cancer w/ removal (nose) multiple mini strokes, PM > 2 year, diarrhea, stress incontinence, elevated liver enzymes, broken nose from fall, abscess in mouth near tooth, fall in the past (not recent), hepatitis when she was an [employer]. History of Any Multi-Drug Resistant Organisms: None Reported Past Surgical History: Cholecystectomy, Joint Replacement, Orthopedic Surgery Additional Past Surgical History / Comment(s): Moh's procedure to 1/3 of nose, bilateral knee replacements, bilateral bunionectomy, hammer toe repair, colonoscopy, 2 or 3 stents for blockage. Past Anesthesia/Blood Transfusion Reactions: Previous Problems w/ Anesthesia Additional Past Anesthesia/Blood Transfusion Reaction / Comm: Slow to wake up from anesthesia. Smoking Status: Unknown if ever smoked - Past Family History Mother Family Medical History: Cancer Father Family Medical History: Cancer Medications and Allergies Home Medications Medication Instructions Recorded Confirmed Type Furosemide [Lasix] 20 mg PO DAILY@01/07/06/23/19 History Montelukast [Singulair] 10 mg PO HS@209912/28/18 06/23/19 History Aspirin 81 mg PO DAILY@89906/08/19 06/23/19 History Insulin Glargine,Hum.rec.anlog 20 unit SQ BID@09,209906/08/19 06/23/19 History [Basaglar Kwikpen U-100] Insulin Lispro [Insulin Lispro See Protocol SQ ACHS 06/08/19 06/23/19 History Kwikpen U-100] Lactose-Reduced Food [Ensure Plus] 237 ml PO BID@0900,209906/08/19 06/23/19 History Melatonin 10 mg PO HS PRN 06/08/19 06/23/19 History [place]-3 Acid Ethyl Esters [Lovaza] 2 gm PO BID@0900,209906/08/19 06/23/19 History Potassium Chloride [Klor-Con 8] 8 meq PO BID@0900,209906/08/19 06/23/19 History Cephalexin [Keflex] 500 mg PO Q8HR #30 cap 06/14/19 06/23/19 Rx HYDROcodone/APAP 7.5-325MG [[place] 1 tab PO Q6H PRN #12 tab 06/14/19 06/23/19 Rx 7.5-325] Ammonium Lactate Cream [Lac-Hydrin 1 applic TOPICAL BID 06/23/19 06/23/19 History 12% Cream] Collagenase [Santyl] 1 applic TOPICAL HS 06/23/19 06/23/19 History Lactulose [Cephulac] 30 gm PO QID PRN 06/23/19 06/23/19 History Lidocaine 5% Patch [Lidoderm 5% 1 patch TOPICAL DAILY@89906/23/19 06/23/19 History Patch] Megestrol [Megace] 400 mg PO DAILY@89906/23/19 06/23/19 History Metoprolol Tartrate [Lopressor] 12.5 mg PO BID@09,2100 06/23/19 06/23/19 History Mupirocin 2% Oint [Bactroban 2% 1 applic TOPICAL HS 06/23/19 06/23/19 History Oint] Pantoprazole [Protonix] 40 mg PO DAILY@0600 06/23/19 06/23/19 History Allergies Allergy/AdvReac Type Severity Reaction Status Date / Time meclizine HCl [From Antivert] AdvReac Hallucinati Verified 06/23/19 10:37 ons Exam Osteopathic Statement: *. No significant issues noted on an osteopathic structural exam other than those noted in the History and Physical/Consult. Vital Signs Temp Pulse Resp BP Pulse Ox 06/24/19 11:34 98.5 F 79 17 133/66 96 06/24/19 10:15 144/67 06/24/19 04:57 97.5 F L 77 18 95/52 92 L 06/23/19 20:19 98.2 F 70 18 110/63 98 Intake and Output 06/23/19 06/24/19 06/24/19 22:59 06:59 14:59 Intake Total 225 600 700 Output Total 100 600 Balance 225 500 100 Intake: Intake, IV Titration 225 600 700 Amount Levofloxacin 500Mg-D5w 100 Pmx 500 mg In Dextrose/ Water 1 100ml.bag @ 100 mls/hr IVPB Q24H [facility] Rx#: [id number] Sodium Chloride 0.9% 1, 225 600 000 ml @ 75 mls/hr IV . [id number] [facility] Rx#:[id number] Sodium Chloride 0.9% 1, 600 000 ml @ 75 mls/hr IV . [id number] [facility] Rx#:[id number] Output: Urine 100 600 Uretheral (Hernandez) 100 Other: Voiding Method Indwelling Catheter Indwelling Catheter Indwelling Catheter Results Result Diagrams: 06/24/19 07:49 06/24/19 07:49 Abnormal Lab Results - Last 24 Hours (Table) 06/23/19 06/23/19 06/24/19 Range/Units 17:20 19:47 07:04 MCV (80.0-100.0) fL MCH (25.0-35.0) pg Plt Count (150-450) k/uL BUN (7-17) mg/dL Glucose (74-99) mg/dL POC Glucose (mg/dL) 154 H 172 H 63 L (75-99) mg/dL 06/24/19 06/24/19 06/24/19 Range/Units 07:49 07:49 11:19 MCV 107.2 H (80.0-100.0) fL MCH 35.7 H (25.0-35.0) pg Plt Count 80 L (150-450) k/uL BUN 19 H (7-17) mg/dL Glucose 115 H (74-99) mg/dL POC Glucose (mg/dL) 163 H (75-99) mg/dL Microbiology - Last 24 Hours (Table) 06/23/19 10:09 Urine Culture - Preliminary Urine,Voided
--- NOTE | 2019-06-24 15:35 | P.PN ---
Subjective This is a pleasant 73 years old female who came from long-term, she has past medical history of frequent falls, liver cirrhosis secondary to hepatitis infection of unspecified type as per daughter at bedside, low back pain, pressure ulcers stage III, diastolic CHF, GERD, thrombocytopenia, history and precancerous lesion of the uterus that needs hysterectomy however she found to be has risk and she was placed on megestrol 4 bleeding which was stopped and she follows up with heather, personal history of TIA, type 2 diabetes, hypertension and she was sent from [facility] for 1 time LARGE amount of blood per rectum as per staff, patient denies abdominal pain, no nausea vomiting, no other complaints. Patient is poor historian and much of the information were obtained with the help of the daughter at bedside. Patient at baseline is bed bound or works as a little bit. 06/24/2019 Patient bleeding is coming from vagina or other GI, confirmed by staff. Consulted INFORMATION ANALYST rather than GI. Patient has significant pain from her lower back pressure ulcer, she provided with morphine and patient and family were very happy because for the first time for a long time she could have a good sleep. Vitals are stable. Labs look good. Hemoglobin is stable. Objective - Vital Signs Vital signs: Vital Signs Temp 98.5 F 06/24/19 11:34 Pulse 79 06/24/19 11:34 Resp 17 06/24/19 11:34 BP 133/66 06/24/19 11:34 Pulse Ox 96 06/24/19 11:34 Intake & Output 06/23/19 06/24/19 06/24/19 18:59 06:59 18:59 Intake Total 825 700 Output Total 100 600 Balance 725 100 Weight 77.111 kg Intake: Intake, IV Titration 825 700 Amount Levofloxacin 500Mg-D5w 100 Pmx 500 mg In Dextrose/ Water 1 100ml.bag @ 100 mls/hr IVPB Q24H [facility] Rx#: [id number] Sodium Chloride 0.9% 1, 825 000 ml @ 75 mls/hr IV . [id number] [facility] Rx#:[id number] Sodium Chloride 0.9% 1, 600 000 ml @ 75 mls/hr IV . [id number] [facility] Rx#:[id number] Output: Urine 100 600 Uretheral (Hernandez) 100 Other: Voiding Method Indwelling Catheter Indwelling Catheter Indwelling Catheter # Bowel Movements 1 - Exam -GENERAL: The patient is alert and oriented x2-3, not in any acute distress. Well developed, well nourished. Patient is slightly confused HEENT: Pupils are round and equally reacting to light. EOMI. No scleral icterus. No conjunctival pallor. Normocephalic, atraumatic. No pharyngeal erythema. No thyromegaly. CARDIOVASCULAR: S1 and S2 present. No murmurs, rubs, or gallops. PULMONARY: Chest is clear to auscultation, no wheezing or crackles. ABDOMEN: Soft, nontender, nondistended, normoactive bowel sounds. No palpable organomegaly. MUSCULOSKELETAL: No joint swelling or deformity. -EXTREMITIES: No cyanosis, clubbing, or pedal edema. She is 3 and 4 pressure ulcer, in the lower back NEUROLOGICAL: Gross neurological examination did not reveal any focal deficits. SKIN: No rashes. No petechiae - Labs CBC & Chem 7: 06/24/19 07:49 06/24/19 07:49 Labs: Abnormal Lab Results - Last 24 Hours (Table) 06/23/19 06/23/19 06/24/19 Range/Units 17:20 19:47 07:04 MCV (80.0-100.0) fL MCH (25.0-35.0) pg Plt Count (150-450) k/uL BUN (7-17) mg/dL Glucose (74-99) mg/dL POC Glucose (mg/dL) 154 H 172 H 63 L (75-99) mg/dL 06/24/19 06/24/19 06/24/19 Range/Units 07:49 07:49 11:19 MCV 107.2 H (80.0-100.0) fL MCH 35.7 H (25.0-35.0) pg Plt Count 80 L (150-450) k/uL BUN 19 H (7-17) mg/dL Glucose 115 H (74-99) mg/dL POC Glucose (mg/dL) 163 H (75-99) mg/dL Microbiology - Last 24 Hours (Table) 06/23/19 10:09 Urine Culture - Preliminary Urine,Voided Assessment and Plan Assessment: Bleeding per vagina rather than GI bleednic low back pain Liver cirrhosis, possibly secondary to hepatitis Chronic low back pain Stage III a ulcer Chronic diastolic CHF Gastroesophageal reflux disease Thrombocytopenia History of precancerous lesion of the uterus, she follows up with heather Frequent falls Patient bedbound at baseline bit Type 2 diabetes Hypertension TIA Plan: This is a pleasant 73 years old female who presents because of GI bleed. Continue with Protonix, GI input is appreciated, we'll consult INFORMATION ANALYST as her bleeding is coming from reproductive organs rather than GI Labs and medication were reviewed.. Continue same treatment. Continue with s ymptomatic treatment. Resume home medication. Monitor lytes and vitals. DVT and GI prophylaxis. Further recommendations of the clinical course of the patient DVT prophylaxis: No heparin in view of possible GI bleed GI Prophylaxis: Protonix Prognosis is guarded
--- NOTE | 2019-06-24 16:07 | US ---
EXAMINATION TYPE: US pelvic complete DATE OF EXAM: 06/24/2019 COMPARISON: NONE CLINICAL HISTORY: post menopausal bleeding x couple of episodes within past 2 years; indwelling bladd er catheter is present. TECHNIQUE: Transvaginal (TV) and Transabdominal (TA) . Transabdominal sonographic images of the pel vis were acquired. Transvaginal sonographic images were medically necessary to better assess the fol lowing anatomy: endometrium Date of LMP: many years ago EXAM MEASUREMENTS: Uterus: 9.9 x 6.7 x 5.6 cm Endometrial Stripe: 1.71 cm TA US; TV US shadowing is noted over sagittal endometrial view Right Ovary: not seen Left Ovary: not seen 1. Uterus: Anteverted; couple of small Nabothian Cysts are noted in cervix on TV US 2. Endometrium: abnormally thickened by TA US and TV US views 3. Right Ovary: not seen 4. Left Ovary: not seen 5. Bilateral Adnexa: wnl 6. Posterior cul-de-sac: complex free fluid is noted in cul de sac = 11.3 x 9.1x 6.1cm x 0.523 = 328 .1ml (abnormal volume as is greater than10.0ml.) IMPRESSION: 1. Complex fluid within the cul-de-sac of uncertain etiology. 2. Thickened endometrium.
[2019-06-24 16:48] VITALS: BMI 25.8
[2019-06-24 17:09] LABS: Glucose,Whole Blood 137 mg/dL (75-99)
--- NOTE | 2019-06-24 19:35 | P.PN ---
Subjective Progress Note Date: 06/24/19 Principal diagnosis: Possible GI bleed, cirrhosis The patient is seen sitting bedside denying any abdominal pain. She is tolerating her diet. No signs or symptoms of GI bleeding. Objective - Vital Signs Vital signs: Vital Signs Temp 97.5 F L 06/24/19 04:57 Pulse 77 06/24/19 04:57 Resp 18 06/24/19 04:57 BP 144/67 06/24/19 10:15 Pulse Ox 92 L 06/24/19 04:57 Intake & Output 06/23/19 06/24/19 06/24/19 18:59 06:59 18:59 Intake Total 825 Output Total 100 Balance 725 Weight 77.111 kg Intake: Intake, IV Titration 825 Amount Sodium Chloride 0.9% 1, 825 000 ml @ 75 mls/hr IV . [id number] ONE Rx#:[id number] Output: Urine 100 Uretheral (Hernandez) 100 Other: Voiding Method Indwelling Catheter Indwelling Catheter # Bowel Movements 1 - Exam On physical examination, patient appears comfortable in no apparent distress. HEAD: Normocephalic, atraumatic. EYES: No scleral icterus. No conjunctival injection. MOUTH: No lesions, tongue midline. NECK: Trachea midline, no gross abnormalities. ABDOMEN: Soft, obese. Bowel sounds are positive. No organomegaly. No guarding or rigidity. EXTREMITIES: No pedal edema. SKIN: No rashes, no jaundice. NEUROLOGIC: Alert and oriented. No focal deficits. - Labs CBC & Chem 7: 06/24/19 07:49 06/24/19 07:49 Labs: Abnormal Lab Results - Last 24 Hours (Table) 06/23/19 06/23/19 06/24/19 Range/Units 17:20 19:47 07:04 MCV (80.0-100.0) fL MCH (25.0-35.0) pg Plt Count (150-450) k/uL BUN (7-17) mg/dL Glucose (74-99) mg/dL POC Glucose (mg/dL) 154 H 172 H 63 L (75-99) mg/dL 06/24/19 06/24/19 06/24/19 Range/Units 07:49 07:49 11:19 MCV 107.2 H (80.0-100.0) fL MCH 35.7 H (25.0-35.0) pg Plt Count 80 L (150-450) k/uL BUN 19 H (7-17) mg/dL Glucose 115 H (74-99) mg/dL POC Glucose (mg/dL) 163 H (75-99) mg/dL Microbiology - Last 24 Hours (Table) 06/23/19 10:09 Urine Culture - Preliminary Urine,Voided Assessment and Plan (1) Liver cirrhosis Narrative/Plan: 73-year-old female with multiple medical comorbidities including biopsy-proven cirrhosis of unknown etiology but reported as being secondary to prior exposure to viral hepatitis in the past who presented to concerns over GI bleeding. On further discussion with the patient and her daughter she has a long-standing history of vaginal bleeding which has been attempted to be treated medically as the patient is high risk for hysterectomy however she has continued to have vaginal bleeding. In terms of the patient's cirrhosis she is on Lasix therapy in the outpatient setting for fluid overload and lactulose therapy as needed. Denies any prior episodes of variceal bleeding. Current Visit: No Status: Acute Code(s): K74.60 - UNSPECIFIED CIRRHOSIS OF LIVER SNOMED Code(s): 74935141 (2) Elevated liver enzymes Current Visit: Yes Status: Acute Code(s): R74.8 - ABNORMAL LEVELS OF OTHER SERUM ENZYMES SNOMED Code(s): 553502137 Plan: Supportive care Okay for sodium restricted diet Continue to monitor CBC, CMP Viral hepatitis panel ordered given the history reported by the patient and her daughter, if positive the patient can follow up with the gastroenterology clinic after discharge Ammonia level ordered and normal Continue Lasix therapy Gynecology service for management of vaginal bleeding Okay for discharge gastroenterology otherwise medically stable Thank you for allowing us to participate in the care of the patient, the GI service will stand by, please call us back with any questions or concerns
[2019-06-24 20:00] LABS: Glucose,Whole Blood 257 mg/dL (75-99)
[2019-06-24] MEDS: MONTELUKAST 10 MG TAB PO SCH (20:25)
[2019-06-24] MEDS: MUPIROCIN 2% OINT 22 GM TUBE TOPICAL SCH (20:25)
[2019-06-25] MEDS: HYDROcodone/APAP 7.5-325MG 1 EACH TAB PO PRN ×2 (00:44→17:43)
[2019-06-25 02:59] LABS: Glucose,Whole Blood 214 mg/dL (75-99)
[2019-06-25] MEDS: PANTOPRAZOLE 40 MG TABLET PO SCH (06:17)
[2019-06-25 06:48] LABS: Glucose,Whole Blood 135 mg/dL (75-99)
[2019-06-25 07:37] LABS: Basophils # (A) 0.1 k/uL (0-0.2); Basophils % (A) 2 %; Eosinophils # (A) 0.2 k/uL (0-0.7); Eosinophils % (A) 4 %; HCT 37.8 % (34.0-46.0); HGB 12.8 gm/dL (11.4-16.0); Lymphocytes # (A) 1.2 k/uL (1.0-4.8); Lymphocytes % (A) 23 %; MCH 35.7 pg (25.0-35.0); MCHC 33.8 g/dL (31.0-37.0); MCV 105.5 fL (80.0-100.0); Macrocytosis Slight; Mean Platelet Volume 10.2; Monocytes # (A) 0.4 k/uL (0-1.0); Monocytes % (A) 8 %; Neutrophils # (A) 3.2 k/uL (1.3-7.7); Neutrophils % (A) 63 %; Platelet Count 113 k/uL (150-450); RBC 3.59 m/uL (3.80-5.40); RDW 12.9 % (11.5-15.5); WBC 5.1 k/uL (3.8-10.6)
[2019-06-25] MEDS: MEGESTROL 400 MG/10 ML CUP PO SCH (08:58)
[2019-06-25] MEDS: METOPROLOL TARTRATE 12.5 MG TAB PO SCH ×2 (08:58→21:34)
[2019-06-25] MEDS: FUROSEMIDE 20 MG TAB PO SCH (08:58)
[2019-06-25] MEDS: MORPHINE SULFATE 2 MG/ML SYRINGE IVP PRN ×3 (09:01→23:41)
[2019-06-25] MEDS: AMMONIUM LACTATE 12% CREAM 140 GM TUBE TOPICAL SCH ×2 (09:02→21:35)
[2019-06-25] MEDS: INSULIN DETEMIR (LEVEMIR) 100 UNIT/ML SYR SQ SCH ×2 (09:02→21:34)
[2019-06-25 11:03] LABS: Glucose,Whole Blood 165 mg/dL (75-99)
[2019-06-25] MEDS: SODIUM CHLORIDE 0.9% 1,000 ML IV SCH ×2 (12:32→23:43)
[2019-06-25 13:18] LABS: Hepatitis A Antibody IgM Non-Reactive (Non-Reactive); Hepatitis B Core IgM Non-Reactive (Non-Reactive); Hepatitis B Surface Antigen Non-Reactive (Non-Reactive); Hepatitis C IgG Antibody Non-Reactive (Non-Reactive)
[2019-06-25] MEDS: LEVOFLOXACIN 500MG-D5W PMX 500 MG in DEXTROSE/WATER 1 100ML.BAG IVPB SCH (13:40)
[2019-06-25 17:11] LABS: Glucose,Whole Blood 202 mg/dL (75-99)
[2019-06-25 20:29] LABS: Glucose,Whole Blood 216 mg/dL (75-99)
[2019-06-25] MEDS: MONTELUKAST 10 MG TAB PO SCH (21:34)
[2019-06-25] MEDS: MUPIROCIN 2% OINT 22 GM TUBE TOPICAL SCH (21:35)
--- NOTE | 2019-06-25 22:44 | PN ---
PROGRESS NOTE This patient is a 73-year-old white female admitted with GI bleeding which turns out to be vaginal bleeding from dysmenorrhea. She NovaSure treatment. She has been started on some kind of Megace per Hematology, Gynecology and need followup there for possible NovaSure procedure. She has a sacral wound 4 to 5 cm x 2 inches deep, stage III to IV, which needs treatment with Dr. Knight as well as her UTI. Waiting for his recommendations prior to being discharged. Despite urine bleeding, which is chronic, she has normal hemoglobin. She is weak, fatigued. She is stressed out over her daughter, who she says may be mejia. CARDIOVASCULAR: S1, S2. LUNGS: Rales at the base. HEMATOLOGY: Negative Homans. PSYCH: Fair mood and affect. ASSESSMENT: 1. Gastrointestinal bleed. 2. Cirrhosis. Continue on lactulose. 1. Vaginal bleeding. 2. Uterine . Continue on Megace. Wait for Gynecology. For her UTI and sacral ulcer wait for Dr. Knight's recommendations prior to discharge to rehab. MMODL / DONTEN: [id number] /
--- NOTE | 2019-06-25 22:59 | CONS ---
CONSULTATION DATE OF SERVICE: 06/25/2019 REASON FOR CONSULTATION: Sacral pressure ulcer and UTI. HISTORY OF PRESENT ILLNESS: The patient is a 73-year-old female, a local shelter resident. The patient was sent to [facility] ER on 06/23/2019 for evaluation of bright red blood per rectum that apparently was noticed the day of presentation to the hospital. The patient denied any abdominal pain or any nausea or vomiting on presentation to the ER physician. On arrival in the ER, the patient was been afebrile and the patient has remained afebrile. The patient's white count has been normal. Hemoglobin has remained stable. The patient did have a positive UA which was cloudy, large leukocyte esterase, WBC, many yeast, with the urine cultures currently pending. The patient has been treated with Levaquin. The patient also has had a sacral pressure ulcer for the last couple of weeks now. The patient is not very clear about what treatment she was getting for that pressure ulcer. I was asked to see the patient today for management of her UTI as well as her sacral pressure ulcer. The patient is currently awake and alert. She knows she is in the hospital. The patient denies having any chest pain or shortness of breath or cough. No nausea, vomiting and no diarrhea. No further bleeding per rectum has been noted. The patient did have some dull aching pain to the sacral wound area; unable to quantify it any further. She is not sure about the drainage or the treatment she has been receiving for the same or if she has been seen by a wound care physician at the [facility]. REVIEW OF SYSTEMS: Positive points have been mentioned in HPI. Rest of the systems are negative. PAST MEDICAL HISTORY: 1. CVA, TIA. 2. History of uterine cancer. 3. Diabetes mellitus. 4. GI bleed. 5. Hypertension. 6. Sacral pressure ulcer. 7. UTI. PAST SURGICAL HISTORY: 1. Cholecystectomy. 2. Moh's procedure. 3. Bilateral knee replacement. 4. Bilateral bunionectomy. 5. Hammertoe repair. 6. Colonoscopy. SOCIAL HISTORY: Currently a shelter resident. No history of smoking, drinking or drug use. FAMILY HISTORY: Both parents with history of cancer, unknown type. ALLERGIES: MECLIZINE. MEDICATIONS: Medications currently include Protonix, Bactroban ointment, morphine sulfate, Singulair, Lopressor, melatonin, Megace, Levaquin, lactulose, Levemir, Lasix and [place]. PHYSICAL EXAMINATION: Blood pressure 132/69 with a pulse of 81, temperature 98.1. She is 98% on room air. General description is an elderly female lying in bed in no distress. No tachypnea or accessory muscle of respiration use. HEENT examination shows no pallor or scleral icterus. Oral mucosa membrane is dry. No pharyngeal erythema or thrush. NECK: Trachea is central. No thyromegaly. LUNGS: Unlabored breathing. Clear to auscultation anteriorly. No wheeze or crackle. HEART: S1, S2. Regular rate and rhythm. ABDOMEN: Soft. No tenderness. No guarding or rigidity. EXTREMITIES: No edema of the feet. EXAMINATION OF SACRAL AREA: The patient does have a stage III pressure ulcer with slough tissue at the base. There is no significant surrounding swelling, redness or any foul-smelling drainage. Neurologically the patient is awake, alert, oriented x3. Mood and affect normal. LABS: Hemoglobin is 12.8, white count 5.1. BUN of 19, creatinine 0.54. Electrolytes have been normal. Urine has been positive. Cultures are currently pending. Hepatitis serology has been negative. DIAGNOSTIC IMPRESSION AND PLAN: 1. Patient with a sacral pressure ulcer, stage III, currently with no evidence of any secondary cellulitis. Will recommend local wound care. 2. Patient with a urinary tract infection. Waiting for urine culture to finalize. PLAN: 1. Local wound care to the sacral wound with Santyl followed by moist dressing to be changed daily and recommend keeping the area off pressure with an air mattress. 2. Continue the patient on Levaquin while waiting for the urine culture to finalize. 3. Will follow up on clinical condition and culture to further adjust medication if needed. Thank you for this consultation. Will follow this patient along with you. MMODL / IJN: [id number] /
[2019-06-25] MEDS: LACTULOSE 20 GM/30 ML CUP PO PRN (23:43)
[2019-06-26] MEDS: PANTOPRAZOLE 40 MG TABLET PO SCH (05:57)
[2019-06-26] MEDS: HYDROcodone/APAP 7.5-325MG 1 EACH TAB PO PRN ×2 (05:57→20:22)
[2019-06-26 07:08] LABS: Glucose,Whole Blood 121 mg/dL (75-99)
[2019-06-26 08:08] LABS: HCT 39.7 % (34.0-46.0); HGB 13.1 gm/dL (11.4-16.0); MCH 35.4 pg (25.0-35.0); MCHC 33.1 g/dL (31.0-37.0); Macrocytosis Moderate; Mean Platelet Volume 9.4; Platelet Count 109 k/uL (150-450); RBC 3.71 m/uL (3.80-5.40); WBC 5.1 k/uL (3.8-10.6)
[2019-06-26 08:24] LABS: Eosinophils # (M) 0.05 k/uL (0-0.7); Lymphocytes # (M) 1.43 k/uL (1.0-4.8); Monocytes # (M) 0.41 k/uL (0-1.0); Neutrophils # (M) 3.21 k/uL (1.3-7.7); Neutrophils % (M) 63 %; Nucleated Red Blood Cells 0 /100 WBC (0-0); Total Cells Counted 100
[2019-06-26] MEDS: METOPROLOL TARTRATE 12.5 MG TAB PO SCH ×2 (09:24→20:22)
[2019-06-26] MEDS: FUROSEMIDE 20 MG TAB PO SCH (09:24)
[2019-06-26] MEDS: INSULIN DETEMIR (LEVEMIR) 100 UNIT/ML SYR SQ SCH ×2 (09:24→20:22)
[2019-06-26] MEDS: MEGESTROL 400 MG/10 ML CUP PO SCH (09:24)
[2019-06-26] MEDS: LIDOCAINE 5% PATCH TOPICAL SCH (09:25)
[2019-06-26 11:33] LABS: Glucose,Whole Blood 98 mg/dL (75-99)
[2019-06-26] MEDS: MORPHINE SULFATE 2 MG/ML SYRINGE IVP PRN ×2 (12:00→21:15)
[2019-06-26] MEDS: AMMONIUM LACTATE 12% CREAM 140 GM TUBE TOPICAL SCH ×2 (12:01→20:21)
[2019-06-26 13:19] LABS: Appearance,Urine Cloudy (Clear); Bacteria,Urine Many /hpf; Bilirubin,Urine Negative (Negative); Blood,Urine Moderate (Negative); Budding Yeast,Urine Few /hpf; Color,Urine Yellow; Glucose,Urine (UA) Negative (Negative); Hyaline Casts,Urine 1 /lpf (0-2); Ketones,Urine Negative (Negative); Leukocyte Esterase,Urine Large (Negative); Mucus,Urine Rare /hpf; Nitrite,Urine Negative (Negative); Protein,Urine Negative (Negative); RBC,Urine 8 /hpf (0-5); Specific Gravity,Urine 1.006 (1.001-1.035); Squamous Epithelial Cell,Urine 7 /hpf (0-4); Urobilinogen,Urine <2.0 mg/dL (<2.0); WBC,Urine 55 /hpf (0-5)
[2019-06-26] MEDS ORDERED: LEVOFLOXACIN 500 MG TAB PO SCH (14:00)
--- NOTE | 2019-06-26 14:05 | PN ---
PROGRESS NOTE DATE OF SERVICE: 06/26/2019 REASON FOR FOLLOWUP: 1. A stage III sacral pressure ulcer. 2. Urinary tract infection. INTERVAL HISTORY: The patient is currently afebrile. Patient is breathing comfortably. No nausea, vomiting. No or abdominal pain has been reported. PHYSICAL EXAMINATION: Blood pressure 130/72 with a pulse of 86, temperature 98.3, she is 96% on room air. General description is an elderly female, lying in bed in no distress. RESPIRATORY SYSTEM: Unlabored breathing, clear to auscultation anteriorly. HEART: S1, S2. Regular rate and rhythm. ABDOMEN: Soft, no tenderness. LABS: Hemoglobin is 13.1, white count 5.1, urine with Mercedez glabrata. DIAGNOSTIC IMPRESSION AND PLAN: 1. Patient with a positive urine culture with Mercedez glabrata in this patient who did have an indwelling Hernandez catheter present with possible Hernandez colonization. Will recommend change of her Hernandez catheter, obtaining a urine culture from new Hernandez with further antibiotic [QAMARKER], repeat urine culture. 2. Patient with a stage II sacral pressure ulcer with no cellulitis. Local wound care with Medihoney and moist dressing, keep the area off the pressure. This is explained again to the RN taking care of the patient. MMODL / IJN: [id number] /
[2019-06-26] MEDS: SODIUM CHLORIDE 0.9% 1,000 ML IV SCH (16:32)
[2019-06-26 17:28] LABS: Glucose,Whole Blood 133 mg/dL (75-99)
[2019-06-26 19:49] LABS: Glucose,Whole Blood 190 mg/dL (75-99)
[2019-06-26] MEDS: MUPIROCIN 2% OINT 22 GM TUBE TOPICAL SCH (20:21)
[2019-06-26] MEDS: MONTELUKAST 10 MG TAB PO SCH (20:22)
--- NOTE | 2019-06-26 23:02 | PN ---
PROGRESS NOTE This is a 73-year-old white female who continues to have vaginal bleeding but hemoglobin is stable. Urinary tract infection has been re-cultured after Hernandez has been checked. Sacral ulcer, stage II. Cirrhosis. Patient is improving. chest pain or shortness of breath. No lightheadedness, syncope. CARDIOVASCULAR: S1, S2. LUNGS: Clear. HEMATOLOGY: Negative Homans. ASSESSMENT: 1. Vaginal bleeding. 2. Urinary tract infection. 3. Sacral ulcer. 4. Cirrhosis. As mentioned, UTI has been re-cultured. Medihoney to sacral wound. PT/OT. Possible discharge back to the rehab center once urine infection cleared up with infectious disease physician. MMODL / IJN: [id number] /
[2019-06-27] MEDS: PANTOPRAZOLE 40 MG TABLET PO SCH (05:11)
[2019-06-27] MEDS: SODIUM CHLORIDE 0.9% 1,000 ML IV SCH ×2 (05:11→19:02)
[2019-06-27 06:59] LABS: Glucose,Whole Blood 101 mg/dL (75-99)
[2019-06-27] MEDS: AMMONIUM LACTATE 12% CREAM 140 GM TUBE TOPICAL SCH ×2 (07:55→20:44)
[2019-06-27] MEDS: INSULIN DETEMIR (LEVEMIR) 100 UNIT/ML SYR SQ SCH ×2 (07:55→20:44)
[2019-06-27] MEDS: MEGESTROL 400 MG/10 ML CUP PO SCH (07:55)
[2019-06-27] MEDS: METOPROLOL TARTRATE 12.5 MG TAB PO SCH ×2 (07:56→20:44)
[2019-06-27] MEDS: FUROSEMIDE 20 MG TAB PO SCH (07:56)
[2019-06-27] MEDS: LIDOCAINE 5% PATCH TOPICAL SCH (07:57)
[2019-06-27] MEDS: HYDROcodone/APAP 7.5-325MG 1 EACH TAB PO PRN ×2 (09:12→18:01)
[2019-06-27 11:06] LABS: Glucose,Whole Blood 161 mg/dL (75-99)
[2019-06-27] MEDS ORDERED: ANIDULAFUNGIN 200 MG in SODIUM CHLORIDE 0.9% 200 ML IVPB ONE (13:50)
--- NOTE | 2019-06-27 13:51 | CDI ---
Documentation Clarification Form Date: 06/27/2019 01:40:00 PM From: Gayatri Oquendo RN, CCDS Admit Date: 06/25/2019 02:57:00 PM Patient Name: Radha Tinajero Visit Number: [id number] Discharge Date: ATTENTION: The Clinical Documentation Specialists (CDI) and [facility] Coding Staff appreciate your assistance in clarifying documentation. Please respond to the clarification below the line at the bottom and electronically sign. The CDI & [facility] Coding staff will review the response and follow-up if needed. Please note: Queries are made part of the Legal Health Record. If you have any questions, please contact the author of this message via ITS. Dr. Ant Amador UTI was documented in the ER, H&P and ID consult and the patient has an indwelling Hernandez catheter and further clarification is needed. History/Risk Factors: (Hernandez POA placed by staff at [facility] per documentation on 06/23/19) Clinical Indicators: 73-year-old female present to ER from the alf on 06/23/19 at 09:45 with complaints of bright red blood per rectum. She has an indwelling Hernandez that was present at time of admission, placed at [facility]. Urine culture taken on 06/23/19 at 10:09 was positive for Mercedez glabrata. On 06/26/19 a second culture was sent and is pending. Vital Signs: 06/23/19@09:46 136/58 74 17 983 98 % RA 06/23/19 08:00 WBC: 6.5 Urinalysis: 06/23/19 @08:00 Ur leukocyte Esterase large, urine wbc 87 Urine Culture: Ruba glabrata Treatment Antibiotics: Levaquin 500 mg IV Q 24 hrs 06/26/19 Repeat Urine culture- Pending 06/26/19 12:46 ID (Dr. Knight) Patient with positive urine culture with Mercedez glabrata in this patient who did have an indwelling Hernandez catheter present with possible Hernandez colonization. Recommend change Hernandez catheter, obtaining a urine culture from new Hernandez. Please document the condition that these clinical indicators signify, whether Present on Admission, and cause if known: UTI, Catheter related UTI (Present on admission UTI, not catheter related Contaminated specimen Other, please specify Unable to determine (Last Revision: March 2017) MTDD
[2019-06-27 16:57] LABS: Glucose,Whole Blood 164 mg/dL (75-99)
[2019-06-27] MEDS: LACTULOSE 20 GM/30 ML CUP PO PRN (18:01)
[2019-06-27 20:06] LABS: Glucose,Whole Blood 163 mg/dL (75-99)
[2019-06-27] MEDS: MUPIROCIN 2% OINT 22 GM TUBE TOPICAL SCH (20:44)
[2019-06-27] MEDS: MONTELUKAST 10 MG TAB PO SCH (20:44)
--- NOTE | 2019-06-27 23:32 | PN ---
PROGRESS NOTE DATE OF SERVICE: 06/27/2019 REASON FOR FOLLOWUP: 1. Urinary tract infection. 2. Sacral pressure ulcer. INTERVAL HISTORY: The patient is currently afebrile. The patient is breathing comfortably. Denies having any chest pain or cough. No nausea, vomiting, or abdominal pain. Did have some pain to the sacral wound daily, but no worsening. Her Hernandez catheter was changed yesterday. PHYSICAL EXAMINATION: Blood pressure is 115/60 with a pulse of 91. Temperature 98.2. She is 93% on room air. General description is an elderly female lying in bed in no distress. Respiratory system: Unlabored breathing. Clear to auscultation anteriorly. Heart S1, S2. Regular rate and rhythm. Abdomen soft, no tenderness. LABS: Hemoglobin is 13.1, white count 5.1, BUN of 19, creatinine 0.54. DIAGNOSTIC IMPRESSION AND PLAN: 1. Patient with a positive culture with Mercedez glabrata for possible [QAMARKERthe source is urinary tract infection, repeat urine culture currently pending after change of Hernandez catheter. Continue with Eraxis. 2. The patient with sacral pressure ulcer stage III. Local care to continue with Medihoney followed by moist dressing to keep the area off the pressure. MMODL / IJN: [id number] /
--- NOTE | 2019-06-27 23:56 | PN ---
PROGRESS NOTE 73-year-old white female who repeat urinalysis on a new Hernandez catheter shows 55 white cells. Still has some encephalopathy and confusion. We will check ammonia level in the morning and remain on broad-spectrum antibiotics until urine cultures come back. Hemoglobin is up to 13.1. Displays some vaginal bleeding. Mental status: She is confused. CARDIOVASCULAR: S1, S2. Lungs clear. GI soft. ASSESSMENT: 1. Uterine bleeding. 2. Cirrhosis of the liver. 3. Recurrent urinary tract infection. 4. Dehydration. 5. Chronic diastolic heart failure. 6. Osteoarthritis. PLAN: Continue current treatments. Monitor for bleeding. Monitor hemoglobins. Continue IV antibiotics until cultures are back. PT/OT. MMODL / IJN: [id number] /
[2019-06-28] MEDS: MORPHINE SULFATE 2 MG/ML SYRINGE IVP PRN ×2 (00:59→05:43)
[2019-06-28] MEDS: SODIUM CHLORIDE 0.9% 1,000 ML IV SCH ×2 (05:42→20:52)
[2019-06-28] MEDS: PANTOPRAZOLE 40 MG TABLET PO SCH (05:42)
[2019-06-28 07:09] LABS: Glucose,Whole Blood 123 mg/dL (75-99)
[2019-06-28] MEDS: AMMONIUM LACTATE 12% CREAM 140 GM TUBE TOPICAL SCH ×2 (08:44→20:39)
[2019-06-28] MEDS: INSULIN DETEMIR (LEVEMIR) 100 UNIT/ML SYR SQ SCH ×2 (08:44→21:34)
[2019-06-28] MEDS: ANIDULAFUNGIN 100 MG in SODIUM CHLORIDE 0.9% 100 ML IVPB SCH (08:44)
[2019-06-28] MEDS: MEGESTROL 400 MG/10 ML CUP PO SCH (10:11)
[2019-06-28] MEDS: METOPROLOL TARTRATE 12.5 MG TAB PO SCH ×2 (10:14→20:38)
[2019-06-28] MEDS: LIDOCAINE 5% PATCH TOPICAL SCH ×2 (10:14→10:18)
[2019-06-28] MEDS: FUROSEMIDE 20 MG TAB PO SCH (10:15)
--- NOTE | 2019-06-28 11:20 | CDI ---
Documentation Clarification Form Date: 06/28/2019 10:51:42 AM From: Gayatri Oquendo RN, CCDS Admit Date: 06/25/2019 02:57:00 PM Patient Name: Radha Tinajero Visit Number: [id number] Discharge Date: ATTENTION: The Clinical Documentation Specialists (CDI) and [facility] Coding Staff appreciate your assistance in clarifying documentation. Please respond to the clarification below the line at the bottom and electronically sign. The CDI & [facility] Coding staff will review the response and follow-up if needed. Please note: Queries are made part of the Legal Health Record. If you have any questions, please contact the author of this message via ITS. Dr. Ant Amador Encephalopathy and confusion is documented in the History and Physical and your progress note on 06/27/19 and further specificity is needed for the type of encephalopathy. History/Risk Factors: Recurrent urinary tract infection, Cirrhosis of the liver, Viral Hepatitis Clinical Indicators: 73-year-old present per H/P on 06/25/19 is alert and oriented x2-3, slightly confused. She was diagnosed with recurrent urinary tract infection and has as history of liver cirrhosis with on going treatment of Lactulose 06/23/19 Labs: Total Bilirubin 2.3, AST 58, ALT 45, Alkaline Phosphatase 293, UA: Large Leukocyte Esterase, Urine WBC 87, Urine yeast-Many 06/24/19 Labs: Hepatitis panel: A, B, C- Non-Reactive, Plt count 80, Ammonia Treatment: Lactulose 30gm PO QID Monitor CBC, Saline 0.9 % @ 75 mls/hr Echinocandins 100 mg IV Daily In your professional opinion, please clarify the etiology of the Encephalopathy, if known. Metabolic Encephalopathy (specify Underlying Medical Illness) Hepatic Encephalopathy (specify Underlying medical illness) Other condition (please specify) Unable to determine (Last Revision: September 2017) MTDD
[2019-06-28 11:24] LABS: Glucose,Whole Blood 110 mg/dL (75-99)
[2019-06-28 13:39] LABS: ALT 28 U/L (4-34); AST 42 U/L (14-36); African American GFR (CKD) >90 (>60 ml/min/1.73 sqM); Albumin 2.7 g/dL (3.5-5.0); Alkaline Phosphatase 228 U/L (38-126); Anion Gap 4 mmol/L; Blood Urea Nitrogen 13 mg/dL (7-17); Calcium 8.7 mg/dL (8.4-10.2); Carbon Dioxide 27 mmol/L (22-30); Chloride 109 mmol/L (98-107); Glucose 92 mg/dL (74-99); Non-African American GFR(CKD) >90 (>60 ml/min/1.73 sqM); Potassium 3.7 mmol/L (3.5-5.1); Sodium 140 mmol/L (137-145); Total Bilirubin 1.8 mg/dL (0.2-1.3); Total Protein 6.4 g/dL (6.3-8.2)
[2019-06-28 13:57] LABS: Basophils % (A) 1 %; Eosinophils # (A) 0.1 k/uL (0-0.7); Eosinophils % (A) 2 %; HGB 13.1 gm/dL (11.4-16.0); Lymphocytes # (A) 1.2 k/uL (1.0-4.8); Lymphocytes % (A) 24 %; MCH 34.8 pg (25.0-35.0); MCHC 32.7 g/dL (31.0-37.0); MCV 106.3 fL (80.0-100.0); Macrocytosis Moderate; Monocytes # (A) 0.4 k/uL (0-1.0); Monocytes % (A) 8 %; Neutrophils % (A) 63 %; Platelet Count 104 k/uL (150-450); RBC 3.76 m/uL (3.80-5.40); WBC 4.8 k/uL (3.8-10.6)
[2019-06-28 14:22] LABS: Anisocytosis (M) Present; Poikilocytosis (M) Present
--- NOTE | 2019-06-28 15:39 | P.CNNES ---
History of Present Illness Consult date: 06/28/19 Requesting physician: Yvette Daily Reason for Consult: Confusion History of Present Illness: Patient is a 73-year-old female who was brought to the hospital on 06/23/2019 because she fell 2-3 times a week prior to arrival to the hospital. She states that she did not pass out, did not trip or slip. She just fell down on the floor. Patient was diagnosed with acute UTI, also has stage III sacral pressure ulcer on the back. Patient appears to be in severe pain in the back. She received morphine 2 mg this morning at 5:43 AM. Patient slept till 10 AM. Patient was subsequently noted to be more confused, which prompted this neurology consultation. Patient's most recent blood test shows WBC 4.8 hemoglobin 13.1 with elevated MCV 106.3. Platelets are 104. INR is 1.7. PT 17.1. Patient's electrolytes are no rmal. Renal functions normal. Hemoglobin A1c 7.6 on 06/11/2019. AST is mildly elevated 42 with ALT 28. Diane been is elevated. TSH is normal. Vitamin D 24.9. UA showed signs of infection and the cultures have grown Mercedez glabrata. Infectious disease is already on the case. At present patient appears to be in pain, appears obviously sick, slightly delirious. Patient lives at [facility] he has 1 daughter and a son. On review of records, it appears patient had a carotid Doppler on 02/12/2016 which revealed bilateral intimal thickening with no significant stenosis. Antegrade flow in both vertebral arteries. Patient also had a normal MRI and MRA and MRV of the brain on 04/09/2016 Review of Systems Complains of generalized pain. Denies headache. Patient did not answer to rest of the questions. 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 History of Any Multi-Drug Resistant Organisms: None Reported Past Surgical History: Cholecystectomy, Joint Replacement, Orthopedic Surgery Additional Past Surgical History / Comment(s): Moh's procedure to 06/08 of nose, bilateral knee replacements, bilateral bunionectomy, hammer toe repair, colonoscopy, 2 or 3 stents for blockage. Past Anesthesia/Blood Transfusion Reactions: Previous Problems w/ Anesthesia Additional Past Anesthesia/Blood Transfusion Reaction / Comment(s): Slow to wake up from anesthesia. Smoking Status: Unknown if ever smoked - Past Family History Mother Family Medical History: Cancer Father Family Medical History: Cancer Medications and Allergies Home Medications Medication Instructions Recorded Confirmed Type Furosemide [Lasix] 20 mg PO DAILY@0900 01/07/06/23/19 History Montelukast [Singulair] 10 mg PO HS@209912/28/18 06/23/19 History Aspirin 81 mg PO DAILY@89906/08/19 06/23/19 History Insulin Glargine,Hum.rec.anlog 20 unit SQ BID@0900,209906/08/19 06/23/19 History [Basaglar Kwikpen U-100] Insulin Lispro [Insulin Lispro See Protocol SQ ACHS 06/08/19 06/23/19 History Kwikpen U-100] Lactose-Reduced Food [Ensure Plus] 237 ml PO BID@0900,209906/08/19 06/23/19 History Melatonin 10 mg PO HS PRN 06/08/19 06/23/19 History [place]-3 Acid Ethyl Esters [Lovaza] 2 gm PO BID@0900,209906/08/19 06/23/19 History Potassium Chloride [Klor-Con 8] 8 meq PO BID@0900,209906/08/19 06/23/19 History Cephalexin [Keflex] 500 mg PO Q8HR #30 cap 06/14/19 06/23/19 Rx HYDROcodone/APAP 7.5-325MG [[place] 1 tab PO Q6H PRN #12 tab 06/14/19 06/23/19 Rx 7.5-325] Ammonium Lactate Cream [Lac-Hydrin 1 applic TOPICAL BID 06/23/19 06/23/19 History 12% Cream] Collagenase [Santyl] 1 applic TOPICAL HS 06/23/19 06/23/19 History Lactulose [Cephulac] 30 gm PO QID PRN 06/23/19 06/23/19 History Lidocaine 5% Patch [Lidoderm 5% 1 patch TOPICAL DAILY@0900 06/23/19 06/23/19 History Patch] Megestrol [Megace] 400 mg PO DAILY@0900 06/23/19 06/23/19 History Metoprolol Tartrate [Lopressor] 12.5 mg PO BID@0900,2100 06/23/19 06/23/19 History Mupirocin 2% Oint [Bactroban 2% 1 applic TOPICAL HS 06/23/19 06/23/19 History Oint] Pantoprazole [Protonix] 40 mg PO DAILY@0600 06/23/19 06/23/19 History Allergies Allergy/AdvReac Type Severity Reaction Status Date / Time meclizine HCl [From Antivert] AdvReac Hallucinati Verified 06/23/19 10:37 ons Physical Examination - Vital Signs Vital Signs: Vital Signs Temp Pulse Resp BP Pulse Ox 06/28/19 11:42 99.1 F 113 H 18 152/75 95 06/28/19 05:00 97.9 F 92 16 147/68 95 06/27/19 21:06 98.2 F 91 20 115/63 93 L 06/27/19 19:36 98.3 F 94 18 150/68 06/27/19 18:14 98.6 F 94 18 138/72 97 Intake and Output 06/28/19 06/28/19 06/28/19 06:59 14:59 22:59 Intake Total 720 100 Output Total 900 Balance 720 -800 Intake: Intake, IV Titration 600 100 Amount Anidulafungin 100 mg In 100 Sodium Chloride 0.9% 100 ml @ 84 mls/hr IVPB DAILY AMARA Rx#:[id number] Sodium Chloride 0.9% 1, 600 000 ml @ 75 mls/hr IV . [id number] AMARA Rx#:[id number] Oral 120 Output: Urine 900 Other: Voiding Method Indwelling Catheter Indwelling Catheter On examination patient is an elderly female, who appears to be in [id number] distress because of pain. She is also slightly short of br eath. Patient states that it is June, then stated was August and then again said was July. Could not tell the current year. Could not tell the CT and states she is in although she knows name of the current president and her age 73 years. Speech and language functions are normal with no aphasia or dysarthria. On cranial reexamination pupils are round and reacting, visual walters appears f ull. Face is symmetric and tongue protrudes the midline. Muscle strength is normal in the arms and legs. Patient did not cooperate well with checking of the lower extremities. Patient has tremors of outstretched hands. Reflexes are symmetric and plantars are equivocal. Sensory touch is equal. Bruit or murmur could not be heard because patient is moaning frequently. Results - Laboratory Findings CBC and BMP: 06/28/19 13:06 06/28/19 13:06 Abnormal Lab Findings: Abnormal Labs 06/23/19 06/23/19 06/23/19 09:54 10:09 10:09 RBC MCV 108.4 H MCH Plt Count 118 L Lymphocytes # 0.9 L PT INR APTT Chloride BUN 21 H Creatinine Glucose 284 H POC Glucose (mg/dL) 298 H Total Bilirubin 2.3 H AST 58 H ALT 45 H Alkaline Phosphatase 293 H Albumin 2.9 L Urine Appearance Urine Glucose (UA) Urine Blood Ur Leukocyte Esterase Urine RBC Urine WBC Urine WBC Clumps Ur Squamous Epith Cells Urine Bacteria Hyaline Casts Urine Mucus Urine Yeast (Budding) 06/23/19 06/23/19 06/23/19 10:09 10:09 17:20 RBC MCV MCH Plt Count Lymphocytes # PT 17.1 H INR 1.7 H APTT 20.3 L Chloride BUN Creatinine Glucose POC Glucose (mg/dL) 154 H Total Bilirubin AST ALT Alkaline Phosphatase Albumin Urine Appearance Cloudy H Urine Glucose (UA) 3+ H Urine Blood Moderate H Ur Leukocyte Esterase Large H Urine RBC 112 H Urine WBC 87 H Urine WBC Clumps Ur Squamous Epith Cells Urine Bacteria Rare H Hyaline Casts 26 H Urine Mucus Few H Urine Yeast (Budding) Many H 06/23/19 06/24/19 06/24/19 19:47 07:04 07:49 RBC MCV 107.2 H MCH 35.7 H Plt Count 80 L Lymphocytes # PT INR APTT Chloride BUN Creatinine Glucose POC Glucose (mg/dL) 172 H 63 L Total Bilirubin AST ALT Alkaline Phosphatase Albumin Urine Appearance Urine Glucose (UA) Urine Blood Ur Leukocyte Esterase Urine RBC Urine WBC Urine WBC Clumps Ur Squamous Epith Cells Urine Bacteria Hyaline Casts Urine Mucus Urine Yeast (Budding) 06/24/19 06/24/19 06/24/19 07:49 11:19 17:08 RBC MCV MCH Plt Count Lymphocytes # PT INR APTT Chloride BUN 19 H Creatinine Glucose 115 H POC Glucose (mg/dL) 163 H 137 H Total Bilirubin AST ALT Alkaline Phosphatase Albumin Urine Appearance Urine Glucose (UA) Urine Blood Ur Leukocyte Esterase Urine RBC Urine WBC Urine WBC Clumps Ur Squamous Epith Cells Urine Bacteria Hyaline Casts Urine Mucus Urine Yeast (Budding) 06/24/19 06/25/19 06/25/19 19:58 02:57 06:35 RBC 3.59 L MCV 105.5 H MCH 35.7 H Plt Count 113 L Lymphocytes # PT INR APTT Chloride BUN Creatinine Glucose POC Glucose (mg/dL) 257 H 214 H Total Bilirubin AST ALT Alkaline Phosphatase Albumin Urine Appearance Urine Glucose (UA) Urine Blood Ur Leukocyte Esterase Urine RBC Urine WBC Urine WBC Clumps Ur Squamous Epith Cells Urine Bacteria Hyaline Casts Urine Mucus Urine Yeast (Budding) 06/25/19 06/25/19 06/25/19 06:47 11:01 17:08 RBC MCV MCH Plt Count Lymphocytes # PT INR APTT Chloride BUN Creatinine Glucose POC Glucose (mg/dL) 135 H 165 H 202 H Total Bilirubin AST ALT Alkaline Phosphatase Albumin Urine Appearance Urine Glucose (UA) Urine Blood Ur Leukocyte Esterase Urine RBC Urine WBC Urine WBC Clumps Ur Squamous Epith Cells Urine Bacteria Hyaline Casts Urine Mucus Urine Yeast (Budding) 06/25/19 06/26/19 06/26/19 20:27 07:05 07:21 RBC 3.71 L MCV 107.0 H MCH 35.4 H Plt Count 109 L Lymphocytes # PT INR APTT Chloride BUN Creatinine Glucose POC Glucose (mg/dL) 216 H 121 H Total Bilirubin AST ALT Alkaline Phosphatase Albumin Urine Appearance Urine Glucose (UA) Urine Blood Ur Leukocyte Esterase Urine RBC Urine WBC Urine WBC Clumps Ur Squamous Epith Cells Urine Bacteria Hyaline Casts Urine Mucus Urine Yeast (Budding) 06/26/19 06/26/19 06/26/19 12:00 17:27 19:48 RBC MCV MCH Plt Count Lymphocytes # PT INR APTT Chloride BUN Creatinine Glucose POC Glucose (mg/dL) 133 H 190 H Total Bilirubin AST ALT Alkaline Phosphatase Albumin Urine Appearance Cloudy H Urine Glucose (UA) Urine Blood Moderate H Ur Leukocyte Esterase Large H Urine RBC 8 H Urine WBC 55 H Urine WBC Clumps Few H Ur Squamous Epith Cells 7 H Urine Bacteria Many H Hyaline Casts Urine Mucus Rare H Urine Yeast (Budding) Few H 06/27/19 06/27/19 06/27/19 06:58 11:02 16:55 RBC MCV MCH Plt Count Lymphocytes # PT INR APTT Chloride BUN Creatinine Glucose POC Glucose (mg/dL) 101 H 161 H 164 H Total Bilirubin AST ALT Alkaline Phosphatase Albumin Urine Appearance Urine Glucose (UA) Urine Blood Ur Leukocyte Esterase Urine RBC Urine WBC Urine WBC Clumps Ur Squamous Epith Cells Urine Bacteria Hyaline Casts Urine Mucus Urine Yeast (Budding) 06/27/19 06/28/19 06/28/19 20:05 07:07 11:22 RBC MCV MCH Plt Count Lymphocytes # PT INR APTT Chloride BUN Creatinine Glucose POC Glucose (mg/dL) 163 H 123 H 110 H Total Bilirubin AST ALT Alkaline Phosphatase Albumin Urine Appearance Urine Glucose (UA) Urine Blood Ur Leukocyte Esterase Urine RBC Urine WBC Urine WBC Clumps Ur Squamous Epith Cells Urine Bacteria Hyaline Casts Urine Mucus Urine Yeast (Budding) 06/28/19 06/28/19 13:06 13:06 RBC 3.76 L MCV 106.3 H MCH Plt Count 104 L Lymphocytes # PT INR APTT Chloride 109 H BUN Creatinine 0.51 L Glucose POC Glucose (mg/dL) Total Bilirubin 1.8 H AST 42 H ALT Alkaline Phosphatase 228 H Albumin 2.7 L Urine Appearance Urine Glucose (UA) Urine Blood Ur Leukocyte Esterase Urine RBC Urine WBC Urine WBC Clumps Ur Squamous Epith Cells Urine Bacteria Hyaline Casts Urine Mucus Urine Yeast (Budding) Assessment and Plan Assessment: * Altered mental status, likely related to acute delirium. Patient's recent history of UTI, sacral ulcers, pain and narcotics (morphine given for pain) are the likely cause. Patient's examination is nonfocal. * History of cirrhosis. Ammonia level normal. * Diabetes * Obesity * Sacral ulcers. Plan: * Patient's altered mental status is likely related to delirium. Uncertain if patient has underlying cognitive impairment. * Treatment of the various medical conditions as per IM and infectious disease. * Avoid sedatives, hypnotics and narcotics. * Patient has macrocytosis. We will check B12, folate levels. * We will follow patient clinically.
--- NOTE | 2019-06-28 16:42 | PN ---
PROGRESS NOTE DATE OF SERVICE: 06/28/2019 REASON FOR FOLLOWUP: 1. Stage III sacral pressure ulcer. 2. UTI. INTERVAL HISTORY: The patient is currently afebrile. The patient is breathing comfortably. The patient denies having any chest pain or any cough. No nausea, no vomiting, no abdominal pain or any diarrhea. PHYSICAL EXAMINATION: Blood pressure 152/72 with a pulse of 92, temperature 98.1. She is 95% on room air. General description is an elderly female lying in bed in no distress. RESPIRATORY SYSTEM: Unlabored breathing. Clear to auscultation anteriorly. HEART: S1, S2. Regular rate and rhythm. ABDOMEN: Soft. No tenderness. LABS: Hemoglobin 13.1, white count 4.8 with BUN of 13, creatinine 1.51. Urine culture repeat has been negative. DIAGNOSTIC IMPRESSION AND PLAN: 1. Patient with urinary tract infection. 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 Unable to treat. Repeat culture negative after changing the catheter. To discontinue the Rocephin on discharge. 2. Sacral wound. Continue local wound care with Medihoney followed by moist dressing and keep the area off pressure. MMODL / IJN: [id number] /
[2019-06-28 16:56] LABS: Glucose,Whole Blood 69 mg/dL (75-99)
[2019-06-28 17:40] LABS: Glucose,Whole Blood 85 mg/dL (75-99)
[2019-06-28] MEDS: MONTELUKAST 10 MG TAB PO SCH (20:38)
[2019-06-28] MEDS: MUPIROCIN 2% OINT 22 GM TUBE TOPICAL SCH (20:39)
[2019-06-28 20:44] LABS: Glucose,Whole Blood 148 mg/dL (75-99)
[2019-06-28] MEDS: HYDROcodone/APAP 7.5-325MG 1 EACH TAB PO PRN (20:45)
--- NOTE | 2019-06-28 23:27 | PN ---
PROGRESS NOTE White female. We held her pain medicine due to delirium and confusion. Labs were ordered, which were pretty good. Ammonia level is normal. Urine culture came back negative for severe infection. CARDIOVASCULAR: S1, S2. LUNGS: Clear. GI: Soft. HEMATOLOGY: Negative Homans. ASSESSMENT: 1. Gastrointestinal bleed. 2. Elevated liver enzymes. 3. Chronic obstructive pulmonary disease. 4. Cirrhosis. 5. Diastolic heart failure. Continue current treatment. PT/OT. Hold pain medication through the IV. Possible discharge home back to rehab center tomorrow. MMODL / IJN: [id number] /
[2019-06-29 01:22] LABS: Folate, Serum 14.7 ng/mL
[2019-06-29 05:10] VITALS: BP 160/70; PULSE 89; RESP 17; TEMP 98.2
[2019-06-29] MEDS: PANTOPRAZOLE 40 MG TABLET PO SCH ×2 (05:31→09:47)
[2019-06-29 06:57] LABS: Glucose,Whole Blood 127 mg/dL (75-99)
[2019-06-29 07:25] LABS: ALT 26 U/L (4-34); AST 53 U/L (14-36); African American GFR (CKD) >90 (>60 ml/min/1.73 sqM); Albumin 2.6 g/dL (3.5-5.0); Alkaline Phosphatase 222 U/L (38-126); Anion Gap 7 mmol/L; Blood Urea Nitrogen 14 mg/dL (7-17); Calcium 8.6 mg/dL (8.4-10.2); Carbon Dioxide 24 mmol/L (22-30); Chloride 109 mmol/L (98-107); Glucose 140 mg/dL (74-99); Non-African American GFR(CKD) >90 (>60 ml/min/1.73 sqM); Sodium 140 mmol/L (137-145); Total Protein 6.7 g/dL (6.3-8.2)
[2019-06-29 07:55] LABS: Potassium 4.3 mmol/L (3.5-5.1)
[2019-06-29 08:23] LABS: Basophils % (A) 0 %; Eosinophils # (A) 0.1 k/uL (0-0.7); Eosinophils % (A) 2 %; HCT 39.2 % (34.0-46.0); HGB 13.1 gm/dL (11.4-16.0); Lymphocytes # (A) 1.4 k/uL (1.0-4.8); Lymphocytes % (A) 25 %; MCH 35.7 pg (25.0-35.0); MCHC 33.4 g/dL (31.0-37.0); MCV 106.8 fL (80.0-100.0); Macrocytosis Moderate; Mean Platelet Volume 10.3; Monocytes # (A) 0.5 k/uL (0-1.0); Monocytes % (A) 9 %; Neutrophils # (A) 3.5 k/uL (1.3-7.7); Neutrophils % (A) 62 %; Platelet Count 103 k/uL (150-450); RBC 3.67 m/uL (3.80-5.40); WBC 5.6 k/uL (3.8-10.6)
[2019-06-29] MEDS: ANIDULAFUNGIN 100 MG in SODIUM CHLORIDE 0.9% 100 ML IVPB SCH (09:45)
[2019-06-29] MEDS: INSULIN DETEMIR (LEVEMIR) 100 UNIT/ML SYR SQ SCH (09:46)
[2019-06-29] MEDS: FUROSEMIDE 20 MG TAB PO SCH (09:47)
[2019-06-29] MEDS: MEGESTROL 400 MG/10 ML CUP PO SCH (09:48)
[2019-06-29] MEDS: METOPROLOL TARTRATE 12.5 MG TAB PO SCH (09:48)
[2019-06-29] MEDS: LIDOCAINE 5% PATCH TOPICAL SCH (09:48)
[2019-06-29] MEDS: SODIUM CHLORIDE 0.9% 1,000 ML IV SCH (09:49)
[2019-06-29] MEDS: HYDROcodone/APAP 7.5-325MG 1 EACH TAB PO PRN (09:53)
[2019-06-29] MEDS: AMMONIUM LACTATE 12% CREAM 140 GM TUBE TOPICAL SCH (09:53)
--- NOTE | 2019-06-29 10:37 | P.DS ---
Providers Date of admission: 06/25/19 14:57 Expected date of discharge: 06/29/19 Attending physician: Ant Amador Consults: 06/23/19 13:54 Consult Physician Routine Consulting Provider: Sonia Dimas Consult Reason/Comments: Vaginal Bleeding Do you want consulting provider notified?: Yes 06/25/19 12:43 Consult Physician Urgent Consulting Provider: Rashmi Knight Consult Reason/Comments: sacral wound, uti and possible IV antibiotics at home Do you want consulting provider notified?: Yes 06/25/19 13:11 Consult Physician Routine Consulting Provider: Rashmi Knight Consult Reason/Comments: sacral ulcer Do you want consulting provider notified?: Yes 06/28/19 12:34 Consult Physician Routine Consulting Provider: Demian Hernandez Consult Reason/Comments: Confusion Do you want consulting provider notified?: Yes Primary care physician: Ant Amador Assessment: Final Diagnoses: Acute metabolic encephalopathy, secondary to infection, medications, improved Postmenopausal bleeding in a patient with history of complex hyperplasia with atypia, follows with at [facility], high surgical risk Liver cirrhosis, possibly secondary to hepatitis with history of prior exposure to viral hepatitis Chronic low back pain Stage III pressure ulcer Chronic diastolic CHF Gastroesophageal reflux disease Thrombocytopenia History of precancerous lesion of the uterus, she follows up with heather [place] [facility] Patient bedbound at baseline bit Type 2 diabetes Hypertension TIA UTI, urine culture reporting Mercedez glabrata, 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 Rocephin discontinued at discharge as per ID. Hospital course:This is a pleasant 73 years old female who came from jail, she has past medical history of frequent falls, liver cirrhosis secondary to hepatitis infection of unspecified type as per daughter at bedside, low back pain, pressure ulcers stage III, diastolic CHF, GERD, thrombocytopenia, history and precancerous lesion of the uterus that needs hysterectomy however she found to be has risk and she was placed on megestrol 4 bleeding which was stopped and she follows up with heather, personal history of TIA, type 2 diabetes, hypertension and she was sent from [facility] for [facility] time LARGE amount of blood per rectum as per staff, patient denies abdominal pain, no nausea vomiting, no other complaints. Patient is poor historian and much of the information were obtained with the help of the daughter at bedside. Patient at baseline is bed bound or works as a little bit. Evaluated by multiple consults, neurology, GI, [employer], infectious disease. Please refer to progress notes, consult notes for specific details. Significant clinical improvement. Cleared by all consults for discharge. Patient is being discharged to [facility] subacute rehab in a stable condition with guarded prognosis. - Exam -GENERAL: The patient is alert and oriented x2-3, not in any acute distress. CARDIOVASCULAR: S1 and S2 present. No murmurs, rubs, or gallops. PULMONARY: Chest is clear to auscultation, no wheezing or crackles. ABDOMEN: Soft, nontender, nondistended, normoactive bowel sounds. No palpable organomegaly. NEUROLOGICAL: No focal deficits. The impression and plan of care has been dictated as directed. : I performed a history and examination of this patient, discussed the same with the dictator. I agree with the dictator's note ,documented as a scribe. Any additional findings or plans will be noted. Patient Condition at Discharge: Stable Plan - Discharge Summary New Discharge Prescriptions: Continue Furosemide [Lasix] 20 mg PO DAILY@0900 Montelukast [Singulair] 10 mg PO HS@2100 Melatonin 10 mg PO HS PRN PRN Reason: Insomnia Insulin Lispro [Insulin Lispro Kwikpen U-100] See Protocol SQ ACHS Potassium Chloride [Klor-Con 8] 8 meq PO BID@0900,2100 [place]-3 Acid Ethyl Esters [Lovaza] 2 gm PO BID@0900,2100 Lactose-Reduced Food [Ensure Plus] 237 ml PO BID@0900,2100 Insulin Glargine,Hum.rec.anlog [Basaglar Kwikpen U-100] 20 unit SQ BID@09 00,2100 Aspirin 81 mg PO DAILY@0900 Ammonium Lactate Cream [Lac-Hydrin 12% Cream] 1 applic TOPICAL BID Mupirocin 2% Oint [Bactroban 2% Oint] 1 applic TOPICAL HS Lactulose [Cephulac] 30 gm PO QID PRN PRN Reason: Constipation Metoprolol Tartrate [Lopressor] 12.5 mg PO BID@0900,2100 Pantoprazole [Protonix] 40 mg PO DAILY@0600 Megestrol [Megace] 400 mg PO DAILY@0900 Lidocaine 5% Patch [Lidoderm 5% Patch] 1 patch TOPICAL DAILY@0900 HYDROcodone/APAP 7.5-325MG [[place] 7.5-325] 1 tab PO Q6H PRN #12 tab PRN Reason: Pain Discontinued Collagenase [Santyl] 1 applic TOPICAL HS Discharge Medication List Furosemide [Lasix] 20 mg PO DAILY@0901/07/14 [History] Montelukast [Singulair] 10 mg PO HS@209912/28/18 [History] Aspirin 81 mg PO DAILY@89906/08/19 [History] Insulin Glargine,Hum.rec.anlog [Basaglar Kwikpen U-100] 20 unit SQ BID@899,209906/08/19 [History] Insulin Lispro [Insulin Lispro Kwikpen U-100] See Protocol SQ ACHS 06/08/19 [History] Lactose-Reduced Food [Ensure Plus] 237 ml PO BID@09,209906/08/19 [History] Melatonin 10 mg PO HS PRN 06/08/19 [History] [place]-3 Acid Ethyl Esters [Lovaza] 2 gm PO BID@09,209906/08/19 [History] Potassium Chloride [Klor-Con 8] 8 meq PO BID@899,209906/08/19 [History] Ammonium Lactate Cream [Lac-Hydrin 12% Cream] 1 applic TOPICAL BID 06/23/19 [History] Lactulose [Cephulac] 30 gm PO QID PRN 06/23/19 [History] Lidocaine 5% Patch [Lidoderm 5% Patch] 1 patch TOPICAL DAILY@89906/23/19 [History] Megestrol [Megace] 400 mg PO DAILY@89906/23/19 [History] Metoprolol Tartrate [Lopressor] 12.5 mg PO BID@09,209906/23/19 [History] Mupirocin 2% Oint [Bactroban 2% Oint] 1 applic TOPICAL HS 06/23/19 [History] Pantoprazole [Protonix] 40 mg PO DAILY@59906/23/19 [History] HYDROcodone/APAP 7.5-325MG [[place] 7.5-325] 1 tab PO Q6H PRN #12 tab 06/29/19 [Rx] Follow up Appointment(s)/Referral(s): Ant Amador MD [Primary Care Provider] - 3 Days Activity/Diet/Wound Care/Special Instructions: [facility] Continue local wound care with medihoney followed by moist dressing to sacral wound as advised per ID Diet consistent carb, 2000 mg low-sodium diet Activity: As tolerated CBC, BMP in 3 days Discharge Disposition: TRANSFER TO SNF/ECF
[2019-06-29 11:20] LABS: Glucose,Whole Blood 214 mg/dL (75-99)
--- NOTE | 2019-06-29 13:29 | PN ---
PROGRESS NOTE DATE OF SERVICE: 06/29/2019 REASON FOR FOLLOWUP: 1. Urinary tract infection. 2. Sacral pressure ulcer. INTERVAL HISTORY: The patient is currently afebrile. The patient is breathing comfortably. Patient denies having any chest pain or cough. No nausea or vomiting. No abdominal pain or any diarrhea. PHYSICAL EXAMINATION: Blood pressure is 160/70 with a pulse of 89, temperature 98.2. She is 97% on room air. General description is an elderly female, lying in bed in no distress. RESPIRATORY SYSTEM: Unlabored breathing, clear to auscultation anteriorly. HEART: S1, S2. Regular rate and rhythm. ABDOMEN: Soft. No tenderness. LABS: Hemoglobin 13.1, white count 5.6, BUN of 14, creatinine 0.49. Repeat urine culture negative. DIAGNOSTIC IMPRESSION AND PLAN: 1. Patient with positive urine culture with Mercedez glabrata, possible colonization versus , adequately treated. Repeat urine culture negative. The patient has her IV. There is no need for any antifungal on discharge. 2. Sacral pressure ulcer. Local care to continue with local wound care with Santyl/Gonzalo followed by moist dressing. Keep the area off pressure. Continue with supportive care. MMODL / IJN: [id number] /
--- NOTE | 2019-06-29 21:10 | P.PN ---
Subjective Progress Note Date: 06/29/19 Patient was seen for a follow-up at around 11 AM today. Patient's daughter was also present. Patient continues to have severe pain in the sacral region, rates 10/10. Patient is getting Dahlgren every 4 hours. Patient is much more alert and awake today. Patient has not received morphine anymore. Patient's daughter states that prior to arrival, she did not have any memory issues. Patient at present appears quite disoriented as per examination below. Objective - Vital Signs Vital signs: Vital Signs Temp 98.2 F 06/29/19 05:00 Pulse 89 06/29/19 05:00 Resp 17 06/29/19 05:00 BP 160/70 06/29/19 05:00 Pulse Ox 97 06/29/19 05:00 Intake & Output 06/29/19 06/29/19 06/30/19 06:59 18:59 06:59 Output Total 450 Balance -450 Weight 77.111 kg Output: Urine 450 Other: Voiding Method Indwelling Catheter Indwelling Catheter # Voids 0 # Bowel Movements 1 - Exam On examination patient is alert and awake in no distress. Patient states that it is either August or September. Could not tell the current year. She could not tell the state that she is in although when I give her choices, she did say it was [place]. Speech and language functions are normal. Examination otherwise unchanged. - Labs CBC & Chem 7: 06/29/19 06:41 06/29/19 06:41 Labs: Abnormal Lab Results - Last 24 Hours (Table) 06/28/19 06/29/19 06/29/19 Range/Units 13:06 06:41 06:41 RBC 3.67 L (3.80-5.40) m/uL MCV 106.8 H (80.0-100.0) fL MCH 35.7 H (25.0-35.0) pg Plt Count 103 L (150-450) k/uL Chloride 109 H (98-107) mmol/L Creatinine 0.49 L (0.52-1.04) mg/dL Glucose 140 H (74-99) mg/dL POC Glucose (mg/dL) (75-99) mg/dL Total Bilirubin 2.0 H (0.2-1.3) mg/dL AST 53 H (14-36) U/L Alkaline Phosphatase 222 H (38-126) U/L Albumin 2.6 L (3.5-5.0) g/dL Vitamin B12 1016.0 H (200.0-944.0) pg/mL 06/29/19 06/29/19 Range/Units 06:54 11:10 RBC (3.80-5.40) m/uL MCV (80.0-100.0) fL MCH (25.0-35.0) pg Plt Count (150-450) k/uL Chloride (98-107) mmol/L Creatinine (0.52-1.04) mg/dL Glucose (74-99) mg/dL POC Glucose (mg/dL) 127 H 214 H (75-99) mg/dL Total Bilirubin (0.2-1.3) mg/dL AST (14-36) U/L Alkaline Phosphatase (38-126) U/L Albumin (3.5-5.0) g/dL Vitamin B12 (200.0-944.0) pg/mL Microbiology - Last 24 Hours (Table) 06/24/19 10:15 Blood Culture - Preliminary Blood No Growth after 120 hours Assessment and Plan Assessment: * Altered mental status, likely related to acute delirium. Patient's recent history of UTI, sacral ulcers, pain and narcotics (morphine given for pain) are the likely cause. Patient's examination is nonfocal. * History of cirrhosis. Ammonia level normal. * Diabetes * Obesity * Sacral ulcers. Plan: * Patient's altered mental status is likely related to delirium. Uncertain if patient has underlying cognitive impairment. Patient's daughter denies any cognitive issues. * Treatment of the various medical conditions as per IM and infectious disease. * Avoid sedatives, hypnotics and narcotics. * Patient has macrocytosis. B12 1016, folate 14.7, both normal. * Patient is being discharged now. Patient's daughter was recommended to have patient follow-up with a neurologist if her memory functions continues to be a problem despite treatment of her underlying metabolic/infectious conditions.
== END 2019-06-29 13:50 | DRG 760 ==
LOC: EC 09:42 → 5NMEDONC 11:10 → OBSVTOIN 06-25 14:57
PROVIDERS: ADMIT Family Medicine; ATTEND Family Medicine
DX: N94.6 Dysmenorrhea, unspecified (principal); L89.154 Pressure ulcer of sacral region, stage 4; G92 Toxic encephalopathy; I50.32 Chronic diastolic (congestive) heart failure; F05 Delirium due to known physiological condition; N39.0 Urinary tract infection, site not specified; B19.9 Unspecified viral hepatitis without hepatic coma; Z96.653 Presence of artificial knee joint, bilateral; I11.0 Hypertensive heart disease with heart failure; N95.0 Postmenopausal bleeding; E66.9 Obesity, unspecified; E11.9 Type 2 diabetes mellitus without complications; D69.6 Thrombocytopenia, unspecified; E86.0 Dehydration; G89.29 Other chronic pain; J44.9 Chronic obstructive pulmonary disease, unspecified; K21.9 Gastro-esophageal reflux disease without esophagitis; K74.60 Unspecified cirrhosis of liver; M19.90 Unspecified osteoarthritis, unspecified site; R29.6 Repeated falls; Z79.899 Other long term (current) drug therapy; Z79.82 Long term (current) use of aspirin; Z88.8 Allergy status to other drugs, medicaments and biological substances; Z86.73 Personal history of transient ischemic attack (TIA), and cerebral infarction without residual deficits; Z85.828 Personal history of other malignant neoplasm of skin; Z87.440 Personal history of urinary (tract) infections; Z85.42 Personal history of malignant neoplasm of other parts of uterus; Z90.49 Acquired absence of other specified parts of digestive tract; Z90.89 Acquired absence of other organs; Z98.890 Other specified postprocedural states; Z80.9 Family history of malignant neoplasm, unspecified; Z74.01 Bed confinement status
CPT/HCPCS: 36415; 76830; 76856; 80048; 80053; 80074; 81001; 82140; 82607; 82746; 83605; 83735; 84484; 85025; 85610; 85730; 86850; 86900; 86901; 87040; 87086; 93005; 96361; 96374; 99285